=== PATIENT | female | born 1995 | race Caucasian/White ===

== ENCOUNTER 2020-08-19 18:22 | Emergency (ER) | payer OTHER, BC, SELFPAY ==
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
[2020-08-19 18:24] VITALS: BP 127/107; PULSE 73; RESP 18; TEMP 36.2; O2SAT 100
[2020-08-19 18:29] VITALS: BP 142/79; PULSE 98; RESP 18; O2SAT 100
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
[2020-08-19 19:52] VITALS: BP 117/72; PULSE 76; RESP 16; TEMP 36.6; O2SAT 100
== END 2020-08-19 19:54 | disposition home or self-care (01) ==
PROVIDERS: Emergency Provider Emergency Medicine; PCP Family Medicine
DX: R51.9 Headache, unspecified (principal); W54.1XXA Struck by dog, initial encounter
CPT/HCPCS: 70450; 99284

== ENCOUNTER 2020-12-20 20:21 | Emergency (ER) | payer BC, SELFPAY ==
--- NOTE | ~2020-12-20 | XR_ITS ---
EXAMINATION: XR foot RT 2V DATE: 12/20/2020 21:19 INDICATION: Right calcaneal and posterior ankle pain post fall TECHNIQUE: 1. Anteroposterior and lateral view of the right ankle were obtained. 2. Dorsoplantar and lateral views of the right foot were obtained. COMPARISON: None. FINDINGS: Alignment of the foot and ankle is normal. No fracture or osteochondral lesion. Joint spaces are well maintained. No ankle joint effusion. The soft tissues are unremarkable. IMPRESSION: 1. Negative right foot and ankle radiographs. Reviewed, dictated and finalized at location A.
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
--- NOTE | ~2020-12-20 | XR_ITS ---
EXAMINATION: XR knee RT 2V DATE: 12/20/2020 21:20 INDICATION: Right patellar pain post fall TECHNIQUE: AP, lateral and sunrise views of the right knee were obtained. COMPARISON: None. FINDINGS: Bone alignment is normal. No fracture. Joint spaces are normal. No right knee joint effusion. Soft ti ssues are unremarkable. IMPRESSION: 1. Negative right knee radiographs. Reviewed, dictated and finalized at location A.
--- NOTE | ~2020-12-20 | XR_ITS ---
EXAMINATION: XR hip RT 2V w AP pelvis DATE: 12/20/2020 21:18 INDICATION: Lateral right hip/pelvic pain post fall TECHNIQUE: Anteroposterior view of the pelvis and anteroposterior and frog-leg lateral views of the r ight hip were obtained. COMPARISON: None. FINDINGS: Alignment is normal. No fracture. Joint spaces are normal. Phlebolith in the right hemipelvis. Soft t issues are unremarkable. IMPRESSION: 1. No osseous abnormality. Reviewed, dictated and finalized at location A. IMPRESSION: 1. No osseous abnormality.
--- NOTE | ~2020-12-20 | XR_ITS ---
EXAMINATION: XR ankle RT 2V DATE: 12/20/2020 21:18 INDICATION: Right calcaneal and posterior ankle pain post fall TECHNIQUE: 1. Anteroposterior and lateral view of the right ankle were obtained. 2. Dorsoplantar and lateral views of the right foot were obtained. COMPARISON: None. FINDINGS: Alignment of the foot and ankle is normal. No fracture or osteochondral lesion. Joint spaces are well maintained. No ankle joint effusion. The soft tissues are unremarkable. IMPRESSION: 1. Negative right foot and ankle radiographs. Reviewed, dictated and finalized at location A.
[2020-12-20 20:28] VITALS: BP 124/74; PULSE 92; RESP 14; TEMP 37.2; O2SAT 100
[2020-12-20] MEDS: HYDROmorphone HCL INJ (*CRX) 1 MG/ML SYR IV PUSH (22:33)
[2020-12-20 22:34] VITALS: BP 132/88; PULSE 98; RESP 17; O2SAT 99
--- NOTE | 2020-12-20 23:10 | PC.NURSE ---
Report received and care of pt assumed at this time.
[2020-12-20 23:25] VITALS: BP 122/67; PULSE 94; RESP 16; O2SAT 97
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
--- NOTE | 2020-12-21 00:10 | PC.NURSE ---
called [facility] to request transport. ETA [id number]
[2020-12-21] MEDS: HYDROmorphone HCL INJ (*CRX) 1 MG/ML SYR IV PUSH (00:54)
--- NOTE | 2020-12-21 01:00 | PC.NURSE ---
called [facility] for ETA update. ETA 20 minutes
== END 2020-12-21 01:43 | disposition short-term general hospital (02) ==
PROVIDERS: Emergency Provider Emergency Medicine; PCP Family Medicine
DX: S77.11XA Crushing injury of right thigh, initial encounter (principal); S70.11XA Contusion of right thigh, initial encounter; V86.99XA Unspecified occupant of other special all-terrain or other off-road motor vehicle injured in nontraffic accident, initial encounter
CPT/HCPCS: 73502; 73560; 73562; 73600; 73620; 73700; 81025; 96374; 96376; 99285; J1170

== ENCOUNTER 2021-04-25 18:25 | Emergency (ER) | payer BC, SELFPAY ==
--- NOTE | ~2021-04-25 | XR_ITS ---
EXAMINATION: XR chest 2V DATE: 04/25/2021 18:52 INDICATION: Chest pain. TECHNIQUE: Frontal and lateral views of the chest were obtained. COMPARISON: None. FINDINGS: The chest demonstrates clear lungs without pneumonia, pleural effusion, or pneumothorax. Th e heart size is normal. Surgical clips in the right upper quadrant are likely from cholecystectomy. IMPRESSION: 1. No acute cardiopulmonary disease. Reviewed, dictated and finalized at location E. ETICS TEACHER
[2021-04-25 18:28] VITALS: BP 167/96; PULSE 98; RESP 19; TEMP 36.8; O2SAT 100
--- NOTE | 2021-04-25 18:37 | ECG_ITS ---
Measurements Intervals Vance Rate: 94 P: 54 ID: [id number] QRS: 28 QRSD: 83 T: 32 QT: 340 QTc: 425 Interpretive Statements SINUS RHYTHM NORMAL ECG Electronically Signed On 04-26-2021 7:27:20 GUITAR TEACHER by Lucas Collins D.O.
[2021-04-25 18:45] LABS: Basophils Absolute Auto 0.1 K/mm3 (0.0-0.1); Basophils Percent Auto 0.6 % (0.2-1.2); Eosinophils Absolute Auto 0.2 K/mm3 (0-0.3); Eosinophils Percent Auto 2.4 % (0-4.4); Hemoglobin 12.9 g/dL (12.0-15.0); Immature Granulocyte Absolute 0.02 K/mm3 (0.00-0.031); Immature Granulocyte Percent A 0.2 % (0-0.5); Lymphocytes Absolute Auto 3.43 K/mm3 (0.9-3.2); Lymphocytes Percent Auto 39.7 % (18.3-44.2); Mean Corpuscular HGB Conc 32.3 g/dl (32-36); Mean Corpuscular Hemoglobin 27.1 pg (26-34); Mean Platelet Volume 9.8 fl (7.4-10.4); Monocytes Absolute Auto 0.6 K/mm3 (0.1-0.6); Monocytes Percent Auto 6.8 % (2.6-8.5); Neutrophils Absolute Auto 4.4 K/mm3 (1.3-6.7); Neutrophils Percent Auto 50.3 % (45.5-73.1); Platelet Count Result 300 k/mm3 (150-375); Red Blood Count 4.76 M/mm3 (4.2-5.4); Red Cell Distribution Width 14.7 % (11.5-14.5); White Blood Count 8.7 K/mm3 (4.5-10.0)
--- NOTE | 2021-04-25 18:45 | ED.CHESTPAIN ---
HPI - Chest Pain General Chief Complaint: Chest Pain Stated Complaint: chest pain Time Seen by Provider: 04/25/21 18:39 Source: patient Mode of arrival: ambulatory Limitations: no limitations History of Present Illness HPI narrative: Patient is a 25-year-old female complaining of chest pain, left chest wall, sharp, radiating to left shoulder, 6 out of 10, started 5 days ago. Patient states that she saw her PCP Tuesday for the same complaint had lab work done and was told that the results were all normal. Patient denies any shortness of breath, abdominal pain, nausea, vomiting, diaphoresis, fever or chills. Related Data Home Medications Medication Instructions Recorded Confirmed No Home Medications 04/25/21 04/25/21 Allergies Allergy/AdvReac Type Severity Reaction Status Date / Time amoxicillin Allergy Rash Verified 04/25/21 18:36 ampicillin Allergy Rash Verified 04/25/21 18:36 Penicillins Allergy Rash Verified 04/25/21 18:36 Review of Systems Review of Systems: All systems reviewed & are unremarkable except as noted in HPI and below Constitutional: Constitutional: Denies body ache(s), Denies chills, Denies excessive sweating, Denies fatigue, Denies fever(s), Denies headache(s), Denies lethargy, Denies malaise, Denies weakness and Denies weight loss Eyes: Eyes: Denies blurry vision, Denies change in vision and Denies loss of vision ENT: Denies dizziness, Denies ear discharge, Denies headache(s), Denies lip swelling, Denies epistaxis, Denies nasal congestion, Denies neck pain, Denies throat swelling and Denies tongue swelling Cardiovascular: Cardiovascular: Denies diaphoresis, Denies rapid heart rate, Denies edema, Denies irregular heart rhythm, Denies lightheadedness, Denies palpitations, Denies dyspnea and Denies dyspnea on exertion Respiratory: Respiratory: Denies chest congestion, Denies cough, Denies hemoptysis, Denies dyspnea and Denies dyspnea on exertion Gastrointestinal: Gastrointestinal: Denies abdominal pain, Denies melena, Denies hematochezia, Denies diarrhea, Denies nausea, Denies vomiting and Denies hematemesis Musculoskeletal: Musculoskeletal: Denies abnormal gait, Denies deformity, Denies joint swelling, Denies limited range of motion, Denies neck pain and Denies numbness Neurologic: Denies Abnormal speech present, Denies abnormal gait, Denies confusion, Denies dizziness, Denies headache(s), Denies focal weakness, Denies loss of vision, Denies numbness, Denies Other visual disturbances, Denies Sensory deficit (Neuro) and Denies weakness Psychiatric: Psychiatric: Denies confusion, Denies depression, Denies auditory hallucinations, Denies homicidal ideation and Denies suicidal ideation Endocrine: Endocrine: Denies cold intolerance, Denies excessive sweating, Denies fatigue, Denies heat intolerance and Denies palpitations Hematologic/Lymphatic: Hematologic/Lymphatic: Denies easy bleeding and Denies easy bruising Allergic/Immunologic: Allergic/Immunologic: Denies lip swelling, Denies throat swelling and Denies tongue swelling PMFSH Past Medical History Medical History Depression Social History Social History Smoking status: Never smoker Comments Past medical history: None Family history: Negative for coronary disease or ND Social history: Non-smoker no EtOH or drug use Exam Const: General: cooperative, healthy appearing, comfortable, no acute distress, well developed, alert and awake; No confusion Orientation/consciousness: oriented to person, oriented to place, oriented to time, patient oriented x3 and No confusion Limitations: no limitations HENMT: Head: normal to inspection, normocephalic and atraumatic Ears: hearing grossly normal bilaterally, TM normal on the right and TM normal on the left General nose exam: Normal external nose present, Normal nares present and No nasal discha
--- NOTE | 2021-04-25 18:57 | PC.NURSE ---
Talked to Mario in lab to add on D Dimer at 18:57
[2021-04-25 18:58] LABS: Alanine Aminotransferase 36 U/L (4-35); Albumin Level 4.7 g/dL (3.5-5.1); Alkaline Phosphatase 73 U/L (38-126); Anion Gap 13 mmol/L (8-16); Aspartate Amino Transferase 36 U/L (14-36); Bilirubin,Total 0.4 mg/dL (0.2-1.3); Blood Urea Nitrogen 7 mg/dL (7-17); Calcium 9.5 mg/dL (8.4-10.2); Carbon Dioxide 27 mmol/L (22-30); Chloride 101 mmol/L (98-107); Estimated CRCL calculation 151 ml/min; Estimated Glomerular Filt Rate > 60; Glucose 96 mg/dL (65-110); Lipase 75 U/L (23-300); Potassium 3.9 mmol/L (3.4-5.0); Sodium 141 mmol/L (137-145)
[2021-04-25 19:00] VITALS: PULSE 97
[2021-04-25 19:00] LABS: INR 0.9; Prothrombin Time 12.2 Seconds (11.1-14.7)
[2021-04-25 19:01] LABS: Partial Thromboplastin Time 32.6 SECONDS (22.3-36.8)
[2021-04-25 19:07] LABS: Troponin I < 0.012 ng/mL (0.000-0.034)
[2021-04-25 19:11] LABS: D Dimer 0.27 ug/mL (<0.48)
[2021-04-25 20:01] VITALS: BP 127/78; PULSE 93; RESP 20; O2SAT 99
[2021-04-25] MEDS: ASPIRIN 81 MG CHEWABLE TABLET 324 MG PO (20:01)
[2021-04-25] MEDS: KETOROLAC 30 MG/ML VIAL (*BKC) IV PUSH (20:59)
[2021-04-25] MEDS: HYDROcodone/acetaminophen (*CRX) 5-325 MG TABLET 1 TAB PO (21:01)
[2021-04-25 21:03] VITALS: BP 129/75; PULSE 110; RESP 20; O2SAT 99
[2021-04-25 22:14] LABS: Troponin I < 0.012 ng/mL (0.000-0.034)
[2021-04-25 22:43] VITALS: BP 131/74; PULSE 103; RESP 18; O2SAT 98
== END 2021-04-25 22:48 | disposition home or self-care (01) ==
PROVIDERS: Emergency Medicine; Emergency Provider Emergency Medicine; PCP Family Medicine
DX: R07.89 Other chest pain (principal)
CPT/HCPCS: 36415; 71046; 80053; 81025; 83690; 84484; 85025; 85380; 85610; 85730; 93005; 96374; 99284; A9270; J1885

== ENCOUNTER 2021-06-12 13:06 | Outpatient (CLI) | payer OTHER, SELFPAY ==
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
== END 2021-06-12 13:07 | disposition home or self-care (01) ==
PROVIDERS: PCP Family Medicine; Visit Provider Family Medicine
DX: M79.661 Pain in right lower leg (principal)
CPT/HCPCS: 93971

== ENCOUNTER 2021-12-10 20:50 | Emergency (ER) | payer OTHER, SELFPAY ==
[2021-12-10 21:32] VITALS: BP 152/86; PULSE 102; RESP 18; TEMP 36.9; O2SAT 100
[2021-12-10 21:57] LABS: Appearance Urine Clear (Clear); Bilirubin Urine Negative (Negative); Blood Urine Negative (Negative); Color Urine Light Yellow (Yellow); Glucose Urine UA Negative (Negative); Ketones Urine Negative (Negative); Leukocyte Esterase Ur Negative LEU/UL (Negative); Nitrate Urine Negative (Negative); Protein Urine Negative (Negative); Urobilinogen Urine 0.2 mg/dL (<2.0)
[2021-12-10 21:58] LABS: Add Urine Microscopic? NO
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
[2021-12-11 00:20] VITALS: BP 133/76; PULSE 88; RESP 16; TEMP 36.8; O2SAT 100
== END 2021-12-11 00:31 | disposition home or self-care (01) ==
PROVIDERS: Emergency Provider Emergency Medicine
DX: O9A.212 Injury, poisoning and certain other consequences of external causes complicating pregnancy, second trimester (principal); S39.91XA Unspecified injury of abdomen, initial encounter; W54.1XXA Struck by dog, initial encounter; Z3A.16 16 weeks gestation of pregnancy
CPT/HCPCS: 81003; 99283

== ENCOUNTER → 2022-01-06 10:51 | Outpatient (CLI) | payer OTHER, SELFPAY ==
--- NOTE | ~2022-01-06 | US_ITS ---
US OB /maternal detail DATE: 01/06/2022 11:30 INDICATION: anatomy screen TECHNIQUE: Real-time and color flow imaging and Doppler analysis COMPARISON: None FINDINGS: Live montero intrauterine gestation, fetus in transverse lie, vertex presentation. heart rate of 153 bpm. Posterior placenta, lower margin 6 cm from the cervix. Cervix measures 4.2 cm vertical dimension. cerebral ventricles, cerebellum, cisterna magna and nuchal fold appear normal. Four-chamber fet al heart with normal right and left ventricular outflow tracts. The spine appears normal. The f etal diaphragm is intact. Fluid is demonstrated in the stomach and urinary bladder. No hy dronephrosis. Three-vessel umbilical cord with normal insertion at abdominal wall. Biparietal diameter 4.82 cm; 20 weeks 4 days Head circumference 17.58 cm; 20 weeks 1 day Abdominal circumference 15.56 cm; 20 weeks 5 days Femur length 3.32 cm; 20 weeks 3 days Composite age by Hadlock formula is 20 weeks 3 days +/- 1 week 3 days with RUBIN of 05/23/2022. Estimated weight is 359.7 g +/- 54 g. Estimated weight-GP: 92.2% Head circumference/abdominal circumference 1.13, within normal range of 1.07-1.25. Femur length/head circumference 18.89, within normal range of 16.41-20.01. IMPRESSION: Normal anatomy screen Estimated gestational age of 20 weeks 3 days +/- 1 week 3 days; RUBIN: 05/23/2022 Reviewed, dictated and finalized at Location A. Reviewed, dictated and finalized at location A.
== END ==
PROVIDERS: PCP Obstetrics & Gynecology Gynecologic Oncology; Visit Provider Obstetrics & Gynecology Gynecologic Oncology
DX: Z36.9 Encounter for antenatal screening, unspecified (principal); Z3A.00 Weeks of gestation of pregnancy not specified
CPT/HCPCS: 76805

== ENCOUNTER 2022-01-27 17:32 | Emergency (ER) | payer OTHER, SELFPAY ==
[2022-01-27 17:39] VITALS: BP 139/82; PULSE 90; RESP 18; TEMP 36.9; O2SAT 100
--- NOTE | 2022-01-27 18:10 | ED.EAR ---
HPI - Ear Problem General Chief complaint: Ear Stated complaint: Rt Ear Irritation Time Seen by Provider: 01/27/22 17:58 Source: patient Mode of arrival: ambulatory Limitations: no limitations History of Present Illness HPI Narrative: Patient presents today complaining of right ear pain x5 days. Prior to onset of symptoms, patient scratched the inside of her ear canal the paperclip Fabien itching. She then started experiencing pain in the canal that has progressively gotten worse. She currently rates her pain 9/10. Today she was seen by her primary care provider and prescribed ciprofloxacin ear drops which she has used once. She has also used [id number] lidocaine drops and wax softening drops as she was told she had some wax in her ear canal. She she has not gotten any relief from the antibiotic drops, which she has told she would buy now, and she came in for evaluation due to the ongoing pain. She is currently 23 weeks . Related Data Home Medications Medication Instructions Recorded Confirmed One Daily 1 tablet PO DAILY 01/27/22 01/27/22 aspirin 81 mg tablet,delayed 81 mg DAILY 01/27/22 01/27/22 release ciprofloxacin HCl 0.3 % eye drops 1 drp DIRECTED 01/27/22 01/27/22 labetalol 200 mg tablet 200 mg PO DAILY 01/27/22 01/27/22 Allergies Allergy/AdvReac Type Severity Reaction Status Date / Time amoxicillin Allergy Rash Verified 12/10/21 21:41 ampicillin Allergy Rash Verified 12/10/21 21:41 Penicillins Allergy Rash Verified 12/10/21 21:41 Sulfa (Sulfonamide Allergy Unknown Verified 01/27/22 17:47 Antibiotics) Review of Systems Review of Systems: CONSTITUTIONAL: Denies body aches, fever, chills, or sweats. EYES: Denies visual changes, redness, or discharge. ENT: Denies rhinorrhea, congestion, sore throat. + right ear pain CARDIOVASCULAR: Denies chest pain, palpitations, or edema. RESPIRATORY: Denies cough or dyspnea. GASTROINTESTINAL: Denies abdominal pain, nausea, vomiting, or diarrhea. GENITOURINARY: Denies dysuria or hematuria. SKIN: Denies rash, itching, or wounds. MUSCULOSKELETAL: Denies back pain, joint pain, or myalgia. NEUROLOGIC: Denies headache, numbness, tingling, or weakness. PSYCH: Denies depression or anxiety. PMFSH Past Medical History Medical History Depression Social History Social History Smoking status: Never smoker Comments At time of signature, I have reviewed and agree with nursing past medical, surgical, social and family history unless otherwise noted. Please see nursing chart for further information. There is no relevant family history pertinent to the presenting complaint Exam Narrative: GENERAL: Well-appearing, well-nourished, and in no acute distress. HEAD: Normocephalic, atraumatic. EYES: EOMI. No redness or drainage. Conjunctivae normal. ENT: Mucous membranes pink and moist. TMs normal bilaterally. Right ear canal is moderately edematous and erythematous. No active drainage. No wax noted. + movement and tragal tenderness. NECK: Normal AROM. CHEST: No respiratory distress. EXTREMITIES: Normal range of motion. No edema. SKIN: Warm, dry, no rash. Capillary refill normal. Normal skin turgor. NEURO: No focal deficits. Alert and oriented x3. Gait steady. PSYCH: Normal affect. No signs of depression or anxiety. Course Course Level of Care: Express Care Visit Vital Signs Vital signs: Vital Signs Temperature 98.5 F 01/27/22 17:39 Pulse Rate 90 01/27/22 17:39 Respiratory Rate 18 01/27/22 17:39 Blood Pressure 139/82 01/27/22 17:39 Pulse Oximetry 100 01/27/22 17:39 Oxygen Delivery Room Air 01/27/22 17:39 Temperature 98.5 F 01/27/22 17:39 Pulse Rate 90 01/27/22 17:39 Respiratory Rate 18 01/27/22 17:39 Blood Pressure 139/82 01/27/22 17:39 Pulse Oximetry 100 01/27/22 17:39 Ox
== END 2022-01-27 18:19 | disposition home or self-care (01) ==
PROVIDERS: Emergency Provider Nurse Practitioner
DX: H60.501 Unspecified acute noninfective otitis externa, right ear (principal); Z79.82 Long term (current) use of aspirin
CPT/HCPCS: 99213; G0463

== ENCOUNTER 2022-06-03 16:51 | Emergency (ER) | payer OTHER, SELFPAY ==
[2022-06-03 17:15] VITALS: BP 137/81; PULSE 82; RESP 16; TEMP 36.6; O2SAT 99
--- NOTE | 2022-06-03 17:37 | ED.SKABFB ---
HPI - Skin/Abscess/Foreign Bdy General Chief complaint: Skin/Abscess/Foreign Body Stated complaint: rt breast pain Time Seen by Provider: 06/03/22 17:20 Source: patient Mode of arrival: ambulatory Limitations: no limitations History of Present Illness HPI narrative: Damaris is a 27-year-old female patient presenting to the clinic today with complaints of right breast discomfort. She reports that she is 6 weeks and is having some redness and swelling and to the right breast. She thought initially she may have a clogged a mammary docked however she has been massaging the area and pumping without relief. She notices that the redness is getting worse. She denies any fever or chills. Does have tenderness over the right lateral breast tissue. Related Data Home Medications Medication Instructions Recorded Confirmed enalapril maleate 10 mg tablet 10 mg PO DAILY 06/03/22 06/03/22 Allergies Allergy/AdvReac Type Severity Reaction Status Date / Time amoxicillin Allergy Rash Verified 06/03/22 17:18 ampicillin Allergy Rash Verified 06/03/22 17:18 Penicillins Allergy Rash Verified 06/03/22 17:18 Sulfa (Sulfonamide Allergy Unknown Verified 06/03/22 17:18 Antibiotics) Review of Systems Review of Systems: Pertinent positives per HPI. Patient denies any fever, chills, rash, headache, visual changes, dizziness, cough, runny nose, sore throat, shortness of breath, chest pain, palpitations, nausea, vomiting, diarrhea, constipation, abdominal pain, or any urinary issues. PMFSH Past Medical History Medical History Depression Social History Social History Smoking status: Never smoker Comments At the time of my signature, I reviewed and agree with the nursing past medical, surgical, social, and family history. There is no relevant family history pertinent to the patient complaint. Exam Narrative: General: Well-developed, well nourished, in no apparent distress Head: Normocephalic, atraumatic. Cardio: Regular rate and rhythm, s1 and s2 normal, no murmur appreciated. Resp: Clear to auscultation bilaterally, no rhonchi, rales, wheezing or rubs. Right breast exam: Symmetric, engorged, fibrous breast tissue, no abnormal nipple discharge or peeling, tender to palpation over the right lateral breast with redness without erythema Course Course Emergency Course: Portions of this record may have been created with voice recognition software. Level of Care: Express Care Visit Vital Signs Vital signs: Vital Signs Temperature 36.6 C 06/03/22 17:15 Pulse Rate 82 06/03/22 17:15 Respiratory Rate 16 06/03/22 17:15 Blood Pressure 137/81 06/03/22 17:15 Pulse Oximetry 99 06/03/22 17:15 Oxygen Delivery Room Air 06/03/22 17:15 Temperature 36.6 C 06/03/22 17:15 Pulse Rate 82 06/03/22 17:15 Respiratory Rate 16 06/03/22 17:15 Blood Pressure 137/81 06/03/22 17:15 Pulse Oximetry 99 06/03/22 17:15 Oxygen Delivery Room Air 06/03/22 17:15 Vital signs reviewed MDM - Skin/Abscess/Foreign Bdy MDM Narrative Medical decision making narrative: At the time of visit patient is resting comfortably exam of the exam table. I suspect patient may have mastitis with clogged mammary duct. Supportive measures were discussed with the patient she voiced understanding discharge instructions and agrees to treatment plan. Patient has allergies to penicillin but has taken Keflex before without any issues. Differential Diagnosis Differential diagnosis: Likely abscess of skin or subcutaneous tissue and other (Mastitis, clogged mammary duct) Discharge Plan Discharge Clinical Impression: Breast pain, right, Mastitis Patient Disposition: Home, Self-Care Condition: Stable Instructions: Antibiotic Form, Mastitis (ED), and Plugged Ducts (ED) Additional Ins
== END 2022-06-03 17:53 | disposition home or self-care (01) ==
PROVIDERS: Emergency Provider Nurse Practitioner Family
DX: N61.0 Mastitis without abscess (principal); N64.4 Mastodynia
CPT/HCPCS: 99213; G0463

== ENCOUNTER → 2022-07-19 13:01 | Outpatient (CLI) | payer OTHER, SELFPAY ==
--- NOTE | ~2022-07-19 | US_ITS ---
EXAMINATION: US soft tissue head and neck DATE: 07/19/2022 13:15 INDICATION: Localized swelling, mass and lump TECHNIQUE: Multiple grayscale and Doppler ultrasound images of the region of concern at the left lina k were obtained. COMPARISON: None FINDINGS: 1.4 x 1.1 x 0.5 cm hypoechoic lymph node with subtle linear echogenic hilum extending centrally from one side of the nodule. IMPRESSION: 1. 1.4 x 1.1 x 0.5 cm nodule at the region of concern at the left cheek most likely representing a no rmal sized lymph node. Reviewed, dictated and finalized at location A. IMPRESSION: 1. 1.4 x 1.1 x 0.5 cm nodule at the region of concern at the left cheek most li jake representing a normal sized lymph node.
== END ==
DX: R22.9 Localized swelling, mass and lump, unspecified (principal)
CPT/HCPCS: 76536

== ENCOUNTER 2023-01-02 11:52 | Emergency (ER) | payer OTHER, SELFPAY ==
[2023-01-02 12:04] VITALS: BP 134/88; PULSE 88; RESP 18; TEMP 36.6; O2SAT 100
--- NOTE | 2023-01-02 12:07 | ECG_ITS ---
Measurements Intervals [place] Rate: 97 P: 46 NC: 163 QRS: 27 QRSD: 85 T: 29 QT: 329 QTc: 418 Interpretive Statements SINUS RHYTHM NORMAL ECG COMPARED TO ECG 01/02/2023 12:16:23 NO SIGNIFICANT CHANGES Electronically Signed On 01-03-2023 7:01:44 CDT by Junito Tuttle M.D.
--- NOTE | 2023-01-02 12:22 | ED.GENADULT ---
HPI - General Adult General Chief complaint: Chest Pain Stated complaint: Chest Pain,Elevated Blood Pressure Time Seen by Provider: 01/02/23 12:20 Source: patient Mode of arrival: ambulatory Limitations: no limitations History of Present Illness HPI narrative: 27-year-old female patient presents to the [facility] with complaints of chest pressure, shortness of breath with exertion and an episode of high blood pressure today. Patient states during this episode she also had some blurred vision and felt like she was seeing her pulses . Patient states that she had a baby about 8 months ago and did have -induced hypertension and preeclampsia was put on labetalol at that time. Patient states she has been since taken off all of medications once her blood pressures regulated. Patient states she has been trying to work out and lose weight. Patient states she is also currently breast feeding/ pumping only. Patient states she has been under some stress recently due to some recent tremors in her baby that she has been getting worked up at [facility]. Related Data Home Medications Medication Instructions Recorded Confirmed No Home Medications 01/02/23 01/02/23 Allergies Allergy/AdvReac Type Severity Reaction Status Date / Time amoxicillin AdvReac Mild Rash Verified 01/02/23 12:03 ampicillin AdvReac Mild Rash Verified 01/02/23 12:03 Penicillins AdvReac Mild Rash Verified 01/02/23 12:03 Sulfa (Sulfonamide AdvReac Mild Rash Verified 01/02/23 12:03 Antibiotics) Review of Systems Review of Systems: CONSTITUTIONAL: Denies fever, chills, or sweats. EYES: positive visual changes, denies redness, or discharge. ENT: Denies rhinorrhea, congestion, sore throat, or otalgia. CARDIOVASCULAR: Positive chest pressure, palpitations, denies edema. RESPIRATORY: Denies cough or dyspnea. GASTROINTESTINAL: Denies abdominal pain, nausea, vomiting, or diarrhea. GENITOURINARY: Denies dysuria or hematuria. SKIN: Denies rash or itching. MUSCULOSKELETAL: Denies back pain, joint pain, or myalgia. NEUROLOGIC: Denies headache, numbness, or weakness. positive dizziness PSYCHIATRIC: positive anxiety denies depression. [facility] Past Medical History Medical History Bulimia Depression Gestational hypertension Preeclampsia Surgical History Surgical History Hx of cholecystectomy Social History Social History Smoking status: Never smoker Comments at the time of my signature I agree with nursing past medical history, surgical, social, and family history. There is no relevant family history pertinent to the presenting complaint. Exam Narrative: GENERAL: Well-appearing, well-nourished, and in no acute distress. HEAD: Normocephalic, atraumatic. EYES: PERRLA and EOMI. ENT: Nares clear, no rhinorrhea or epistaxis. Mucous membranes moist. NECK: Supple. No lymphadenopathy CHEST: Clear to auscultation. No respiratory distress. HEART: Regular rate and rhythm. No murmur heard. Normal peripheral pulses. ABDOMEN: Soft, nontender, nondistended, normal active bowel sounds. EXTREMITIES: Normal range of motion. No edema. SKIN: Warm, dry, no rash. NEURO: No focal deficits. Alert and oriented x3. Course Course Level of Care: Express Care Visit Vital Signs Vital signs: Vital Signs Temperature 36.6 C 01/02/23 12:04 Pulse Rate 88 01/02/23 12:04 Respiratory Rate 18 01/02/23 12:04 Blood Pressure 134/88 01/02/23 12:04 Pulse Oximetry 100 01/02/23 12:04 Oxygen Delivery Room Air 01/02/23 12:04 Temperature 36.6 C 01/02/23 12:04 Pulse Rate 88 01/02/23 12:04 Respiratory Rate 18 01/02/23 12:04 Blood Pressure 134/88 01/02/23 12:04 Pulse Oximetry 100 01/02/23 12:04 Oxygen Delivery Room Air 01/02/23 12:04 vital si
== END 2023-01-02 12:26 | disposition short-term general hospital (02) ==
LOC: EXPTROY 11:57
PROVIDERS: Emergency Provider Nurse Practitioner Family
DX: R07.9 Chest pain, unspecified (principal); I10 Essential (primary) hypertension; R06.00 Dyspnea, unspecified
CPT/HCPCS: 93005; 99213; G0463

== ENCOUNTER 2023-01-02 12:45 | Emergency (ER) | payer OTHER, SELFPAY ==
--- NOTE | ~2023-01-02 | CT_ITS ---
EXAMINATION: CTA chest PE protocol DATE: 01/02/2023 14:43 INDICATION: dyspnea/elevated heart rate TECHNIQUE: Computed tomography angiography (CTA) of the chest was performed with 200 mL Omnipaque-350 intravenous contrast timed to evaluate the pulmonary arteries. Coronal maximum intensity projection 3D-reconstructions were created by the technologist. The dose-length product (DLP) was 1761.18 mGy-cm . Automated exposure control and iterative reconstruction technique were employed. COMPARISON: X-ray chest 04/25/2021. FINDINGS: Lung parenchyma and airways: Granulomatous calcification. Dependent atelectasis.. Pleura: Unremarkable. Thoracic inlet, axillae and chest wall: Unremarkable. Thoracic aorta: Normal. Mediastinum: Residual thymic tissue. Heart and pericardium: Normal. Coronary artery calcifications: Absent. Upper abdomen: Status post cholecystectomy. Bones: No acute osseous finding. Pulmonary arteries: Study quality: Cardiac motion, quantum mottle, beam hardening adjacent to the sup erior vena cava. Borderline contrast enhancement after repeat imaging attempts. Overall the study is diagnostic. No pulmonary emboli detected. IMPRESSION: No CT evidence of acute pulmonary embolus. No acute intrathoracic process detected. Reviewed, dictated and finalized at location K.
[2023-01-02 12:47] VITALS: BP 161/95; PULSE 87; RESP 14; TEMP 36.4; O2SAT 100
--- NOTE | 2023-01-02 12:49 | ECG_ITS ---
Measurements Intervals [place] Rate: 77 P: 20 RI: 190 QRS: 38 QRSD: 92 T: 29 QT: 354 QTc: 401 Interpretive Statements SINUS RHYTHM NORMAL ELECTROCARDIOGRAM COMPARED TO ECG 04/25/2021 18:33:42 NO SIGNIFICANT CHANGES Electronically Signed On 01-03-2023 7:00:45 CDT by Junito Tuttle M.D.
[2023-01-02 12:56] VITALS: BP 147/89; PULSE 93; RESP 21; TEMP 37.1; O2SAT 99
--- NOTE | 2023-01-02 13:23 | ED.GENADULT ---
HPI - General Adult General Chief complaint: Chest Pain Stated complaint: r/o PE Time Seen by Provider: 01/02/23 12:50 History of Present Illness HPI narrative: Damaris Aguilera is a 27 y/o female who presents with reports of feeling increased SOB with mild exertion over the past week, she reports today she started to feel chest tightness that was new. Her heart rate at home was 120. She went to an and her heart rate was in the 120's she denies feeling anxious. She doesn't feel SOB at rest but continues to have slight chest tightness. She reports that she is 8 months and she had preeclampsia and was taken off of her blood pressure medication about 5 months ago Denies noticing any lower extremity swelling/ no hx of DVT/ no recent travel. Denies cough / fever/ URI symptoms. Related Data Home Medications Medication Instructions Recorded Confirmed No Home Medications 01/02/23 01/02/23 Allergies Allergy/AdvReac Type Severity Reaction Status Date / Time amoxicillin AdvReac Mild Rash Verified 01/02/23 13:10 ampicillin AdvReac Mild Rash Verified 01/02/23 13:10 Penicillins AdvReac Mild Rash Verified 01/02/23 13:10 Sulfa (Sulfonamide AdvReac Mild Rash Verified 01/02/23 13:10 Antibiotics) Review of Systems Review of Systems: CONSTITUTIONAL: Denies fever, chills, or sweats. EYES: Denies visual changes, redness, or discharge. ENT: Denies rhinorrhea, congestion, sore throat, or otalgia. CARDIOVASCULAR: Denies chest pain, palpitations, or edema. RESPIRATORY: Reports increased SOB on exertion for a couple weeks / chest tightness started today / GASTROINTESTINAL: Denies abdominal pain, nausea, vomiting, or diarrhea. GENITOURINARY: Denies dysuria or hematuria. SKIN: Denies rash or itching. MUSCULOSKELETAL: Denies back pain, joint pain, or myalgia. NEUROLOGIC: Denies headache, numbness, dizziness, or weakness. PSYCHIATRIC: Denies anxiety or depression. [facility] Past Medical History Medical History Bulimia Depression Gestational hypertension Preeclampsia Surgical History Surgical History Hx of cholecystectomy Social History Social History Smoking status: Never smoker Exam Narrative: GENERAL: Well-appearing, well-nourished, and in no acute distress. HEAD: Normocephalic, atraumatic. EYES: PERRLA and EOMI. ENT: Nares clear, no rhinorrhea or epistaxis. Mucous membranes moist. Oropharynx without tonsillar hypertrophy exudate or other lesions. Bilateral TMs pearly quispe nonbulging NECK: Supple. No adenopathy or masses. No carotid bruits or JVD CHEST: Clear to auscultation. No respiratory distress. No wheezes rales or rhonchi HEART: Regular rate and rhythm. No murmur heard. Normal peripheral pulses. ABDOMEN: Soft, nontender, nondistended, normal active bowel sounds. EXTREMITIES: Normal range of motion. No edema. SKIN: Warm, dry, no rash. NEURO: No focal deficits. Alert and oriented x3. PSYCH: Normal mood and affect. Course Vital Signs Vital signs: Vital Signs Temperature 36.4 C 01/02/23 12:47 Pulse Rate 87 01/02/23 12:47 Respiratory Rate 14 01/02/23 12:47 Blood Pressure 161/95 H 01/02/23 12:47 Pulse Oximetry 100 01/02/23 12:47 Oxygen Delivery Room Air 01/02/23 12:47 Temperature 37.1 C 01/02/23 12:56 Pulse Rate 77 01/02/23 14:01 Respiratory Rate 27 H 01/02/23 14:01 Blood Pressure 138/81 01/02/23 14:01 Pulse Oximetry 99 01/02/23 12:56 Oxygen Delivery Room Air 01/02/23 12:56 Medical Decision Making MDM Narrative Medical decision making narrative: On exam pt is noted to be resting comfortably on stretcher no acute distress Heart rate here is going up to 110 while at rest she explains some increased SOB with exertion No fever/ cough She states that she has been off of her b/p medic
[2023-01-02 13:31] VITALS: BP 142/80; PULSE 89; RESP 20
[2023-01-02 13:36] LABS: Basophils Absolute Auto 0.1 K/mm3 (0.0-0.1); Basophils Percent Auto 0.8 % (0.2-1.2); Eosinophils Absolute Auto 0.2 K/mm3 (0-0.3); Eosinophils Percent Auto 2.2 % (0-4.4); Hematocrit 38.5 % (37.0-47.0); Immature Granulocyte Absolute 0.02 K/mm3 (0.00-0.031); Immature Granulocyte Percent A 0.2 % (0-0.5); Lymphocytes Absolute Auto 3.57 K/mm3 (0.9-3.2); Mean Corpuscular HGB Conc 31.2 g/dl (32-36); Mean Corpuscular Hemoglobin 25.1 pg (26-34); Mean Corpuscular Volume 80.5 fl (80-100); Mean Platelet Volume 10.6 fl (7.4-10.4); Monocytes Absolute Auto 0.5 K/mm3 (0.1-0.6); Monocytes Percent Auto 5.8 % (2.6-8.5); Neutrophils Absolute Auto 4.2 K/mm3 (1.3-6.7); Platelet Count Result 303 k/mm3 (150-375); Red Blood Count 4.78 M/mm3 (4.2-5.4); Red Cell Distribution Width 15.4 % (11.5-14.5); White Blood Count 8.5 K/mm3 (4.5-10.0)
[2023-01-02 13:46] VITALS: BP 147/91; PULSE 107; RESP 24
[2023-01-02 13:50] LABS: Alanine Aminotransferase 45 U/L (6-35); Albumin Level 4.5 g/dL (3.5-5.1); Alkaline Phosphatase 93 U/L (38-126); Anion Gap 6 mmol/L (8-16); Aspartate Amino Transferase 32 U/L (14-36); Bilirubin,Total 0.3 mg/dL (0.2-1.3); Blood Urea Nitrogen 8 mg/dL (7-17); Carbon Dioxide 30 mmol/L (22-30); Chloride 103 mmol/L (98-107); Estimated CRCL calculation 151 ml/min; Estimated Glomerular Filt Rate > 60; Glucose 84 mg/dL (65-110); Potassium 3.5 mmol/L (3.4-5.0); Sodium 139 mmol/L (137-145)
[2023-01-02 13:56] LABS: Appearance Urine Clear (Clear); Bilirubin Urine Negative (Negative); Blood Urine Negative (Negative); Color Urine Yellow (Yellow); Glucose Urine UA Negative (Negative); Ketones Urine Negative (Negative); Leukocyte Esterase Ur Negative LEU/UL (Negative); Nitrate Urine Negative (Negative); Protein Urine Negative (Negative); Urobilinogen Urine 0.2 mg/dL (<2.0)
[2023-01-02 13:57] LABS: Add Urine Microscopic? NO
[2023-01-02 14:00] LABS: Troponin I < 0.012 ng/mL (0.000-0.034)
[2023-01-02 14:01] VITALS: BP 138/81; PULSE 77; RESP 27
[2023-01-02 14:29] LABS: Influenza A QL RT-PCR Negative (Negative); Influenza B QL RT-PCR Negative (Negative); RSV RNA, RT-PCR Negative (Negative); SARS-CoV-2 RNA PCR Negative (Negative)
== END 2023-01-02 16:06 | disposition home or self-care (01) ==
PROVIDERS: Emergency Provider Nurse Practitioner Family
DX: R07.89 Other chest pain (principal); Z20.822 Contact with and (suspected) exposure to COVID-19; Z90.49 Acquired absence of other specified parts of digestive tract
CPT/HCPCS: 36415; 71275; 80053; 81001; 81003; 81025; 84484; 85025; 87637; 93005; 99284; Q9967

== ENCOUNTER 2023-01-26 20:47 | Emergency (ER) | payer OTHER, SELFPAY ==
--- NOTE | ~2023-01-26 | XR_ITS ---
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 RESULT: Lines, tubes, and devices: Cholecystectomy clips. Lungs and pleura: Clear. Cardiomediastinal silhouette: Stable. Other: No acute osseous or upper abdominal finding. IMPRESSION: No acute cardiopulmonary process. Reviewed, dictated and finalized at location K. 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
--- NOTE | 2023-01-26 20:49 | ECG_ITS ---
Measurements Intervals [place] Rate: 94 P: 43 MI: 169 QRS: 17 QRSD: 101 T: 23 QT: 333 QTc: 418 Interpretive Statements SINUS RHYTHM DELAYED PRECORDIAL R/S TRANSITION BASELINE ARTIFACT- AVR, AVF BORDERLINE ECG COMPARED TO ECG 01/02/2023 12:58:18 NO SIGNIFICANT CHANGES Electronically Signed On 01-27-2023 7:00:56 [employer]ODLE CAT[employer] by Lucas Collins D.O.
[2023-01-26 20:53] VITALS: BP 153/110; PULSE 110; RESP 20; TEMP 36.4; O2SAT 100
[2023-01-26 21:06] LABS: Basophils Absolute Auto 0.1 K/mm3 (0.0-0.1); Basophils Percent Auto 0.7 % (0.2-1.2); Eosinophils Absolute Auto 0.2 K/mm3 (0-0.3); Eosinophils Percent Auto 2.3 % (0-4.4); Hematocrit 38.9 % (37.0-47.0); Hemoglobin 12.1 g/dL (12.0-15.0); Immature Granulocyte Absolute 0.03 K/mm3 (0.00-0.031); Immature Granulocyte Percent A 0.4 % (0-0.5); Lymphocytes Absolute Auto 2.86 K/mm3 (0.9-3.2); Lymphocytes Percent Auto 39.2 % (18.3-44.2); Mean Corpuscular HGB Conc 31.1 g/dl (32-36); Mean Corpuscular Hemoglobin 25.1 pg (26-34); Mean Corpuscular Volume 80.7 fl (80-100); Mean Platelet Volume 10.6 fl (7.4-10.4); Monocytes Absolute Auto 0.6 K/mm3 (0.1-0.6); Monocytes Percent Auto 7.7 % (2.6-8.5); Neutrophils Absolute Auto 3.6 K/mm3 (1.3-6.7); Neutrophils Percent Auto 49.7 % (45.5-73.1); Platelet Count Result 279 k/mm3 (150-375); Red Blood Count 4.82 M/mm3 (4.2-5.4); Red Cell Distribution Width 15.4 % (11.5-14.5); White Blood Count 7.3 K/mm3 (4.5-10.0)
[2023-01-26 21:15] LABS: Alanine Aminotransferase 35 U/L (6-35); Albumin Level 4.5 g/dL (3.5-5.1); Alkaline Phosphatase 89 U/L (38-126); Anion Gap 12 mmol/L (8-16); Aspartate Amino Transferase 30 U/L (14-36); Bilirubin,Total 0.4 mg/dL (0.2-1.3); Blood Urea Nitrogen 11 mg/dL (7-17); Calcium 8.7 mg/dL (8.4-10.2); Carbon Dioxide 26 mmol/L (22-30); Chloride 103 mmol/L (98-107); Estimated CRCL calculation 152 ml/min; Estimated Glomerular Filt Rate > 60; Glucose 101 mg/dL (65-110); Lipase 69 U/L (23-300); Potassium 3.8 mmol/L (3.4-5.0); Sodium 141 mmol/L (137-145)
[2023-01-26 21:16] LABS: INR 0.9; Partial Thromboplastin Time 29.6 SECONDS (22.3-36.8); Prothrombin Time 12.8 Seconds (11.1-14.7)
[2023-01-26 21:27] LABS: NT Pro B Type Natriuretic Pept < 20 pg/mL (19.9-100); Troponin I < 0.012 ng/mL (0.000-0.034)
--- NOTE | 2023-01-26 23:58 | ED.GENADULT ---
HPI - General Adult General Chief complaint: Chest Pain Stated complaint: palpitations, chest pain Time Seen by Provider: 01/26/23 23:26 History of Present Illness HPI narrative: This is a 27-year-old female presenting ED with several months of not feeling well. Patient states that she has been having intermittent periods of shortness of breath and tachycardia. She has noted intermittent decreased exercise tolerance despite working out 3 times a week. She she has been , dieting and exercising 3 days a week and attempt to lose weight. She has seen her primary care physician for the symptoms and was referred to a [employer] which she has not had an appointment with yet. Patient came in today because she had while she was playing to [employer] she started to have tachycardia palpitations. She says she developed a pain in the center of her chest that radiate to the left side. It resolved on its own after 30 minutes. At this time she is asymptomatic. Patient is intermittently tearful throughout the interview. She is strenuously denies symptoms of depression or anxiety. Patient repeatedly states that she does not feel like herself. Denies SI/HI. Related Data Home Medications Medication Instructions Recorded Confirmed No Home Medications 01/02/23 01/02/23 Allergies Allergy/AdvReac Type Severity Reaction Status Date / Time amoxicillin AdvReac Mild Rash Verified 01/02/23 13:10 ampicillin AdvReac Mild Rash Verified 01/02/23 13:10 Penicillins AdvReac Mild Rash Verified 01/02/23 13:10 Sulfa (Sulfonamide AdvReac Mild Rash Verified 01/02/23 13:10 Antibiotics) PMFSH Past Medical History Medical History Bulimia Depression Gestational hypertension Preeclampsia Surgical History Surgical History Hx of cholecystectomy Social History Social History Smoking status: Never smoker Exam Narrative: APPEARANCE: No apparent distress. Intermittently tearful throughout interview Head: atraumatic. EYES: EOMI, NOSE: Atraumatic NECK: Trachea midline RESPIRATORY: No increased rate of breathing, clear to auscultation CARDIOVASCULAR: RRR, no peripheral edema ABDOMINAL: Non-distended MUSCULOSKELETAl: No obvious deformities NEURO: Alert. Moving 4/4 extremities SKIN:: Warm, dry. Normal color PSYCHIATRIC: Normal affect Course Vital Signs Vital signs: Vital Signs Temperature 97.6 F 01/26/23 20:53 Pulse Rate 110 H 01/26/23 20:53 Respiratory Rate 20 01/26/23 20:53 Blood Pressure 153/110 H 01/26/23 20:53 Pulse Oximetry 100 01/26/23 20:53 Oxygen Delivery Room Air 01/26/23 20:53 Temperature 97.6 F 01/26/23 20:53 Pulse Rate 110 H 01/26/23 20:53 Respiratory Rate 20 01/26/23 20:53 Blood Pressure 153/110 H 01/26/23 20:53 Pulse Oximetry 100 01/26/23 20:53 Oxygen Delivery Room Air 01/26/23 20:53 Medical Decision Making MDM Narrative Medical decision making narrative: -Course: 27-year-old female presenting with 2 months of vague symptoms including tachycardia palpitations and chest pain. Had an extensive workup including CTA performed here several weeks ago that was all negative. At this time her workup is negative and her vital signs are all stable except for intermittent tachycardia. The patient has a history of anxiety/ bulimia per the EMR and has made multiple comments about how much she is exercising/ dieting/ so this could just be a calorie deficit issue. Regardless is not an emergency at this time the patient be discharged with primary care follow-up. 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
[2023-01-27 01:00] LABS: Troponin I < 0.012 ng/mL (0.000-0.034)
[2023-01-27 02:02] VITALS: BP 141/72; PULSE 99; RESP 15; O2SAT 100
== END 2023-01-27 02:04 | disposition home or self-care (01) ==
LOC: ANHED 01-27 00:55
PROVIDERS: Emergency Provider Emergency Medicine
DX: R00.2 Palpitations (principal); R07.89 Other chest pain; F32.A Depression, unspecified
CPT/HCPCS: 36415; 71046; 80053; 83690; 83880; 84484; 85025; 85610; 85730; 93005; 99284

== ENCOUNTER 2023-12-12 17:45 | Emergency (ER) | payer OTHER, SELFPAY ==
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
[2023-12-12 18:07] VITALS: BP 139/91; PULSE 95; RESP 16; TEMP 36.8; O2SAT 99
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
== END 2023-12-12 18:46 | disposition home or self-care (01) ==
PROVIDERS: Emergency Provider Nurse Practitioner; PCP Family Medicine
DX: R07.89 Other chest pain (principal)
CPT/HCPCS: 71101; 99213; G0463

== ENCOUNTER 2024-02-21 13:05 | Emergency (ER) | payer OTHER, SELFPAY ==
[2024-02-21 13:29] VITALS: BP 137/82; PULSE 86; RESP 18; TEMP 36.9; O2SAT 100
--- NOTE | 2024-02-21 13:37 | ED_ITS ---
HPI - Skin/Abscess/Foreign Bdy General Chief complaint: Animal Bite Stated complaint: cat bite on LT thigh Time Seen by Provider: 02/21/24 13:56 Source: patient and RN notes reviewed Mode of arrival: ambulatory Limitations: no limitations History of Present Illness HPI narrative: 28-year-old female who is 3 months presents with concern for cap bite to the left anterior thigh. She reports she was at a [place] detention this afternoon when a cat bit her. Reports the cat is up-to-date on his vaccinations. Patient is up-to-date on her tetanus vaccination. She reports she was able to clean the wound with regular soap and water but not very thoroughly. MD complaint: other (cat bite) Related Data Allergies Allergy/AdvReac Type Severity Reaction Status Date / Time amoxicillin AdvReac Mild Rash Verified 02/21/24 13:43 ampicillin AdvReac Mild Rash Verified 02/21/24 13:43 Penicillins AdvReac Mild Rash Verified 02/21/24 13:43 Sulfa (Sulfonamide AdvReac Mild Rash Verified 02/21/24 13:43 Antibiotics) Review of Systems Review of Systems: CONSTITUTIONAL: Denies malaise, chills, sweats, or fever. SKIN: Reports cap bite to the left thigh MUSCULOSKELETAL: Denies joint pain All systems reviewed & are unremarkable except as noted in HPI and below PMFSH Past Medical History Medical History Bulimia Depression Gestational hypertension Preeclampsia Surgical History Surgical History Hx of cholecystectomy Social History Social History Smoking status: Never smoker Comments At time of signature, agree with nursing past medical, surgical, social and fa caio history. There is no relevant family history pertinent to the presenting complaint Exam Narrative: GENERAL: Well-appearing, well-nourished, and in no acute distress. HEAD: Normocephalic, atraumatic. EYES: PERRLA, conjunctivae clear, and EOMI. ENT: Mucous membranes moist. NECK: Supple. No lymphadenopathy CHEST: Clear to auscultation. No respiratory distress. HEART: Regular rate and rhythm. SKIN: Warm, dry. Three small superficial puncture wounds into abrasions noted to the left anterior thigh above the knee without surrounding erythema, edema, induration, no drainage noted NEURO: Alert and oriented x3. PSYCH: Normal mood and affect Course Course Emergency Course: Patient is aware of diagnosis, understands and agrees to treatment plan. Anticipatory guidance given. Patient agrees to follow-up as directed and is aware of reasons to seek care at the emergency department. Portions of this record may have been created with voice recognition software Level of Care: Express Care Visit Vital Signs Vital signs: Vital Signs Temperature 98.4 F 02/21/24 13:29 Pulse Rate 86 02/21/24 13:29 Respiratory Rate 18 02/21/24 13:29 Blood Pressure 137/82 02/21/24 13:29 Pulse Oximetry 100 02/21/24 13:29 Oxygen Delivery Room Air 02/21/24 13:29 Temperature 98.4 F 02/21/24 13:29 Pulse Rate 86 02/21/24 13:29 Respiratory Rate 18 02/21/24 13:29 Blood Pressure 137/82 02/21/24 13:29 Pulse Oximetry 100 02/21/24 13:29 Oxygen Delivery Room Air 02/21/24 13:29 Reviewed. MDM - Skin/Abscess/Foreign Bdy MDM Narrative Medical decision making narrative: I evaluated this patient in the express care. History is obtained from patient who is an independent historian and physical exam was performed.? Available medical records were reviewed. ? Exam findings show no acute concerns or changes; patient is non-toxic appearing and is in no distress. ? Differential diagnosis and treatment plan were discussed with the patient. Patient agrees with discussion and after shared medical decision making agrees with plan of care. All questions were answered to the patient's satisfaction. Patient is appropriate for outpatient treatment and follow-up. Critical Care Time Critical Care Time Critical Care Time: No Discharge Plan Discharge Clinical Impression: Cat bite Patient Disposition: Home, Self-Care Condition: Stable Instructions: Antibiotic Form, Animal Bite (ED) Additional Instructions: Please follow up with your Primary Care Doctor or obvious discharge within 48-72 hours - call for an appointment. Rest and elevate affected area; apply moist heat 3-4 times daily for 10-15 minutes. Take Tylenol as needed for pain. Please take Antibiotics as directed. If you experience any worsening redness, swelling, streaking (red lines), fever or chills please go to the ER Patient Language: Cambodian Prescriptions: New cefuroxime axetil 500 mg tablet 500 mg PO BID Qty: 14 0RF Follow-up/Referrals: PHYSICIAN,AREA OPERATIONS MANAGER [Primary Care Provider] - Time of Disposition: 14:06
== END 2024-02-21 14:08 | disposition home or self-care (01) ==
PROVIDERS: Emergency Provider Nurse Practitioner
DX: S71.152A Open bite, left thigh, initial encounter (principal); W55.01XA Bitten by cat, initial encounter
CPT/HCPCS: 99213; G0463

== ENCOUNTER 2024-10-20 15:56 | Emergency (ER) | payer BC, SELFPAY ==
--- OUTSIDE RECORDS SUMMARY | 2024-10-20 15:59 | XMS_ITS | Continuity of Care Document ---
Author Organization [facility] Address [address] [place] [address] Phone Care Team Providers Care Bulk Coolers Installer Name Role Phone Maged Lee MD Unavailable Unavailable Advance Directives Directive Yes / No Effective Date File Name No Information Encounters Encounter Description Practice Location Reason(s) For Visit Diagnoses Date Provider Providers Copied on Encounter [facility], [address], [place], [place], [id number], [place] tel:[phone] [facility] No Information Jesus Lynne. [address] [place] [address], [id number], [place]. tel:[phone] Family History Family Member Type Diagnosis Age At Onset No Information Payers Payer name Insurance type Covered democrat ID Authoriza tion(s) No Information Social History Type Description Quantity Date Captured Comments Sex Female Smoking Status No Information Chief Complaint And Reason For Visit No Information Reason For Referral Reason For Referral No Information History Of Present Illness Encounter Date Complaint History Of Prese nt Illness No Information Functional Status Date Functional Assessmen t No Information Instructions Date Instruction Additional Infor mation No Information Assessments Type Assessment Date No Information Patient Care Teams Name Effective Dates (start - stop) Status Members No Information
--- OUTSIDE RECORDS SUMMARY | 2024-10-20 15:59 | XMS_ITS | Encounter Summary ---
Author Organization [facility] Address [facility] [place] [address] Care Team Providers Care Substation Operator Automatic Name Role Phone Joo Edmonds MD Primary Care Provider [phone] Jesus Paulino MD Primary Care Provider [phone] Oswaldo Avina MD Primary Care Provider [phone] Ramila Pal MD Primary Care Provider [phone] Encounter Details Date Type Department Care Team (Late st Contact Info) Description 05/24/2022 Flicstart Message [facility] Patient Accounts [address] [place] [address] [facility] Provider ACTION REQUIRED Social History Tobacco Use Types Packs/Day Years Used Date Smoking Tobacco: Never Smokeless Tobacco: Never Alcohol Use Standard Drinks/Week Comments Yes 0 (1 standard drink = 0.6 oz pur e alcohol) SOCIAL Comments Yes Sex and Gender Information Value Date Recorded Sex Assigned at Not on file Legal Sex Female 7:36 PM CDT Gender Identity Not on file Sexual Orientation Not on file documented as of this encounter Functional Status * RETIRED Are you deaf or do you have serious difficulty hearing Answer Date of Assessment Author Status No 04/22/2022 9:51 AM PLATFORM MAN Activ e * RETIRED Are you blind or do you have serious difficulty seeing, even when wearing glasses? Answer Date of Assessment Author Status No 04/22/2022 9:51 AM PLATFORM MAN Activ e * Do you have serious difficulty walking or climbing stairs? Answer Date of Assessment Author Status No 04/22/2022 9:51 AM PLATFORM MAN Rachel Upton RN Active * Do you have difficulty dressing or bathing? Answer Date of Assessment Author Status No 04/22/2022 9:51 AM PLATFORM MAN Rachel Upton RN Active * Because of a physical, mental, or emotional condition, do you have difficulty doing errands alone such as visiting a doctor's office or shopping? Answer Date of Assessment Author Status No 04/22/2022 9:51 AM PLATFORM MAN Rachel Upton RN Active documented as of this encounter Mental Status * Because of a physical, mental, or emotional condition, do you have serious difficulty concentrating, remembering, or making decisions? Answer Entry Date Author Status No 04/22/2022 9:51 AM PLATFORM MAN Rachel Upton RN Active documented in this encounter Plan of Treatment Not on file documented as of this encounter Visit Diagnoses Not on filedocumented in this encounter Additional Health Concerns Infection Onset Date Last Indicated Resolved Time COVID-19 Rule Out 01/26/2024 01/26/2024 01/26/2024 3:44 AM PLATFORM MAN documented as of this encounter Care Teams Substation Operator Automatic Relationship Specialty Start Date End Date Joo Edmonds MD PCP - General FAMILY PRACTICE 11/10/20 01/23/23 Jesus Paulino MD [address] [place] [address] PCP - General FAMILY PRACTICE 01/24/23 06/26/23 Oswaldo Avina MD [address] [place] [address] PCP - General FAMILY PRACTICE 06/27/23 12/25/23 Ramila Pal MD [address] [place] [address] PCP - General FAMILY PRACTICE 12/26/23 documented as of this encounter
--- OUTSIDE RECORDS SUMMARY | 2024-10-20 15:59 | XMS_ITS | Encounter Summary ---
Author Organization [facility] Address [address] [place] [address] [place] [address] Care Team Providers Care Supply Chain Systems Manager Name Role Phone Ramila Pal MD Primary Care Provider [phone] Reason for Visit * Reason Onset Date Comments Confirmation Of 10/19/2024 Encounter Details Date Type Department Care Team (Late st Contact Info) Description 10/19/2024 Telephone [facility] - CLOTH MERCERIZER OPERATOR [address] [place] [address], [address] [place] [phone] Lucille Stevens MD [address] [place] [phone] Confirmation Of Social History Tobacco Use Types Packs/Day Years Used Date Smoking Tobacco: Never Alcohol Use Standard Drinks/Week Comments Not Currently 0 (1 standard drink = 0.6 oz pur e alcohol) Overall Financial Resource Strain (CARDIA) Answe r Date Recorded How hard is it for you to pa y for the very basics like food, housing, medical care, and heating? Not hard at all 08/18/2024 PHQ-2 Answer Date Recorded Patient Health Questionnaire-2 Score 0 08/15/2024 [facility] [place] [facility] Occup[facility] - Occupational Stress Questionnaire Answer Date Recorded Do you feel stress - tense, restless, nervous, or anxious, or unable to sleep at night because your mind is troubled all the time - these days? Not at all 08/18/2024 Hunger Vital Sign Answer Date Recorded Within the past 12 months, y ou worried that your food would run out before you got the money to buy more. Never true 08/19/19 25 Within the past 12 months, t he food you bought just didn't last and you didn't have money to get more. Never true 08/18/2024 PRAPARE - Transportation Answer Date Re corded In the past 12 months, has l ack of transportation kept you from medical appointments or from getting medications? No 09/2024 In the past 12 months, has l ack of transportation kept you from meetings, work, or from getting things needed for daily living? No 08/18/2024 [place] Depression Scale Answer Date Recorded [place] Depression Scale Total 0 08/20/2024 The thought of harming myself has occurred to me . Never 08/20/2024 Housing Stability Vital Sign Answer Osmel e Recorded In the last 12 months, was t here a time when you were not able to pay the mortgage or rent on time? No 08/18/2024 In the past 12 months, how m any times have you moved where you were living? 0 08/18/2024 At any time in the past 12 m onths, were you homeless or living in a fdc (including now)? No 08/18/2024 Comments No Sex and Gender Information Value Date Recorded Sex Assigned at Female 07/04/2024 4:08 PM CDT Legal Sex Female 5:42 AM INFORMATION TECHNOLOGY SECURITY ANALYST Gender Identity Female 09/20/2024 1:10 PM CDT Sexual Orientation Not on file documented as of this encounter Functional Status * Is person deaf or have serious hearing difficulty? Answer Date of Assessment Author No 08/18/2024 8:15 PM CDT Sena Painting RN * Is person blind or have serious difficulty seeing? Answer Date of Assessment Author No 08/18/2024 8:15 PM CDT Sena Painting RN * Does person have serious difficulty walking/climbing stairs? Answer Date of Assessment Author No 08/18/2024 8:15 PM CDT Sena Painting RN * Does person have difficulty dressing/bathing? Answer Date of Assessment Author No 08/18/2024 8:15 PM CDT Painting, Abegail T, RN * Does person have difficulty doing errands alone? Answer Date of Assessment Author No 08/18/2024 8:15 PM CDT Sena Painting RN documented as of this encounter Mental Status * Does person have difficulty concentrating/remembering/making decisions? Answer Entry Date Author No 08/18/2024 8:15 PM CDT Sena Painting RN documented in this encounter Miscellaneous Notes * Telephone Encounter - Eun Pisano RN - 10/19/2024 9:46 AM CDT Patient calls with complaint of positive test at about 8 weeks . Patient had vaginal delivery on 08/19. She states she was unable to make her appointment due to a in the family. She reports they waited until after 6 weeks to have intercourse and used a condom. Patient states she has noticed symptoms for about 2 weeks. Patient also states she is still pumping. Patient instructed to have labs drawn. Will follow up with results. documented in this encounter Plan of Treatment Not on file documented as of this encounter Procedures Procedure Name Priority Date/Time Associated Diagnosis Comments PROGESTERONE Routine 10/19/2024 1:15 PM CDT Positive urine test (HCC) HCG BETA BLOOD QUANTITATIVE Routine 10/19/2024 1:15 PM CDT Positive urine test (HCC) documented in this encounter Results * PROGESTERONE (10/19/2024 1:15 PM CDT) Progesterone 0.1 ng/mL [facility] ACCOUNT BILL Comment: Follicular phase 0.1 - 0.9 Luteal phase 1.8 - 23.9 Ovulation phase 0.1 - 12.0 First trimester 11.0 - 44.3 Second trimester 25.4 - 83.3 Third trimester 58.7 - 214.0 Postmenopausal 0.0 - 0.1 Blood BLOOD SPECIMEN / Unknown 10/19/2024 1:15 PM CDT 10/19/2024 Narrative [facility] ACCOUNT BILL - 10/20/2024 8:11 AM CDT Performed at: 01 - [facility] [address] [place] [id number] Straw Hat Brim Cutter Operator: Willy Gore PhD, Phone: [phone] Ajay Kwon PA-C LAB - CHEMISTRY ORDERABLES Fi nal Result Performing Organization Address [facility] Co de Phone Number [facility] ACCOUNT BILL [address] [place] [address] * HCG BETA BLOOD QUANTITATIVE (10/19/2024 1:15 PM CDT) [facility] Signature hCG Value <1 mIU/mL [facility] ACCOUNT BILL Comment: Female (Non-) 0 - 5 (Postmenopausal) 0 - 8 Female () Weeks of Gestation 3 6 - 71 4 10 - 750 5 234 - 3561 6 675 - 71176 7 [phone] 8 [phone] [phone] 9 [phone] 10 57353 [phone] 12 88142 -[phone] 14 89045 - 13719 15 14029 - 60716 16 9040 - 53582 17 7675 34283 18 [phone] - [phone] Judith ECLIA methodology Blood BLOOD SPECIMEN / Unknown 10/19/2024 1:15 PM CDT 10/19/2024 Narrative [facility] ACCOUNT BILL - 10/20/2024 8:11 AM CDT Performed at: - [facility] [address] [id number] Straw Hat Brim Cutter Operator: Willy Gore PhD, Phone: [phone] us Ajay Kwon PA-C LAB - CHEMISTRY ORDERABLES Fi nal Result Performing Organization Address City/[facility] Co de Phone Number [facility] ACCOUNT BILL [address] [place] [address] documented in this encounter Visit Diagnoses Diagnosis Positive urine test (HCC)- Primary documented in this encounter Care Teams Supply Chain Systems Manager Relationship Specialty Start Date End Date Ramila Pal MD [address] [address] PCP - General Family Medicine 07/04/24 documented as of this encounter
--- OUTSIDE RECORDS SUMMARY | 2024-10-20 15:59 | XMS_ITS | Encounter Summary ---
Author Organization [facility] Address [facility] [place] [address] Care Team Providers Care Salesforce Business Analyst Name Role Phone Oswaldo Avina MD Primary Care Provider [phone] Ramila Pal MD Primary Care Provider [phone] Encounter Details Date Type Department Care Team (Late st Contact Info) Description 12/12/2023 Easiest Credit Card To Get Approved For Message Enc [facility] [address] [address] [place], [facility] Provider XRAY Social History Tobacco Use Types Packs/Day Years Used Date Smoking Tobacco: Never Passive Smoke Exposure: Never Smokeless Tobacco: Never Alcohol Use Standard Drinks/Week Comments Not Currently 0 (1 standard drink = 0.6 oz pur e alcohol) PHQ-2 Answer Date Recorded Patient Health Questionnaire-2 Score 0 09/01/2023 Comments No Sex and Gender Information Value Date Recorded Sex Assigned at Not on file Legal Sex Female 7:36 PM CDT Gender Identity Not on file Sexual Orientation Not on file documented as of this encounter Functional Status * RETIRED Are you deaf or do you have serious difficulty hearing Answer Date of Assessment Author Status No 04/22/2022 9:51 AM POWER REACTOR OPERATOR Activ e * RETIRED Are you blind or do you have serious difficulty seeing, even when wearing glasses? Answer Date of Assessment Author Status No 04/22/2022 9:51 AM POWER REACTOR OPERATOR Activ e * Do you have serious difficulty walking or climbing stairs? Answer Date of Assessment Author Status No 04/22/2022 9:51 AM POWER REACTOR OPERATOR Rachel Upton RN Active * Do you have difficulty dressing or bathing? Answer Date of Assessment Author Status No 04/22/2022 9:51 AM Rachel Candelaria RN Active * Because of a physical, mental, or emotional condition, do you have difficulty doing errands alone such as visiting a doctor's office or shopping? Answer Date of Assessment Author Status No 04/22/2022 9:51 AM Rachel Candelaria RN Active documented as of this encounter Mental Status * Because of a physical, mental, or emotional condition, do you have serious difficulty concentrating, remembering, or making decisions? Answer Entry Date Author Status No 04/22/2022 9:51 AM Rachel Candelaria RN Active documented in this encounter Plan of Treatment Not on file documented as of this encounter Visit Diagnoses Not on filedocumented in this encounter Additional Health Concerns Infection Onset Date Last Indicated Resolved Time COVID-19 Rule Out 01/26/2024 01/26/2024 01/26/2024 3:44 AM POWER REACTOR OPERATOR documented as of this encounter Care Teams Salesforce Business Analyst Relationship Specialty Start Date End Date Oswaldo Avina MD PCP - General FAMILY PRACTICE 06/27/23 12/25/23 Ramila Pal MD [address] [place] [address] PCP - General FAMILY PRACTICE 12/26/23 documented as of this encounter
--- OUTSIDE RECORDS SUMMARY | 2024-10-20 15:59 | XMS_ITS | Clinical Summary ---
Author Organization [facility] at the Medical Office Building Address [address] [place] [address] Care Team Providers Care Earthmoving Plant Operator Name Role Phone Charbel Kassi June DO Primary Care Provider [phone] Junito Posada MD Unavailable Allergies Active Allergy Reactions Criticality Noted Date Comments Ampicillin Rash Medium 07/24/2017 Penicillins Rash Medium 07/24/2017 Sulfa (Sulfonamide Antibiotics) Rash,Headache Medium 0 07/24/2017 Medications OneTouch Delica Plus Lancet 33 gauge [facility] Active OneTouch Verio Reflect Meter [facility] Active acetaminophen 500 mg capsuleIndicati ons:Pain Take 2 capsules (1,000 mg total) by mouth every 6 (six) hours as needed for pain 90 tablet 3 Active docusate sodium (COLACE) 100 mg capsuleIndicati ons:constipatio n,Stool Softener Take 1 capsule (100 mg total) by mouth 2 (two) times a day as needed for constipation 60 capsule 3 Active ibuprofen (ADVIL,MOTRIN) 600 mg tabletIndicatio ns:Cramps Take 1 tablet (600 mg total) by mouth every 6 (six) hours as needed for pain 90 tablet 3 Active Additional Information Patient not taking.Reported on 06/24/2022 polyethylene glycol (MIRALAX) 17 gram/dose powder Take 17 g by mouth daily as needed (constipation) 238 g 3 Active Additional Information Patient not taking.Reported on 06/24/2022 sertraline (ZOLOFT) 50 mg tabletIndicatio ns:Anxiety with Depression Take 1 tablet (50 mg total) by mouth daily 30 tablet 1 3 Active Additional Information Patient not taking.Reported on 06/24/2022 enalapril (VASOTEC) 10 mg tablet Take 1 tablet (10 mg total) by mouth 2 (two) times a day 60 tablet 2 3 Active Additional Information Patient not taking.Reported on 06/24/2022 cephalexin (KEFLEX) 500 mg capsule TAKE 1 CAPSULE BY MOUTH EVERY 6 HOURS FOR 7 DAYS 3 Active metFORMIN (GLUCOPHAGE) 500 mg tablet Take 1 tablet (500 mg total) by mouth daily Active acetaminophen (TYLENOL) 500 mg tablet 3 Active Hospital, Clinic, or Other Facility Administered Medication Ordered Dose Route Frequency Start Date End Date Status levonorgestreL (MIRENA) 21 mcg/24 hours (8 yrs) 52 mg IUDIndications:Preg raúl Contraception intrauterine Continuous (implanted device) 06/24/2022 8 Active Active Problems Problem Noted Date Diagnosed Date History of gestational diabetes 06/24/2022 History of gestational hypertension 06/24/2022 Generalized anxiety disorder 02/21/2022 Overview (04/19/2022): -History taking fluoxetine about 5 yr ago after her mother , no meds since -Reports worsening sx in -Current regimen: no meds Previously counseled. Recommendations - Monitor mood symptoms Assessment & Plan (03/23/2022 3:12 PM CIGAR MAKER): -History taking fluoxetine about 5 yr ago after her mother , no meds since -Reports worsening sx in -Current regimen: no meds Previously counseled. Recommendations []? Monitor mood symptoms, consider EPDS at appointments []? Consider trial of medication if worsening sx []? Consider PNBHS referral in History of bulimia 02/16/2022 Overview (03/23/2022): Remote history; in remission, previously counseled. We discussed monitoring her symptoms and to notify her OB team if she is experiencing relapse. Assessment & Plan (03/23/2022 3:12 PM CIGAR MAKER): Remote history; in remission, previously counseled. We discussed monitoring her symptoms and to notify her OB team if she is experiencing relapse. Mastalgia in female 03/18/2017 Migraine headache 01/26/2017 Bulimia nervosa, moderate 09/07/2016 Depression 07/23/2016 Acne 07/23/2016 Resolved Problems Problem Noted Date Diagnosed Date Resolved Date care following vaginal delivery 04/23/2022 06/24/2022 Overview (2022): # ID: Afebrile. No signs/symptoms of infection. COVID-19 test not indicated. # Heme: EBL 250 mL. Hemodynamically stable. # CV/Pulm: Pre-eclampsia with severe features - 24 hours magnesium sulfate. Blood pressures poorly controlled on no meds. Will start enalapril 5 mg BID. CBC/CMP WNL, UPC 0.16. Small headache today, will reevaluate after morning medications. 04/25 increased Enalapril 10 mg BID, no reports of GOLDMAN today, Enrolled in Home BP monitoring. 04/26 Bps well controlled today, pt remains asymptomatic. # Generalized anxiety disorder: takes zoloft PRN, continued. Pt reports significant improvement since taking zoloft daily - desires to con't . Social work consult completed. # GDMA: fasting BG on PPD1 97. For 6 week 2 hour GTT # GI/: Tolerating PO. Voiding spontaneously. # Pain: Controlled with above regimen. # Post DVT prophylaxis: The patient has the following MAJOR risk factors BMI >/= 40 and the following MINOR risk factors preeclampsia. enoxaparin 40 mg BID ordered for VTE prophylaxis. # MOC: Declines until visit, considering POP's or IUD PP # MOF: Both formula and # Disposition: Desires discharge home today. Task sent for [facility] follow up. Gestational hypertension, third trimester 04/22/2022 06/24/2022 Encounter for induction of labor 04/22/2022 06/24/2022 Overview (04/22/2022): Damaris Chester is a 26 y.o. female at 34w4d who is dated by L=1 and is being admitted for an induction of labor secondary to PreEwSF. 1. Admit to L&D: Consents signed and placed in chart. Labs: CBC and T&S pending. Induction of labor with miso/FB. 2. FWB: Continuous monitoring. tracing category I 3. ID: 3rd trimester HIV (>28 wga) pending on 04/22/22. GBS unknown, will start ancef in setting of GA and PCN allergy. RPR on admission: pending. Membrane Status: intact. 4. Indications for UDS: none. Verbal consent obtained for UDS: Not indicated 5. MOF: Undecided on feeding method. Urine drug screen not indicated. Patient informed of results: N/A 6. MOC: Undecided on contraception. 7. Pain management: Desires epidural when asked.. 8. Post DVT prophylaxis: The patient has the following MAJOR risk factors BMI >/= 40 and the following MINOR risk factors preeclampsia. enoxaparin 40 mg BID will be ordered for VTE prophylaxis . 9. COVID Vaccine Status: Not assessed 10. COVID Test Status: Test not indicated 11. PreEwSF: no history of cHTN, presented to outside hospital and had GOLDMAN with SR BP transferred here, continued to require spotting so decision for IOL made 12. Generalized anxiety disorder: take zoloft PRN, continued 13. GDMA: was to start metformin and had not black pickler Rx yet, for OB insulin protocol Gestational diabetes mellitu s (GDM) in third trimester 04/19/2022 06/24/2022 Overview (04/19/2022): Diagnosed with primary OB. S/p diabetes education/nutrition counseling Current regimen: 04/19/2022 Metformin 500 mg at bedtime with a plan to increase to 1000 mg at bedtime on day 4--> discussed with Dr. Block's team and plan to start 04/19/2022 Plan: Encouraged weekly logs to primary OB for review, MFM happy to review logs as well Recommend 2x/weekly NSTs in the setting of gDMA2 Continue weekly appts with primary OB Serial growth US- 04/19/2022 AGA Delivery at 37 weeks for gHTN Assessment & Plan (04/19/2022 11:37 AM CIGAR MAKER): Counseled today for newly diagnosed gDM. Reviewed need for qid accu checks with a fasting and 1-hour post-prandial daily. The goals are fasting glucose of <95 and a 1-hour post-prandial glucose of <140 as these have been associated with decreased risk of adverse outcomes. Reviewed the importance of a good diabetic diet. She has had an appt with diabetes ed/nutrition counseling. We reviewed importance of tight glycemic control and possible need for medication. We discussed that insulin the the standard of care in but that metformin could also be an option. We will plan to review her BS logs weekly. Reviewed a risk of diabetes in is LGA fetus and risks associated with LGA include possible need for c/s, vacuum/forcep assisted vaginal delivery, shoulder dystocia and pp hemorrhage. Reviewed risk of hypoglycemia in the . Also discussed risk of developing T2DM within the next 5-10 years is 50% and reviewed importance of 2 hour gtt and a healthy lifestyle with good PCP f/u. We recommend serial growth US. If she required medication for glycemic control, we would recommend initiating antepartum surveillance at 32 weeks. Delivery is planned for 37 weeks in the setting of gHTN. Gestational hypertension, second trimester 02/16/2022 06/24/2022 Overview (04/19/2022): No prior history of diagnosed cHTN, on extensive chart review did have 1 mild range BP 143/78 on 12/21/2020 and 1 mild range BP 142/80 on 07/23/2017 outside of during an ED visits for traumas (Care Everywhere - duplicate chart: Damaris Dee (marked for merge). All other office visits BP very normotensive. -Presented 01/21/22 to outside ED @~21wks with GOLDMAN, N, and intermittent blurry vision, and had severe range BP range 130-170s/80-120s, normal labs, started on labetalol 200mg BID. Previously counseled that we are currently calling this gHTN and discontinued labetalol to monitor for severe pressures as this would change diagnosis and management. Patient taking blood pressures at home - normal to mild range. No pre-e signs or symptoms. Precautions extensively reviewed. Recommendations/Plan - Discontinue labetalol - monitor off meds - Continue home BP monitoring - Continue weekly visits with [facility] labs - Twice weekly testing with primary - Serial growth ultrasounds every 3-4 weeks- AGA 04/19/2022 - Delivery at 37w0d - Lipid panel and Hgb A1c screenings @12wks PP Assessment & Plan (03/23/2022 3:11 PM CIGAR MAKER): No prior history of diagnosed cHTN, on extensive chart review did have 1 mild range BP 143/78 on 12/21/2020 and 1 mild range BP 142/80 on 07/23/2017 outside of during an ED visits for traumas (Care Everywhere - duplicate chart: Damaris Dee (marked for merge). All other office visits BP very normotensive. -Presented 01/21/22 to outside ED @~21wks with GOLDMAN, N, and intermittent blurry vision, and had severe range BP range 130-170s/80-120s, normal labs, started on labetalol 200mg BID. Previously counseled that we are currently calling this gHTN and discontinued labetalol to monitor for severe pressures as this would change diagnosis and management. Patient taking blood pressures at home - normal to mild range. No pre-e signs or symptoms. Precautions extensively reviewed. Recommendations/Plan [] Discontinue labetalol - monitor off meds [] Home BP monitoring [] Weekly visits with [facility] labs [] Twice weekly testing with primary [] Serial growth ultrasounds every 3-4 weeks [] Delivery at 37w0d [] Lipid panel and Hgb A1c screenings @12wks PP COVID-19 affecting , antepartum 02/16/2022 06/24/2022 Overview (02/16/2022): Positive 10/2021 Obesity complicating pregnan cy in second trimester 02/16/2022 06/24/2022 Overview (04/19/2022): BMI: 38 Previously counseled Recommendations/Plan [x] Early GTT - normal [x] Specialized anatomy ultrasound - normal, incomplete 02/19 - Serial growth ultrasounds q4 weeks starting at 24 weeks - Anesthesia consult in third trimester - Weekly testing will be per TN problem Other specified diseases and conditions complicating 02/16/2022 06/24/2022 Supervision of high-risk pre gnancy, second trimester 02/16/2022 06/24/2022 Overview (04/19/2022): [x] Co-management [x] Blue Team Referring Provider: Lizy Block [phone] [] or Medicare Insurance [x] Dating Criteria: US 10/09/21 with RUBIN 05/30/22 [x] Labs: Rh [O+], Ab [negative], Rubella [immune], HIV [non-reactive], HepBSAg [non-reactive], RPR [non-reactive], Hep C [non-reactive], Varicella [not done], GC/CT [Neg/Neg] [] Genetic Screening: [x] CBC/Hgb 12.2/37.4/plt 270 [x] Early 1hr GTT 01/18/22: 116 [x] UCx: 11/11/21 negative [x] Pap: 07/06/21: NILM [x] LD ASA (if indicated) starting at 12 weeks: taking 02/19 [] EPDS [ ]; PNBHS referral (if indicated) 2nd Tri Labs: [x] Anatomy ultrasound: normal, but incomplete [x] CBC/1hr gtt at 24-28wks: will complete with Dr. Block [] Flu Shot (Nov-Feb): counseled and considering [x] Tdap (27-36wks): 04/19/2022 AH [] COVID Vaccine: counseled and declines 3rd Tri Labs and delivery with primary OB. Recommend IOL at 37 weeks. Encouraged weekly appts, 2x/weekly testing and weekly labs to monitor for preE. BP parameters and hospital precautions reviewed. Encouraged weekly blood sugar/blood pressure logs to either primary OB or MFM for review. Assessment & Plan (03/23/2022 3:14 PM CIGAR MAKER): We will continue co-management of care with you and see her back in 4 weeks with a growth ultrasound. Biliary calculus 06/26/2011 03/23/2022 Immunizations Immunization Administration Dates Next Due DTaP 06/25/2002 Influenza, Split 03/05/2003 MMR 04/25/2022(Deferred: No longer n eeded),06/25/2002 Tdap 04/19/2022,07/24/2017 Surgical History Surgery Date Site/Laterality Comments CHOLECYSTECTOMY Medical History Medical History Date Comments Urinary tract infection Gestational diabetes Family History Medical History Relation Name Comments Heart disease Father Hypertension Father Hypertension Maternal Grandmother Cancer Mother Diabetes Mother Relation Name Status Comments Father Alive Maternal Grandmother Mother Social History Tobacco Use Types Packs/Day Years Used Date Smoking Tobacco: Never Passive Smoke Exposure: Never Smokeless Tobacco: Never Social Connection and Isolat ion Panel [NHANES] Answer Date Recorded In a typical week, how many times do you talk on the phone with family, friends, or neighbors? More than three times a week 04/25/2022 How often do you get togethe r with friends or relatives? More than three times a week 04/25/2022 How often do you attend chur ch or muslim services? Never 04/25/2022 Do you belong to any clubs o r organizations such as bahai groups, unions, fraternal or athletic groups, or school groups? No 04/25/2022 How often do you attend meet ings of the clubs or organizations you belong to? Never 04/25/2022 Are you , , di vorced, , never , or living with a partner? 04/25/2022 AUDIT-C Answer Date Recorded Frequency of Alcohol Consumption Not on file 02/03/2022 Q2: How many drinks containi ng alcohol do you have on a typical day when you are drinking? Patient does not drink Frequency of Binge Drinking Not on file 01/13 Overall Financial Resource Strain (CARDIA) Answe r Date Recorded How hard is it for you to pa y for the very basics like food, housing, medical care, and heating? Not hard at all 04/25/2022 Hunger Vital Sign Answer Date Recorded Within the past 12 months, y ou worried that your food would run out before you got the money to buy more. Never true 04/25/19 23 Within the past 12 months, t he food you bought just didn't last and you didn't have money to get more. Never true 04/25/2022 PRAPARE - Transportation Answer Date Re corded In the past 12 months, has l ack of transportation kept you from medical appointments or from getting medications? No 04/14 In the past 12 months, has l ack of transportation kept you from meetings, work, or from getting things needed for daily living? No 04/25/2022 Housing Stability Vital Sign Answer Osmel e Recorded In the last 12 months, was t here a time when you were not able to pay the mortgage or rent on time? No 04/25/2022 In the last 12 months, how many places have you lived? 1 04/25/2022 In the last 12 months, was t here a time when you did not have a steady place to sleep or slept in a custodial (including now)? No 04/25/2022 [place] Depression Scale Answer Date Recorded [place] Depression Scale Total 4 06/24/2022 The thought of harming myself has occurred to me . Never 06/24/2022 Personal Safety Answer Date Recorded Getting School Help Needed Denies 03/20 Comments No Sex and Gender Information Value Date Recorded Sex Assigned at Not on file Legal Sex Female 12:35 AM CIGAR MAKER Gender Identity Not on file Sexual Orientation Not on file Obstetrics History Para Term AB IAB SAB Ectopic Multiple Livin g Live Births 2 1 0 1 1 0 1 0 0 1 1 Date Outcome GA Total Labor Labor/2nd/3rd Weight Sex Type Anes PTL Khushboo A1 A5 Name Clin SAB 2022 34w 5d 0h 03m 0h 03m 2.76 kg (6 lb 1.4 oz) M Vag-S pont Epidur al Y Livin g 7 8 CONSUELO MORENO,Suma Castaonn MD Complications:Pre eclampsia Delivery Location:[facility] Main C ampus ([facility] 58LD) Last Filed Vital Signs Vital Sign Reading Time Taken Comments Blood Pressure 125/80 06/24/2022 11:15 AM CDT Pulse 98 06/24/2022 11:15 AM CDT Temperature 36.6 C (97.9 F) 2022 7:50 AM CIGAR MAKER Respiratory Rate 18 2022 7:50 AM CIGAR MAKER Oxygen Saturation 97% 06/24/2022 11:15 AM CDT Inhaled Oxygen Concentration - - Weight 122 kg (269 lb) 06/24/2022 11:15 AM CDT Height 175.3 cm (5' 9) 06/24/2022 11:15 AM CDT Body Mass Index 39.72 06/24/2022 11:15 AM CDT Plan of Treatment Health Maintenance Due Date Last Done Comments Cervical Cancer Screening 1997 Varicella Vaccines (1 of 2 - 13+ 2-dose series) 2010 Hepatitis B Screening 2015 Regular Well Visit/Exam 18-64 2015 Depression Screening 06/25/2023 06/24/2022 HPV Vaccines (1 - 3-dose SCD M series) 2024 Influenza Vaccine (#1) 2024 03/05/2003 DTaP/Tdap/Td Vaccine (4 - Td or Tdap) 04/19/2032 04/19/2022, 07/24/2017, 06/25/2002 Hepatitis C Screening Completed 11/11/2021 , 11/11/2021 Pneumococcal vaccine <65 Aged Out No longer eligible based on patient's age to complete this topic Procedures Procedure Name Priority Date/Time Associated Diagnosis Comments HEPATITIS C ANTIBODY Routine 11/11/2021 from Last 3 Months or Most Recently Relevant to Health Maintenance Results * Hepatitis C antibody (11/11/2021) SCRIBED HCV ab negative Blood us Lizy Block MD LAB MICROBIOLOGY - GENERAL ORDERABLES Final Result from Last 3 Months or Most Recently Relevant to Health Maintenance Insurance [facility] AETNA SIGNATURE AETNA SIG [id number] Advance Directives For more information, please contact: [phone] * Full Code (Latest Code Status on File) Date Activated Date Inactivated Comments 04/23/2022 9:23 AM 2022 6:00 PM * Full Code Date Activated Date Inactivated Comments 04/22/2022 6:11 PM 04/23/2022 9:23 AM Care Teams Earthmoving Plant Operator Relationship Specialty Start Date End Date Kassi Barger DO [address] [facility] [address] [place], [place] [id number] PCP - General 02/03/22 Junito Posada MD [address] [place] [address] 02/03/22
--- OUTSIDE RECORDS SUMMARY | 2024-10-20 15:59 | XMS_ITS | Encounter Summary ---
Author Organization [facility] Address [facility] [facility] [place] [address] Care Team Providers Care Orthopedic Shoes Salesperson Name Role Phone Ramila Pal MD Primary Care Provider [phone] Encounter Details Date Type Department Care Team (Late st Contact Info) Description 10/20/2024 Results Follow-Up [facility] - [facility] [address] [place] [address], [address] [place] [phone] Lucille Stevens MD [address] [place] [phone] Social History Tobacco Use Types Packs/Day Years [...] Recorded Patient Health Questionnaire-2 Score 0 08/15/2024 [facility] [place] of Occupat ional Health - Occupational Stress [...] things needed for daily living? No 08/18/2024 [place] Depression Scale Answer Date Recorded [place] Depression Scale Total 0 08/20/2024 The thought [...] any time in the past 12 m ont, were you homeless or living in a snf (including now)? No 08/18/2024 Comments No Sex and Gender Information Value Date Recorded Sex Assigned at Female 07/04/2024 4:08 PM CDT Legal Sex Female 5:42 AM CLAIM PROCESSOR Gender Identity Female 09/20/2024 1:10 PM CDT [...] of Assessment Author No 08/18/2024 8:15 PM JONT Sena Painting RN * Does person have difficulty doing errands alone? Answer Date of Assessment Author No 08/18/2024 8:15 PM Sena Zelaya RN documented as of this encounter Mental Status * Does person have difficulty concentrating/remembering/making decisions? Answer Entry Date Author No 08/18/2024 8:15 PM Sena Zelaya RN documented in this encounter Plan of Treatment Not on file documented as of this encounter Visit Diagnoses Not on filedocumented in this encounter Care Teams Orthopedic Shoes Salesperson Relationship Specialty Start Date End Date Ramila Pal MD [address] [phone] PCP - General Family Medicine 07/04/24 documented as of this encounter
--- OUTSIDE RECORDS SUMMARY | 2024-10-20 15:59 | XMS_ITS | Clinical Summary ---
Author Organization [facility] [employer] Address [address] [place] [address] Care Team Providers [facility] Director Name Role Phone Ramila Pal MD Primary Care Provider [phone] Source Comments [facility] [employer],non-owned Affiliates and Associated Physician Practices is amultiple site organization consisting of ambulatory clinics and hospital sitesin [place], [place], [place] and [place]. This disclosure is being madepursuant to the Care Everywhere program and may not contain all information available regarding this patient. Last updated 17.[facility] [employer] Allergies Active Allergy Reactions Criticality Noted Date Comments Metformin Other Medium 06/27/2023 Penicillins Rash,Urticaria Medium 12/21/2020 Sulfa Antibiotics Headache,Rash Medium 07/24/2017 Tree Nuts Anaphylaxis High 09/01/2023 All nuts Medications * Be aware that medications may not be up to date on this document. Alwaysverify current medications with the patient. Vit-Fe Fumarate-FA ( vitamin) 28-0.8 MG tablet Take 1 (one) tablet by mouth once daily Active ondansetron, disintegrating, (Zofran ODT) [address] 1 tablet 4 times a day by translingual route as needed. 4 Active ONETOUCH DELICA PLUS 30G FINE LANCETSIndicati ons:, unspecified gestational age (HCC) Testing frequency 5X per day. Pleas supply lancets to match meter and best covered by insurance. 150 Each 4 5 Active Blood Glucose Monitoring Suppl (OneTouch Verio) w/Device KITIndications: , unspecified gestational age (HCC) Use 1 kit as directed Use 1 kit as directed. Please supply meter best covered by insurance. Onetouch verio flex preferred. May supply generic supplies. 1 kit 5 Active labetalol (Normodyne; Trandate) 200 MG tablet Take 1 (one) tablet by mouth every 12 hours 60 tablet 1 5 Active Insulin Pen Needle 32G X 4 MM MISCIndications :Insulin controlled gestational diabetes mellitus (GDM) in second trimester ([facility]) Use 1 Each 2 times daily 100 Each 4 5 Active Active Problems Problem Noted Date Diagnosed Date GBS (group B Streptococcus c arrier), +RV culture, currently 08/17/2024 Chronic hypertension affecting 025 Elevated blood pressure affe cting in third trimester, antepartum 07/02/2024 Iron deficiency anemia during 06/26/19 25 B12 deficiency 06/25/2024 GDM, class A2 05/27/2024 Supervision of high risk , antepartum 0 05/24/2024 Obesity affecting , antepartum 05/25/19 25 History of pre-eclampsia 04/23/2024 Overview (04/23/2024): pre-e wsevere features / PTL bASA daily 162mg Generalized anxiety disorder 02/21/2022 Overview (04/23/2024): -History taking fluoxetine about 5 yr ago after her mother , no meds since -Reports worsening sx in -Current regimen: no meds Previously counseled. Recommendations - Monitor mood symptoms Last Assessment & Plan: -History taking fluoxetine about 5 yr ago after her mother , no meds since -Reports worsening sx in -Current regimen: no meds Previously counseled. Recommendations []? Monitor mood symptoms, consider EPDS at appointments []? Consider trial of medication if worsening sx []? Consider [facility] referral in Depression 07/23/2016 Resolved Problems Problem Noted Date Diagnosed Date Resolved Date Uterine contractions 07/06/2024 025 Class 3 severe obesity in adult 06/21/2024 06/25/2024 Chronic hypertension 06/21/2024 025 Chronic hypertension 06/21/2024 025 Pain with urination 06/11/2024 06/22/19 25 Fall, initial encounter 05/07/202405/12 RUQ pain 04/30/2024 05/24/2024 History of gestational diabetes 06/24/2022 05/27/2024 Encounters Date Type Department Care Team Description 10/20/2024 Results Follow-Up [facility] - WOUND TREATMENT RN [address] [place] [address], [address] [place] [phone] Lucille Stevens MD 10/19/2024 Telephone [facility] - WOUND TREATMENT RN [address] [place] [address], [address] [place] [phone] Lucille Stevens MD Confirmation Of 08/19/2024 2:53 AM CDT Anesthesia Event [facility] [address] [place] [address] Dominic Larkin MD Naeger, Scott A, MANAGER INPATIENT-RELIGION PROFESSOR 08/18/2024 5:27 PM CDT - 08/21/2024 12:45 PM CDT Hospital Encounter [facility] 6W MOTHER/BABY [address] [place] [address] Lucille Stevens MD WOUND TREATMENT RN Discharge Disposition: Home or Self Care 08/18/2024 Travel 08/16/2024 2:30 PM CDT - 08/16/2024 11:59 PM CDT Hospital Encounter [facility] MATERNAL/ EVALUATION UNIT [address] [place] [address]. [address] [place] [address] Awa Wilkinson MD Discharge Disposition: Home or Self Care 08/16/2024 1:39 PM CDT - 08/16/2024 2:29 PM CDT Hospital Encounter [facility] MATERNAL/ EVALUATION UNIT [address] [place] [address]. [address] [place] [address] Awa Wilkinson MD Discharge Disposition: Home or Self Care 08/16/2024 Travel 08/16/2024 Telephone [facility] - WOUND TREATMENT RN [address] [place] [address], [address] [place] [address] Lucille Stevens MD PROBLEM 08/15/2024 11:15 AM CDT - 08/15/2024 11:59 PM CDT Hospital Encounter [facility] [address] [place] [address] [address] [place] [address] Lucille Stevens MD Discharge Disposition: Home or Self Care 08/15/2024 Travel 08/13/2024 2:30 PM CDT visit [facility] - WOUND TREATMENT RN [address] [place] [address], [address] [place] [phone] Lucille Stevens MD [place]: [id number] 08/13/2024 Travel 08/09/2024 2:17 PM CDT - 08/09/2024 11:59 PM CDT Hospital Encounter [address] [address] Lori White MD Discharge Disposition: Home or Self Care 08/09/2024 1:31 PM CDT - 08/09/2024 2:16 PM CDT Hospital Encounter [address] [address] Lori White MD 08/09/2024 1:30 PM CDT Hospital Encounter [address] [address] Lori White MD Discharge Disposition: Home or Self Care 08/09/2024 Telephone [facility] MAT[facility]/ EVALUATION UNIT [address] [place] [address] [address] [place] [address] Nellie Espinal Scheduling 08/09/[address] [address] Lindsay Vargas, RN Appointment 08/08/2024 11:15 AM CDT - 08/08/2024 11:59 PM CDT Hospital Encounter [facility] [place] [address] Lucille Stevens MD Discharge Disposition: Home or Self Care 08/08/2024 Travel 08/07/2024 9:00 AM CDT Procedure visit [facility] - WOUND TREATMENT RN [address] [place] [address], [address] [place] [phone] GDM, class A2 ([facility]) ; BMI 40.0-44.9, adult ([facility]); Chronic hypertension 08/07/2024 Travel 08/02/2024 1:46 PM CDT - 08/02/2024 11:59 PM CDT Hospital Encounter [facility] MATERNAL/ EVALUATION UNIT [address] [place], [place] [address]e. [address] [place] [address] Shalini Barrios MD Discharge Disposition: Home or Self Care 08/02/2024 1:44 PM CDT - 08/02/2024 1:45 PM CDT Hospital Encounter [facility] MATERNAL/ EVALUATION UNIT [address] [place] [address] Ave. [address] [place] [address] Shalini Barrios MD Discharge Disposition: Home or Self Care 08/02/2024 Travel 08/01/2024 10:31 AM CDT - 08/01/2024 11:59 PM CDT Hospital Encounter [facility] [address] [place] [address] [place] [address] Lucille Stevens MD Discharge Disposition: Home or Self Care 08/01/2024 Travel 07/30/2024 12:00 PM CDT visit [facility] - WOUND TREATMENT RN [address] [place] [address], [address] [place] [phone] Lucille Stevens MD [place]: [id number] 07/30/2024 Travel 07/26/2024 1:46 PM CDT - 07/26/2024 11:59 PM CDT Hospital Encounter [facility] MATERNAL/ EVALUATION UNIT [address] [place] [address] [address]. [address] [place] [address] Mona Sullivan MD Discharge Disposition: Home or Self Care 07/26/2024 1:45 PM CDT Hospital Encounter [facility] MATERNAL/ EVALUATION UNIT [address] [place] [address]. [address] [place] [address] Mona Sullivan MD Discharge Disposition: Home or Self Care 07/26/2024 Travel 07/24/2024 Orders Only [facility] - Maternal [address] [place] [address] Italia Umana RN 07/23/2024 10:00 AM CDT Procedure visit [facility] - WOUND TREATMENT RN [address] [place] [address], [address] [place] [address] Chronic hypertension ; GDM, class A2 (HCC); BMI 40.0-44.9, adult (HCC) 07/23/2024 Travel 07/23/2024 Telephone [facility] MATERNAL/ EVALUATION UNIT [address] [place] [address]. [address] [place] [address] Nellie Espinal Scheduling from Last 3 Months Immunizations Immunization Administration Dates Next Due DTaP VACCINE IM (6wk-6yrs) 06/25/2002 INFLUENZA VACCINE 03/05/2003 MMR 08/20/2024(Deferred: - pt rubell crystal imm),06/25/2002 TDAP (7yrs+) 08/20/2024(Deferred: Patient Ref used) TDAP, HISTORIC VACCINE 04/19/2022,07/24/2017 Social History Tobacco Use Types Packs/Day Years Used Date Smoking Tobacco: Never Tobacco Cessation:Counseling Given: Not Answered Alcohol Use Standard Drinks/Week Comments Not Currently 0 (1 standard drink = 0.6 oz pur e alcohol) Overall Financial Resource Strain (CARDIA) Answe r Date Recorded How hard is it for you to pa y for the very basics like food, housing, medical care, and heating? Not hard at all 08/18/2024 PHQ-2 Answer Date Recorded Patient Health Questionnaire-2 Score 0 08/15/2024 [place] [employer] [employer] - Occupational Stress [...] things needed for daily living? No 08/18/2024 [place] Depression Scale Answer Date Recorded [place] Depression Scale Total 0 08/20/2024 The thought [...] any time in the past 12 m [facility], were you homeless or living in a long-term (including now)? 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 Gender Identity Female 09/20/2024 1:10 PM CDT Sexual Orientation Not on file Last Filed Vital Signs Vital Sign Reading Time Taken Comments Blood Pressure 147/85 08/21/2024 8:30 AM CDT Pulse 95 08/21/2024 8:30 AM CDT Temperature 36.7 C (98 F) 08/21/2024 8:30 AM CDT Respiratory Rate 18 08/21/2024 8:30 AM CDT Oxygen Saturation 100% 08/21/2024 8:30 AM CDT Inhaled Oxygen Concentration - - Weight 134.3 kg (296 lb) 08/18/2024 5:29 PM CDT Height 177.8 cm (5' 10) 08/18/2024 5:29 PM CDT Body Mass Index 42.47 08/18/2024 5:29 PM CDT Plan of Treatment Health Maintenance Due Date Last Done Comments HEPATITIS B VACCINE (1 of 3 - 19+ 3-dose series) 2016 PAP SMEAR 2018 COVID-19 VACCINE (1 - 2023-2 5 season) 2023 HPV VACCINE (1 - 3-dose SCDM series) 2024 INFLUENZA VACCINE (#1) 2024 03/05/2003 DTAP/TDAP/TD VACCINES (4 - T d or Tdap) 04/19/2032 04/19/2022, 07/24/2017, 06/25/2002 ZOSTER VACCINE (1 of 2) 2047 HIV SCREENING Completed 02/13/2024 HEPATITIS C SCREENING Completed 05/02/2024 , 11/11/2021 DEPRESSION SCREENING Completed 08/20/2024, 08/01/2024 HIB VACCINE Aged Out No longer eligi ble based on patient's age to complete this topic MENINGOCOCCAL (Group B) VACCINE SHARED DECISION-MAKING Aged Out No longer eligible based on patient's age to complete this topic MENINGOCOCCAL GROUPS A/C/Y/W VACCINE Aged Out No longer eligible b ased on patient's age to complete this topic PNEUMOCOCCAL VACCINE Aged Out No long er eligible based on patient's age to complete this topic Procedures Procedure Name Priority Date/Time Associated Diagnosis Comments PROGESTERONE Routine 10/19/2024 1:15 PM CDT Positive urine test (HCC) HCG BETA BLOOD QUANTITATIVE Routine 10/19/2024 1:15 PM CDT Positive urine test (HCC) IMAGING/RADIOLOGY/XRA Y RESULTS ORDER 08/22/2024 11:15 PM CDT GLUCOSE - POINT OF CARE Routine 08/21/2024 5:01 AM CDT CBC W AUTO DIFFERENTIAL AM Draw 08/20/2024 4:25 AM CDT BLOOD GASES CORD VANNESA (ISTAT) Routine 08/19/2024 6:54 AM CDT BLOOD GASES CORD ART (ISTAT) Routine 08/19/2024 6:47 AM CDT GLUCOSE - POINT OF CARE Routine 08/19/2024 6:10 AM CDT GLUCOSE - POINT OF CARE Routine 08/19/2024 4:48 AM CDT GLUCOSE - POINT OF CARE Routine 08/19/2024 3:45 AM CDT NEURAXIAL BLOCK Routine 08/19/2024 3:26 AM CDT GLUCOSE - POINT OF CARE Routine 08/19/2024 2:39 AM CDT GLUCOSE - POINT OF CARE Routine 08/19/2024 1:40 AM CDT GLUCOSE - POINT OF CARE Routine 08/19/2024 12:39 AM CDT GLUCOSE - POINT OF CARE Routine 08/18/2024 11:37 PM CDT GLUCOSE - POINT OF CARE Routine 08/18/2024 10:30 PM CDT GLUCOSE - POINT OF CARE Routine 08/18/2024 9:33 PM CDT GLUCOSE - POINT OF CARE Routine 08/18/2024 8:30 PM CDT TYPE + SCREEN PANEL STAT 08/18/2024 7 :53 PM CDT SYPHILIS ANTIBODY CASCADING REFLEX STAT 08/18/2024 7:53 PM CDT Decreased movement during , antepartum, single or unspecified fetus (HCC) URINALYSIS REFLEX MICROSCOPIC REFLEX CULTURE STAT 08/18/2024 6:28 PM CDT Chronic hypertension affecting (HCC) PROTEIN CREATININE RATIO URINE RANDOM PNL STAT 08/18/2024 6:28 PM CDT Chronic hypertension affecting (HCC) COMPREHENSIVE METABOLIC PANEL STAT 08/18/2024 6:27 PM CDT Chronic hypertension affecting (HCC) CBC W AUTO DIFFERENTIAL STAT 08/18/2024 6:27 PM CDT Chronic hypertension affecting (HCC) GLUCOSE - POINT OF CARE Routine 08/18/2024 5:49 PM CDT BIOPHYSICAL PROFILE W NST Routine 08/16/2024 2:01 PM CDT Chronic hypertension 32 weeks gestation of (HCC) Supervision of high risk , antepartum (HCC) Obesity in (HCC) GDM, class A2 (HCC) H/O delivery, currently (HCC) H/O pre-eclampsia in prior , currently (HCC) PCOS (polycystic ovarian syndrome) STREP B ANU RFLX SUSC Routine 08/13/2024 2:38 PM CDT Supervision of high risk , antepartum (HCC) NONSTRESS TEST Routine 08/13/2024 2:25 PM CDT NON-STRESS TEST Routine 08/09/2024 3:13 PM CDT BIOPHYSICAL PROFILE W NST Routine 08/09/2024 2:55 PM CDT Chronic hypertension 32 weeks gestation of (HCC) Supervision of high risk , antepartum (HCC) Obesity in (HCC) GDM, class A2 (HCC) H/O delivery, currently (HCC) H/O pre-eclampsia in prior , currently (HCC) PCOS (polycystic ovarian syndrome) ECHO COMPLETE CG Routine 08/09/2024 2:25 PM CDT Supervision of high risk , antepartum (HCC) GDM, class A2 (HCC) Obesity affecting , antepartum, unspecified obesity type (HCC) Encounter for follow-up ultrasound of anatomy (HCC) NONSTRESS TEST Routine 08/07/2024 11:19 AM CDT NONSTRESS TEST Routine 08/07/2024 9:51 AM CDT BIOPHYSICAL PROFILE W NST Routine 08/02/2024 2:26 PM CDT Chronic hypertension 32 weeks gestation of (HCC) Supervision of high risk , antepartum (HCC) Obesity in (HCC) GDM, class A2 (HCC) H/O delivery, currently (HCC) H/O pre-eclampsia in prior , currently (HCC) PCOS (polycystic ovarian syndrome) NONSTRESS TEST Routine 07/30/2024 11:55 AM CDT BIOPHYSICAL PROFILE W NST Routine 07/26/2024 3:04 PM CDT Chronic hypertension 32 weeks gestation of (HCC) Supervision of high risk , antepartum (HCC) Obesity in (HCC) GDM, class A2 (HCC) H/O delivery, currently (HCC) H/O pre-eclampsia in prior , currently (HCC) PCOS (polycystic ovarian syndrome) NONSTRESS TEST Routine 07/23/2024 10:31 AM CDT HEPATITIS SCREEN ACUTE Routine 05/02/2024 6:41 PM 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 RUQ pain from Last 3 Months or Most Recently Relevant to Health Maintenance Results * PROGESTERONE (10/19/2024 1:15 PM CDT) [facility] Signature Progesterone 0.1 ng/mL [facility] ACCOUNT BILL Comment: Follicular phase 0.1 - 0.9 Luteal phase 1.8 - 23.9 Ovulation phase 0.1 - 12.0 First trimester 11.0 - 44.3 Second trimester 25.4 - 83.3 Third trimester 58.7 - 214.0 Postmenopausal 0.0 - 0.1 Blood BLOOD SPECIMEN / Unknown 10/19/2024 1:15 PM CDT 10/19/2024 Narrative [facility] ACCOUNT BILL - 10/20/2024 8:11 AM CDT Performed at: [address] [place] [id number] Carton Wrapper: Willy Gore PhD, Phone: [phone] us Ajay Kwon PA-C LAB - CHEMISTRY ORDERABLES Fi nal Result Performing Organization Address City/[facility] Co de Phone Number [facility] ACCOUNT BILL [address] [place] [address] * HCG BETA BLOOD QUANTITATIVE (10/19/2024 1:15 PM CDT) Pathologist [facility] [place] hCG Value <1 mIU/mL [facility] ACCOUNT BILL Comment: Female (Non-) 0 - 5 (Postmenopausal) 0 - 8 Female () Weeks of Gestation 3 6 - 71 4 10 - 750 5 142 - 6878 6 137 - 81301 7 [phone] 8 [phone] 9 [phone] 10 56117 -[phone] 12 [phone] [phone] 14 64866 - 58139 15 53409 - 76244 16 [phone] 17 6549 - 86983 18 [phone] Judith ECLIA methodology Blood BLOOD SPECIMEN / Unknown 10/19/2024 1:15 PM CDT 10/19/2024 Narrative [facility] ACCOUNT BILL - 10/20/2024 8:11 AM CDT Performed at: [address] [id number] Carton Wrapper: Willy Gore PhD, Phone: [phone] us Ajay Kwon PA-C LAB - CHEMISTRY ORDERABLES Fi nal Result Performing Organization Address City/[facility] Co de Phone Number [facility] ACCOUNT BILL [address] [place] [address] * IMAGING/RADIOLOGY/XRAY RESULTS ORDER (08/22/2024 11:15 PM CDT) Anatomical Region Laterality Modality Other Narrative 08/22/2024 11:15 PM CDT Ordered by an unspecified provider. us Scanned Document IMAGING Final Result * GLUCOSE - POINT OF CARE (08/21/2024 5:01 AM CDT) Only the most recent of12 resultswithin the time period is included. Pathologist [facility] [place] Glucose WB/POC 78 70 - 99 mg/dL 08/21/2024 5:08 AM CDT [facility] Specimen Type Arterial/C apillary 08/21/2024 5:08 AM CDT [facility] Blood BLOOD SPECIMEN / Unknown 08/21/2024 5:01 AM CDT 08/21/2024 5:08 AM CDT us Lucille Stevens MD LAB - POINT OF CARE ORDERABLES F inal Result [facility] [address] [place] [address] * (ABNORMAL) CBC W AUTO DIFFERENTIAL (08/20/2024 4:25 AM CDT) Only the most recent of2 resultswithin the time period is included. WBC 7.4 4.0 - 10.7 x10E9/L 08/20/2024 5:11 AM [facility] RBC Count 3.85(L) 3.90 - 5.20 x10E12/L 08/20/2024 5:11 AM [facility] Hemoglobin 10.6(L) 11.9 - 15.8 g/dL 08/20/2024 5:11 AM [facility] Hematocrit 33.4(L) 34.8 - 46.1 % 08/20/2024 5:11 AM [facility] MCV 86.8 80.0 - 98.0 fL 08/20/2024 5:11 AM CDT [facility] MCH 27.5 26.7 - 33.6 pg 08/20/2024 5:11 AM CDT [facility] MCHC 31.7 31.7 - 36.3 g/dL 08/20/2024 5:11 AM [facility] RDW-CV 19.4(H) 11.3 - 14.8 % 08/20/2024 5:11 AM [facility] Platelet Count 183 150 - 420 x10E9/L 08/20/2024 5:11 AM [facility] MPV 10.9 7.8 - 11.4 fL 08/20/2024 5:11 AM [facility] Neutrophil % 58.4 41.0 - 74.0 % 08/20/2024 5:11 AM CDT [facility] Lymphocyte % 32.3 17.0 - 47.0 % 08/20/2024 5:11 AM CDT [facility] Monocyte % 6.6 3.0 - 11.0 % 08/20/2024 5:11 AM CDT [facility] Eosinophil % 1.8 0.0 - 7.0 % 08/20/2024 5:11 AM CDT [facility] Basophil % 0.4 0.0 - 1.6 % 08/20/2024 5:11 AM CDT [facility] Immature Granulocytes % 0.5 0.0 - 1.0 % 08/20/2024 5:11 AM CDT [facility] Neutrophil Absolute 4.31 1.60 - 7.50 x10E9/L 08/20/2024 5:11 AM CDT [facility] Lymphocyte Absolute 2.39 1.00 - 4.40 x10E9/L 08/20/2024 5:11 AM CDT [facility] Monocyte Absolute 0.49 0.15 - 1.00 x10E9/L 08/20/2024 5:11 AM CDT [facility] Eosinophil Absolute 0.13 0.00 - 0.60 x10E9/L 08/20/2024 5:11 AM CDT [facility] Basophil Absolute 0.03 0.00 - 0.13 x10E9/L 08/20/2024 5:11 AM CDT [facility] Blood BLOOD SPECIMEN / Unknown Lab Venipuncture / Unknown 08/20/2024 4:25 AM CDT 08/20/2024 4:57 AM CDT us Lucille Stevens MD LAB - HEMATOLOGY ORDERABLES Shikha rosa Result [facility] [address] [place] [address] * (ABNORMAL) BLOOD GASES CORD VANNESA (ISTAT) (08/19/2024 6:54 AM CDT) pH Cord Venous POCT 7.28 7.28 - 7.40 pH 08/19/2024 7:01 AM CDT [facility] pCO2 Cord Venous POCT 56.5(H) 35 - 45 mm hg 08/19/2024 7:01 AM [facility] pO2 Cord Venous POCT <15(L) 22 - 33 mm hg 08/19/2024 7:01 AM [facility] HCO3 Cord Arterial POCT 26.4(H) 22 - 24 mmol/L 08/19/2024 7:01 AM [facility] BE Cord Venous POCT Calc -2 -6.4 - 1.6 mmol/L 08/19/2024 7:01 AM [facility] TCO2 Cord Venous POCT 28 22 - 30 mmol/L 08/19/2024 7:01 AM [facility] O2 Saturation % Cord Venous Calc POCT 10 % 08/19/2024 7:01 AM [facility] Site CORD VANNESA 08/19/2024 7:01 AM [facility] Sample iSTAT CORD VANNESA 08/19/2024 7:01 AM [facility] Blood CORD BLOOD SPECIMEN / Unknown 08/19/2024 6:54 AM CDT 08/19/2024 7:00 AM CDT Lucille Stevens MD LAB - POINT OF CARE ORDERABLES F inal Result [facility] [address] [place] [address] * (ABNORMAL) BLOOD GASES CORD ART (ISTAT) (08/19/2024 6:47 AM CDT) pH Cord Arterial POCT 7.18(L) 7.20 - 7.34 pH 08/19/2024 7:01 AM [facility] pCO2 Cord Arterial POCT 71.7(HH) 45 - 55 mm hg 08/19/2024 7:01 AM [facility] pO2 Cord Arterial POCT 17 12 - 25 mm hg 08/19/2024 7:01 AM [facility] HCO3 Cord Arterial POCT 27.0(H) 22 - 24 mmol/L 08/19/2024 7:01 AM [facility] BE Cord Arterial POCT -4(L) -2.9 - 8.3 mmol/L 08/19/2024 7:01 AM CDT [facility] TCO2 Cord Arterial POCT 29 mmol/L 08/19/2024 7:01 AM CDT [facility] O2 Saturation Cord Art % Calc POCT 15 % 08/19/2024 7:01 AM CDT [facility] Site CORD ART 08/19/2024 7:01 AM CDT [facility] Sample iSTAT CORD ART 08/19/2024 7:01 AM CDT [facility] Blood CORD BLOOD SPECIMEN / Unknown 08/19/2024 6:47 AM CDT 08/19/2024 7:00 AM CDT Lucille Stevens MD LAB - POINT OF CARE ORDERABLES F inal Result [facility] [address] [place] [address] * EPIDURAL BLOCK PERF (08/19/2024 3:26 AM CDT) Narrative Dominic Larkin MD - 08/19/2024 3:26 AM CDT Dominic Larkin MD 08/27/2024 7:04 AM Neuraxial Block Note Pre-Procedure: Procedure Name: Neuraxial Block Indications: at surgeon's request, at patient's request and labor analgesia Pre-Anesthetic Checklist: Patient identified, IV Checked, Risks and benefits discussed, Surgical consent verified, Monitors and equipment, Site examined, Pre-op evaluation done, Time-out performed, Informed consent obtained, Questions answered/anesthesia questions answered and Allergies reviewed Anticoagulation/ Anti-thrombosis status confirmed? Yes Monitors: BP, continuous pluse ox and EKG Patient Condition: awake Patient Sedated? No Procedure: Block Type: Epidural Prep: Betadine Sterile Field: mask, cap/hat, sterile established and sterile gloves Approach: midline Skin was localized? Nursing documentation on MAR Skin localized with: Lidocaine 1% and 3 mL Epidural Block: Is this procedure for postop pain? No Needle Type: Tuohy Needle gauge: 18 G Needle length: 90 mm Placement Site: L3-L4 Number of Attempts: 1 Loss of Resistance: 7.5 air Catheter threaded to (cm): 20 Catheter length at skin (cm): 13 CSF Aspirated from catheter: No Blood Aspirated: No Test Dose: lidocaine 1.5% with 1-200,000 epinephrine 3 mL at 08/19/2024 3:10 AM Test Dose Response: No Epidural Local Anesthetic Used? Nursing documentation on MAR Epidural Agents (Manual): Ropivacaine: 0.2% with Fentany 2mcg/ml 10 mL Epidural Infusion Medications: Ropivacaine: 0.2% with Fentanyl 2mcg/mL in NS , at 10 mL/hr Degree of difficulty: none Procedure Tolerance: tolerated well Sensory Level: T6 Motor Blockade: No Position post procedure: supine, left uterine displacement Vital Signs: Vital signs monitored and stable throughout. See anesthesia record for details., Vital signs moniitored and stable throughout. See nursing vitals flowsheet for details., heart tones monitored and stable throughout. Start Time: 08/19/2024 2:58 AM End Time: 08/19/2024 3:10 AM Total Time: 12 Staff: Anesthesia Provider: Dustin Salas APRN-RELIGION PROFESSOR - performed the procedure Dominic Larkin MD GENERAL ANESTHESIA ORDERABLES Fi nal Result * SYPHILIS ANTIBODY CASCADING REFLEX (08/18/2024 7:53 PM CDT) Treponema pallidum Antibody Non Reactive Non Reactive 08/18/2024 8:55 PM CDT [facility] Comment: No Laboratory evidence of syphilis infection. Note: Circulating antibodies may be low or undetectable in early infection. If recent exposure is suspected, re-draw sample in 2-4 weeks and repeat testing. Blood BLOOD SPECIMEN / Unknown Venipuncture / Unknown 08/18/2024 7:53 PM CDT 08/18/2024 8:11 PM CDT Lucille Stevens MD LAB - SEROLOGY ORDERABLES Final Result [facility] [address] [place] [address] * TYPE + SCREEN PANEL (ALL [facility] except [facility]) (08/18/2024 7:53 PM CDT) ABO Rh O POS 08/18/2024 10:37 PM CDT [facility] Comment:History checked. Antibody Screen NEG 10:37 PM CDT [facility] Blood Bank BLOOD SPECIMEN / Unknown Venipuncture / Unknown 08/18/2024 7:53 PM CDT 08/18/2024 8:11 PM CDT us Lucille Stevens MD LAB - BLOOD BANK ORDERABLES Shikha shelley Result [facility] [address] [phone] * (ABNORMAL) URINALYSIS REFLEX MICROSCOPIC REFLEX CULTURE (08/18/2024 6:28 PM CDT) Color UA Colorless(A) Yellow, Straw 08/18/2024 6:35 PM CDT [facility] Clarity UA Clear Clear 08/18/2024 6:35 PM CDT [facility] Glucose UA Normal Normal 08/18/2024 6:35 PM CDT [facility] Bilirubin UA Negative Negative 08/18/2024 6:35 PM CDT [facility] Ketone UA Negative Negative 08/18/2024 6:35 PM CDT [facility] Specific [place] UA 1.007 1.005 - 1.030 08/18/2024 6:35 PM CDT [facility] Blood UA Negative Negative 08/18/2024 6:35 PM CDT [facility] pH UA 6.5 5.0 - 8.0 08/18/2024 6:35 PM CDT [facility] Protein UA Negative Negative 08/18/2024 6:35 PM CDT [facility] Urobilinogen UA Normal Normal mg/dL 08/18/2024 6:35 PM CDT [facility] Nitrite UA Negative Negative 08/18/2024 6:35 PM CDT [facility] Leukocyte Esterase UA Negative Negative 08/18/2024 6:35 PM CDT [facility] Reflex Status Culture not indicated 08/18/2024 6:35 PM CDT [facility] Urine Microscopy Urine microscopy not indicated 08/18/2024 6:35 PM CDT [facility] Urine URINE SPECIMEN OBTAINED BY CLEAN CATCH PROCEDURE / Unknown Collection / Unknown 08/18/2024 6:28 PM CDT 08/18/2024 6:31 PM CDT Narrative [facility] - 08/18/2024 6:35 PM CDT Lucille Stevens MD LAB - URINALYSIS ORDERABLES Shikha l Result Performing Organization Address [facility] de Phone Number [facility] [address] [place] [phone] * PROTEIN CREATININE RATIO URINE RANDOM PNL (08/18/2024 6:28 PM CDT) Pathologist [facility] [place] Protein Urine <6.8 <11.9 mg/dL 08/18/2024 6:52 PM CDT [facility] Creatinine Urine 33.38 mg/dL 08/18/2024 6:52 PM CDT [facility] Protein/Creatin ine Ratio Urine 08/18/2024 6:52 PM CDT [facility] Comment:Unable to calculate due to limited levels of measurable protein. Urine URINE SPECIMEN OBTAINED BY CLEAN CATCH PROCEDURE / Unknown Collection / Unknown 08/18/2024 6:28 PM CDT 08/18/2024 6:31 PM CDT Lucille Stevens MD LAB - URINE CHEMISTRY ORDERABLES Final Result Performing Organization Address [facility] de Phone Number [facility] [address] [place] [phone] * (ABNORMAL) COMPREHENSIVE METABOLIC PANEL (08/18/2024 6:27 PM CDT) Pathologist [facility] [place] Glucose 87 70 - 99 mg/dL 08/18/2024 6:51 PM CDT [facility] Sodium 134(L) 136 - 145 mmol/L 08/18/2024 6:51 PM CDT [facility] Potassium 3.9 3.5 - 5.1 mmol/L 08/18/2024 6:51 PM CDT [facility] Chloride 105 98 - 107 mmol/L 08/18/2024 6:51 PM CDT [facility] CO2 19(L) 22 - 29 mmol/L 08/18/2024 6:51 PM CDT [facility] Calcium 9.4 8.4 - 10.4 mg/dL 08/18/2024 6:51 PM CDT [facility] Anion Gap 10 6 - 16 mmol/L 08/18/2024 6:51 PM CDT [facility] BUN 9 5.3 - 18.7 mg/dL 08/18/2024 6:51 PM CDT [facility] Creatinine 0.52(L) 0.57 - 1.11 mg/dL 08/18/2024 6:51 PM CDT [facility] Alkaline Phosphatase 108 40 - 150 U/L 08/18/2024 6:51 PM CDT [facility] ALT 14 6 - 57 U/L 08/18/2024 6:51 PM CDT [facility] AST 16 10 - 48 U/L 08/18/2024 6:51 PM CDT [facility] Protein Total 7.0 6.4 - 8.3 gm/dL 08/18/2024 6:51 PM CDT [facility] Albumin 3.3 3.1 - 4.5 gm/dL 08/18/2024 6:51 PM CDT [facility] Bilirubin Total 0.2 0.2 - 1.2 mg/dL 08/18/2024 6:51 PM CDT [facility] eGFR by CKD-EPI >90 >=90 mL/min/1.7 3 m2 08/18/2024 6:51 PM CDT [facility] Blood BLOOD SPECIMEN / Unknown Venipuncture / Unknown 08/18/2024 6:27 PM CDT 08/18/2024 6:31 PM CDT Lucille Stevens MD LAB - CHEMISTRY ORDERABLES Final Result [facility] [address] [place], [place] [id number] * BIOPHYSICAL PROFILE W NST (08/16/2024 2:01 PM CDT) Only the most recent of4 resultswithin the time period is included. Linked Results Indication ======== A2GDM CHTN Incomplete anatomy Class III Obesity PCOS Normal echo on 08/09/24 History ====== OB History 2. Para 1 P1 1. live 04/2022. Gest. age 34 w + 5 d. Weight 2,760 g. Sex of child: male. Details: Vaginal delivery, Preeclampsia, GDM Family History Father's mother: Spina bifida Father's father: Clubbed foot Lab Tests Test Date Result NIPT Low risk, Male Maternal Assessment Physical Exam Height 175 cm, 5 ft 9 in. Weight 136 kg, 300 lb. Initial weight 127 kg, 280 lb. BMI 44.30 kg/m . Initial BMI 41.35 kg/m . Weight gain 9 kg, 20 lb Method ====== Transabdominal ultrasound. View: Suboptimal view: limited by late gestational age. limited secondary to challenging acoustic properties ========= Leigh . Number of fetuses: 1 Dating ====== Date Details Gest. age RUBIN Stated RUBIN 36 w + 5 d 09/08/2024 U/S 08/16/2024 based upon AC, BPD, Femur, HC 37 w + 6 d 08/31/2024 Assigned dating based on stated RUBIN, selected on 08/02/2024 36 w + 5 d 09/08/2024 General Evaluation Cardiac activity present. FHR 129 bpm. Presentation: cephalic Placenta: Placental site: posterior Amniotic fluid: Amount of AF: normal. MVP 6.8 cm. SPARKLE 18.3 cm. Q1 2.3 cm, Q2 3.5 cm, Q3 5.8 cm, Q4 6.8 cm Biometry BPD 93.0 mm 37w 6d 88% Hadlock HC 335.6 mm 38w 3d 65% Hadlock AC 338.9 mm 37w 6d 87% Hadlock Femur 72.4 mm 37w 0d 57% Hadlock Humerus 60.9 mm 35w 2d 38% Angelique HC / AC 0.99 Weight Calculation: EFW 3,283 g 79% Hadlock EFW (lb,oz) 7 lb 4 oz EFW by Hadlock ([id number]) appropriate Growth Overview Exam date GA BPD (mm) HC (mm) AC (mm) FL (mm) HL (mm) EFW (g) 06/21/2024 28w 5d 74.5 75% 275.4 60% 252.5 66% 56.7 66% 51.4 79% 1429 71% 07/19/2024 32w 5d 84.7 82% 317.5 87% 289.2 57% 62.6 30% 55.3 43% 2132 54% 08/16/2024 36w 5d 93 88% 335.6 65% 338.9 87% 72.4 57% 60.9 38% 3283 79% Anatomy The following structures appear normal: Abdomen Stomach. Kidneys. Bladder. Extremities / Skeleton Right arm. The following structures could not be adequately visualized: Head / Neck Cavum septi pellucidi. Heart / Thorax LVOT view. 5-[id number]-okffbtx view. Situs. Aortic arch view. Bicaval view. Ductal arch view. Great vessels. Extremities / Skeleton Hands. Left arm. Feet. The following structures were documented previously: Head / Neck Cranium. Lateral ventricles. Choroid plexus. Midline falx. Cerebellum. Cisterna magna. Thalami. Nuchal fold. Face Lips. Profile. Nose. Nasal bone. Orbits. Heart / Thorax 4-chamber view. RVOT view. 3-vessel view. Right lung. Left lung. Diaphragm. Abdomen Cord insertion. Bowel. Genitals. Spine Cervical spine. Thoracic spine. Lumbar spine. Sacral spine. Extremities / Skeleton Legs. sex: male. Biophysical Profile 0: breathing movements 2: Gross body movements 2: tone 2: Amniotic fluid volume NST: reactive 8/10 Biophysical profile score Breathing did not last 30 seconds Non Stress Test NST interpretation: reactive. Baseline FHR 125 bpm Impression ========= Single live intrauterine at 36w 5d size appropriate for gestational age Normal amniotic fluid volume Reassuring biophysical profile score Incomplete anatomic survey Comment ======== Measurements today reflect appropriate interval growth. ultrasound alone cannot detect all structural, genetic, or functional , placental, or maternal abnormalities. Follow-up ======== Continue twice weekly testing Complete the anatomic survey as visualization allows Coding ====== Procedures 33971: [place] [address]: Biophysical Profile W NST [place] PACS Anatomical Region Laterality Modality Other 08/16/2024 2:01 PM CDT Lucille Stevens MD [facility] ORDERABLES Edited Result - Final * (ABNORMAL) STREP B ANU RFLX SUSC (08/13/2024 2:38 PM CDT) Strep B ANU Rflx Suseptibility Positive(A) Negative [facility] ACCOUNT BILL Comment: Centers for Disease Control and Prevention (CDC) and [place] [employer]nec[employer] (ACOG) guidelines for prevention of group B streptococcal (GBS) disease specify co-collection of a vaginal and rectal swab specimen to maximize sensitivity of GBS detection. Per the CDC and ACOG, swabbing both the lower vagina and rectum substantially increases the yield of detection compared with sampling the vagina alone. Penicillin G, ampicillin, or cefazolin are indicated for intrapartum prophylaxis of GBS colonization. Reflex susceptibility testing should be performed prior to use of clindamycin only on GBS isolates from penicillin-allergic women who are considered a high risk for anaphylaxis. Treatment with vancomycin without additional testing is warranted if resistance to clindamycin is noted. Performed at: [facility] [id number] Carton Wrapper: Willy Gore PhD, Phone: [phone] Organism ID Comment [facility] ACCOUNT BILL Comment:Beta hemolytic Strep tococcus, group B Clindamycin Susceptible [facility] ACCOUNT BILL Comment: Testing for inducible clindamycin resistance was performed using erythromycin and clindamycin in the D-zone test. Per the Centers for Disease Control and Prevention (CDC), erythromycin is no longer an acceptable alternative for intrapartum group B Streptococcus (GBS) prophylaxis for penicillin-allergic women at high risk for anaphylaxis. Microbiology MISCELLANEOUS SAMPLES / Unknown 08/13/2024 2:38 PM CDT 08/13/2024 Comment:Vaginal/Rectal Relea s Narrative [facility] ACCOUNT BILL - 08/17/2024 1:10 PM CDT Performed at: 01 - [facility] [address] [id number] Carton Wrapper: Willy Gore PhD, Phone: [phone] us Lucille Stevens MD LAB - MICROBIOLOGY ORDERABLES Fi nal Result [facility] ACCOUNT BILL [address] [place] [address] * Nonstress Test (08/13/2024 2:25 PM CDT) us Scanned Document OB GYNE ORDERABLES Final Result * NON-STRESS TEST (08/09/2024 3:13 PM CDT) Anatomical Region Laterality Modality Other Narrative 08/09/2024 3:13 PM CDT Dimas Bailey MD 08/09/2024 4:48 PM Name: Damaris Aguilera Date of : 1995 Today's Date: 08/09/2024 35w5d NST RESULTS (LEIGH) OBJECTIVE FINDINGS , Pulse: 92, , BP: 121/79 NST Indication(s): Gestational diabetes, Chronic hypertension Uterine Irritability: No Contractions: Not present OBJECTIVE FINDINGS Movement: Present Monitoring Mode: External Baseline: 140 BPM Variability: Moderate Decelerations: None Accelerations: No OTHER INFORMATION Ro Moreno RN us Dimas Bailey MD [facility] ORDERABLES Final Result * ECHO COMPLETE CG (08/09/2024 2:25 PM CDT) MV E pk kelsey 39.41 cm/s [facility] CV F UJI PACS MV A pk kelsey 61.49 cm/s [facility] CV F UJI PACS Anatomical Region Laterality Modality Ultrasound 08/09/2024 1:40 PM CDT Narrative 08/09/2024 2:55 PM CDT Name: Damaris Aguilera Patient Exam Info Gender: Female Patient Status: O/P : 1995 Admit Date: 08/09/2024 Exam Date/Time: 08/09/2024 1:40 PM Site: [facility] Current Location: CARE EStudy Quality: Diagnostic quality Staff Ordering Provider: Shalini Barrios Interpreting Physician: Lori White MD Marine Driller: Julianna Hicks [facility] Study Info Procedure: ECHO COMPLETE CG Indications: O09.90 - Supervision of high risk , antepartum ([facility]) Z36.2 - Encounter for follow-up ultrasound of anatomy ([facility]) O99.210 - Obesity affecting , antepartum, unspecified obesity type ([facility]) O24.419 - GDM, class A2 ([facility]) Maternal Gestational Status GA by EDC: 35 wks , 5 days EDC: 09/08/2024 Type: Leigh Age: 29 yrs Lie: Vertex Summary * Technically difficult/suboptimal echocardiogram due to body habitus. * The echocardiogram was within normal limits. * Small atrial and ventricular septal defects and persistent ductus arteriosus cannot be excluded as findings. Anatomic Relationships Left sided cardiac apex (levocardia). There is normal visceral-cardiac situs, and normal segmental cardiac anatomical relationship. Systemic Veins There is normal systemic venous return. Pulmonary Veins The visualized pulmonary veins drain normally to the left atrium. Right Atrium The right atrial size is normal. Left Atrium The left atrial size is normal. Atrial Septum Patent foramen ovale with open foramen flap. Color flow is right to left. Right Ventricle The right ventricular cavity size is normal. The right ventricular wall thickness is normal. The right ventricular systolic function is normal. RV Outflow Tract The right ventricular outflow tract is normal. Left Ventricle The left ventricular cavity size is normal. The left ventricular wall thickness is normal. The left ventricular systolic function is normal. Ventricular Septum There is no ventricular septal defect with no shunting. LV Outflow Tract The left ventricular outflow tract is normal. Tricuspid Valve The tricuspid valve is structurally normal. The tricuspid inflow pattern is normal. Tricuspid velocity is within the normal range. There is no tricuspid regurgitation. Mitral Valve The mitral valve is structurally normal. The mitral inflow pattern is normal. Mitral velocity is within the normal range. There is no mitral regurgitation. Aorta aortic arch visualized and is without obstruction by 2D, color flow and Doppler. Pulmonary Arteries The main pulmonary artery is normal, with confluent branch pulmonary arteries. Ductus Arteriosus The antegrade flow velocity and pattern in the ductal arch is normal. A normal ductus arteriosus is appreciated. Doppler Flow in the ductus venosus is normal. The umbilical vein flow pattern is normal. The umbilical artery flow pattern is normal. Hydrops Assessment No pericardial effusion. No ascites present. No pleural effusion(s). Rhythm The rhythm is normal. There is 1:1 AV conduction. Pulmonary Valve The pulmonic valve is normal-sized. The transpulmonic velocity is within normal range. There is no pulmonic regurgitation. Aortic Valve The aortic valve is normal-sized. The transaortic velocity is within normal range. There is no aortic regurgitation. Doppler Measurements (Fetus A) Atrioventricular Valves Name Value Normal Z-Score Percentile Atrioventricular Valves Doppler TV E Peak Velocity 0.5 m/s TV A Peak Velocity 0.6 m/s MV E Peak Velocity 0.4 m/s MV A Peak Velocity 0.6 m/s (Fetus A) Semilunar Valves Name Value Normal Z-Score Percentile Semilunar Valves Doppler PV Peak Velocity. 0.8 m/s AV Peak Velocity () 1.0 m/s (Fetus A) Heart Rate Name Value Normal Z-Score Percentile Heart Rate HR 162 bpm Report Signatures Finalized by Lori White MD on 08/09/2024 02:55 PM Procedure Note Lori White MD - 08/09/2024 Name: Damaris Aguilera Patient Exam Info Gender: Female Patient Status: O/P : 1995 Admit Date: 08/09/2024 Exam Date/Time: 08/09/2024 1:40 PM Site: [facility] Current Location: CARE EStudy Quality: Diagnostic quality Staff Ordering Provider: Shalini Barrios Interpreting Physician: Lori White MD Marine Driller: Julianna Hicks [facility] Study Info Procedure: ECHO COMPLETE CG Indications: O09.90 - Supervision of high risk , antepartum ([facility]) Z36.2 - Encounter for follow-up ultrasound of anatomy ([facility]) O99.210 - Obesity affecting , antepartum, unspecifiedobesity type ([facility]) O24.419 - GDM, class A2 ([facility]) Maternal Gestational Status GA by EDC: 35 wks , 5 days EDC: 09/08/2024 Type: Leigh Age: 29 yrs Lie: Vertex Summary * Technically difficult/suboptimal echocardiogram due to body habitus. * The echocardiogram was within normal limits. * Small atrial and ventricular septal defects and persistent ductus arteriosus cannot be excluded as findings. Anatomic Relationships Left sided cardiac apex (levocardia). There is normal visceral-cardiac situs, and normal segmental cardiac anatomical relationship. Systemic Veins There is normal systemic venous return. Pulmonary Veins The visualized pulmonary veins drain normally to the left atrium. Right Atrium The right atrial size is normal. Left Atrium The left atrial size is normal. Atrial Septum Patent foramen ovale with open foramen flap. Color flow is right toleft. Right Ventricle The right ventricular cavity size is normal. The right ventricularwall thickness is normal. The right ventricular systolic function is normal. RV Outflow Tract The right ventricular outflow tract is normal. Left Ventricle The left ventricular cavity size is normal. The left ventricular wall thickness is normal. The left ventricular systolic function is normal. Ventricular Septum There is no ventricular septal defect with no shunting. LV Outflow Tract The left ventricular outflow tract is normal. Tricuspid Valve The tricuspid valve is structurally normal. The tricuspid inflow patternis normal. Tricuspid velocity is within the normal range. There is notricuspid regurgitation. Mitral Valve The mitral valve is structurally normal. The mitral inflow pattern is normal. Mitral velocity is within the normal range. There is no mitral regurgitation. Aorta aortic arch visualized and is without obstruction by 2D, colorflow and Doppler. Pulmonary Arteries The main pulmonary artery is normal, with confluent branch pulmonary arteries. Ductus Arteriosus The antegrade flow velocity and pattern in the ductal arch is normal.A normal ductus arteriosus is appreciated. Doppler Flow in the ductus venosus is normal. The umbilical vein flow patternis normal. The umbilical artery flow pattern is normal. Hydrops Assessment No pericardial effusion. No ascites present. No pleural effusion(s). Rhythm The rhythm is normal. There is 1:1 AV conduction. Pulmonary Valve The pulmonic valve is normal-sized. The transpulmonic velocity iswithin normal range. There is no pulmonic regurgitation. Aortic Valve The aortic valve is normal-sized. The transaortic velocity is withinnormal range. There is no aortic regurgitation. Doppler Measurements (Fetus A) Atrioventricular Valves Name Value Normal Z-ScorePercentile Atrioventricular Valves Doppler TV E Peak Velocity 0.5 m/s TV A Peak Velocity 0.6 m/s MV E Peak Velocity 0.4 m/s MV A Peak Velocity 0.6 m/s (Fetus A) Semilunar Valves Name Value Normal Z-ScorePercentile Semilunar Valves Doppler PV Peak Velocity. 0.8 m/s AV Peak Velocity () 1.0 m/s (Fetus A) Heart Rate Name Value Normal Z-ScorePercentile Heart Rate HR 162 bpm Report Signatures Finalized by Lori White MD on 08/09/2024 02:55 PM us Shalini Barrios MD ECHO [facility] Final Result * Nonstress Test (08/07/2024 11:19 AM CDT) us Scanned Document OB GYNE ORDERABLES Final Result * Nonstress Test (08/07/2024 9:51 AM CDT) us Scanned Document OB GYNE ORDERABLES Final Result * Nonstress Test (07/30/2024 11:55 AM CDT) us Scanned Document OB GYNE ORDERABLES Final Result * Nonstress Test (07/23/2024 10:31 AM CDT) us Scanned Document OB GYNE ORDERABLES Final Result * HEPATITIS SCREEN ACUTE (05/02/2024 6:41 PM 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) HAV Antibody IgM Non Reactive Non Reactive 05/02/2024 7:52 PM 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 [facility] HBsAg Non Reactive Non Reactive 05/02/2024 7:52 PM 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 [facility] HBc Antibody IgM Non Reactive Non Reactive 05/02/2024 7:52 PM 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 [facility] HCV Antibody Screen Non Reactive Non Reactive 05/02/2024 7:52 PM 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 [facility] Blood BLOOD SPECIMEN / Unknown Lab Venipuncture / Unknown 05/02/2024 6:41 PM 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 05/02/2024 7:06 PM 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 Narrative [facility] - 05/02/2024 7:52 PM 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 Non Reactive - Antibodies to Hepatitis C virus (HCV) were not detected, result does not exclude early acute HCV infection. us Lucille Stevens MD LAB - CHEMISTRY ORDERABLES Final Result [facility] [address] [place] [address] from Last 3 Months or Most Recently Relevant to Health Maintenance Insurance [facility] Advance Directives * Full Code (Latest Code Status on File) Date Activated Date Inactivated Comments 08/18/2024 7:39 PM 08/21/2024 2:36 PM * Full Code Date Activated Date Inactivated Comments 05/02/2024 3:59 PM 05/03/2024 12:49 PM Care Teams [facility] Director Relationship Specialty Start Date End Date Ramila Pal MD [address] [phone] PCP - General Family Medicine 07/04/24
--- OUTSIDE RECORDS SUMMARY | 2024-10-20 15:59 | XMS_ITS | Clinical Summary ---
Author Organization [facility] Address [address] [place] [address] Care Team Providers Care Athletic Events Scorer Name Role Phone Ramila Pal MD Primary Care Provider [phone] Allergies Active Allergy Reactions Criticality Noted Date Comments Amoxicillin Rash Low 01/22/2022 Ampicillin Rash Low 07/24/2017 Metformin Chest pressure Medium 06/27/2023 Nuts Anaphylaxis High 09/01/2023 All nuts Penicillins Rash Low 07/24/2017 Sulfa Antibiotics Headache,Rash Medium 07/24/2017 Medications APPLE CIDER VINEGAR OR Active 28-0.8 MG tablet Take 1 tablet by mouth daily. Dose unknown Active azithromycin (ZITHROMAX) 500 mg tablet Take 1 tablet (500 mg total) by mouth daily. 5 tablet 01/26/2024 Active Active Problems Problem Noted Date Diagnosed Date History of gestational diabetes 06/24/2022 History of gestational hypertension 06/24/2022 Generalized anxiety disorder 02/21/2022 Overview (06/27/2023): -History taking fluoxetine about 5 yr ago [...] referral in History of bulimia 02/16/2022 Overview (06/27/2023): Remote history; in remission, previously counseled. We discussed monitoring her symptoms and to notify her OB team if she is experiencing relapse. Last Assessment & Plan: Remote history; in remission, previously counseled. We discussed monitoring her symptoms and to notify her OB team if she is experiencing relapse. Migraine headache 01/26/2017 Bulimia nervosa, moderate ([facility]) 08/13 Depression 07/23/2016 Resolved Problems Problem Noted Date Diagnosed Date Resolved Date ([facility]) 04/22/2022 06/27/19 24 Mastalgia in female 03/18/2017 06/27/19 24 Deliberate self-cutting 02/17/201706/12 Contraceptive management 11/11/2016 Risk for sexually transmitted disease 11/10/2016 06/27/2023 Acne 07/23/2016 06/27/2023 Encounter for preventive health examination 07/07/2016 11/23/2019 Immunizations Immunization Administration Dates Next Due Dtap (Acel-Immune) 06/25/2002 Influenza (Generic) 03/05/2003 MMR (MMRII) 06/25/2002 Tdap (Boostrix) 07/24/2017 Tdap (Generic) 04/19/2022 Family History Medical History Relation Comments Hypertension Father Colon Cancer Mother stage 4 Diabetes Mother Relation Status Comments Father Mother Social History Tobacco Use Types Packs/Day Years Used Date Smoking Tobacco: Never Passive Smoke Exposure: Never Smokeless Tobacco: Never Tobacco Cessation:Counseling Given: No Alcohol Use Standard Drinks/Week Comments Not Currently 0 (1 standard drink = 0.6 oz pur e alcohol) PHQ-2 Answer Date Recorded Patient Health Questionnaire-2 Score 0 09/01/2023 Comments No Sex and Gender Information Value Date Recorded Sex Assigned at Not on file Legal Sex Female 7:36 PM CDT Gender Identity Not on file Sexual Orientation Not on file Last Filed Vital Signs Vital Sign Reading Time Taken Comments Blood Pressure 136/83 01/26/2024 3:45 AM TESTING LEAD Pulse 89 01/26/2024 3:45 AM TESTING LEAD Temperature 37.1 C (98.8 F) 01/26/2024 3:45 AM TESTING LEAD Respiratory Rate 22 01/26/2024 1:50 AM TESTING LEAD Oxygen Saturation 97% 01/26/2024 3:45 AM TESTING LEAD Inhaled Oxygen Concentration - - Weight 127 kg (280 lb) 01/26/2024 1:35 AM TESTING LEAD Height 177.8 cm (5' 10) 01/26/2024 1:35 AM TESTING LEAD Body Mass Index 40.18 01/26/2024 1:35 AM TESTING LEAD Plan of Treatment Health Maintenance Due Date Last Done Comments Hepatitis B Vaccines (1 of 3 - 19+ 3-dose series) 2016 COVID-19 Vaccine (2023-2 5 season) 2023 PHQ-2 (Physician [place]) 03/14/2024 09/01/2023 HPV Vaccines (1 - 3-dose SCD M series) 2024 Annual Physical 06/26/2024 06/27/2023 Cervical Cancer Screening Pa p Smear (Age 21 to 29) Every 3 Years 01/18/2027 01/19/2024, 02/19/2022 Cervical Cancer Screening 01/18/2027 DTaP, Tdap and Td Vaccines ( 4 - Td or Tdap) 04/19/2032 04/19/2022, 07/24/2017, 06/25/2002 Hepatitis C Completed 11/11/2021 Meningococcal B Vaccine Aged Out No l onger eligible based on patient's age to complete this topic Meningococcal Vaccine Aged Out No guru jonine eligible based on patient's age to complete this topic Pneumococcal Vaccine: Pediatrics (0 to 5 Years) and At-Risk Patients (6 to 49 Years) Aged Out No longer eligible b ased on patient's age to complete this topic RSV Immunizations Under 20 Months Aged Out No longer eligible b ased on patient's age to complete this topic Procedures Procedure Name Priority Date/Time Associated Diagnosis Comments HEPATITIS C ANTIBODY Routine 11/11/2021 11:52 AM CDT Screening for -associate d plasma protein A (HHS/HCC) from Last 3 Months or Most Recently Relevant to Health Maintenance Results * HEPATITIS C ANTIBODY (11/11/2021 11:52 AM CDT) HEPATITIS C AB NON-REACTI VE NON-REACTI VE 11/11/2021 8:[address] [facility] 11/11/2021 11:5 2 AM CDT [facility] Final Result [facility] [address] [place] [address], from Last 3 Months or Most Recently Relevant to Health Maintenance Insurance [facility] Advance Directives * Full Code (Latest Code Status on File) Date Activated Date Inactivated Comments 04/22/2022 3:22 PM 04/22/2022 7:12 PM * Full Code Date Activated Date Inactivated Comments 04/22/2022 9:25 AM 04/22/2022 3:22 PM * Full Code Date Activated Date Inactivated Comments 04/21/2022 3:20 PM 04/21/2022 7:24 PM * Full Code Date Activated Date Inactivated Comments 04/14/2022 2:31 PM 04/14/2022 5:23 PM * Full Code Date Activated Date Inactivated Comments 04/06/2022 4:15 PM 04/06/2022 8:16 PM Care Teams Athletic Events Scorer Relationship Specialty Start Date End Date Ramila Pal MD [address] [place] [address] PCP - General FAMILY PRACTICE 12/26/23
--- OUTSIDE RECORDS SUMMARY | 2024-10-20 15:59 | XMS_ITS | Encounter Summary ---
Author Organization [facility] Address Formerly [facility] [place] [address] Care Team Providers Care Liquid Flavor Compounder Name Role Phone Oswaldo Avina MD Primary Care Provider [phone] Ramila Pal MD Primary Care Provider [phone] Encounter Details Date Type Department Care Team (Late st Contact Info) Description 12/12/2023 Webmedx Message Enc [facility] [address] [address] [facility] 12/13/23 Social History Tobacco Use Types Packs/Day Years [...] Assessment Author Status No 04/22/2022 9:51 AM SUPERVISOR HAND SILVERING Activ e * RETIRED Are you blind or do you have serious difficulty seeing, even when wearing glasses? Answer Date of Assessment Author Status No 04/22/2022 9:51 AM SUPERVISOR HAND SILVERING Activ e * Do you have serious difficulty walking or climbing stairs? Answer Date of Assessment Author Status No 04/22/2022 9:51 AM SUPERVISOR HAND SILVERING Rachel Upton RN Active * Do you [...] Candelaria RN Active documented in this encounter Progress Notes * Kristy Palacios MD - 12/12/2023 4:23 PM CDT Willing to do a VV with the pt after she has a rib xray and cxr done. Willing to see her at my [id number] on Tue12/14/23. Is pt willing to get imaging done? * Tita Diaz MA - 12/12/2023 3:[address] Avina is currently out of the office. All messages will be sent to his covering provider. Please give us 24-48 hours to respond to any messages sent. Pt called back and told Lesley that she started having pain about 4 days ago after her gave her a hug. She states that she felt a crack and it has been hurting since. She has been taking tylenol and it has helped, but the pain comes back when it wears off. She states it hurts to breathe.Pt was advised to go to ER for evaluation and she states she has a toddler and no one to watch the child. Pt informed it is highly recommended that she find a way there if possible. She does have appt scheduled on 12/29/23, but she was informed that if it does not get any better then she can call office and schedule an appt when Dr. Hunt is back in the office. documented in this encounter Plan of Treatment Not on file documented as of this encounter Visit Diagnoses Not on filedocumented in this encounter Additional Health Concerns Infection Onset Date Last Indicated Resolved Time COVID-19 Rule Out 01/26/2024 01/26/2024 01/26/2024 3:44 AM SUPERVISOR HAND SILVERING documented as of this encounter Care Teams Liquid Flavor Compounder Relationship Specialty Start Date End Date Oswaldo Avina MD PCP - General FAMILY PRACTICE 06/27/23 12/25/23 Ramila Pal MD [address] [place] [address] PCP - General FAMILY PRACTICE 12/26/23 documented as of this encounter
--- OUTSIDE RECORDS SUMMARY | 2024-10-20 16:03 | XMS_ITS | Continuity of Care Document ---
Author Organization [facility] Address [address] [place] [address] Phone Care Team Providers Care Industrial Organizational Psychologist Name Role Phone Maged Lee MD Unavailable Unavailable Advance Directives Directive Yes / No Effective Date File Name No Information Encounters Encounter Description Practice Location Reason(s) For Visit Diagnoses Date Provider Providers Copied on Encounter [facility], [address], [place], [place], [id number], [place] tel:[phone] [facility] No Information Jesus Lynne. [id number] [place] [address], [id number], [place]. tel:[phone] Family History Family Member Type Diagnosis Age At Onset No Information Payers Payer name Insurance type Covered green party ID Authoriza tion(s) No Information Social History [...]
[2024-10-20 16:07] VITALS: BP 114/78; PULSE 85; RESP 18; TEMP 36.5; O2SAT 99
--- NOTE | 2024-10-20 16:13 | ED.DENTAL ---
HPI - Dental/Oral General Chief complaint: Dental/Oral Stated complaint: Tooth pulled/fever/nausea Source: patient Mode of arrival: ambulatory History of Present Illness HPI Narrative: 29y/o female presented for c/o pain to the left lower gum following tooth extraction 4 days ago. States it was infected when she had it extracted. She continues to have pain radiating up the left side of the face, and endorses tasting pus. pt endorses nausea and temp today of 101. Doing salt water rinse and tylenol for symptoms. Pt is currently , 8 weeks post . States she talked to her Obgyn as she was also concerned for . MD Complaint: tooth pain Related Data Allergies Allergy/AdvReac Type Severity Reaction Status Date / Time amoxicillin AdvReac Mild Rash Verified 10/20/24 15:59 ampicillin AdvReac Mild Rash Verified 10/20/24 15:59 Penicillins AdvReac Mild Rash Verified 10/20/24 15:59 Sulfa (Sulfonamide AdvReac Mild Rash Verified 10/20/24 15:59 Antibiotics) Review of Systems Review of Systems: CONSTITUTIONAL: Denies body aches, fever, chills ENT: Denies rhinorrhea, congestion, sore throat, or otalgia. Reports dental pain CARDIOVASCULAR: Denies chest pain, palpitations RESPIRATORY: Denies cough or dyspnea. SKIN: Denies rash, itching, or wounds. MUSCULOSKELETAL: Denies myalgia. NEUROLOGIC: Denies headache, numbness, tingling, or weakness. PMFSH Past Medical History Medical History Bulimia Depression Gestational hypertension Preeclampsia Surgical History Surgical History Hx of cholecystectomy Social History Social History Smoking status: Never smoker Comments At time of signature, I have reviewed and agree with nursing past medical, surgical, social and family history unless otherwise noted. Please see nursing chart for further information. There is no relevant family history pertinent to the presenting complaint Exam Narrative: GENERAL: Appears in pain; no acute distress. HEAD: Normocephalic, atraumatic. EYES: EOMI. No redness or drainage. Conjunctivae normal. ENT: Dental pain location of #18, tooth extracted, site is open, no swelling or purulent drainage noted. Mucous membranes pink and moist. TMs normal bilaterally. Throat normal. no dysphagia, odynophagia, dysphonia, or dyspnea. No uvular deviation or soft palate edema. NECK: Normal AROM. No lymphadenopathy. no induration below mandible, no neck pain. CHEST: No respiratory distress. SKIN: Warm, dry, Normal skin turgor. NEURO: No focal deficits. Alert and oriented x3. Course Course Emergency Course: Patient is aware of diagnosis, understands and agrees to treatment plan. Anticipatory guidance given. Patient agrees to follow-up as directed and is aware of reasons to seek care at the emergency department. Portions of this record may have been created with voice recognition software Level of Care: Express Care Visit Vital Signs Vital signs: Vital Signs Temperature 97.7 F 10/20/24 16:07 Pulse Rate 85 10/20/24 16:07 Respiratory Rate 18 10/20/24 16:07 Blood Pressure 114/78 10/20/24 16:07 Pulse Oximetry 99 10/20/24 16:07 Oxygen Delivery Room Air 10/20/24 16:07 Temperature 97.7 F 10/20/24 16:07 Pulse Rate 85 10/20/24 16:07 Respiratory Rate 18 10/20/24 16:07 Blood Pressure 114/78 10/20/24 16:07 Pulse Oximetry 99 10/20/24 16:07 Oxygen Delivery Room Air 10/20/24 16:07 MDM - Dental/Oral MDM Narrative Medical decision making narrative: Pt is , afebrile in clinic and has Obgyn. Patients pain and complaint coupled with physical findings are consistent with dry socket. There are no focal signs of space occupying lesions that are compromising to the airway; Patient is non-toxic appearing. The floor of the mouth is soft with no signs of Jam's Angina; Patient is without trismus or drooling and able to swallow secretions. Patient is felt appropriate for discharge home with dental follow up. Rx viscous lidocaine and cefdinir. Pt will continue supportive measures. She is aware of risk of diarrhea and thrush to while breast feeding. Differential Diagnosis Differential diagnosis: Likely gingival abscess, dental caries, toothache, dental abscess, fracture of tooth, aphthous ulcer and other Discharge Plan Discharge Clinical Impression: Toothache Patient Disposition: Home Condition: Stable Instructions: Antibiotic Form, Dry Socket (ED) Additional Instructions: Take antibiotic as directed May apply heat or ice to the face Gentle brushing and flossing. Rinse mouth with warm salt water at least 2 times a day. Alternate Tylenol and ibuprofen as needed for pain Follow-up with the dentist Go to the ER for worsening symptoms or concerns Patient Language: Kosovan Prescriptions: New lidocaine HCl [Lidocaine Viscous] 2 % solution 1 applic mucous membrane TID PRN (Reason: pain) Qty: 100 0RF Rx Instructions: apply with cotton swab to site of pain cefdinir 300 mg capsule 300 mg PO Q12H Qty: 14 0RF No Action cefuroxime axetil 500 mg tablet 500 mg PO BID Qty: 14 0RF Follow-up/Referrals: UNKNOWN,DOCTOR [Primary Care Provider] - Time of Disposition: 16:26
== END 2024-10-20 16:30 | disposition home or self-care (01) ==
PROVIDERS: Emergency Provider Nurse Practitioner Family
DX: G89.18 Other acute postprocedural pain (principal); Z98.818 Other dental procedure status
CPT/HCPCS: 99213; G0463

== ENCOUNTER 2025-01-22 09:55 | Emergency (ER) | payer BC, SELFPAY ==
--- NOTE | 2025-01-22 09:56 | ED_ITS ---
HPI - Ear Problem General Chief complaint: Ear Stated complaint: R Ear Time Seen by Provider: 01/22/25 09:56 Source: patient Mode of arrival: ambulatory Limitations: no limitations History of Present Illness HPI Narrative: Patient is a 29-year-old female who presents with right ear pain that started when she woke up. Patient has history of ear infections. States she is unable to hear out of it. Denies any fever, chills, nausea, vomiting, diarrhea, congestion, sinus pressure, sore throat. Patient took Tylenol. Patient states she just found out she was , unsure how far along as she has not had a menstrual cycle since having her last baby who is now 5-month-old. Complaint: ear pain Related Data Allergies Allergy/AdvReac Type Severity Reaction Status Date / Time amoxicillin AdvReac Mild Rash Verified 01/22/25 10:14 ampicillin AdvReac Mild Rash Verified 01/22/25 10:14 Penicillins AdvReac Mild Rash Verified 01/22/25 10:14 Sulfa (Sulfonamide AdvReac Mild Rash Verified 01/22/25 10:14 Antibiotics) Review of Systems Review of Systems: All systems reviewed & are unremarkable except as noted in HPI and below Constitutional: Constitutional: Denies body ache(s), Denies chills, Denies fever(s), Denies headache(s) and Denies malaise Eyes: Eyes: Denies blurry vision, Denies eye discharge and Denies irritation ENT: Reports otalgia, Denies headache(s), Denies nasal congestion, Denies nasal discharge and Denies sore throat Cardiovascular: Cardiovascular: Denies chest pain, Denies edema, Denies palpitations and Denies dyspnea on exertion Respiratory: Respiratory: Denies cough and Denies dyspnea on exertion Gastrointestinal: Gastrointestinal: Denies abdominal pain, Denies diarrhea, Denies nausea and Denies vomiting Musculoskeletal: Musculoskeletal: Denies back pain, Denies arthralgias and Denies muscle weakness Integumentary/Breasts: Skin/Breast: Denies pruritus and Denies rash Neurologic: Denies headache(s) Psychiatric: Psychiatric: Reports no additional psychiatric complaints Endocrine: Endocrine: Denies palpitations PMFSH Past Medical History Medical History Bulimia Gestational hypertension Preeclampsia Depression Surgical History Surgical History Hx of cholecystectomy Comments At time of signature, agree with nursing past medical, surgical, social and family history. There is no relevant family history pertinent to the presenting complaint? Exam Const: General: cooperative, healthy appearing, no acute distress and well nourished Nutritional Appearance: well nourished Orientation/consciousness: patient oriented x3 Limitations: no limitations HENMT: Head: normal to inspection, normocephalic and atraumatic Ears: hearing grossly normal bilaterally, EAC's normal, no periauricular adenopathy and TM abnormal bulging on the right and erythematous on the right Face/Nose/Sinus: Normal external nose present, Normal nares present, Normal nasal mucous membranes and turbinates present, No nasal discharge present, normal facial exam and sinuses nontender Face and sinus: normal facial exam and sinuses nontender Mouth: Yes Normal oral and palatal mucosa present, Yes lip normal, Yes tongue normal and Yes moist mucous membranes Throat: posterior oropharynx normal, tonsils normal and uvula midline Eyes: General: appearance normal, both eyes and all related structures Alignment and Position: alignment normal and position normal Eyelids: eyelids normal Pupils: Equal, round and reactive pupils present EOM: EOMs intact bilaterally Neck: Neck: normal visual inspection, full ROM, no lymphadenopathy and supple Chest: Chest palpation & inspection: normal inspection of the chest Resp: Effort & Inspection: normal respiratory effort and able to speak in comp lete sentences Auscultation: clear to auscultation bilaterally, no crackles, no rales, no rhonchi and no wheezes Cardio: Rate: regular rate Rhythm: regular rhythm Heart sounds: S1 normal heart sound present and S2 normal heart sound present Skin: General skin exam: normal color and no rashes or lesions noted Neuro: General: patient oriented x3 and moves all extremities Cranial nerves: Yes Equal, round and reactive pupils present Cognition (Neuro): normal cognition Speech: normal speech Gait exam (Neuro): Normal gait present Extrem: General: normal to inspection and full ROM Psych: Appearance: grossly normal and well kempt Mental Status: mental status grossly normal Speech and movement: Normal speech and movement present Course Course Emergency Course: Patient is aware of diagnosis, understands and agrees to treatment plan.? Anticipatory guidance given.? Patient agrees to follow-up as directed and is aware of reasons to seek care at the emergency department.? Portions of this record may have been created with voice recognition software? Level of Care: Express Care Visit Vital Signs Vital signs: Reviewed Medical Decision Making MDM Narrative Medical decision making narrative: Will prescribe Keflex as she has tolerated in the past and is safe in . Pt well hydrated appearing, in no respiratory distress, hemodynamically stable. Recommend supportive care. The patient is stable at time of discharge the clinical impression was discussed and the patient was given the opportunity to ask questions, which were addressed as completely as possible given the information available at present. Anticipatory guidance and return to care precautions were discussed and the importance of primary care follow-up was stressed and encouraged. The patient voiced understanding of the plan, indications to return, and the need for follow-up. Exam findings show no acute concerns or changes Patient is appropriate for outpatient treatment and follow-up. Differential diagnosis considered: otitis media, otitis externa, otitis effusion, foreign body, cerumen impaction, viral syndrome Medical Records Medical records reviewed: Yes I reviewed the external patient's medical records. Discharge Plan Discharge Clinical Impression: Otitis media Qualifiers: Otitis media type: suppurative Chronicity: acute Laterality: right Recurrence: non-recurrent Spontaneous tympanic membrane rupture: without spontaneous rupture Qualified Code(s): H66.001 - Acute suppurative otitis media without spontaneous rupture of ear drum, right ear Patient Disposition: Home Condition: Stable Instructions: Ear Infection (GEN) Additional Instructions: Take antibiotics as directed. Recommend antihistamine such as Benadryl at night time and Zyrtec or Cara during the day until symptoms improve Flonase nasal spray, 1 spray in each nostril once daily until symptoms improve Also, recommend symptomatic treatment includes: rest, fluids, and increase humidity of the air at home. Recommend Acetaminophen as directed on the bottle to reduce fever, pain Please schedule a follow-up visit with your personal physician for further evaluation and treatment within 3-5days. If your symptoms persist, change or worsen significantly before you can contact your personal physician then please, without delay, go to the emergency department for further evaluation. Patient Language: [place] Prescriptions: New cefdinir 300 mg capsule 300 mg PO Q12H 7 Days Qty: 14 0RF fluticasone propionate [Flonase Allergy Relief] 50 mcg/actuation spray,suspension 1 spray intranasal DAILY Qty: 16 0RF Rx Instructions: administer into each nostril loratadine 10 mg tablet 10 mg PO DAILY Qty: 30 0RF Follow-up/Referrals: Jan,Tina Bills MD [Primary Care Provider, Unknown] - 3 Days Stand Alone Forms: Work/School Release IP Time of Disposition: 10:18
[2025-01-22 10:06] VITALS: BP 137/66; PULSE 85; RESP 18; TEMP 36.4; O2SAT 99
--- OUTSIDE RECORDS SUMMARY | 2025-01-22 10:25 | XMS_ITS | Clinical Summary ---
Author Organization [facility] [employer] Address [address] [place] [address] Care Team Providers Care Airport Operations Crew Member Name Role Phone Ramila Pal MD Primary Care Provider [phone] Source Comments [facility] [employer],non-owned Affiliates and Associated Physician Practices is amultiple site organization consisting of ambulatory clinics and hospital sitesin [place], [place], [place] and [place]. This disclosure is being madepursuant to the Care Everywhere program and may not contain all information available regarding this patient. Last updated 17.[facility] [employer] Allergies Active Allergy Reactions Criticality Noted Date [...] gestational diabetes mellitus (GDM) in second trimester ([facility]) Use 1 Each 2 times [...] 05/24/2024 History of gestational diabetes 06/24/2022 05/27/2024 Immunizations Immunization Administration Dates Next Due DTaP VACCINE IM (6wk-6yrs) 06/25/2002 INFLUENZA VACCINE 03/05/2003 MMR 08/20/2024(Deferred: - pt rubell a imm),06/25/2002 TDAP (7yrs+) 08/20/2024(Deferred: Patient Ref used) [...] 0 08/15/2024 [facility] - Occupational Stress [...] things needed for daily living? No 08/18/2024 [place] Depression Scale Answer Date Recorded [place] Depression Scale Total 0 08/20/2024 The thought [...] were you homeless or living in a retirement (including now)? No 08/18/2024 Comments No Sex and Gender Information Value Date Recorded Sex Assigned at Female 07/04/2024 4:08 PM CDT Legal Sex Female 5:42 AM CHARGE POSTER Gender Identity Female 09/20/2024 1:10 PM CDT [...] 19+ 3-dose series) 2016 PAP SMEAR 2018 HPV VACCINE (1 - 3-dose SCDM series) 2024 COVID-19 VACCINE ( - 2023-2 5 season) 2024 INFLUENZA VACCINE (#1) 2024 03/05/2003 DTAP/TDAP/TD VACCINES (4 - T d or Tdap) 04/19/2032 04/19/2022, 07/24/2017, 06/25/2002 ZOSTER VACCINE (1 of 2) 2047 HIV SCREENING Completed 02/13/2024 HEPATITIS C SCREENING Completed 05/02/2024 , 11/11/2021 DEPRESSION SCREENING Completed 08/01/2024 HIB VACCINE Aged Out No longer [...] Name Priority Date/Time Associated Diagnosis Comments HEPATITIS SCREEN ACUTE Routine 05/02/2024 6:41 PM CHARGE POSTER RUQ pain from Last 3 Months or Most Recently Relevant to Health Maintenance Results * HEPATITIS SCREEN ACUTE (05/02/2024 6:41 PM CHARGE POSTER) HAV Antibody IgM Non Reactive Non Reactive 05/02/2024 7:52 PM CHARGE POSTER [facility] HBsAg Non Reactive Non Reactive 05/02/2024 7:52 PM CHARGE POSTER [facility] HBc Antibody IgM Non Reactive Non Reactive 05/02/2024 7:52 PM CHARGE POSTER [facility] HCV Antibody Screen Non Reactive Non Reactive 05/02/2024 7:52 PM CHARGE POSTER [facility] Blood BLOOD SPECIMEN / Unknown Lab Venipuncture / Unknown 05/02/2024 6:41 PM CHARGE POSTER 05/02/2024 7:06 PM CHARGE POSTER Narrative [facility] - 05/02/2024 7:52 PM CHARGE POSTER Non Reactive - Antibodies to Hepatitis C virus (HCV) were not detected, result does not exclude early acute HCV infection. us Lucille Stevens MD LAB - CHEMISTRY ORDERABLES Final Result [facility] [address] [place] [address] from Last 3 Months or Most Recently Relevant to Health Maintenance Insurance [employer] Advance Directives * Full Code (Latest Code Status on File) Date Activated Date Inactivated Comments 08/18/2024 7:39 PM 08/21/2024 2:36 PM * Full Code Date Activated Date Inactivated Comments 05/02/2024 3:59 PM 05/03/2024 12:49 PM Care Teams Airport Operations Crew Member Relationship Specialty Start Date End Date Ramila Pal MD [address] [phone] PCP - General Family Medicine 07/04/24
--- OUTSIDE RECORDS SUMMARY | 2025-01-22 10:25 | XMS_ITS | Clinical Summary ---
Author Organization [facility] Address [address] [place] [address] Care Team Providers Care Master Ocean [employer] Name Role Phone Charbel Kassi June DO Primary Care Provider [phone] Junito Posada MD Unavailable Allergies Active Allergy Reactions Criticality Noted Date Comments Ampicillin Rash Medium 07/24/2017 Penicillins Rash Medium 07/24/2017 Sulfa (Sulfonamide Antibiotics) Rash,Headache Medium 0 07/24/2017 Medications OneTouch Delica Plus Lancet 33 gauge [facility] Active OneTouch Verio Reflect Meter [facility] Active acetaminophen 500 mg capsuleIndicati ons:Pain [...] symptoms Assessment & Plan (03/23/2022 3:12 PM HEARING THERAPY DIRECTOR): -History taking fluoxetine about 5 yr ago [...] relapse. Assessment & Plan (03/23/2022 3:12 PM HEARING THERAPY DIRECTOR): Remote history; in remission, previously counseled. We [...] Desires discharge home today. Task sent for [facility] follow up. Gestational hypertension, third trimester 04/22/2022 [...] was to start metformin and had not bean picker machine operator Rx yet, for OB insulin protocol Gestational [...] gHTN Assessment & Plan (04/19/2022 11:37 AM HEARING THERAPY DIRECTOR): Counseled today for newly diagnosed gDM. Reviewed [...] PP Assessment & Plan (03/23/2022 3:11 PM HEARING THERAPY DIRECTOR): No prior history of diagnosed cHTN, on [...] [x] Blue Team Referring Provider: Lizy Block [phone] [] or Medicare Insurance [x] Dating Criteria: [...] review. Assessment & Plan (03/23/2022 3:14 PM HEARING THERAPY DIRECTOR): We will continue co-management of care with [...] Never Smokeless Tobacco: Never Social Connection and Isolation Panel Answer Date Recorded In a typical week, how many times do you talk on the phone with family, friends, or neighbors? More than three times a week 04/25/2022 How often do you get togethe r with friends or relatives? More than three times a week 04/25/2022 How often do you attend chur ch or jainism services? Never 04/25/2022 Do you belong to any clubs o r organizations such as mandaeism groups, unions, fraternal or athletic groups, or [...] place to sleep or slept in a nursing home (including now)? No 04/25/2022 [place] Depression Scale Answer Date Recorded [place] Depression Scale Total 4 06/24/2022 The thought of harming myself has occurred to me . Never 06/24/2022 Personal Safety Answer Date Recorded Getting School Help Needed Denies 03/20 Comments No Sex and Gender Information Value Date Recorded Sex Assigned at Not on file Legal Sex Female 12:35 AM HEARING THERAPY DIRECTOR Gender Identity Not on file Sexual Orientation [...] al Y Livin g 7 8 CONSUELO MORENO,KELY Suma Aguiar MD Complications:Pre eclampsia Delivery Location:[facility] ([facility]LD) Last Filed Vital Signs Vital Sign Reading Time Taken Comments Blood Pressure 125/80 06/24/2022 11:15 AM CDT Pulse 98 06/24/2022 11:15 AM CDT Temperature 36.6 C (97.9 F) 2022 7:50 AM HEARING THERAPY DIRECTOR Respiratory Rate 18 2022 7:50 AM HEARING THERAPY DIRECTOR Oxygen Saturation 97% 06/24/2022 11:15 AM CDT [...] Most Recently Relevant to Health Maintenance Insurance [facility] [employer] S[employer]ATURE AETNA SIG [id number] Advance Directives For more information, please contact: [phone] * Full Code (Latest Code Status on File) Date Activated Date Inactivated Comments 04/23/2022 9:23 AM 2022 6:00 PM * Full Code Date Activated Date Inactivated Comments 04/22/2022 6:11 PM 04/23/2022 9:23 AM Care Teams Master Ocean Yacht Relationship Specialty Start Date End Date Kassi Barger DO [address] [place] [address] PCP - General 02/03/22 Junito Posada MD [address] [place] [address] 02/03/22
--- OUTSIDE RECORDS SUMMARY | 2025-01-22 10:26 | XMS_ITS | Data Portability ---
Author Organization [facility] [place] Address [address] [place] [place] [address] Assessment No assessment recorded. Plan of Treatment Reminders Order Date Submit Date Provider Last Modified By Organization Details Last Modified Time Details Appointments None recorded. Lab surgical pathology study 2024 025 [facility] (Lab), [address], [place], [address], 5 15:17:13 test, urine 2024 025 [email or web address], [address], [place], [address], 15:34:12 unlisted lab - [facility] swab, ANU 2024 025 [facility] (Lab), [address], [place], [address], 5 18:36:38 pap, IG + reflex HPV if ASC-U - if positive HPV run subtyping 16,18/45 2024 025 [facility] (Lab), [address], [place], [address], 5 18:36:38 urinalysis, dipstick 2024 025 [email or web address] [email or web address], [address], [place], [address], 15:39:14 culture, urine 2024 025 [facility] (Lab), [address] , [place], [address], 5 13:43:47 CBC w/ auto diff 2024 025 [facility] (Lab), [address] , [place], [address], 5 18:36:36 TSH, serum or plasma 2024 025 [facility] (Lab), [address], [place], [address], 5 18:36:36 iron + TIBC + ferritin, serum 2024 025 [facility] (Lab), [address], [place], [address], 5 18:36:37 25-hydroxyv itamin D2 + 25-hydroxyv itamin D3, QN, serum or plasma 2024 025 [facility] (Lab), [address], [place], [address], 5 18:36:37 CMP, serum or plasma 2024 025 [facility] (Lab), [address] , [place], [address], 5 18:36:37 HbA1c (hemoglobin A1c), blood 2024 025 [facility] (Lab), [address] , [place], [address], 5 18:36:38 vitamin B12 + folate, serum or blood 2024 025 [facility] (Lab), [address], [place], [address], 18:36:37 Referral pelvic floor therapy referral 2024 025 [email or web address] [facility], [address], [address], [place], [address], 18:36:57 Procedures None recorded. Surgeries None recorded. Imaging US, pelvis 2024 [address], [address], [place], [address], 17:55:58 US, transvagina l 2024 [address], [address], [place], [address], 17:55:58 US, obstetric, limited 2024 [address], [address], [place], [address], 21:50:37 Medication Orders estradiol 0.01% (0.1 mg/gram) vaginal cream 2024 025 [email or web address] 6 [facility] #[id number], [address] [facility], [place], [place], [id number], 15:27:25 cabergoline 0.5 mg tablet 2024 025 [facility] #[id number], [address] [facility], [place], [place], [id number], 15:27:25 Patient TargetsNo targets recorded. Patient InstructionsNo instructions recorded. Reason for Referral Pelvic Floor Therapy Referra l for Pain in female genitalia on intercourse Referring Physician: Nikhil Arroyo, PLANT [employer]UMENT ENGINEER, Encounter Date: 12/14/2024 Results Created Date Observation Date Name Description Value Unit Range Abnormal Flag Note LastModifiedBy Organization Detail LastModifiedTime 04/03/1904/03/2024 CMP/C BC/UR IC ACID WBC 8.4 10'3/ uL 3.5-10 .5 Not Available [facility] (Lab) [address], [place], [address], 04/04/2024 05:15:08 04/03/1904/03/2024 CMP/C BC/UR IC ACID RBC 4.40 10'6/ uL (based on docume nted legal sex) 3.80-5 .20 Not Available [facility] (Lab) [address] [place], [address], 04/04/2024 05:15:08 04/03/19 25 04/03/2024 CMP/C BC/UR IC ACID HGB 11.9 g/dL (based on docume nted legal sex) 11.6-1 5.4 Not Available [facility] (Lab) [address], [place], [address], 04/04/2024 05:15:08 04/03/19 25 04/03/2024 CMP/C BC/UR IC ACID HCT 37.3 % (based on docume nted legal sex) 34.0-4 5.0 Not Available [facility] (Lab) [address] [place], [address], 04/04/2024 05:15:08 04/03/19 25 04/03/2024 CMP/C BC/UR IC ACID MCV 84.8 fL 80.0-9 9.0 Not Available [facility] (Lab) [address] [place], [address], 04/04/2024 05:15:08 04/03/19 25 04/03/2024 CMP/C BC/UR IC ACID MCH 27.0 pg 27.0-3 4.0 Not Available [facility] (Lab) [address] [place], [address], 04/04/2024 05:15:08 04/03/19 25 04/03/2024 CMP/C BC/UR IC ACID MCHC 31.9 g/dL 32.0-3 5.5 low Not Available [facility] (Lab) [address] [facility], [place], [address], 04/04/2024 05:15:08 04/03/19 25 04/03/2024 CMP/C BC/UR IC ACID RDW 14.9 % 11.0-1 5.0 Not Available [facility] (Lab) [address] [facility], [place], [address], 04/04/2024 05:15:08 04/03/19 25 04/03/2024 CMP/C BC/UR IC ACID plt 239 10'3/ uL 150-40 0 Not Available [facility] (Lab) [address] [facility], [place], [address], 04/04/2024 05:15:08 04/03/19 25 04/03/2024 CMP/C BC/UR IC ACID MPV 12.5 fL 8.8-12 .1 high Not Available [facility] (Lab) [address] [facility], [place], [address], 04/04/2024 05:15:08 04/03/19 25 04/03/2024 CMP/C BC/UR IC ACID neutrophils 62.7 % 34.0-7 3.0 Not Available [facility] (Lab) [address] [facility], [place], [address], 04/04/2024 05:15:08 04/03/19 25 04/03/2024 CMP/C BC/UR IC ACID lymphocytes 27.2 % 15.0-5 0.0 Not Available [facility] (Lab) [address] [facility], [place], [address], 04/04/2024 05:15:08 04/03/19 25 04/03/2024 CMP/C BC/UR IC ACID monocytes 6.9 % 1.0-15 .0 Not Available [facility] (Lab) [address] [facility], [place], [address], 04/04/2024 05:15:08 04/03/19 25 04/03/2024 CMP/C BC/UR IC ACID eosinophils 2.4 % 0.0-8. 0 Not Available [facility] (Lab) [address] [facility], [place], [address], 04/04/2024 05:15:08 04/03/19 25 04/03/2024 CMP/C BC/UR IC ACID basophils 0.4 % 0.0-2. 0 Not Available [facility] (Lab) [address], [place], [address], 04/04/2024 05:15:08 04/03/19 25 04/03/2024 CMP/C BC/UR IC ACID immature granulocytes 0.4 % no define d refere nce range Immat ure Granu locyt es (IG) repre sents autom ated enume ratio n of Metam yeloc ytes, Myelo cytes and Promy elocy arielle when IG is < 5%. Blast s are not inclu ded in IG and repor katherine separ ately if prese nt. Not Available [facility] (Lab) [address], [place], [address], 04/04/2024 05:15:08 04/03/19 25 04/03/2024 CMP/C BC/UR IC ACID absolute neutrophils 5.3 10'3/ uL 1.5-8. 0 Not Available [facility] (Lab) [address] [facility], [place], [address], 04/04/2024 05:15:08 04/03/19 25 04/03/2024 CMP/C BC/UR IC ACID absolute lymphocytes 2.3 10'3/ uL 1.0-4. 0 Not Available [facility] (Lab) [address] [facility], [place], [address], 04/04/2024 05:15:08 04/03/19 25 04/03/2024 CMP/C BC/UR IC ACID absolute monocytes 0.6 10'3/ uL 0.2-1. 0 Not Available [facility] (Lab) [address], [place], [address], 04/04/2024 05:15:08 04/03/19 25 04/03/2024 CMP/C BC/UR IC ACID absolute eosinophils 0.2 10'3/ uL 0.0-0. 6 Not Available [facility] (Lab) [address], [place], [address], 04/04/2024 05:15:08 04/03/19 25 04/03/2024 CMP/C BC/UR IC ACID absolute basophils 0.0 10'3/ uL 0.0-0. 3 Not Available [facility] (Lab) [address], [place], [address], 04/04/2024 05:15:08 04/03/19 25 04/03/2024 CMP/C BC/UR IC ACID absolute immature granulocytes 0.0 10'3/ uL 0.00-0 .10 Refer ence range s for nonbi nary/ inter sex or unspe cifie d gende r patie nts have not been estab lishe d. Pleas e refer [facility] for range s estab lishe d for cisge nder patie nts and evalu ate in the clini mary ann isabel xt of the indiv idual patie nt: https ://[facility] book. nm.or g/Gen derX Not Available [facility] (Lab) [address], [place], [address], 04/04/2024 05:15:08 04/03/19 25 04/03/2024 CMP/C BC/UR IC ACID uric acid 3.5 mg/dL 2.3-6. 6 Not Available [facility] (Lab) [address], [place], [address], 04/04/2024 05:15:08 04/03/19 25 04/03/2024 CMP/C BC/UR IC ACID sodium 138 mmol/ L 133-14 6 Not Available [facility] (Lab) [address] [facility], [place], [address], 04/04/2024 05:15:08 04/03/19 25 04/03/2024 CMP/C BC/UR IC ACID potassium 4.1 mmol/ L 3.5-5. 1 Not Available [facility] (Lab) [address] [facility], [place], [address], 04/04/2024 05:15:08 04/03/19 25 04/03/2024 CMP/C BC/UR IC ACID chloride 102 mmol/ L 98-107 Not Available [facility] (Lab) [address] [facility], [place], [address], 04/04/2024 05:15:08 04/03/19 25 04/03/2024 CMP/C BC/UR IC ACID carbon dioxide 27 mmol/ L 21-31 Not Available [facility] (Lab) [address] [facility], [place], [address], 04/04/2024 05:15:08 04/03/19 25 04/03/2024 CMP/C BC/UR IC ACID anion gap 9 mmol/ L 4-13 Not Available [facility] (Lab) [address] [facility], [place], [address], 04/04/2024 05:15:08 04/03/19 25 04/03/2024 CMP/C BC/UR IC ACID blood urea nitrogen 5 mg/dL 7-25 low Not Available [facility] (Lab) [address] [place], [address], 04/04/2024 05:15:08 04/03/19 25 04/03/2024 CMP/C BC/UR IC ACID creatinine 0.54 mg/dL 0.60-1 .30 low Not Available [facility] (Lab) [address] [place], [address], 04/04/2024 05:15:08 04/03/19 25 04/03/2024 CMP/C BC/UR IC ACID egfrcr (CKD-epi 2020) >90 mL/mi n/1.7 3_m2 >=60 Not Available [facility] (Lab) [address], [place], [address], 04/04/2024 05:15:08 04/03/19 25 04/03/2024 CMP/C BC/UR IC ACID calcium 9.5 mg/dL 8.3-10 .5 Not Available [facility] (Lab) [address], [place], [address], 04/04/2024 05:15:08 04/03/19 25 04/03/2024 CMP/C BC/UR IC ACID glucose 85 mg/dL 70-100 Not Available [facility] (Lab) [address], [place], [address], 04/04/2024 05:15:08 04/03/19 25 04/03/2024 CMP/C BC/UR IC ACID protein, total 6.7 g/dL 6.4-8. 3 Not Available [facility] (Lab) [address], [place], [address], 04/04/2024 05:15:08 04/03/19 25 04/03/2024 CMP/C BC/UR IC ACID albumin 3.7 g/dL 3.5-5. 0 Not Available [facility] (Lab) [address], [place], [address], 04/04/2024 05:15:08 04/03/19 25 04/03/2024 CMP/C BC/UR IC ACID ALT 9 units /L 9-43 Not Available [facility] (Lab) [address] [place], [address], 04/04/2024 05:15:08 04/03/19 25 04/03/2024 CMP/C BC/UR IC ACID alkaline phosphatase 55 units /L 34-104 Not Available [facility] (Lab) [address] [facility], [place], [address], 04/04/2024 05:15:08 04/03/19 25 04/03/2024 CMP/C BC/UR IC ACID AST 11 units /L 13-39 low Not Available [facility] (Lab) [address] [facility], [place], [address], 04/04/2024 05:15:08 04/03/19 25 04/03/2024 CMP/C BC/UR IC ACID bilirubin, total 0.2 mg/dL 0.2-1. 2 Not Available [facility] (Lab) [address] [facility], [place], [address], 04/04/2024 05:15:08 04/03/19 25 04/03/2024 PROTE IN/CR EATIN INE RATIO , URINE creatinine, urine 61.2 mg/dL R-No refer ence range estab lishe d for this assay Not Available [facility] (Lab) [address] [facility], [place], [address], 04/04/2024 05:15:09 04/03/19 25 04/03/2024 PROTE IN/CR EATIN INE RATIO , URINE protein, urine 5 mg/dL R-No refer ence range estab lishe d for this assay Not Available [facility] (Lab) [address] [place], [address], 04/04/2024 05:15:09 04/03/19 25 04/03/2024 PROTE IN/CR EATIN INE RATIO , URINE protein/crea tinine ratio, urine 0.08 . No Refer ence Range avail able for Rando m Urine s. A prote in to creat inine ratio of >=0.1 9 is a good predi ctor of signi fican t prote inuri a. A level of <0.14 can rule out signi fican t prote inuri a. Not Available [facility] (Lab) [address] [facility], [place], [address], 04/04/2024 05:15:09 11/20/1911/19/2024 CULTU RE: URINE result report SEE RESULT S BELOW Test: Cultu re: Urine Speci men Sourc e: Urine - Clean Catch Speci men Type: Urine Speci men Date: 025 1512 Resul t Date: 2024 1240 Resul t Statu s: Final resul t Abnor mal: No Resul ting Lab: [facility] [address] [facility] [address] Tel: CULTU RE ----- ----- ----- --- Cultu re resul t (>=3 organ isms prese nt) indic ates possi ble conta minat ion. Repea t cultu re if sympt oms indic ate. Not Available [facility] (Lab) [address] [facility], [place], [address], 11/21/2024 13:43:47 11/20/1911/19/2024 CBC W/DIF F WBC 7.6 10'3/ uL 3.5-10 .5 Not Available [facility] (Lab) [address] [facility], [place], [address], 11/26/2024 18:36:36 11/20/1911/19/2024 CBC W/DIF F RBC 4.97 10'6/ uL (based on docume nted legal sex) 3.80-5 .20 Not Available [facility] (Lab) [address] [facility], [place], [address], 11/26/2024 18:36:36 11/20/1911/19/2024 CBC W/DIF F HGB 13.7 g/dL (based on docume nted legal sex) 11.6-1 5.4 Not Available [facility] (Lab) [address] [facility], [place], [address], 11/26/2024 18:36:36 11/20/1911/19/2024 CBC W/DIF F HCT 41.5 % (based on docume nted legal sex) 34.0-4 5.0 Not Available [facility] (Lab) [address], [place], [address], 11/26/2024 18:36:36 11/20/19 25 11/19/2024 CBC W/DIF F MCV 83.5 fL 80.0-9 9.0 Not Available [facility] (Lab) [address], [place], [address], 11/26/2024 18:36:36 11/20/1911/19/2024 CBC W/DIF F MCH 27.6 pg 27.0-3 4.0 Not Available [facility] (Lab) [address], [place], [address], 11/26/2024 18:36:36 11/20/19 25 11/19/2024 CBC W/DIF F MCHC 33.0 g/dL 32.0-3 5.5 Not Available [facility] (Lab) [address], [place], [address], 11/26/2024 18:36:36 11/20/19 25 11/19/2024 CBC W/DIF F RDW 14.1 % 11.0-1 5.0 Not Available [facility] (Lab) [address], [place], [address], 11/26/2024 18:36:36 11/20/19 25 11/19/2024 CBC W/DIF F plt 271 10'3/ uL 150-40 0 Not Available [facility] (Lab) [address], [place], [address], 11/26/2024 18:36:36 11/20/19 25 11/19/2024 CBC W/DIF F MPV 10.2 fL 8.8-12 .1 Not Available [facility] (Lab) [address], [place], [address], 11/26/2024 18:36:36 11/20/1911/19/2024 CBC W/DIF F NRBC's 0.0 % 0.0 Not Available [facility] (Lab) [address] [facility], [place], [address], 11/26/2024 18:36:36 11/20/1911/19/2024 CBC W/DIF F absolute NRBCs 0.0 10'3/ uL no refere nce range establ ished Not Available [facility] (Lab) [address] [facility], [place], [address], 11/26/2024 18:36:36 11/20/1911/19/2024 CBC W/DIF F neutrophils 60.1 % 34.0-7 3.0 Not Available [facility] (Lab) [address] [facility], [place], [address], 11/26/2024 18:36:36 11/20/19 25 11/19/2024 CBC W/DIF F lymphocytes 30.5 % 15.0-5 0.0 Not Available [facility] (Lab) [address] [facility], [place], [address], 11/26/2024 18:36:36 11/20/1911/19/2024 CBC W/DIF F monocytes 6.3 % 1.0-15 .0 Not Available [facility] (Lab) [address] [facility], [place], [address], 11/26/2024 18:36:36 11/20/1911/19/2024 CBC W/DIF F eosinophils 2.1 % 0.0-8. 0 Not Available [facility] (Lab) [address] [facility], [place], [address], 11/26/2024 18:36:36 11/20/1911/19/2024 CBC W/DIF F basophils 0.7 % 0.0-2. 0 Not Available [facility] (Lab) [address] [facility], [place], [address], 11/26/2024 18:36:36 11/20/1911/19/2024 CBC W/DIF F immature granulocytes 0.3 % no define d refere nce range Immat ure Granu locyt es (IG) repre sents autom ated enume ratio n of Metam yeloc ytes, Myelo cytes and Promy elocy arielle when IG is < 5%. Blast s are not inclu ded in IG and repor katherine separ ately if prese nt. Not Available [facility] (Lab) [address] [facility], [place], [address], 11/26/2024 18:36:36 11/20/1911/19/2024 CBC W/DIF F absolute neutrophils 4.6 10'3/ uL 1.5-8. 0 Not Available [facility] (Lab) [address] [facility], [place], [address], 11/26/2024 18:36:36 11/20/19 25 11/19/2024 CBC W/DIF F absolute lymphocytes 2.3 10'3/ uL 1.0-4. 0 Not Available [facility] (Lab) [address] [facility], [place], [address], 11/26/2024 18:36:36 11/20/19 25 11/19/2024 CBC W/DIF F absolute monocytes 0.5 10'3/ uL 0.2-1. 0 Not Available [facility] (Lab) [address] [facility], [place], [address], 11/26/2024 18:36:36 11/20/1911/19/2024 CBC W/DIF F absolute eosinophils 0.2 10'3/ uL 0.0-0. 6 Not Available [facility] (Lab) [address] [facility], [place], [address], 11/26/2024 18:36:36 11/20/19 25 11/19/2024 CBC W/DIF F absolute basophils 0.1 10'3/ uL 0.0-0. 3 Not Available [facility] (Lab) [address] [facility], [place], [address], 11/26/2024 18:36:36 11/20/1911/19/2024 CBC W/DIF F absolute immature granulocytes 0.0 10'3/ uL 0.00-0 .10 Refer ence range s for nonbi nary/ inter sex or unspe cifie d gende r patie nts have not been estab lishe d. Pleas e refer to the follo wing table for range s estab lishe d for cisge nder patie nts and evalu ate in the clini mary ann isabel xt of the indiv idual patie nt: https ://[facility] book. nm.or g/gen derx Not Available [facility] (Lab) [address] [facility], [place], [address], 11/26/2024 18:36:36 11/20/1911/19/2024 TSH, REFLE X FREE T4 TSH 0.76 uIU/m L 0.30-5 .33 Not Available [facility] (Lab) [address] [place], [address], 11/26/2024 18:36:36 11/20/1911/19/2024 CMP(C OMPRE HENSI VE METAB OLIC PANEL ) sodium 140 mmol/ L 133-14 6 Not Available [facility] (Lab) [address] [place], [address], 11/26/2024 18:36:36 11/20/1911/19/2024 CMP(C OMPRE HENSI VE METAB OLIC PANEL ) potassium 4.3 mmol/ L 3.5-5. 1 Not Available [facility] (Lab) [address] [place], [address], 11/26/2024 18:36:36 11/20/1911/19/2024 CMP(C OMPRE HENSI VE METAB OLIC PANEL ) chloride 100 mmol/ L 98-107 Not Available [facility] (Lab) [address] [facility], [place], [address], 11/26/2024 18:36:36 11/20/19 25 11/19/2024 CMP(C OMPRE HENSI VE METAB OLIC PANEL ) carbon dioxide 30 mmol/ L 21-31 Not Available [facility] (Lab) [address] [facility], [place], [address], 11/26/2024 18:36:36 11/20/19 25 11/19/2024 CMP(C OMPRE HENSI VE METAB OLIC PANEL ) anion gap 10 mmol/ L 4-13 Not Available [facility] (Lab) [address] [facility], [place], [address], 11/26/2024 18:36:36 11/20/19 25 11/19/2024 CMP(C OMPRE HENSI VE METAB OLIC PANEL ) blood urea nitrogen 8 mg/dL 7-25 Not Available [facility] (Lab) [address] [facility], [place], [address], 11/26/2024 18:36:36 11/20/19 25 11/19/2024 CMP(C OMPRE HENSI VE METAB OLIC PANEL ) creatinine 0.86 mg/dL 0.60-1 .30 Not Available [facility] (Lab) [address] [facility], [place], [address], 11/26/2024 18:36:36 11/20/1911/19/2024 CMP(C OMPRE HENSI VE METAB OLIC PANEL ) egfrcr (CKD-epi 2020) >90 mL/mi n/1.7 3_m2 >=60 Not Available [facility] (Lab) [address] [facility], [place], [address], 11/26/2024 18:36:36 11/20/19 25 11/19/2024 CMP(C OMPRE HENSI VE METAB OLIC PANEL ) calcium 9.7 mg/dL 8.3-10 .5 Not Available [facility] (Lab) [address] [facility], [place], [address], 11/26/2024 18:36:36 11/20/19 25 11/19/2024 CMP(C OMPRE HENSI VE METAB OLIC PANEL ) glucose 89 mg/dL 70-100 Not Available [facility] (Lab) [address] [facility], [place], [address], 11/26/2024 18:36:36 11/20/19 25 11/19/2024 CMP(C OMPRE HENSI VE METAB OLIC PANEL ) protein, total 7.6 g/dL 6.4-8. 3 Not Available [facility] (Lab) [address] [facility], [place], [address], 11/26/2024 18:36:36 11/20/19 25 11/19/2024 CMP(C OMPRE HENSI VE METAB OLIC PANEL ) albumin 4.5 g/dL 3.5-5. 0 Not Available [facility] (Lab) [address] [facility], [place], [address], 11/26/2024 18:36:36 11/20/1911/19/2024 CMP(C OMPRE HENSI VE METAB OLIC PANEL ) ALT 27 units /L 9-43 Not Available [facility] (Lab) [address] [facility], [place], [address], 11/26/2024 18:36:36 11/20/1911/19/2024 CMP(C OMPRE HENSI VE METAB OLIC PANEL ) alkaline phosphatase 81 units /L 34-104 Not Available [facility] (Lab) [address] [facility], [place], [address], 11/26/2024 18:36:36 11/20/1911/19/2024 CMP(C OMPRE HENSI VE METAB OLIC PANEL ) AST 19 units /L 13-39 Not Available [facility] (Lab) [address] [facility], [place], [address], 11/26/2024 18:36:36 11/20/19 25 11/19/2024 CMP(C OMPRE HENSI VE METAB OLIC PANEL ) bilirubin, total 0.5 mg/dL 0.2-1. 2 Not Available [facility] (Lab) [address] [facility], [place], [address], 11/26/2024 18:36:36 11/20/19 25 11/19/2024 CHECO TIN / IRON / TRANS CHECO N / TIBC iron 99 ug/dL 40-170 Not Available [facility] (Lab) [address] [facility], [place], [address], 11/26/2024 18:36:37 11/20/19 25 11/19/2024 CHECO TIN / IRON / TRANS CHECO N / TIBC transferrin 268 mg/dL 200-36 0 Not Available [facility] (Lab) [address] [facility], [place], [address], 11/26/2024 18:36:37 11/20/19 25 11/19/2024 CHECO TIN / IRON / TRANS CHECO N / TIBC ferritin 25.2 NG/mL 8.0-25 2.0 Not Available [facility] (Lab) [address] [facility], [place], [address], 11/26/2024 18:36:37 11/20/19 25 11/19/2024 CHECO TIN / IRON / TRANS CHECO N / TIBC TIBC 375 ug/dL 250-45 0 Not Available [facility] (Lab) [address] [facility], [place], [address], 11/26/2024 18:36:37 11/20/19 25 11/19/2024 CHECO TIN / IRON / TRANS CHECO N / TIBC iron saturation 26 % 20-55 Not Available [facility] (Lab) [address] [facility], [place], [address], 11/26/2024 18:36:37 11/20/19 11/19/2024 VITAM IN D, 25-OH (TOTA L D2/D3 ) vitamin D, 25-hydroxy, total 28.6 NG/mL 30.0-1 00.0 low Sugge stive of Defic iency : <20 ng/mL Sugge stive of Insuf ficie ncy: 20-29 ng/mL Sugge stive of Suffi cienc y: 30-10 0 ng/mL Sugge stive of Toxic ity: >150 ng/mL Not Available [facility] (Lab) [address] [facility], [place], [address], 11/26/2024 18:36:37 11/20/1911/19/2024 VITAM IN B12 / FOLAT E PANEL vitamin B12 455 pg/mL 180-91 4 Nanette l Range : 180-9 14 pg/mL . Indet ermin ate Range : 145-1 80 pg/mL . Defic ient Range : <=145 pg/mL . Not Available [facility] (Lab) [address] [facility], [place], [address], 11/26/2024 18:36:37 11/20/19 25 11/19/2024 VITAM IN B12 / FOLAT E PANEL folate, serum 15.5 NG/mL 6.0-20 .0 Not Available [facility] (Lab) [address] [place], [address], 11/26/2024 18:36:37 11/20/1911/19/2024 HEMOG LOBIN A1C hemoglobin A1C 5.1 % 4.0-5. 6 [facility] [facility] [employer] [facility] n recom mends that a prima ry goal of thera py katheryn dodge be a HBA1C of < 7% and that physi cians katheryn d reeva luate the treat ment regim en in patie nts with HBA1C value s consi stent ly > 8%. <5.7% Nanette l 5.7 - 6.4% Incre ased risk for diabe arielle >=6.5 % Diagn ostic of diabe arielle <7.0% Goal of thera py >8.0% Actio n sugge sted Not Available [facility] (Lab) [address] [place], [address], 11/26/2024 18:36:38 11/20/1911/19/2024 WOMEN 'S HEALT H SWAB, ANU bacterial vaginosis (bv), tma Negati ve negati ve This test detec ts ribos omal RNA from bacte mitra assoc iated with bacte rial vagin osis (BV), inclu ding Lacto bacil loan (L. gasse ri, L. crisp atus and L. jense evelin), Gardn erell a vagin leena, and Atopo bium vagin ae by Trans cript ion-M ediat ed Ampli ficat ion (TMA) . A singl e quali tativ e resul t is repor katherine based on instr ument softw are to deter mine BV posit zak or negat zak statu s. Not Available [facility] (Lab) [address] [place], [address], 11/26/2024 18:36:38 11/20/19 25 11/19/2024 WOMEN 'S HEALT H SWAB, ANU candie species, tma Negati ve negati ve Not Available [facility] (Lab) [address] [place], [address], 11/26/2024 18:36:38 11/20/19 25 11/19/2024 WOMEN 'S HEALT H SWAB, ANU candie glabrata, tma Negati ve negati ve Not Available [facility] (Lab) [address] [place], [address], 11/26/2024 18:36:38 11/20/19 25 11/19/2024 WOMEN 'S HEALT H SWAB, ANU trichomonas vaginalis, tma Negati ve negati ve This assay tests for and diffe renti ates betwe en Ariella da glabr jovan, the Ariella da speci es group (C. albic ans, C. tropi calis , C. parap alex is, C. dubli tejas is), and Trich omona s vagin leena by Trans cript ion-M ediat ed Ampli ficat ion (TMA) . Not Available [facility] (Lab) [address], [place], [address], 11/26/2024 18:36:38 11/20/19 25 11/19/2024 IMAGE GUIDE D PAP, REFLE X HPV IF ASCUS ONLY image guided Pap, reflex HPV ASCUS only SEE RESULT S BELOW abnormal CASE REPOR T: Cytol ogy Gynec ologi mary ann Repor t Case: [id number] Autho mich g Provi kendall: Dermo dy, Shawna , ANP, GRE[employer] HEAD Colle cted: 11/19 1146 Order ing Locat ion: [place] Patho logy Recei maxwell: 11/20 1154 First Scree n: Ant Conley, [place] Patho logis t: Asher Jason MD Speci men: Scree kira Pap - Image d, Cervi x STATE MENT OF ADEQU ACY: Satis facto ry for evalu ation Trans forma tion zone compo nent absen t ----- ----- ----- ----- ----- ----- ----- ----- ----- ----- ----- ----- ----- ----- ----- ----- ----- ---- FINAL DIAGN OSIS: Epith elial Cell Abnor malit y, Gland ular Cell: Atypi mary ann gland ular cells , not other baez speci fied (NOS) . Elect yovani dodge by Asher Jason MD on 2024 at 1428 CDT ----- ----- ----- ----- ----- ----- ----- ----- ----- ----- ----- ----- ----- ----- ----- ----- ----- ---- HPV RESUL TS: HPV mRNA E6/E7 : No HPV mRNA Detec katherine NOTE: This high risk HPV mRNA assay detec ts fourt een high- risk HPV types (16, 18, 31, 33, 35, 39, 45, 51, 52, 56, 58, 59, 66, 68) witho ut diffe renti ation . COMME NT: Slide scree rick manua lly due to rejec tion by the Thinp rep Imagi ng Syste m. CLINI MARY ANN INFOR MATIO N: Menst rual Statu s: LMP (if appli cable ): Clini mary ann Histo ry/Pr eviou s Pap: Type of Neopl david (if appli cable ): Signi fican t Clini mary ann Findi ngs: Other Histo ry: Hormo sveta (if appli cable ): HOMAR NELSON FOLLO W-UP: Follo w up as warra nted, based on curre nt guide lines and indiv idual patie nt consi derat ions. Not Available [facility] (Lab) [address] [facility], [place], [address], 11/26/2024 18:36:38 11/20/19 25 11/19/2024 urina lysis , dipst ick Leukocytes - Not Available [facility] [address], [place], [address], 11/19/2024 15:37:57 11/20/19 25 11/19/2024 urina lysis , dipst ick Nitrite - Not Available [place] [address], [place], [address], 11/19/2024 15:37:57 11/20/19 25 11/19/2024 urina lysis , dipst ick Urobilinogen - Not Available [facility] [address], [place], [address], 11/19/2024 15:37:57 11/20/19 25 11/19/2024 urina lysis , dipst ick Protein trace Not Available [place] [address], [place], [address], 11/19/2024 15:37:57 11/20/19 25 11/19/2024 urina lysis , dipst ick pH 6 Not Available [place] [address], [place], [address], 11/19/2024 15:37:57 11/20/19 25 11/19/2024 urina lysis , dipst ick Specific Effie 1.000 Not Available [facility] jeison [address], [place], [address], 11/19/2024 15:37:57 11/20/19 25 11/19/2024 urina lysis , dipst ick Ketone - Not Available [place] [address], [place], [address], 11/19/2024 15:37:57 11/20/19 25 11/19/2024 urina lysis , dipst ick Bilirubin - Not Available [facility] [address], [place], [address], 11/19/2024 15:37:57 11/20/1911/19/2024 urina lysis , dipst ick Glucose - Not Available [place] [address], [place], [address], 11/19/2024 15:37:57 11/20/19 25 11/19/2024 urina lysis , dipst ick Appearance clear Not Available [facility] [address], [place], [address], 11/19/2024 15:37:57 11/20/19 25 11/19/2024 urina lysis , dipst ick Color light yellow Not Available [place] [address], [place], [address], 11/19/2024 15:37:57 11/24/1911/23/2024 CULTU RE: URINE result report SEE RESULT S BELOW abnormal Test: Cultu re: Urine Speci men Sourc e: Urine - Clean Catch Speci men Type: Urine Speci men Date: 2024 1624 Resul t Date: 2024 0716 Resul t Statu s: Final resul t Abnor mal: Yes Resul ting Lab: [facility] [address] [facility] [address] Tel: CULTU RE ----- ----- ----- --- Cultu re resul t (>=3 organ isms prese nt) indic ates possi ble conta minat ion. Repea t cultu re if sympt oms indic ate. 75,00 0-100 ,000 CFU/m l Strep tococ cus agala ctiae (Grou p B) (Abno rmal) Strep tococ cus agala ctiae (Beta strep Group B Strep ) remai ns unive rsall y susce ptibl e to penic illin , cefaz giacomo and vanco mycin . If clind amyci n is being consi dered for intra partu m proph ylaxi s, pleas e conta ct the lab withi n 5 days. Not Available [facility] (Lab) [address] [facility], [place], [address], 11/25/2024 08:19:12 12/15/19 25 12/14/2024 SURGI MARY ANN PATHO LOGY surgical pathology SEE RESULT S BELOW CASE REPOR T: Surgi mary ann Patho logy Repor t Case: [id number] Autho mich g Provi kendall: Vanessa Meadows MD Colle cted: 12/14 1500 Order ing Locat ion: [place] Patho logy Recei maxwell: 12/15 0103 Patho logis t: Robin thompson , Lali Santana MD Speci mens: A) - Endom etriu m, EMB B) - Cervi x, CXBX C) - Endoc ervix , ECC ----- ----- ----- ----- ----- ----- ----- ----- ----- ----- ----- ----- ----- ----- ----- ----- ----- ---- FINAL DIAGN OSIS: A. Endom etriu m, biops y: - Fragm ents of proli ferat zak endom etriu m, negat zak for hyper plasi a and carci noma. B. Cervi x, biops y: - Fragm ents of endoc ervic al and squam ous epith elium , negat zak for dyspl david. C. Endoc ervix , curet tage: - Endoc ervix negat zak for dyspl david. Elect yovani dodge by Robin thompson , Lali Santana MD on 2024 at 1414 CDT ----- ----- ----- ----- ----- ----- ----- ----- ----- ----- ----- ----- ----- ----- ----- ----- ----- ---- CLINI MARY ANN INFOR MATIO N: Atypi mary ann Cervi mary ann Gland ular Cells MICRO SCOPI C DESCR IPTIO N: A micro scopi c exami natio n was perfo rmed. GROSS DESCR IPTIO N: A. Schuyler etriu m. The speci men is label ed with the patie nt's name, mason joyce and EMB. Recei maxwell in forma love is a 4.0 x 2.0 x 0.2 cm aggre gate of abebe-b rown tissu e mixed with mucoi d mater ial. The entir e speci men is submi tted in 2 casse ttes. Gross ed by Kathryn Guzman Cervi x. The speci men is label ed with the patie nt's name, mason garciai cs and Cx Bx. Recei maxwell in forma love is a 0.2 x 0.2 x 0.1 cm aggre gate of mucus and minut e white -abebe tissu e. The entir e speci men is submi tted in one casse tte. The speci men may not survi ve proce ssing . Gross ed by Kathryn Lucero C. Endoc ervix . The speci men is label ed with the patie nt's name, demog raphi cs and ECC . Recei maxwell in forma love is a 1.3 x 0.8 x 0.1 cm aggre gate of mucus and minut e white -abebe tissu e. The entir e speci men is submi tted in one casse tte. Gross ed by Kathryn Lucero Not Available [facility] (Lab) [address] [facility], [place], [address], 12/17/2024 15:17:13 12/15/19 25 12/14/2024 pregn jenny test, urine HCG negati ve Not Available [place] [address], [place], [address], 12/14/2024 15:27:14 04/04/19 25 04/04/2024 US, obste tric, limit ed No observ ation record ed. [email or web address] [place] [address], [place], [address], 04/04/2024 18:45:07 04/04/19 25 04/04/2024 US, obste tric, limit ed No observ ation record ed. [email or web address] Maryanne [address], [place], [address], 04/05/2024 00:07:33 11/24/19 25 11/23/2024 US, pelvi s No observ ation record ed. nora [place] [address], [place], [address], 11/23/2024 17:07:24 11/24/19 25 11/23/2024 US, trans vagin al No observ ation record ed. [email or web address] [place] [address], [place], [address], 11/23/2024 17:07:33 11/24/19 25 11/23/2024 US, pelvi s No observ ation record ed. [email or web address] Maryanne [address] [place] [address] [address], [place], [address], 11/29/2024 16:27:58 Result Notes None recorded. Problems Name Problem SNOMED Code Status Onset Date Resolution Date Notes Provider Name and Address Organization Details Recorded Time Past pregnanc y history of pre-ecla mpsia 31926009812 9100 Completed pre-e wsevere features / PTL bASA daily 162mg Jessica alves, [facility] 15:31:26 Past pregnanc y history of pre-ecla mpsia 29210449129 9100 Active pre-e wsevere features / PTL bASA daily 162mg Jessica alves, [facility] 15:31:26 Pregnanc y [id number] Completed 202311/19/2024 Libia Della alves, [facility] 11:45:43 Problem Notes None recorded. Procedures Surgical History Date Name Laterality Status Provider Name and Address Organization Details Recorded Time 025 Colposcopy completed NIKHIL ARROYO MD [address], [place], [address], [place] [facility] 12/14/2024 15:20:14 025 Endometrial Biopsy completed NIKHIL ARROYO MD [address], [place], [address], [facility] 12/14/2024 15:20:26 023 Date of Last Pap Smear completed Lita Carlos [facility] 01/19/2024 10:16:07 010 Cholecystectomy completed Lita Gonzalez [facility] 01/19/2024 10:17:18 Imaging Results None recorded. Procedure Notes None recorded. Medical Equipment None Reported. Allergies Allergen ID Allergen Name Allergen Category Reaction Reaction Severity Criticality Documentation Date Start Date Code Code System Note Provider Name and Address Organization Details Recorded Time Product containin g penicilli n (product) medicatio n Not available Not available Not available 09/16/2022 15112 8001 SNOMED Sara alves [facility] 14:39:53 Medications Name Sig Start Date Stop Date Status Note LastModified by Organization Details LastModified Time cyclobenzap rine 10 mg tablet TAKE 1 TABLET BY MOUTH THREE TIMES DAILY NEEDED FOR MUSCLE SPASMS 11/19 completed Not Available Not Available Not Available fluconazole 100 mg tablet 09/16 completed Not Available Not Available Not Available metformin 500 mg tablet 01/18 completed Not Available Not Available Not Available prednisone 10 mg tablet 01/18 completed Not Available Not Available Not Available doxycycline hyclate 100 mg capsule TAKE ONE CAPSULE BY MOUTH EVERY 12 HOURS UNTIL ALL TAKEN 01/18 completed Not Available Not Available Not Available labetalol 200 mg tablet TAKE 1 TABLET BY MOUTH EVERY 12 HOURS 11/19 completed Not Available Not Available Not Available enalapril maleate 10 mg tablet TAKE 1 TABLET BY MOUTH TWICE DAILY 09/16 completed Not Available Not Available Not Available azithromyci n 250 mg tablet 01/18 completed Not Available Not Available Not Available fluconazole 150 mg tablet TAKE 1 TABLET BY MOUTH EVERY DAY 03/27 completed Not Available Not Available Not Available aspirin 81 mg tablet,edith yed release TAKE 2 TABLETS BY MOUTH EVERY DAY FOR 90 DAYS 09/16 completed Not Available Not Available Not Available acetaminoph en 500 mg tablet 09/16 completed Not Available Not Available Not Available ondansetron 8 mg disintegrat ing tablet Place 1 tablet 4 times a day by transling ual route as needed. 11/19 completed Not Available Not Available Not Available ciprofloxac in 0.3 % eye drops INSTILL 2 DROPS TO AFFECTED EAR TWICE DAILY FOR 7 DAYS 09/16 completed Not Available Not Available Not Available cephalexin 500 mg capsule Take 1 capsule every 12 hours by oral route for 7 days. 12/12 completed Not Available Not Available Not Available pantoprazol e 40 mg tablet,edith yed release TAKE 1 TABLET BY MOUTH DAILY 11/19 completed Not Available Not Available Not Available cabergoline 0.5 mg tablet Take 1 tablet once. If milk supply has not decreased in 5 days, take another tablet. If not decreased 5 days after second tablet, call Dr. Arroyo's office. active Not Available Not Available No t Available docusate sodium 100 mg capsule 09/16 completed Not Available Not Available Not Available lidocaine HCl 2 % mucosal solution APPLY TO AFFECTED MUCOSAL SITE OF PAIN USING A COTTON SWAB THREE TIMES DAILY NEEDED FOR PAIN 11/19 completed Not Available Not Available Not Available loteprednol etabonate 0.5 % eye drops,suspe nsion 01/18 completed Not Available Not Available Not Available ibuprofen 600 mg tablet 09/16 completed Not Available Not Available Not Available cefuroxime axetil 500 mg tablet 03/27 completed Not Available Not Available Not Available polyethylen e glycol 3350 17 gram/dose oral powder 09/16 completed Not Available Not Available Not Available estradiol 0.01% (0.1 mg/gram) vaginal cream INSERT 1 GRAM VAGINALLY EVERY DAY FOR 30 DAYS active Not Available Not Available No t Available labetalol 100 mg tablet TAKE 1/2 TABLET BY MOUTH EVERY DAY 01/18 completed Not Available Not Available Not Available PreviDent 5000 Plus 1.1 % cream APPLY A SMALL SMEAR OF TOOTHPAST E TO TOOTHBRUS H. BRUSH THOROUGHL Y DAILY FOR 2 MINUTES 01/18 completed Not Available Not Available Not Available cefdinir 300 mg capsule TAKE 1 CAPSULE BY MOUTH EVERY 12 HOURS 11/19 completed Not Available Not Available Not Available metformin ER 500 mg tablet,exte nded release 24 hr 09/16 completed Not Available Not Available Not Available sertraline 50 mg tablet 09/16 completed Not Available Not Available Not Available doxycycline hyclate 100 mg tablet TAKE 1 TABLET BY MOUTH TWICE DAILY 09/16 completed Not Available Not Available Not Available metoclopram cale 10 mg tablet Take 1 tablet every 6 hours by oral route as needed, for nausea and vomiting. 03/27 completed Not Available Not Available Not Available amoxicillin 500 mg-potassrojeliou m clavulanate 125 mg tablet TAKE 1 TABLET BY MOUTH EVERY 8 HOURS 01/18 completed Not Available Not Available Not Available azithromyci n 500 mg tablet 03/27 completed Not Available Not Available Not Available ciprofloxac in 0.3 %-dexametha sone 0.1 % ear drops,suspe nsion SHAKE LIQUID AND INSTILL 4 DROPS IN BOTH EARS TWICE DAILY FOR 10 DAYS 01/18 completed Not Available Not Available Not Available nitrofurant oin monohydrate /macrocryst als 100 mg capsule 01/18 completed Not Available Not Available Not Available Vitamins 11/19 completed Not Available Not Available Not Available Asprin Ec Low Dose 11/19 completed Not Available Not Available Not Available cholecalcif jes (vitamin D3) 1,250 mcg (50,000 unit) capsule TAKE 1 CAPSULE BY MOUTH 1 TIME WEEKLY FOR 8 WEEKS active Not Available Not Available No t Available FeroSul 325 mg (65 mg iron) tablet TAKE 1 TABLET BY MOUTH ONCE DAILY 11/19 completed Not Available Not Available Not Available OneTouch Verio test strips USE TO TEST FIVE TIMES DAILY active Not Available Not Available No t Available OneTouch Verio Flex Meter USE DIRECTED active Not Available Not Available No t Available TRUEplus Pen Needle 32 gauge x 5/32 USE TWICE DAILY active Not Available Not Available No t Available OneTouch Delica Plus Lancet 33 gauge USE TO CHECK BLOOD SUGAR FOUR TIMES DAILY 09/16 completed Not Available Not Available Not Available OneTouch Delica Plus Lancet 30 gauge TESTING FREQUENCY 5 TIMES PER DAY active Not Available Not Available No t Available Slynd 4 mg (28) tablet TAKE 1 TABLET BY MOUTH EVERY DAY 01/18 completed Not Available Not Available Not Available Baqsimi 3 mg/actuatio n nasal spray USE 1 SPRAY NASALLY NEEDED 11/19 completed Not Available Not Available Not Available insulin glargine-yf gn (U-100) 100 unit/mL (3 mL) subcutaneou s pen INJECT 26 UNITS UNDER THE SKIN TWICE DAILY 12 HOURS APART. INCREASED DIRECTED DURING . MAX DAILY DOSE 100 UNITS active Not Available Not Available No t Available Vitals Date Recorded Body height Body mass index (BMI) Body weight Systolic And Diastolic Provider Name and Address Organization Details Last Updated DateTime 11/19/2024 177.8 cm 40.7 kg/m2 972512.23 g 142/81 mm[Hg] Libia Hull [facility] 11/19/2024 11:42:06 Date Recorded Body height Body mass index (BMI) Body weight Systolic And Diastolic Provider Name and Address Organization Details Last Updated DateTime 12/14/2024 177.8 cm 41 kg/m2 463426.42 g 142/81 mm[Hg] Monique Camposdoc [facility] 12/14/2024 14:47:22 Social History Question Answer Notes LastModified by Organizat ion Details LastModified Time Tobacco Smoking Status Never Smoker Sara alves, [facility] 09/16/2022 14:43:23 Are You Blind Or Do You Have Difficulty Seeing? No Information n ot available 09/16/2022 In The 14 Days Before Symptom Onset, Have You Had Close Contact With A Laboratory-confirm ed COVID-19 While That Case Was Ill? No Information n ot available 01/19/2024 In The 14 Days Before Symptom Onset, Have You Had Close Contact With A Person Who Is Under Investigation For COVID-19 While That Person Was Ill? No Information not available 01/19/2024 Have You Been To An Area Known To Be High Risk For COVID-19? No Information not available 01/19/2024 Are You Deaf Or Do You Have Serious Difficulty Hearing? No Information not available 09/16/2022 Are There Any Guns Present In Your Home? No [email or web address] Information not available 03/27/2024 Are You Sexually Active? Yes Information not available 03/27/2024 Do You Have Smoke And Carbon Monoxide Detectors In Your Home? Yes [email or web address] Information not available 03/27/2024 Do You Use Sunscreen Routinely? No [email or web address] Information not available 03/27/2024 Do You Have Difficulty Walking Or Climbing Stairs? No Information not available 09/16/2022 Sex: Unknown Functional Status Question Answer Note LastModified by Organizat ion Details LastModified Time Do you use any illicit or recreational drugs? No [email or web address] Information not available 03/27/2024 Do you or have you ever used any other forms of tobacco or nicotine? No Information not available 03/27/2024 What is your level of alcohol consumption? None Information not available 09/16/2022 Are you currently employed? Yes [email or web address] Information not available 03/27/2024 Are you able to walk independently without assistance or assistive devices? [email or web address] Information not available 09/16/2022 Are you able to care for yourself independently? Yes Information not available 09/16/2022 Do you have difficulty dressing, bathing, grooming, or toileting? No Information not available 09/16/2022 Mental Status None recorded. Family History Relationship Description Onset Age of this Age Resolved Age Notes LastModified by Organization Details LastModified Time Mother Malignant neoplasm of colon [email or web address] Not available 05/2024 14:32:01 Mother Diabetes mellitus [email or web address] Not available 08/2022 14:42:42 Father Essential hypertension [email or web address] Not available 1 14:32:01 Father Hyperlipidem ia [email or web address] Not available 05/2024 14:32:01 Medical History Condition Response Allergies (Food, seasonal, environmental ) N Other N Breast Cancer N Drug/Latex Allergies/Reactions N Blood Transfusion N Dermatologic Disorders N Lung Disease N Defects or Inherited Disease N Breast Problem N Gestational Diabetes Y Hematologic disorders N Anesthesia Complications N History of STI N Deep Vein Thrombosis N Polycystic ovary syndrome Y Anxiety Disorder N Autoimmune disease N Arthritis N Infertility N Polyps N Acid Reflux (GERD) N History of abnormal pap N Cancer N Stroke N Varicosities N Neurologic/Epilepsy N Endometriosis N High Cholesterol N Headaches N Fibromyalgia N Kidney Disease N Heart Problems N Kidney or Bladder Problems N Thyroid Problems N GI Problems N Eating Disorder N Anemia Y Art (IVF or FET) N Psychiatric Illness N Ovarian Cancer N Diabetes N Pulmonary (TB, Asthma) N Hepatitis/Liver Disease N No Past Medical History N Eczema N Urinary Tract Infection N Abuse/Domestic Violence N Asthma N Trauma/Violence N Depression/ depression N Heart Disease N Pre-Eclampsia Y Hypertension N Osteoporosis N Thrombophilias N Gynecological History Statement/Question Response Flow Heavy Date of LMP Was last menstrual period normal N STIs/STDs N HPV Vaccine N Duration of Flow (days) 4 Current Control Method None Are cycles usually normal N Date of Last Colonoscopy Sexually Active? Y Menses Monthly N Date of DEXA bone scan Age of first menstrual cycle 13 Date of Last Pap Smear 09/16/2022 Sexual Problems? Y Desired Control Method None LMP Unknown Obstetrics History GPAL:G 2 P 0 1 0 1 Type Value Premature 1 Living 1 Total 2 Past Encounters Encounter ID Performer Location Encounter Start Date Encounter Closed Date Diagnosis/Indication Diagnosis SNOMED-CT Code Diagnosis ICD10 Code Diagnosis IMO Codes Diagnosis Note [id number] KISHA Mathur [place] [address] [address] 09/16/2022 14:15:48 09/16/2022 16:35:58 Amenorrhea 64954357 N91.2 Discussed normal to have amenorrhea while lactating. UPT (-). She would like a bhcg, ordered.di scussed recent episode of pelvic pain, pelvic u/s ordered for further evaluation Discussed all control options in great detail. Pt would like to start POP. She is aware of the risks and benefits. She has contraindi cations to use of OCP or other estrogen containing hormonal therapy. If bhcg negative, she can start the pills tomorrow. She is aware it is not effective for control the first month. She is also aware of the importance of taking at the same time every day. Encouraged use of condoms as the pill does not protect against STD's. Will return in 3 months for med check. Consent was read and signed. Pt verbalized understand ing.slynd samples given - [id number], 4rx sentsti testing declinedpa p updatedrev iewed options for anxiety. discussed medication options. She would like to pursue counseling , list of counselors given. Offered psychiatri st referral for medication management given her hx, declined at this time. Precaution s discussed (suicidal thoughts or thoughts of harming others - call 911/seek help immediatel y). EPDS : 5RTC for pelvic u/s - will update patient with results when available Time spent in visit is a total of 45 mins with at least 50% of visit consisting of counseling and review of plan of care. Pain in pelvis 74335772 R10.2 Contracept ion care management 053968159 Z30.9 Anxiety 31962039 F41.9 Screening for malignant neoplasm of cervix 818467705 Z12.4 [id number] Gui Wilkerson MD [place] [address],[place] [address] 09/17/2022 15:56:06 09/17/2022 16:43:03 Pain in pelvis 24570744 R10.2 [id number] KISHA Mathur [place] [address],[place] [address] 09/21/2022 13:51:17 09/21/2022 14:53:29 Pain in pelvis 51420172 R10.2 reviewed updated TVUS - wnlno gyne source of pain identified recommende d pelvic floor physical therapyrec ommended PCP f/u as ojhn will let us know if she would like to pursue PFPTprecau tions discussed Contracept ion care management 999538328 Z30.9 has not started slyndshe is considerin g Mirena IUD. R/B/A discussed. If desired, abstain x 2 weeks then bhcg day prior to insertion. She will let us know what she decides Fatigue 86448261 R53.83 labs ordered Time spent in visit is a total of 20 mins with at least 50% of visit consisting of counseling and review of plan of care. [id number] NIKHIL ARROYO MD [place] [address],[place] [address] 11/25/2022 14:41:17 11/25/2022 17:15:02 Tenderness of breast 23360878 N64.4 - x1 day, no new trauma however areola began draining this morning- Krishnamurthy 's gland appears inflamed on R breast- recommend ice packs and ibuprofen around the clock x24-48 hours- if not improving, patient to call/send portal message for abx- low suspicion for mastitis given no systemic symptoms or breast erythema support 40 [id number] Z39.1 - discussed oversupply may be causing issues with clogged ducts- nipple trauma may be 2/2 poorly sized flanges, recommend remeasurin g nipples and buying inserts if current flanges are wrong size- encouraged nipple butter use to help with healing [id number] Gui Wilkerson MD [place] [address] [address] 03/24/2023 09:50:29 03/24/2023 10:50:43 Pain in pelvis 70990533 R10.2 [id number] Gui Wilkerson MD [place] [address],[facility] [place] [address] 01/19/2024 09:26:53 01/19/2024 10:01:43 screening [id number] Z36.87 Z3A.01 [id number] Gui Wilkerson MD [place] [address],[place] [address] 01/19/2024 09:27:06 01/19/2024 11:01:09 Amenorrhea 27752753 N91.2 this patient is a 28-year-ol d female who presents for amenorrhea . She is a positive test. Ultrasound revealed a 1st trimester gestation. Patient has no complaints . We talked about early care. Talked about genetic screening. We talked about her ultrasound results. We talked about the 12 week ultrasound that has genetic screening components . She was given recommenda tions on exercise, diet, over-the-c ounter medication s. We reviewed her obstetric history. We reviewed her medical history. We reviewed her social history. She will begin routine care at her next visit. severe preeclamps ia leading to delivery at 34 weeks [id number] NIKHIL ARROYO MD [place] [address] [address] 02/08/2024 10:53:32 02/08/2024 11:34:27 [id number] Gui Wilkerson MD [place] [address],[place] [address] 02/13/2024 12:55:30 02/13/2024 13:32:54 Threatened miscarriage [id number] O20.0 Z3A.10 [id number] Gui Wilkerson MD [place] [address],[place] [address] 03/02/2024 11:35:34 03/02/2024 12:53:55 screening [id number] Z36.82 Z3A.12 [id number] NIKHIL ARROYO MD [place] [address],[place] [address] 03/02/2024 11:35:52 03/05/2024 12:09:27 Past history of pre-eclampsia [id number] 07654 Z87.59 - delivered at 34 weeks in prior for preeclamps ia with severe features- was on BP meds for a few months following delivery however now normalized - discussed recurrence risk of preeclamps ia- discussed recommenda tion for ASA ppx Nausea and vomiting 1693 2000 R11.2 - not improved with reglan- will trial zofran Gestation period, 12 weeks [id number] Z3A.12 - NT/NB wnl- continue PNV [id number] NIKHIL ARROYO MD [place] [address],[place] [address] 03/27/2024 12:34:49 03/28/2024 10:44:00 Past history of pre-eclampsia [id number] 68513 Z87.59 - delivered at 34 weeks in prior for preeclamps ia with severe features- was on BP meds for a few months following delivery however now normalized - discussed recurrence risk of preeclamps ia- discussed recommenda tion for ASA ppx Gestation period, 16 weeks 81103269 Z3A.16 [id number] NIKHIL ARROYO MD [place] [address],[place] [address] 04/03/2024 10:45:27 04/03/2024 11:30:55 Chronic hypertension complicating AND/OR reason for care during 96358070 O16.9 - meets criteria for cHTN given multiple elevated BP prior to 20 weeks- will order labs and PC ratio- start labetalol 200mg BID, closely monitor BP Palpitations 12278439 R0 0.2 - hx of palpitatio ns in PP period after last - mostly at night, however feeling winded while caring for toddler- holter monitor ordered Gestation period, 17 weeks [id number] Z3A.17 [id number] Gui Wilkerson MD [place] [address],[place] [address] 04/04/2024 14:20:00 04/04/2024 14:53:14 Abdominal pain in 490643933 O99.891 Z3A.17 [id number] SHAWNA ALMEIDA NP [place] [address],[place] [address] 11/19/2024 11:28:22 11/19/2024 14:08:31 Dizziness 658036088 R42 59549 Labs ordered to r/o causes of intermitte nt dizziness and headaches. Hx gHTN; Patient states that home BP readings have been consistent ly normal (<120/80). Recommende d eating small meals, multiple times per day and drinking >64 ounces of water daily.Will f/u with lab results and next steps in plan of care.ER precaution s given. Vaginal discharge 841947 006 N89.8 80390 Reviewed the various causes of vaginal discharge and vaginitis symptoms, including both infectious (STD's, BV, yeast, others) and non-infect ious (physiolog ic d/c, irritants/ allergens, DIV, others) causes.Dis cussed vulvar care guidelines in addition to laundry/sk in irritants to avoid.Disc ussed suspected BV based on reported symptoms and physical exam findings.P atient declined empiric treatment and prefers to wait for results.Va ginitis panel sent to r/o yeast/BV/t rich. Abnormal u terine bleeding [id number] 9100 N93.9 546502 Recommende d pelvic ultrasound to r/o uterine or ovarian abnormalit ies contributi ng to post-coita l bleeding.W ill f/u with results and to discuss any adjustment s in plan of care. Pain in fe male genitalia on intercourse 37285789 N94.10 [id number] Discussed common possible causes of dyspareuni a, such as infection, vaginal dryness, and positionin g during intercours e.Recommen ded comfortabl e positions during intercours e and using lubricatio n as needed.David l r/o vaginal infection with pap and vaginitis testing. Patient declined STI testing. [id number] Gui Wilkerson MD [place] [address],[facility] [place] [address] 11/23/2024 09:23:10 11/23/2024 10:04:45 Pain in pelvis 58780588 R10.2 N93.0 327180 [id number] Gui Wilkerson MD [place] [address],[place] [address] 11/30/2024 09:53:11 12/01/2024 22:42:12 [id number] NIKHIL ARROYO MD [place] [address],[place] [address] 12/14/2024 14:30:52 12/14/2024 16:15:15 Pain in female genitalia on intercourse 92682056 N94.10 [id number] - patient reports superficia l and deep dyspareuni a since delivery- likely due to both genitourin kevin syndome of and pelvic floor dysfunctio n- estradiol cream and pelvic floor PT referral sent Increased 3711 0009 N64.3 028985 - patient has severe hyperlacta tion, producing 24-28 oz per pump, only pumping once per day- desires cessation as baby has been diagnosed with CMPI and cannot take her breastmill k- r/b of cabergolin e discussed, rx sent; take 1 tab and repeat if milk supply not decreased in 5 days- recommend emptying only to comfort not to empty Atypical g landular cells on cervical Papanicolaou smear [id number] R87.619 801739 - atypical glandular cells NOS on pap smear- colposcopy with ECC and EMB performed today- will follow up on results as available Health Concerns Section Related Observation LastModified by Organization Detai ls LastModified Time None Recorded Concern Status LastModified by Organization Details LastModified Time None Recorded Advance Directives Directive None Recorded Payers Insurance Date Sequence Insurance Name Policy Number Policy Vera Covered Member ID Vera Member ID Guarantor Name 11/15/2024 1 *SELF PAY* Vi ctnia Aguilera 12/12/2024 1 [facility] ([facility] [id number] Rosas Aguilera Jr [id number] Damaris Aguilera 03/26/2024 1 [facility] [id number] Rosas Aguilera [id number] Damaris Aguilera Notes Date Note Type Note Provider Name and Address Organization Details Recorded Time 11/19/2024 text/html 29 y/o female presents with c/o green/yellow vaginal discharge, pain with intercourse, spotting after intercourse for the past 6 weeks.Patient states that she is 12 weeks (insurance changed and did not deliver at [facility]). Hx gestational hypertension, anemia (had iron infusion in hospital after delivery), and diabetes during .Patient denies new sexual partners. Denies vaginal odor or itching. Patient states that she feels severe cramping and pressure during intercourse.Patient reports that she had one full period (3-4 days of bleeding) 3-4 weeks ago. Patient reports exclusively at this time.Patient reports intermittent headaches and episodes of dizziness that will last more than one hour at times. Denies chest, visual changes, SOB. Denies known triggers to symptoms. Patient states that she has not been taking her iron supplement. Denies current symptoms. Libia alves, [facility] 11/19/2024 15:41:35 12/14/2024 text/html ROS as noted in the HPI Patient presents for colposcopy and EMB indicated for atypical glandular cells on pap smear. 4 months PP. No recent hx of abnormal paps, has not restarted menses since delivery. She also reports hyperlactation, pumping 1x per day and still producing 24-28 oz. Her baby has been diagnosed with milk protein allergy and cannot take her breastmilk, so she would like cessation. She reports dypareunia since delivery, both superficial and deep. She has pain at her cervix and pelvic cramping that spreads to her back. She has a small amount of brown discharge following intercourse as well. NIKHIL ARROYO MD [address], [place], [address], [facility] 12/14/2024 16:05:38 OBGyn Episode Ob Episode Information Episode Created Date Number of Fetuses Patient Bloodtype Patient rh Status Prepregnancy Weight lbs Domestic Partner Domestic Partner Phone Father Name Punchboard Inserter Status 09/17/19 23 1 CLOSED Fetus Data First Name Last Name Admitted to NICU Weight (g) Sex Living Outcome Pediatric Complications Fetus ID Race Codes Race Delivery Type 2749.67 4704 M Prematur e 10607 Vaginal Delivery Oskar Calculation Initial Oskar Date Initial Exam Date Initial Exam Provider Initial Ultrasound Date Last Menstrual Period Date Ultra Sound Weeks Gestation 0 Eighteen To Twenty Week Oskar Update Ultra Sound Date Fundal Height At Umbil Quickening Date Ultra Sound Latest Weeks Gestation Final Oskar Confirmed By Final Oskar Confirmed Date Final Oskar Date Ultra Sound Latest Days Gestation 0 0 Menstrual History Last Menstrual Date Menses Monthly On Bcp Conception Prior Menses Frequency Hcg Plus Date Menarche Onset Age Delivery Information Delivery Date Delivery Type Labor Anesthesia Weeks Gestation Incision Type Labor Labor Length Hrs Delivered By Post Complications Tubal Sterilization Discharge Date Comments 3 34 Discharge Information Feeding Method Contraceptive Method Maternal HG B and HCT Levels Ob Episode Information Episode Created Date Number of Fetuses Patient Bloodtype Patient rh Status Prepregnancy Weight lbs Domestic Partner Domestic Partner Phone Father Name Punchboard Inserter Status 11/20/19 25 1 CLOSED Fetus Data First Name Last Name Admitted to NICU Weight (g) Sex Living Outcome Pediatric Complications Fetus ID Race Codes Race Delivery Type 3061.74 6 M Full Term [id number] Vaginal Delivery Oskar Calculation Initial Oskar Date Initial Exam Date Initial Exam Provider Initial Ultrasound Date Last Menstrual Period Date Ultra Sound Weeks Gestation 0 Eighteen To Twenty Week Oskar Update Ultra Sound Date Fundal Height At Umbil Quickening Date Ultra Sound Latest Weeks Gestation Final Oskar Confirmed By Final Oskar Confirmed Date Final Oskar Date Ultra Sound Latest Days Gestation 0 0 Menstrual History Last Menstrual Date Menses Monthly On Bcp Conception Prior Menses Frequency Hcg Plus Date Menarche Onset Age Delivery Information Delivery Date Delivery Type Labor Anesthesia Weeks Gestation Incision Type Labor Labor Length Hrs Delivered By Post Complications Tubal Sterilization Discharge Date Comments 5 37 Discharge Information Feeding Method Contraceptive Method Maternal HG B and HCT Levels Ob Episode Information Episode Created Date Number of Fetuses Patient Bloodtype Patient rh Status Prepregnancy Weight lbs Domestic Partner Domestic Partner Phone Father Name Punchboard Inserter Status 03/02/20 24 1 O Positive Rosas Aceves CLOSED Fetus Data First Name Last Name Admitted to NICU Weight (g) Sex Living Outcome Pediatric Complications Fetus ID Race Codes Race Delivery Type Ermias Marti nt 3061.74 6 M [id number] Problems Problem Notes Palpitations - 72hr Holter m onitor order faxed 04/03 [facility] outpatient cardiology Problem Name Start Date End Date Resolution Snomed Code Not e Past history of pre-eclampsia [id number] pre-e wseve re features / PTL bASA daily 162mg Oskar Calculation Initial Oskar Date Initial Exam Date Initial Exam Provider Initial Ultrasound Date Last Menstrual Period Date Ultra Sound Weeks Gestation 09/10/2024 03/02/2024 01/19/2024 6 Eighteen To Twenty Week Oskar Update Ultra Sound Date Fundal Height At Umbil Quickening Date Ultra Sound Latest Weeks Gestation Final Oskar Confirmed By Final Oskar Confirmed Date Final Oskar Date Ultra Sound Latest Days Gestation 0 [email or web address] 03/05/2024 09/11/19 25 0 Pre-anne Flowsheet Flowsheet Date 03/02/2024 Cho Score Blood Edema Fundus Height Fundus Units Glucose Ketones Leukocytes Nitrite Labor Signs Protein Cervic Dilation Cervic Effacement Cervic Station Type Weight in lbs Pre/Post Dialysis Refused BP Diastolic BP Location Tested BP Systolic BP Type Fetus Heart Rate Present Fetus Movement Comments Flowsheet Date 03/02/2024 Cho Score Blood Edema Fundus Height Fundus Units Glucose Ketones Leukocytes Nitrite Labor Signs Protein Cervic Dilation Cervic Effacement Cervic Station Type Weight in lbs Pre/Post Dialysis Refused Weight 284.940497756754 BP Diastolic BP Location Tested BP Systolic BP Type 84 L arm 135 sitting Fetus Heart Rate Present A 162 Fetus Movement Comments Patient presents to [facility] care. Nausea worsening, has tried Reglan without relief. Will trial zofran. otherwise complicated by hx of preeclampsia with severe features in her last . Discussed risk of recurrence in this . Discussed 162mg ASA for preeclampsia PPx. No cramping. NT/NB wnl today, LR male NIPT. New OB labs wnl. RTC 4 weeks for routine care. Flowsheet Date 03/27/2024 Cho Score Blood Edema Fundus Height Fundus Units Glucose Ketones Leukocytes Nitrite Labor Signs Protein Cervic Dilation Cervic Effacement Cervic Station neg none Type Weight in lbs Pre/Post Dialysis Refused Weight 283.780897799814 BP Diastolic BP Location Tested BP Systolic BP Type 81 L arm 140 sitting Fetus Heart Rate Present A 145 Fetus Movement A Yes Comments Doing well, feeling mo vement. Having some cramping, mostly when her bladder is full. She also is concerned she may have passed a tapeworm. Discussed urgent care if it recurs. BP normal at home. Discussed symptomatic treatment for sciatica pain, right sided. Discussed anatomy US for next visit. RTC 4 weeks. Flowsheet Date 04/03/2024 Cho Score Blood Edema Fundus Height Fundus Units Glucose Ketones Leukocytes Nitrite Labor Signs Protein Cervic Dilation Cervic Effacement Cervic Station neg none Type Weight in lbs Pre/Post Dialysis Refused 283.148429763891 BP Diastolic BP Location Tested BP Systolic BP Type 85 L arm 139 sitting Fetus Heart Rate Present A 150 Fetus Movement A Yes Comments OB problem visit, see note. Flowsheet Date 04/04/2024 Cho Score Blood Edema Fundus Height Fundus Units Glucose Ketones Leukocytes Nitrite Labor Signs Protein Cervic Dilation Cervic Effacement Cervic Station Type Weight in lbs Pre/Post Dialysis Refused BP Diastolic BP Location Tested BP Systolic BP Type Fetus Heart Rate Present Fetus Movement Comments Flowsheet Date 11/19/2024 Cho Score Blood Edema Fundus Height Fundus Units Glucose Ketones Leukocytes Nitrite Labor Signs Protein Cervic Dilation Cervic Effacement Cervic Station Type Weight in lbs Pre/Post Dialysis Refused Weight 284.097312260334 BP Diastolic BP Location Tested BP Systolic BP Type 81 L arm 142 sitting Fetus Heart Rate Present Fetus Movement Comments Menstrual History Last Menstrual Date Menses Monthly On Bcp Conception Prior Menses Frequency Hcg Plus Date Menarche Onset Age Delivery Information Delivery Date Delivery Type Labor Anesthesia Weeks Gestation Incision Type Labor Labor Length Hrs Delivered By Post Complications Tubal Sterilization Discharge Date Comments 5 Sponta neous 36.6 false Discharge Information Feeding Method Contraceptive Method Maternal HG B and HCT Levels
--- OUTSIDE RECORDS SUMMARY | 2025-01-22 10:31 | XMS_ITS | Clinical Summary ---
Author Organization [facility] Address [address] [place] [address] Care Team Providers Care Precipitator Supervisor Name Role Phone Ramila Pal MD Primary Care Provider [phone] Allergies Active Allergy Reactions Criticality Noted Date [...] relapse. Migraine headache 01/26/2017 Bulimia nervosa, moderate 09/07/2016 Depression 07/23/2016 Resolved Problems Problem Noted Date Diagnosed Date Resolved Date 04/22/2022 06/27/2023 Mastalgia in female 03/18/2017 06/27/19 24 Deliberate self-cutting 02/17/201706/12 Contraceptive management 11/11/2016 Risk for sexually transmitted disease 11/10/2016 06/27/2023 Acne 07/23/2016 06/27/2023 Encounter for preventive health examination 07/07/2016 11/23/2019 Encounters Date Type Department Care Team Description 11/18/2024 12:21 AM CDT - 11/18/2024 2:08 AM CDT Emergency [facility] [place] [address] Sebastien Holcomb NP Medical Screening Discharge Disposition: Home or Self Care (Routine Discharge) 11/18/2024 Travel from Last 3 Months Immunizations Immunization Administration Dates Next Due Dtap [...] Sign Reading Time Taken Comments Blood Pressure 176/91 11/18/2024 12:19 AM CDT Pulse 76 11/18/2024 12:19 AM CDT Temperature 36.7 C (98.1 F) 11/18/2024 12:19 AM CDT Respiratory Rate 18 11/18/2024 12:19 AM CDT Oxygen Saturation 100% 11/18/2024 12:19 AM CDT Inhaled Oxygen Concentration - - Weight 130 kg (286 lb 9.6 oz) 11/18/2024 12:19 A M CDT Height 177.8 cm (5' 10) 11/18/2024 12:19 AM CDT Body Mass Index 41.12 11/18/2024 12:19 AM CDT Plan of Treatment Upcoming Encounters Date Type Department Care Team (Late st Contact Info) Description 04/09/2025 10:30 AM SENIOR CONTROLS ENGINEER Office Visit [facility] Family Medicine - [place] [address] [facility] [address] [place] [address] [id number] Tina Montoya MD [address] [place] [address] [id number] Health Maintenance Due Date Last Done Comments Hepatitis B Vaccines (1 of 3 - 19+ 3-dose series) 2016 PHQ-2 (Physician [place]) 03/14/2024 09/01/2023 HPV Vaccines (1 - 3-dose SCD M series) 2024 Annual Physical 06/26/2024 06/27/2023 COVID-19 Vaccine (1 - 2024-2 6 season) 2024 Influenza Adult (#1) 2024 03/05/2003 Cervical Cancer Screening Pa p Smear (Age 21 to 29) Every 3 Years 01/18/2027 01/19/2024, 02/19/2022 Cervical Cancer Screening 01/18/2027 DTaP, Tdap and Td Vaccines ( 4 - Td or Tdap) 04/19/2032 04/19/2022, 07/24/2017, 06/25/2002 Hepatitis C Completed 05/02/2024, 11/11/2021 Hepatitis A Vaccines Aged Out No long er eligible based on patient's age to complete this topic Meningococcal B Vaccine Aged Out No l onger eligible based on patient's age to complete this topic Meningococcal Vaccine Aged Out No guru jonnie eligible based on patient's age to complete [...] Procedure Name Priority Date/Time Associated Diagnosis Comments XR CHEST PORTABLE STAT 11/18/2024 1:1 3 AM CDT ECG 12-LEAD Routine 11/18/2024 12:39 AM CDT CORONAVIRUS (COVID 19) STAT 12:35 AM CDT TSH W/REFLEX STAT 11/18/2024 12:35 AM CDT HC MAGNESIUM STAT 11/18/2024 12:35 AM CDT HC URINALYSIS AUTO W/O MICRO STAT 11/18/2024 12:35 AM CDT HC TROPONIN QN STAT 11/18/2024 12:35 AM CDT HC COMPREHENSIVE METABOLIC PANEL STAT 11/18/2024 12:35 AM CDT HC CBC AUTO W/AUTO DIFF STAT 11/18/2024 12:35 AM CDT POCT URINE (BACK OFFICE) STAT 11/18/2024 12:29 AM CDT HEPATITIS C ANTIBODY Routine 11/11/2021 11:52 AM CDT Screening for -associat ed plasma protein A (HHS/HCC) from Last 3 Months or Most Recently Relevant to Health Maintenance Results * XR CHEST PORTABLE (11/18/2024 1:13 AM CDT) Anatomical Region Laterality Modality Chest Radiographic Beth ging 11/18/2024 1:21 AM CDT Impressions 11/18/2024 1:22 AM CDT IMPRESSION: 1. No acute cardiopulmonary process. Referred By: Interpreted By: Braxton Gallardo MD, 11/18/2024 1:21 AM Narrative 11/18/2024 1:22 AM CDT [place] [address] INDICATION: chest pressure COMPARISON: X-ray chest 04/29/2019 TECHNIQUE: Single AP image of the chest FINDINGS: No focal airspace consolidation. No pleural effusion or pneumothorax. Cardiomediastinal silhouette and pulmonary vasculature are within normal limits. No acute osseous abnormality. Procedure Note Braxton Gallardo DO - 11/18/2024 [place] [address] INDICATION: chest pressure COMPARISON: X-ray chest 04/29/2019 TECHNIQUE: Single AP image of the chest FINDINGS: No focal airspace consolidation. No pleural effusion or pneumothorax.Cardiomediastinal silhouette and pulmonary vasculature are within normallimits. No acute osseous abnormality. IMPRESSION: 1. No acute cardiopulmonary process. Referred By: Interpreted By: Braxton Gallardo MD, 11/18/2024 1:21 AM us Sebastien Holcomb TOOL DRESSER GENERAL IMAGING Final Result * ECG 12 lead (11/18/2024 12:39 AM CDT) 11/18/2024 12:3 9 AM CDT Narrative [facility] ([facility]) RAD - 11/18/2024 3:[address] 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 [address] Test Date: 2024-11-18 Pat Name: DAMARIS AGUILERA Department: 41 Room: EXAM21 Gender: Female Hot Dog Vender: [id number] : 1995 Requested By: SEBASTIEN HOLCOMB Order Number: [id number] Reading KAVON Verdugo Measurements Intervals [place] Rate: 72 P: 30 OR: 193 QRS: 30 QRSD: 88 T: 28 QT: 377 QTc: 414 Interpretive Statements SINUS RHYTHM Compared to ECG 01/31/2022 18:23:04 No significant changes us Sebastien Holcomb TOOL DRESSER ECG ORDERABLES Final Result [facility] * CORONAVIRUS (COVID 19) (11/18/2024 12:35 AM CDT) CORONAVIRUS SARS COV 2 RNA NEGATIVE NEGATIVE 11/18/2024 12:59 AM CDT [facility] Comment: NEGATIVE RESULTS DO NOT RULE OUT COVID 19 AND SHOULD NOT BE USED THE SOLE BASIS FOR TREATMENT OR PATIENT MANAGEMENT DECISIONS, INCLUDING INFECTION CONTROL DECISIONS. NEGATIVE RESULTS SHOULD BE CONSIDERED IN THE CONTEXT OF A PATIENT'S RECENT EXPOSURES, HISTORY AND THE PRESENCE OF CLINICAL SIGNS AND SYMPTOMS CONSISTENT WITH COVID 19. THE ID NOW COVID-19 2.0 TEST HAS BEEN AUTHORIZED BY THE FDA UNDER EAU FOR USE BY AUTHORIZED LABORATORIES. PERFORMED BY NUCLEIC ACID AMPLIFICATION FOR MOLECULAR QUALITATIVE DETECTION OF SARS-COV-2. SPECIMEN TYPE NASAL 11/18/2024 12:29 AM CDT [facility] NASAL STRUCTURE / Unknown 11/18/2024 12:35 AM CDT us Sebastien Holcomb NP MICROBIOLOGY - GENERAL ORDERAB LES Final Result [facility] [address] [place] [address], [place] [phone] * TSH W/REFLEX (11/18/2024 12:35 AM CDT) [facility] [address] [facility] TSH 1.470 0.358 - 3.74 uIU/ML 11/18/2024 1:15 AM CDT [facility] Comment: HIGH DOSES OF BIOTIN MAY INTERFERE WITH THIS TEST RESULT. CORRELATION TO CLINICAL HISTORY AND PRESENTATION RECOMMENDED. FREE T4 NOT INDICATED 11/18/2024 12:3 5 AM CDT us Sebastien Holcomb NP LABORATORY Final Result [facility] [address] [place] [address], [place] [phone] * URINALYSIS (11/18/2024 12:35 AM CDT) SPECIMEN TYPE URINE CLEAN CATCH 11/18/2024 12:23 AM CDT [facility] COLOR (U) LIGHT YELLOW 11/18/2024 12:46 AM CDT [facility] TRANSPARENCY CLEAR 11/18/2024 12:46 AM CDT [facility] SPECIFIC GRAVITY (U) 1.012 1.001 - 1.030 11/18/2024 12:46 AM CDT [facility] U PH 6.0 5.0 - 9.0 11/18/2024 12:46 AM CDT [facility] LEUKOCYTES (U) NEGATIVE NEGATIVE 11/18/2024 12:46 AM CDT [facility] NITRITES NEGATIVE NEGATIVE 11/18/2024 12:46 AM T [facility] PROTEIN RANDOM (U) NEGATIVE <30 MG/DL 11/18/2024 12:46 AM CDT [facility] GLUCOSE (U) NORMAL NORMAL MG/DL 11/18/2024 12:46 AM CDT [facility] KETONES MG/DL (U) NEGATIVE NEGATIVE MG/DL 11/18/2024 12:46 AM T [facility] UROBILINOGEN NORMAL NORMAL MG/DL 11/18/2024 12:46 AM T [facility] BILIRUBIN (U) NEGATIVE NEGATIVE MG/DL 11/18/2024 12:46 AM CDT [facility] BLOOD (U) NEGATIVE NEGATIVE 11/18/2024 12:46 AM T [facility] URINE SPECIMEN OBTAINED BY CLEAN CATCH PROCEDURE / Unknown 11/18/2024 12:35 AM CDT us Sebastien Holcomb TOOL DRESSER URINE ORDERABLES Final Result [facility] [address] [place] [address], [place] [phone] * (ABNORMAL) COMPREHENSIVE METABOLIC PANEL (11/18/2024 12:35 AM CDT) [facility] [address] GLUCOSE 111(H) 70 - 99 MG/DL 11/18/2024 1:15 AM CDT [facility] BUN 7 7 - 18 MG/DL 11/18/2024 1:15 AM CDT [facility] CREATININE S/P/B 0.80 0.55 - 1.02 MG/DL 11/18/2024 1:15 AM CDT [facility] SODIUM S/P/B 139 136 - 145 MMOL/L 11/18/2024 1:15 AM CDT [facility] POTASSIUM S/P/B 3.3(L) 3.5 - 5.1 MMOL/L 11/18/2024 1:15 AM CDT [facility] CHLORIDE S/P/B 108 97 - 115 MMOL/L 11/18/2024 1:15 AM CDT [facility] CO2 28.0 21 - 32 MMOL/L 11/18/2024 1:15 AM CDT [facility] CALCIUM S/P/B 8.8 8.5 - 10.1 MG/DL 11/18/2024 1:15 AM CDT [facility] BILIRUBIN TOTAL S/P/B 0.2 0.2 - 1.2 MG/DL 11/18/2024 1:15 AM CDT [facility] Comment: THIS ASSAY IS NOT RECOMMENDED FOR PATIENTS UNDERGOING TREATMENT WITH ELTROMBOPAG DUE TO THE POTENTIAL FOR FALSELY ELEVATED RESULTS. TOTAL PROTEIN S/P/B 7.6 6.4 - 8.2 G/DL 11/18/2024 1:15 AM CDT [facility] ALBUMIN S/P/B 3.6 3.4 - 5.0 G/DL 11/18/2024 1:15 AM CDT [facility] AST 19 15 - 37 U/L 11/18/2024 1:15 AM CDT [facility] ALT 39 14 - 55 U/L 11/18/2024 1:15 AM CDT [facility] ALKALINE PHOSPHATASE S/P/B 77 50 - 136 U/L 11/18/2024 1:15 AM CDT [facility] ANION GAP 3.0 2 - 10 MMOL/L 11/18/2024 1:15 AM CDT [facility] BUN CREATININE RATIO 8.7 6 - 26 11/18/2024 1:15 AM CDT [facility] A/G RATIO 0.9(L) 1.0 - 2.0 RATIO 11/18/2024 1:15 AM T [facility] GFR ESTIMATE >90 >90 ML/MIN/1.7 3 M2 11/18/2024 1:15 AM T [facility] Comment: NOTE: eGFR is not calculated for patients <18 years of age or gender unknown. This is an estimated GFR calculation using the new CKD EPI creatinine equation without race and so does not require a correction factor for race. This estimated GFR should not be used for calculating drug doses. 11/18/2024 12:3 5 AM CDT Sebastien Holcomb NP LABORATORY Final Result [facility] [address] [place] [address], [place] [phone] * CBC W/DIFF AUTOMATED (11/18/2024 12:35 AM CDT) WBC 6.30 4.5 - 11.0 x10'3/uL 11/18/2024 12:57 AM CDT [facility] RBC 4.70 4.20 - 5.40 x10'6/uL 11/18/2024 12:57 AM CDT [facility] HGB 13.0 12.0 - 16.0 G/DL 11/18/2024 12:57 AM CDT [facility] HCT 39.1 38.0 - 48.0 % 11/18/2024 12:57 AM CDT [facility] MCV 83.2 81.0 - 99.0 FL 11/18/2024 12:57 AM CDT [facility] MCH 27.7 27.0 - 31.0 PG 11/18/2024 12:57 AM CDT [facility] MCHC 33.2 32.0 - 36.0 G/DL 11/18/2024 12:57 AM CDT [facility] RDW 14.2 11.5 - 14.5 % 11/18/2024 12:57 AM CDT [facility] PLT 236 130 - 400 x10'3/uL 11/18/2024 12:57 AM CDT [facility] MPV 10.1 9.3 - 12.2 FL 11/18/2024 12:57 AM CDT [facility] DIFFERENTIAL TYPE AUTOMATED DIFFERENTIAL 11/18/2024 12:57 AM CDT [facility] NEUTROPHILS % 43.6 % 11/18/2024 12:57 AM CDT [facility] LYMPHOCYTES % 47.1 % 11/18/2024 12:57 AM CDT [facility] MONOCYTES % 6.0 % 11/18/2024 12:57 AM CDT [facility] EOSINOPHILS 2.5 % 11/18/2024 12:57 AM CDT [facility] BASOPHILS 0.6 % 11/18/2024 12:57 AM CDT [facility] IMMATURE GRANS % 0.2 % 11/19/19 12:57 AM CDT [facility] ABS. NEUTROPHILS 2.74 1.80 - 7.70 x10'3/uL 11/18/2024 12:57 AM CDT [facility] ABS. LYMPHOCYTES 2.97 1.00 - 4.80 x10'3/uL 11/18/2024 12:57 AM CDT [facility] ABS. MONOCYTES 0.38 0.24 - 0.86 x10'3/uL 11/18/2024 12:57 AM CDT [facility] ABS. EOSINOPHILS 0.16 0.04 - 0.36 x10'3/uL 11/18/2024 12:57 AM CDT [facility] ABS. BASOPHILS 0.04 0.01 - 0.08 x10'3/uL 11/18/2024 12:57 AM CDT [facility] ABS. IMMATURE GRANULOCYTES 0.01 0.00 - 0.49 x10'3/uL 11/18/2024 12:57 AM CDT [facility] 11/18/2024 12:3 5 AM CDT Sebastien Holcomb NP LABORATORY Final Result [facility] [address] [place] [address], * TROPONIN, QUANT (11/18/2024 12:35 AM CDT) TROPONIN I HIGH SENSITIVITY 3 <54 ng/L 11/18/2024 1:15 AM CDT [facility] Comment: HIGH DOSES OF BIOTIN, TROPONIN-SPECIFIC AUTOANTIBODIES, AND ANTIBODY THERAPY CONTAINING HAMA MAY INTERFERE WITH THIS TEST RESULT. CORRELATION TO CLINICAL HISTORY AND PRESENTATION RECOMMENDED. 11/18/2024 12:3 5 AM CDT Sebastien Holcomb NP LABORATORY Final Result Performing Organization Address City/[facility]/ZIP Co de Phone Number [facility] [address] [place] [address], * MAGNESIUM (11/18/2024 12:35 AM CDT) MAGNESIUM 1.8 1.8 - 2.4 MG/DL 11/18/2024 1:15 AM CDT [facility] 11/18/2024 12:3 5 AM CDT Sebastien Holcomb NP LABORATORY Final Result Performing Organization Address [facility] de Phone Number [facility] [address] [place] [address], [place] [phone] * POCT urine (11/18/2024 12:29 AM CDT) Pathologist [facility] URINE HCG TEST NEGATIVE Internal Control: VALID 11/18/2024 12:2 9 AM CDT Sebastien Holcomb NP POINT OF CARE TEST ORDERABLES Final Result * HEPATITIS C ANTIBODY (11/11/2021 11:52 AM CDT) Pathologist [facility] HEPATITIS C AB NON-REACTI VE NON-REACTI VE 11/11/2021 8:19 PM CDT [facility] 11/11/2021 11:5 2 AM CDT Lindsay Perez CNM LABORATORY Final Result Performing Organization Address City/[facility] Co de Phone Number [facility] [address] [place] [address], [place] [phone] from Last 3 Months or Most Recently Relevant to Health Maintenance Insurance [facility] [employer] [facility] Advance Directives * Full [...] 4:15 PM 04/06/2022 8:16 PM Care Teams Precipitator Supervisor Relationship Specialty Start Date End Date Ramila Pal MD [address] [place] [address] PCP - General FAMILY PRACTICE 12/26/23
--- OUTSIDE RECORDS SUMMARY | 2025-01-22 10:31 | XMS_ITS | Encounter Summary ---
Author Organization [facility] Address [facility] [place] [address] Care Team Providers Care Site Engineer Name Role Phone Oswaldo Avina MD Primary Care Provider [phone] Ramila Pal MD Primary Care Provider [phone] Encounter Details Date Type Department Care Team (Late st Contact Info) Description 12/12/2023 Kumo Message Enc [facility] [address] [address] [employer], [facility] Provider Appointment 12/13/23 Social History Tobacco [...] Assessment Author Status No 04/22/2022 9:51 AM PILL MAKER Activ e * RETIRED Are you blind or do you have serious difficulty seeing, even when wearing glasses? Answer Date of Assessment Author Status No 04/22/2022 9:51 AM PILL MAKER Activ e * Do you have serious difficulty walking or climbing stairs? Answer Date of Assessment Author Status No 04/22/2022 9:51 AM PILL MAKER Rachel Upton RN Active * Do you [...] documented in this encounter Plan of Treatment Upcoming Encounters Date Type Department Care Team (Late st Contact Info) Description 04/09/2025 10:30 AM PILL MAKER Office Visit [facility] Family Medicine - [place] [address] [place] [address] Tina Montoya MD [address] [place], [place] [id number] documented as of this encounter Visit Diagnoses Not on filedocumented in this encounter Additional Health Concerns Infection Onset Date Last Indicated Resolved Time COVID-19 Rule Out 01/26/2024 01/26/2024 01/26/2024 3:44 AM PILL MAKER COVID-19 Rule Out 11/18/2024 11/18/2024 11/18/2024 1:00 AM CDT documented as of this encounter Care Teams Site Engineer Relationship Specialty Start Date End Date Oswaldo Avina MD PCP - General FAMILY PRACTICE 06/27/23 12/25/23 Ramila Pal MD [address] [place] [address] PCP - General FAMILY PRACTICE 12/26/23 documented as of this encounter
--- OUTSIDE RECORDS SUMMARY | 2025-01-22 10:31 | XMS_ITS | Encounter Summary ---
Author Organization [facility] Address [facility] [place] [address] Care Team Providers Care Horse Wrangler Name Role Phone Oswaldo Avina MD Primary Care Provider [phone] Ramila Pal MD Primary Care Provider [phone] Encounter Details Date Type Department Care Team (Late st Contact Info) Description 12/12/2023 ScoreGrid Message Enc [facility] Medical [facility] [address] [address] [employer], [facility] Provider XRAY Social History Tobacco [...] Assessment Author Status No 04/22/2022 9:51 AM SOLAR INSTALLATION SUPERVISOR Activ e * RETIRED Are you blind or do you have serious difficulty seeing, even when wearing glasses? Answer Date of Assessment Author Status No 04/22/2022 9:51 AM SOLAR INSTALLATION SUPERVISOR Activ e * Do you have serious difficulty walking or climbing stairs? Answer Date of Assessment Author Status No 04/22/2022 9:51 AM SOLAR INSTALLATION SUPERVISOR Rachel Upton RN Active * Do you have difficulty dressing or bathing? Answer Date of Assessment Author Status No 04/22/2022 9:51 AM SOLAR INSTALLATION SUPERVISOR Rachel Upton RN Active * Because of [...] st Contact Info) Description 04/09/2025 10:30 AM SOLAR INSTALLATION SUPERVISOR Office Visit [facility] Family Medicine - [place] [address] [place] [address] Tina Montoya MD [address] [place] [address] documented as of this encounter Visit Diagnoses Not on filedocumented in this encounter Additional Health Concerns Infection Onset Date Last Indicated Resolved Time COVID-19 Rule Out 01/26/2024 01/26/2024 01/26/2024 3:44 AM SOLAR INSTALLATION SUPERVISOR COVID-19 Rule Out 11/18/2024 11/18/2024 11/18/2024 1:00 AM CDT documented as of this encounter Care Teams Horse Wrangler Relationship Specialty Start Date End Date Oswaldo Avina MD PCP - General FAMILY PRACTICE 06/27/23 12/25/23 Ramila Pal MD [address] [place] [address] PCP - General FAMILY PRACTICE 12/26/23 documented as of this encounter
--- OUTSIDE RECORDS SUMMARY | 2025-01-22 10:31 | XMS_ITS | Encounter Summary ---
Author Organization [facility] - [facility] Address [facility] [place] [address] Care Team Providers Care Agricultural Education Instructor Name Role Phone Joo Edmonds MD Primary Care Provider [phone] Jesus Paulino MD Primary Care Provider [phone] Oswaldo Avina MD Primary Care Provider [phone] Ramila Pal MD Primary Care Provider [phone] Encounter Details Date Type Department Care Team (Late st Contact Info) Description 05/24/2022 [employer] Message [facility] Patient Accounts [address] [place] [address] [facility] Provider ACTION REQUIRED Social History Tobacco [...] Assessment Author Status No 04/22/2022 9:51 AM PROJECT GEOLOGIST Activ e * RETIRED Are you blind or do you have serious difficulty seeing, even when wearing glasses? Answer Date of Assessment Author Status No 04/22/2022 9:51 AM PROJECT GEOLOGIST Activ e * Do you have serious difficulty walking or climbing stairs? Answer Date of Assessment Author Status No 04/22/2022 9:51 AM PROJECT GEOLOGIST Rachel Upton RN Active * Do you have difficulty dressing or bathing? Answer Date of Assessment Author Status No 04/22/2022 9:51 AM PROJECT GEOLOGIST Rachel Upton RN Active * Because of [...] Date Author Status No 04/22/2022 9:51 AM PROJECT GEOLOGIST Rachel Upton RN Active documented in this encounter Plan of Treatment Upcoming Encounters Date Type Department Care Team (Late st Contact Info) Description 04/09/2025 10:30 AM PROJECT GEOLOGIST Office Visit [facility] Medical Group Family Medicine - [place] [address] [facility] [address] [place] [address] Tina Montoya MD [address] [place] [address] documented as of this encounter Visit Diagnoses Not on filedocumented in this encounter Additional Health Concerns Infection Onset Date Last Indicated Resolved Time COVID-19 Rule Out 01/26/2024 01/26/2024 01/26/2024 3:44 AM PROJECT GEOLOGIST COVID-19 Rule Out 11/18/2024 11/18/2024 11/18/2024 1:00 AM CDT documented as of this encounter Care Teams Agricultural Education Instructor Relationship Specialty Start Date End Date Joo Edmonds MD PCP - General FAMILY PRACTICE 11/10/20 01/23/23 Jesus Paulino MD [address] [place] [address] PCP - General FAMILY PRACTICE 01/24/23 06/26/23 Oswaldo Avina MD [address] [place] [address] PCP - General FAMILY PRACTICE 06/27/23 12/25/23 Ramila Pal MD [address] [place] [address] PCP - General FAMILY PRACTICE 12/26/23 documented as of this encounter
== END 2025-01-22 10:23 | disposition home or self-care (01) ==
PROVIDERS: Emergency Provider Nurse Practitioner Family; PCP Student in an Organized Health Care Education/Training Program
DX: H66.001 Acute suppurative otitis media without spontaneous rupture of ear drum, right ear (principal)
CPT/HCPCS: 99213; G0463

== ENCOUNTER 2025-02-16 19:10 | Emergency (ER) | payer BC, SELFPAY ==
--- NOTE | ~2025-02-16 | XR_ITS ---
Examination: XR chest 2V Clinical History: CHEST PAIN Comparison: 01/26/2023 Technique: PA and Lateral Findings: Cardiomediastinal silhouette normal size and configuration. Lungs clear. No acute bony abnormality. IMPRESSION: 1. No acute cardiopulmonary findings. Reviewed, dictated and finalized at location R. NESS CONTINUITY COORDINATOR
[2025-02-16 19:11] VITALS: BP 178/92; PULSE 107; RESP 18; TEMP 36.3; O2SAT 100
--- NOTE | 2025-02-16 19:16 | ECG_ITS ---
Test Date: 2025-02-16 19:45:20 Measurements Intervals [place] Rate: 106 P: 28 MT: 178 QRS: 23 QRSD: 86 T: 15 QT: 323 QTc: 429 Interpretive Statements SINUS TACHYCARDIA DELAYED PRECORDIAL R/S TRANSITION BORDERLINE ECG No previous ECG available for comparison Electronically Signed On 02-17-2025 09:17:54 [facility] by Lucas Collins D.O.
[2025-02-16 19:17] VITALS: BP 168/86; PULSE 109; RESP 22; O2SAT 100
[2025-02-16] MEDS: ASPIRIN 81 MG CHEWABLE TABLET 324 MG PO (19:39)
[2025-02-16 19:57] LABS: Hematocrit 37.7 % (37.0-47.0); Hemoglobin 12.7 g/dL (12.0-15.0); Immature Granulocyte Percent A 0.5 % (0-0.5); Lymphocytes Absolute Auto 3.11 K/mm3 (0.9-3.2); Mean Corpuscular HGB Conc 33.7 g/dl (32-36); Mean Corpuscular Hemoglobin 27.7 pg (26-34); Mean Corpuscular Volume 82.1 fl (80-100); Nucleated Red Blood Cells Absolute Auto 0.000 K/mm3 (0.0-0.012); Nucleated Red Blood Cells Perc 0.0 % (0.0-0.2); Platelet Count Result 276 k/mm3 (150-375); Red Blood Count 4.59 M/mm3 (4.2-5.4); White Blood Count 9.8 K/mm3 (4.5-10.0)
[2025-02-16 20:11] LABS: Alanine Aminotransferase 23 U/L (6-35); Albumin Level 4.1 g/dL (3.5-5.1); Alkaline Phosphatase 63 U/L (38-126); Anion Gap 6 mmol/L (4-12); Aspartate Amino Transferase 22 U/L (14-36); Bilirubin,Total 0.4 mg/dL (0.2-1.3); Blood Urea Nitrogen 7 mg/dL (7-17); Calcium 8.8 mg/dL (8.4-10.2); Carbon Dioxide 23 mmol/L (22-30); Chloride 105 mmol/L (98-107); Estimated CRCL calculation 172 ml/min; Estimated Glomerular Filt Rate > 60; Glucose 89 mg/dL (65-110); Lipase 53 U/L (23-300); Potassium 3.7 mmol/L (3.4-5.0); Sodium 134 mmol/L (137-145); Total Protein 7.6 g/dL (6.3-8.2)
--- NOTE | 2025-02-16 20:12 | ED_ITS ---
HPI - Chest Pain General Chief Complaint: Chest Pain Stated Complaint: chest pain Time Seen by Provider: 02/16/25 20:01 Source: patient Mode of arrival: ambulatory Limitations: no limitations History of Present Illness HPI narrative: Patient is a 29-year-old female presents to the emergency department complaining of chest pain, palpitations, shortness of breath. Patient notes that she was recently and had a delivery about 5 months ago, did have preeclampsia with a prior , and despondent that she is again at about 7 weeks, sees [facility] in [place], had an ultrasound just done this past week that showed a live intrauterine . Patient denies any vaginal bleeding or loss of fluid from the vagina. Patient denies any history of blood clots. Patient notes that she started to have intermittent chest pain with palpitations and shortness of breath has been coming and going for the past 3 days, seems to having more so at night, describes the chest discomfort is burning and in the center of her chest. Denies cough, fever, nasal congestion, sore throat, numbness, focal weakness, melena, hematochezia, diarrhea, nausea, vomiting. Related Data Allergies Allergy/AdvReac Type Severity Reaction Status Date / Time amoxicillin AdvReac Mild Rash Verified 02/16/25 20:19 ampicillin AdvReac Mild Rash Verified 02/16/25 20:19 Penicillins AdvReac Mild Rash Verified 02/16/25 20:19 Sulfa (Sulfonamide AdvReac Mild Rash Verified 02/16/25 20:19 Antibiotics) Review of Systems 2 Review of Systems: A 10 system review of systems was completed on the patient and is negative except for what is stated in the HPI. Nursing and ancillary documentation was reviewed. FOR[facility]LY [facility] Past Medical History Medical History Bulimia Gestational hypertension Preeclampsia Depression Surgical History Surgical History Hx of cholecystectomy Social History Social History Smoking status: Never smoker Exam 2 Narrative: CONST: No acute distress. obese. anxious appearing. HENMT: Head is normocephalic and atraumatic. Moist mucous membranes. No posterior oropharynx erythema. EYES: No scleral icterus. No conjunctival injection or pallor. PERRL. NECK: No meningeal signs. RESP: Able to speak in full sentences. Normal respiratory effort. CTAB. CARDIO: Tachycardic rate. Regular rhythm. 2+ DP and radial pulses bilaterally. GI: Nondistended. No tenderness to palpation. Soft. : No CVA tenderness to palpation. SKIN: No rashes or lesions noted on exposed skin. NEURO: Oriented x3. Moves all extremities. EXTREM/MSK/BACK: No pedal edema. PSYCH: Normal affect. Course Vital Signs Vital signs: Vital Signs Temperature 97.4 F L 02/16/25 19:11 Pulse Rate 107 H 02/16/25 19:11 Respiratory Rate 18 02/16/25 19:11 Blood Pressure 178/92 H 02/16/25 19:11 Pulse Oximetry 100 02/16/25 19:11 Oxygen Delivery Room Air 02/16/25 19:11 Temperature 99.3 F 02/16/25 21:57 Pulse Rate 97 02/16/25 23:38 Respiratory Rate 25 H 02/16/25 23:38 Blood Pressure 133/80 02/16/25 23:38 Pulse Oximetry 98 02/16/25 23:38 Oxygen Delivery Room Air 02/16/25 19:17 MDM MDM Narrative Medical decision making narrative: Patient presents with the above complaint. Initial vitals are remarkable for tachycardia, tachypnea, blood pressure elevated.. Physical examination as noted above. Plan discussed: Laboratory analysis, EKG, chest x-ray, aspirin, IV fluids, continuous cardiac monitoring, continuous pulse oximetry. Patient was reassessed at the bedside. Patient is in no acute distress. Patient does state she feels well at this time. Patient counseled on blood pressure management, they point to keeping a log, 3 gait according to the PERT pressure guidelines for checking her blood pressure. The patient has remained stable throughout the entire ED visit. Counseled patient regarding diagnostic results and potential diagnosis. Anticipatory guidance provided. Patient instructed to follow up with her OB in the next 1-2 weeks. Patient counseled on: false reassurance from an emergency department evaluation; no current evidence of a medical emergency; return immediately for any new, recurrent, worsening, concerning, or refractory symptoms. Additional verbal and printed discharge instructions were given and discussed with the patient. Patient verbally acknowledges understanding of condition and discharge instructions. All questions were answered to the patient's satisfaction. Patient is in agreement with the plan of care. The patient is stable for discharge and was discharged without incident. Differential Diagnosis Differential Diagnosis: ACS, pneumonia, dysrhythmia, pulmonary embolism, metabolic derangement, electrolyte derangement, dehydration, GERD, costochondritis, pericarditis, myocarditis. Lab Data MDM Lab Attestation statement: I personally reviewed the patient's lab results. Lab results narrative: CBC shows an immature granulocyte count of 0.05. Comprehensive metabolic panel reveals a sodium 134. Lipase is 53. Troponin is less than 0.012. Repeat troponin is less than 0.012. Beta hCG quantitative is 57,009. COVID and influenza and RSV testing are negative. Magnesium is 1.9. D-dimer is less than 0.27. Coags are within normal limits. 02/16/25 19:45 02/16/25 19:45 Labs: Lab Results 02/16/25 02/16/25 02/16/25 Range/Units 19:45 20:42 23:09 WBC 9.8 (4.5-10.0) K/mm3 RBC 4.59 (4.2-5.4) M/mm3 Hgb 12.7 (12.0-15.0) g/dL Hct 37.7 (37.0-47.0) % MCV 82.1 (80-100) fl MCH 27.7 (26-34) pg MCHC 33.7 (32-36) g/dl RDW 14.6 H (11.5-14.5) % Plt Count 276 (150-375) k/mm3 MPV 10.1 (7.4-10.4) fl Immature Gran % (Auto) 0.5 (0-0.5) % Neut % (Auto) 60.3 (45.5-73.1) % Lymph % (Auto) 31.9 (18.3-44.2) % Hendricks % (Auto) 5.2 (2.6-8.5) % Eos % (Auto) 1.5 (0-4.4) % Baso % (Auto) 0.6 (0.2-1.2) % Lymph # (Auto) 3.11 (0.9-3.2) K/mm3 Hendricks # (Auto) 0.5 (0.1-0.6) K/mm3 Eos # (Auto) 0.2 (0-0.3) K/mm3 Baso # (Auto) 0.1 (0.0-0.1) K/mm3 Abs Immat Gran (auto) 0.05 H (0.00-0.031) K/mm3 Absolute Neuts (auto) 5.9 (1.3-6.7) K/mm3 Absolute Nucleated RBC 0.000 (0.0-0.012) K/mm3 Nucleated RBC % 0.0 (0.0-0.2) % PT 12.3 (11.1-14.7) Seconds INR 0.9 APTT 26.1 (22.3-36.8) Seconds D-Dimer < 0.27 (<0.48) ug/mL Sodium 134 L (137-145) mmol/L Potassium 3.7 (3.4-5.0) mmol/L Chloride 105 (98-107) mmol/L Carbon Dioxide 23 (22-30) mmol/L Anion Gap 6 (4-12) mmol/L BUN 7 (7-17) mg/dL Creatinine 0.62 L (0.7-1.0) mg/dL Estim Creat Clear Calc 172 ml/min Estimated GFR > 60 (59 - ) Glucose 89 (65-110) mg/dL Calcium 8.8 (8.4-10.2) mg/dL Magnesium 1.9 (1.6-2.3) mg/dL Total Bilirubin 0.4 (0.2-1.3) mg/dL AST 22 (14-36) U/L ALT 23 (6-35) U/L Alkaline Phosphatase 63 (38-126) U/L Troponin I < 0.012 < 0.012 (0.000-0.034) ng/mL Total Protein 7.6 (6.3-8.2) g/dL Albumin 4.1 (3.5-5.1) g/dL Lipase 53 (23-300) U/L Beta HCG, Quant 74373.00 mIU/ML Influenza A (RT-PCR) Negative (Negative) Influenza B (RT-PCR) Negative (Negative) RSV (RT-PCR) Negative (Negative) SARS-CoV-2 RNA (RT-PCR) Negative (Negative) ECG Data EKG #1: Attestation: I personally reviewed and interpreted this ECG as follows: ECG completion date: 02/16/25 ECG completion time: 19:45 Interpretation: rate of 106, rhythm is sinus tachycardia, axis is normal, no ST elevations or depressions, T-wave inversion present in leads 3 and V3, no old EKG on file for comparison. Discharge Plan Discharge Clinical Impression: Chest pain Qualifiers: Chest pain type: unspecified Qualified Code(s): R07.9 - Chest pain, unspecified Patient Disposition: Home Condition: Stable Instructions: Antibiotic Form, Chest Pain (ED), How to Take a Blood Pressure Reading (ED) Additional Instructions: Follow-up with your OB in the next 1-2 weeks, rest and stay well hydrated, check your blood pressure as we discussed keeping a log 3 times a day and using the guidelines provided to you. Return immediately to the emergency department for any new or concerning symptoms especially any emergent concerns for life, limb, eyesight. I have also ordered you Pepcid which you can take once a day. Patient Language: Setswana Prescriptions: New famotidine [Pepcid AC] 20 mg tablet 20 mg PO DAILY Qty: 14 0RF No Action cefdinir 300 mg capsule 300 mg PO Q12H 7 Days Qty: 14 0RF fluticasone propionate [Flonase Allergy Relief] 50 mcg/actuation spray,suspension 1 spray intranasal DAILY Qty: 16 0RF Rx Instructions: administer into each nostril loratadine 10 mg tablet 10 mg PO DAILY Qty: 30 0RF Follow-up/Referrals: Lon Harris MD [Physician, [facility]] - 1 Week Time of Disposition: 23:59 Quality HEART score for chest pain patients History: slightly suspicious ECG: normal Age: < or = to 45 years Risk factors: 1 or 2 risk factors Troponin: < or = to 1x normal limit Heart score: 1
[2025-02-16 20:22] LABS: Troponin I < 0.012 ng/mL (0.000-0.034)
[2025-02-16 20:25] LABS: INR 0.9; Prothrombin Time 12.3 Seconds (11.1-14.7)
[2025-02-16 20:26] LABS: Magnesium 1.9 mg/dL (1.6-2.3); Partial Thromboplastin Time 26.1 Seconds (22.3-36.8)
--- OUTSIDE RECORDS SUMMARY | 2025-02-16 21:13 | XMS_ITS | Continuity of Care Document ---
Author Organization [facility] Address [address] [place] [address] [place] [address] Assessment No assessment recorded. Plan of Treatment Reminders Order Date Submit Date Provider Last Modified By Organization Details Last Modified Time Details Appointments U/S OB SNEAK PEAK 2024 01:00P M ULTRASOUND Not available Not available Not available OB SCREEN 2024 01:30P M KEELY NOLASCO MD Not available Not available Not available Lab unliste d lab - women's health swab, ANU [address] [facility] (Lab), [address], [place], [address], 11/26/2024 18:36:38 pap, IG + reflex HPV if ASC-U - if positiv e HPV run subtypi ng 16,18/[address] [facility] (Lab), [address], [place], [address], 11/26/2024 18:36:38 urinaly sis, dipstic k 2024 025 [facility], [address], [address], [place], [address], 11/19/2024 15:39:14 culture , urine [address] [facility] (Lab), [address], [place], [address], 11/21/2024 13:43:47 CBC w/ auto diff [address] [facility] (Lab), [address] [facility] [address], [place], [address], 11/26/2024 18:36:36 TSH, serum or plasma [address] [facility] (Lab), [address] [place], [address], 11/26/2024 18:36:36 iron + TIBC + ferriti n, serum [address] [facility] (Lab), [address] [facility], [place], [address], 11/26/2024 18:36:37 25-hydr oxyvita min D2 + 25-hydr oxyvita min D3, QN, serum or plasma [address] [facility] (Lab), [address] [facility] [address], [place], [address], 11/26/2024 18:36:37 CMP, serum or plasma [address] [facility] (Lab), [address], [place], [address], 11/26/2024 18:36:37 HbA1c (hemogl obin A1c), blood [address] [facility] (Lab), [address], [place], [address], 11/26/2024 18:36:38 vitamin B12 + folate, serum or blood [address] [facility] (Lab), [address] [place], [address], 11/26/2024 18:36:37 Referral None recorde d. Procedures None recorde d. Surgeries None recorde d. Imaging None recorde d. Medication Orders None recorde d. Patient TargetsNo targets recorded. Patient InstructionsNo instructions recorded. Reason for Referral None Reported. Results Created Date Observation Date Name Description Value Unit Range Abnormal Flag Note LastModifiedBy Organization Detail LastModifiedTime 04/03/1904/03/2024 CMP/C BC/UR IC ACID WBC 8.4 10'3/ uL 3.5-10 .5 Not Available [facility] (Lab) [address], [place], [address], 04/04/2024 05:15:08 04/03/19 25 04/03/2024 CMP/C BC/UR IC ACID RBC 4.40 10'6/ uL (based on docume nted legal sex) 3.80-5 .20 Not Available [facility] (Lab) [address], [place], [address], 04/04/2024 05:15:08 04/03/19 25 04/03/2024 CMP/C BC/UR IC ACID HGB 11.9 g/dL (based on docume nted legal sex) 11.6-1 5.4 Not Available [facility] (Lab) [address] [place], [address], 04/04/2024 05:15:08 04/03/19 25 04/03/2024 CMP/C BC/UR IC ACID HCT 37.3 % (based on docume nted legal sex) 34.0-4 5.0 Not Available [facility] (Lab) [address] [place], [address], 04/04/2024 05:15:08 04/03/19 25 04/03/2024 CMP/C BC/UR IC ACID MCV 84.8 fL 80.0-9 9.0 Not Available [facility] (Lab) [address] [place], [address], 04/04/2024 05:15:08 04/03/19 25 04/03/2024 CMP/C BC/UR IC ACID MCH 27.0 pg 27.0-3 4.0 Not Available [facility] (Lab) [address] [facility] [address] [address], [place], [address], 04/04/2024 05:15:08 04/03/19 25 04/03/2024 CMP/C BC/UR IC ACID MCHC 31.9 g/dL 32.0-3 5.5 low Not Available [facility] (Lab) [address] [place], [address], 04/04/2024 05:15:08 04/03/19 25 04/03/2024 CMP/C BC/UR IC ACID RDW 14.9 % 11.0-1 5.0 Not Available [facility] (Lab) [address] [facility] [address], [place], [address], 04/04/2024 05:15:08 04/03/19 25 04/03/2024 CMP/C BC/UR IC ACID plt 239 10'3/ uL 150-40 0 Not Available [facility] (Lab) [address] [facility] [address], [place], [address], 04/04/2024 05:15:08 04/03/19 25 04/03/2024 CMP/C BC/UR IC ACID MPV 12.5 fL 8.8-12 .1 high Not Available [facility] (Lab) [address] [place], [address], 04/04/2024 05:15:08 04/03/19 25 04/03/2024 CMP/C BC/UR IC ACID neutrophils 62.7 % 34.0-7 3.0 Not Available [facility] (Lab) [address] [place], [address], 04/04/2024 05:15:08 04/03/19 25 04/03/2024 CMP/C BC/UR IC ACID lymphocytes 27.2 % 15.0-5 0.0 Not Available [facility] (Lab) [address] [place], [address], 04/04/2024 05:15:08 04/03/19 25 04/03/2024 CMP/C BC/UR IC ACID monocytes 6.9 % 1.0-15 .0 Not Available [facility] (Lab) [address] [place], [address], 04/04/2024 05:15:08 04/03/19 25 04/03/2024 CMP/C BC/UR IC ACID eosinophils 2.4 % 0.0-8. 0 Not Available [facility] (Lab) [address] [facility] [address] [address], [place], [address], 04/04/2024 05:15:08 04/03/19 25 04/03/2024 CMP/C BC/UR IC ACID basophils 0.4 % 0.0-2. 0 Not Available [facility] (Lab) [address] [facility] [address], [place], [address], 04/04/2024 05:15:08 04/03/19 25 04/03/2024 CMP/C BC/UR [...] separ ately if prese nt. Not Available [facility] (Lab) [address] [facility] [address], [place], [address], 04/04/2024 05:15:08 04/03/19 25 04/03/2024 CMP/C BC/UR IC ACID absolute neutrophils 5.3 10'3/ uL 1.5-8. 0 Not Available [facility] (Lab) [address] [place], [address], 04/04/2024 05:15:08 04/03/19 25 04/03/2024 CMP/C BC/UR IC ACID absolute lymphocytes 2.3 10'3/ uL 1.0-4. 0 Not Available [facility] (Lab) [address] [facility], [place], [address], 04/04/2024 05:15:08 04/03/19 25 04/03/2024 CMP/C BC/UR IC ACID absolute monocytes 0.6 10'3/ uL 0.2-1. 0 Not Available [facility] (Lab) [address], [place], [address], 04/04/2024 05:15:08 04/03/19 25 04/03/2024 CMP/C BC/UR IC ACID absolute eosinophils 0.2 10'3/ uL 0.0-0. 6 Not Available [facility] (Lab) [address], [place], [address], 04/04/2024 05:15:08 04/03/19 25 04/03/2024 CMP/C BC/UR IC ACID absolute basophils 0.0 10'3/ uL 0.0-0. 3 Not Available [facility] (Lab) [address], [place], [address], 04/04/2024 05:15:08 04/03/19 25 04/03/2024 CMP/C BC/UR IC ACID absolute immature granulocytes 0.0 10'3/ uL 0.00-0 .10 Refer ence range s for nonbi nary/ inter sex or unspe cifie d gende r patie nts have not been estab lishe d. Plenoman e refer to the timothyo wing table for range s estab lishe d for cisge nder patie nts and evalu ate in the clini yesica isabel xt of the indiv idual patie nt: https ://[facility] book. nm.or g/Gen derX Not Available [facility] (Lab) [address], [place], [address], 04/04/2024 05:15:08 04/03/19 25 04/03/2024 CMP/C BC/UR IC ACID uric acid 3.5 mg/dL 2.3-6. 6 Not Available [facility] (Lab) [address] [place], [address], 04/04/2024 05:15:08 04/03/19 25 04/03/2024 CMP/C BC/UR IC ACID sodium 138 mmol/ L 133-14 6 Not Available [facility] (Lab) [address] [facility] [address] [address], [place], [address], 04/04/2024 05:15:08 04/03/19 25 04/03/2024 CMP/C BC/UR IC ACID potassium 4.1 mmol/ L 3.5-5. 1 Not Available [facility] (Lab) [address] [facility] [address], [place], [address], 04/04/2024 05:15:08 04/03/19 25 04/03/2024 CMP/C BC/UR IC ACID chloride 102 mmol/ L 98-107 Not Available [facility] (Lab) [address] [facility] [address], [place], [address], 04/04/2024 05:15:08 04/03/19 25 04/03/2024 CMP/C BC/UR IC ACID carbon dioxide 27 mmol/ L 21-31 Not Available [facility] (Lab) [address] [facility] [address], [place], [address], 04/04/2024 05:15:08 04/03/19 25 04/03/2024 CMP/C BC/UR IC ACID anion gap 9 mmol/ L 4-13 Not Available [facility] (Lab) [address] [place], [address], 04/04/2024 05:15:08 04/03/19 25 04/03/2024 CMP/C BC/UR IC ACID blood urea nitrogen 5 mg/dL 7-25 low Not Available [facility] (Lab) [address] [place], [address], 04/04/2024 05:15:08 04/03/19 25 04/03/2024 CMP/C BC/UR IC ACID creatinine 0.54 mg/dL 0.60-1 .30 low Not Available [facility] (Lab) [address], [place], [address], 04/04/2024 05:15:08 04/03/19 25 04/03/2024 CMP/C BC/UR IC ACID egfrcr (CKD-epi 2020) >90 mL/mi n/1.7 3_m2 >=60 Not Available [facility] (Lab) [address], [place], [address], 04/04/2024 05:15:08 04/03/19 25 04/03/2024 CMP/C BC/UR IC ACID calcium 9.5 mg/dL 8.3-10 .5 Not Available [facility] (Lab) [address], [place], [address], 04/04/2024 05:15:08 04/03/19 25 04/03/2024 CMP/C BC/UR IC ACID glucose 85 mg/dL 70-100 Not Available [facility] (Lab) [address] [place], [address], 04/04/2024 05:15:08 04/03/19 25 04/03/2024 CMP/C BC/UR IC ACID protein, total 6.7 g/dL 6.4-8. 3 Not Available [facility] (Lab) [address], [place], [address], 04/04/2024 05:15:08 04/03/19 25 04/03/2024 CMP/C BC/UR IC ACID albumin 3.7 g/dL 3.5-5. 0 Not Available [facility] (Lab) [address] [place], [address], 04/04/2024 05:15:08 04/03/19 25 04/03/2024 CMP/C BC/UR IC ACID ALT 9 units /L 9-43 Not Available [facility] (Lab) [address] [place], [address], 04/04/2024 05:15:08 04/03/19 25 04/03/2024 CMP/C BC/UR IC ACID alkaline phosphatase 55 units /L 34-104 Not Available [facility] (Lab) [address] [facility] [address], [place], [address], 04/04/2024 05:15:08 04/03/19 25 04/03/2024 CMP/C BC/UR IC ACID AST 11 units /L 13-39 low Not Available [facility] (Lab) [address] [facility] [address], [place], [address], 04/04/2024 05:15:08 04/03/19 25 04/03/2024 CMP/C BC/UR IC ACID bilirubin, total 0.2 mg/dL 0.2-1. 2 Not Available [facility] (Lab) [address] [facility] [address], [place], [address], 04/04/2024 05:15:08 04/03/19 25 04/03/2024 PROTE IN/CR EATIN INE RATIO , URINE creatinine, urine 61.2 mg/dL R-No refer ence range estab lishe d for this assay Not Available [facility] (Lab) [address], [place], [address], 04/04/2024 05:15:09 04/03/19 25 04/03/2024 PROTE IN/CR EATIN INE RATIO , URINE protein, urine 5 mg/dL R-No refer ence range estab lishe d for this assay Not Available [facility] (Lab) [address] [place], [address], 04/04/2024 05:15:09 04/03/19 25 04/03/2024 PROTE IN/CR [...] fican t prote inuri a. Not Available [facility] (Lab) [address], [place], [address], 04/04/2024 05:15:09 11/20/1911/19/2024 CULTU RE: URINE result report SEE RESULT S BELOW Test: Cultu re: Urine Speci men Sourc e: Urine - Clean Catch Speci men Type: Urine Speci men Date: 025 1512 Resul t Date: 2024 1240 Resul t Statu s: Final resul t Abnor mal: No Resul ting Lab: [facility] [address] [facility] [address] Tel: CULTU RE ----- ----- ----- --- Cultu re resul t (>=3 organ isms prese nt) indic ates possi ble conta minat ion. Repea t cultu re if sympt oms indic ate. Not Available [facility] (Lab) [address], [place], [address], 11/21/2024 13:43:47 11/20/1911/19/2024 CBC W/DIF F WBC 7.6 10'3/ uL 3.5-10 .5 Not Available [facility] (Lab) [address] [facility] [address], [place], [address], 11/26/2024 18:36:36 11/20/1911/19/2024 CBC W/DIF F RBC 4.97 10'6/ uL (based on docume nted legal sex) 3.80-5 .20 Not Available [facility] (Lab) [address] [facility] [address], [place], [address], 11/26/2024 18:36:36 11/20/1911/19/2024 CBC W/DIF F HGB 13.7 g/dL (based on docume nted legal sex) 11.6-1 5.4 Not Available [facility] (Lab) [address] [facility] [address] [address], [place], [address], 11/26/2024 18:36:36 11/20/1911/19/2024 CBC W/DIF F HCT 41.5 % (based on docume nted legal sex) 34.0-4 5.0 Not Available [facility] (Lab) [address], [place], [address], 11/26/2024 18:36:36 11/20/1911/19/2024 CBC W/DIF F MCV 83.5 fL 80.0-9 9.0 Not Available [facility] (Lab) [address] [facility] [address], [place], [address], 11/26/2024 18:36:36 11/20/1911/19/2024 CBC W/DIF F MCH 27.6 pg 27.0-3 4.0 Not Available [facility] (Lab) [address] [facility] [address], [place], [address], 11/26/2024 18:36:36 11/20/19 25 11/19/2024 CBC W/DIF F MCHC 33.0 g/dL 32.0-3 5.5 Not Available [facility] (Lab) [address] [facility] [address], [place], [address], 11/26/2024 18:36:36 11/20/1911/19/2024 CBC W/DIF F RDW 14.1 % 11.0-1 5.0 Not Available [facility] (Lab) [address] [facility] [address], [place], [address], 11/26/2024 18:36:36 11/20/1911/19/2024 CBC W/DIF F plt 271 10'3/ uL 150-40 0 Not Available [facility] (Lab) [address] [facility] [address], [place], [address], 11/26/2024 18:36:36 11/20/19 25 11/19/2024 CBC W/DIF F MPV 10.2 fL 8.8-12 .1 Not Available [facility] (Lab) [address] [facility] [address], [place], [address], 11/26/2024 18:36:36 11/20/1911/19/2024 CBC W/DIF F NRBC's 0.0 % 0.0 Not Available [facility] (Lab) [address] [facility] [address], [place], [address], 11/26/2024 18:36:36 11/20/1911/19/2024 CBC W/DIF F absolute NRBCs 0.0 10'3/ uL no refere nce range establ ished Not Available [facility] (Lab) [address] [facility] [address], [place], [address], 11/26/2024 18:36:36 11/20/1911/19/2024 CBC W/DIF F neutrophils 60.1 % 34.0-7 3.0 Not Available [facility] (Lab) [address] [facility] [address], [place], [address], 11/26/2024 18:36:36 11/20/1911/19/2024 CBC W/DIF F lymphocytes 30.5 % 15.0-5 0.0 Not Available [facility] (Lab) [address] [facility] [address], [place], [address], 11/26/2024 18:36:36 11/20/1911/19/2024 CBC W/DIF F monocytes 6.3 % 1.0-15 .0 Not Available [facility] (Lab) [address] [facility] [address], [place], [address], 11/26/2024 18:36:36 11/20/1911/19/2024 CBC W/DIF F eosinophils 2.1 % 0.0-8. 0 Not Available [facility] (Lab) [address] [facility] [address], [place], [address], 11/26/2024 18:36:36 09/08/20 25 11/19/2024 CBC W/DIF F basophils 0.7 % 0.0-2. 0 Not Available [facility] (Lab) [address] [facility] [address], [place], [address], 11/26/2024 18:36:36 11/20/1911/19/2024 CBC W/DIF F immature granulocytes 0.3 % no define d refere nce range Immat ure Granu locyt es (IG) repre sents autom ated enume ratio n of Metam yeloc ytes, Myelo cytes and Promy elocy arielle when IG is < 5%. Blast s are not inclu ded in IG and repor katherine separ ately if prese nt. Not Available [facility] (Lab) [address] [facility] [address], [place], [address], 11/26/2024 18:36:36 11/20/1911/19/2024 CBC W/DIF F absolute neutrophils 4.6 10'3/ uL 1.5-8. 0 Not Available [facility] (Lab) [address] [facility] [address], [place], [address], 11/26/2024 18:36:36 11/20/1911/19/2024 CBC W/DIF F absolute lymphocytes 2.3 10'3/ uL 1.0-4. 0 Not Available [facility] (Lab) [address] [facility] [address], [place], [address], 11/26/2024 18:36:36 11/20/1911/19/2024 CBC W/DIF F absolute monocytes 0.5 10'3/ uL 0.2-1. 0 Not Available [facility] (Lab) [address] [facility] [address], [place], [address], 11/26/2024 18:36:36 11/20/1911/19/2024 CBC W/DIF F absolute eosinophils 0.2 10'3/ uL 0.0-0. 6 Not Available [facility] (Lab) [address] [facility] [address], [place], [address], 11/26/2024 18:36:36 11/20/1911/19/2024 CBC W/DIF F absolute basophils 0.1 10'3/ uL 0.0-0. 3 Not Available [facility] (Lab) [address] [facility] [address], [place], [address], 11/26/2024 18:36:36 11/20/1911/19/2024 CBC W/DIF F absolute immature granulocytes 0.0 10'3/ uL 0.00-0 .10 Refer ence range s for nonbi nary/ inter sex or unspe cifie d gende r patie nts have not been estab lishe d. Pleas e refer to the timothyo wing table for range s estab lishe d for cisge nder patie nts and evalu ate in the clini yesica isabel xt of the indiv idual patie nt: https :[email or web address] book. nm.or g/gen derx Not Available [facility] (Lab) [address], [place], [address], 11/26/2024 18:36:36 11/20/1911/19/2024 TSH, REFLE X FREE T4 TSH 0.76 uIU/m L 0.30-5 .33 Not Available [facility] (Lab) [address] [facility] [address], [place], [address], 11/26/2024 18:36:36 11/20/1911/19/2024 CMP(C OMPRE HENSI VE METAB OLIC PANEL ) sodium 140 mmol/ L 133-14 6 Not Available [facility] (Lab) [address] [facility], [place], [address], 11/26/2024 18:36:36 11/20/1911/19/2024 CMP(C OMPRE HENSI VE METAB OLIC PANEL ) potassium 4.3 mmol/ L 3.5-5. 1 Not Available [facility] (Lab) [address] [facility] [address], [place], [address], 11/26/2024 18:36:36 11/20/19 25 11/19/2024 CMP(C OMPRE HENSI VE METAB OLIC PANEL ) chloride 100 mmol/ L 98-107 Not Available [facility] (Lab) [address] [facility] [address], [place], [address], 11/26/2024 18:36:36 11/20/19 25 11/19/2024 CMP(C OMPRE HENSI VE METAB OLIC PANEL ) carbon dioxide 30 mmol/ L 21-31 Not Available [facility] (Lab) [address] [facility] [address] [facility], [place], [address], 11/26/2024 18:36:36 11/20/19 25 11/19/2024 CMP(C OMPRE HENSI VE METAB OLIC PANEL ) anion gap 10 mmol/ L 4-13 Not Available [facility] (Lab) [address] [facility] [address], [place], [address], 11/26/2024 18:36:36 11/20/19 25 11/19/2024 CMP(C OMPRE HENSI VE METAB OLIC PANEL ) blood urea nitrogen 8 mg/dL 7-25 Not Available [facility] (Lab) [address], [place], [address], 11/26/2024 18:36:36 11/20/19 25 11/19/2024 CMP(C OMPRE HENSI VE METAB OLIC PANEL ) creatinine 0.86 mg/dL 0.60-1 .30 Not Available [facility] (Lab) [address] [facility] [address], [place], [address], 11/26/2024 18:36:36 11/20/19 25 11/19/2024 CMP(C OMPRE HENSI VE METAB OLIC PANEL ) egfrcr (CKD-epi 2020) >90 mL/mi n/1.7 3_m2 >=60 Not Available [facility] (Lab) [address] [facility] [address], [place], [address], 11/26/2024 18:36:36 11/20/19 25 11/19/2024 CMP(C OMPRE HENSI VE METAB OLIC PANEL ) calcium 9.7 mg/dL 8.3-10 .5 Not Available [facility] (Lab) [address] [facility], [place], [address], 11/26/2024 18:36:36 11/20/19 25 11/19/2024 CMP(C OMPRE HENSI VE METAB OLIC PANEL ) glucose 89 mg/dL 70-100 Not Available [facility] (Lab) [address] [facility], [place], [address], 11/26/2024 18:36:36 11/20/19 25 11/19/2024 CMP(C OMPRE HENSI VE METAB OLIC PANEL ) protein, total 7.6 g/dL 6.4-8. 3 Not Available [facility] (Lab) [address] [facility], [place], [address], 11/26/2024 18:36:36 11/20/19 25 11/19/2024 CMP(C OMPRE HENSI VE METAB OLIC PANEL ) albumin 4.5 g/dL 3.5-5. 0 Not Available [facility] (Lab) [address] [place], [address], 11/26/2024 18:36:36 11/20/19 25 11/19/2024 CMP(C OMPRE HENSI VE METAB OLIC PANEL ) ALT 27 units /L 9-43 Not Available [facility] (Lab) [address] [place], [address], 11/26/2024 18:36:36 11/20/19 25 11/19/2024 CMP(C OMPRE HENSI VE METAB OLIC PANEL ) alkaline phosphatase 81 units /L 34-104 Not Available [facility] (Lab) [address] [place], [address], 11/26/2024 18:36:36 11/20/19 25 11/19/2024 CMP(C OMPRE HENSI VE METAB OLIC PANEL ) AST 19 units /L 13-39 Not Available [facility] (Lab) [address] [place], [address], 11/26/2024 18:36:36 11/20/19 25 11/19/2024 CMP(C OMPRE HENSI VE METAB OLIC PANEL ) bilirubin, total 0.5 mg/dL 0.2-1. 2 Not Available [facility] (Lab) [address] [facility], [place], [address], 11/26/2024 18:36:36 11/20/19 25 11/19/2024 CHECO TIN / IRON / TRANS CHECO N / TIBC iron 99 ug/dL 40-170 Not Available [facility] (Lab) [address] [facility], [place], [address], 11/26/2024 18:36:37 11/20/19 25 11/19/2024 CHECO TIN / IRON / TRANS CHECO N / TIBC transferrin 268 mg/dL 200-36 0 Not Available [facility] (Lab) [address] [facility], [place], [address], 11/26/2024 18:36:37 11/20/19 25 11/19/2024 CHECO TIN / IRON / TRANS CHECO N / TIBC ferritin 25.2 NG/mL 8.0-25 2.0 Not Available [facility] (Lab) [address] [facility], [place], [address], 11/26/2024 18:36:37 11/20/19 25 11/19/2024 CHECO TIN / IRON / TRANS CHECO N / TIBC TIBC 375 ug/dL 250-45 0 Not Available [facility] (Lab) [address] [facility], [place], [address], 11/26/2024 18:36:37 11/20/19 25 11/19/2024 CHECO TIN / IRON / TRANS CHECO N / TIBC iron saturation 26 % 20-55 Not Available [facility] (Lab) [address] [facility], [place], [address], 11/26/2024 18:36:37 11/20/1911/19/2024 VITAM IN D, 25-OH (TOTA L D2/D3 ) vitamin D, 25-hydroxy, total 28.6 NG/mL 30.0-1 00.0 low Sugge stive of Defic iency : <20 ng/mL Sugge stive of Insuf ficie ncy: 20-29 ng/mL Sugge stive of Suffi cienc y: 30-10 0 ng/mL Sugge stive of Toxic ity: >150 ng/mL Not Available [facility] (Lab) [address] [facility], [place], [address], 11/26/2024 18:36:37 11/20/1911/19/2024 VITAM IN B12 / FOLAT E PANEL vitamin B12 455 pg/mL 180-91 4 Nanette l Range : 180-9 14 pg/mL . Indet ermin ate Range : 145-1 80 pg/mL . Defic ient Range : <=145 pg/mL . Not Available [facility] (Lab) [address] [facility], [place], [address], 11/26/2024 18:36:37 11/20/1911/19/2024 VITAM IN B12 / FOLAT E PANEL folate, serum 15.5 NG/mL 6.0-20 .0 Not Available [facility] (Lab) [address] [place], [address], 11/26/2024 18:36:37 11/20/1911/19/2024 HEMOG LOBIN A1C hemoglobin A1C 5.1 % 4.0-5. 6 The Ameri can [employer] i[employer] n recom mends that a prima ry goal of thera py katheryn d be a HBA1C of < 7% and that physi cians lacieul d reeva luate the treat ment regim en in patie nts with HBA1C value s consi stent ly > 8%. <5.7% Nanette l 5.7 - 6.4% Incre ased risk for diabe arielle >=6.5 % Diagn ostic of diabe arielle <7.0% Goal of thera py >8.0% Actio herberth nelson Not Available [facility] (Lab) [address] [place], [address], 11/26/2024 18:36:38 11/20/19 25 11/19/2024 WOMEN 'S HEALT H SWAB, ANU bacterial [...] or negat zak statu s. Not Available [facility] (Lab) [address] [facility], [place], [address], 11/26/2024 18:36:38 11/20/19 25 11/19/2024 WOMEN 'S HEALT H SWAB, ANU candie species, tma Negati ve negati ve Not Available [facility] (Lab) [address] [place], [address], 11/26/2024 18:36:38 11/20/19 25 11/19/2024 WOMEN 'S HEALT H SWAB, AUN candie glabrata, tma Negati ve negati ve Not Available [facility] (Lab) [address] [place], [address], 11/26/2024 18:36:38 11/20/1911/19/2024 WOMEN 'S HEALT H SWAB, ANU trichomonas vaginalis, tma Negati ve negati ve This assay tests for and diffe renti ates betwe en Ariella da glabr jovan, the Ariella da speci es group (C. albic ans, C. tropi calis , C. parap alex is, C. dubli niens is), and Trich omona s vagin leena by Trans cript ion-M ediat ed Ampli ficat ion (TMA) . Not Available [facility] (Lab) [address] [facility], [place], [address], 11/26/2024 18:36:38 11/20/19 25 11/19/2024 IMAGE GUIDE D PAP, REFLE X HPV IF ASCUS ONLY image guided Pap, reflex HPV ASCUS only SEE RESULT S BELOW abnormal CASE REPOR T: Cytol ogy Gynec ologi yesica Repor t Case: [id number] Autho mich g Provi kendall: Mikel pierce, Ramila , ANP, [employer] DES[employer] Colle cted: 11/19 1146 Order ing Locat ion: [place] [facility] Recei maxwell: 11/20 1154 First Scree n: [place], [place] Patho logis t: Asher Jason MD Speci men: Adryan malone Pap - Image d, Cervi x STATE MENT OF ADEQU ACY: Satis facto ry for evalu ation Trans forma tion zone compo nent absen t ----- ----- ----- ----- ----- ----- ----- ----- ----- ----- ----- ----- ----- ----- ----- ----- ----- ---- FINAL DIAGN OSIS: Epith elial Cell Abnor malit y, Gland ular Cell: Atypi yesica gland ular cells , not other baez [...] Thinp rep Imagi ng Syste m. CLINI YES[facility] INFOR MATIO N: Menst rual Statu s: LMP (if appli cable ): Clini yes[facility] Histo ry/Pr eviou s Pap: Type of Neopl david (if appli cable ): Signi fican t Clini [facility] Findi ngs: Other Histo ry: Hormo sveta (if appli cable ): HOMAR NELSON FOLLO W-UP: Follo w up as warra nted, based on curre nt guide lines and indiv idual patie nt consi derat ions. Not Available [facility] (Lab) [address], [place], [address], 11/26/2024 18:36:38 11/20/1911/19/2024 urina lysis , dipst ick Leukocytes - Not Available [facility] [address], [place], [address], 11/19/2024 15:37:57 11/20/1911/19/2024 urina lysis , dipst ick Nitrite - Not Available [facility] [address], [place], [address], 11/19/2024 15:37:57 11/20/1911/19/2024 urina lysis , dipst ick Urobilinogen - Not Available [facility] earnestine [address], [place], [address], 11/19/2024 15:37:57 11/20/1911/19/2024 urina lysis , dipst ick Protein trace Not Available [facility] [address], [place], [address], 11/19/2024 15:37:57 11/20/19 25 11/19/2024 urina lysis , dipst ick pH 6 Not Available [facility] [address], [place], [address], 11/19/2024 15:37:57 11/20/19 25 11/19/2024 urina lysis , dipst ick Specific [place] 1.000 Not Available [facility] [address], [place], [address], 11/19/2024 15:37:57 11/20/19 25 11/19/2024 urina lysis , dipst ick Ketone - Not Available [facility] [address], [place], [address], 11/19/2024 15:37:57 11/20/19 25 11/19/2024 urina lysis , dipst ick Bilirubin - Not Available [facility] [address], [place], [address], 11/19/2024 15:37:57 11/20/19 25 11/19/2024 urina lysis , dipst ick Glucose - Not Available [facility] [address], [place], [address], 11/19/2024 15:37:57 11/20/19 25 11/19/2024 urina lysis , dipst ick Appearance clear Not Available Omari stein [address], [place], [address], 11/19/2024 15:37:57 11/20/19 25 11/19/2024 urina lysis , dipst ick Color light yellow Not Available [facility] [address], [place], [address], 11/19/2024 15:37:57 03/02/20 24 03/02/2024 US, obste tric, nucha l trans lucen cy No observ ation record ed. [email or web address] Maryanne [address], [place], [address], 03/05/2024 00:53:37 03/02/20 24 03/02/2024 US, obste tric, nucha l trans lucen cy No observ ation record ed. [facility] [address], [place], [address], 03/02/2024 15:28:10 04/04/19 25 04/04/2024 US, obste tric, limit ed No observ ation record ed. [address], [place], [address], 04/04/2024 18:45:07 04/04/19 25 04/04/2024 US, obste tric, limit ed No observ ation record ed. [email or web address] Maryanne [address], [place], [address], 04/05/2024 00:07:33 11/24/19 25 11/23/2024 US, pelvi s No observ ation record ed. [facility] [address], [place], [address], 11/23/2024 17:07:24 11/24/19 25 11/23/2024 US, trans vagin al No observ ation record ed. [facility] [address], [place], [address], 11/23/2024 17:07:33 11/24/19 25 11/23/2024 US, pelvi s No observ ation record ed. [email or web address] Maryanne [address], [place], [address], 11/29/2024 16:27:58 02/13/20 25 02/12/2025 US, obste tric, trans vagin al No observ ation record ed. [facility] [address], [place], [address], 02/12/2025 14:19:58 02/13/20 25 02/12/2025 US, obste tric, trans vagin al No observ ation record ed. RACHAEL Maryanne [address], [place], [address], 02/12/2025 11:58:48 Result Notes None recorded. Problems Name Problem SNOMED Code Status Onset Date Resolution Date Notes Provider Name and Address Organization Details Recorded Time Past pregnanc y history of pre-ecla mpsia 27622814481 9100 Completed pre-e wsevere features / PTL bASA daily 162mg Jessica alves, [facility] 15:31:26 Past pregnanc y history of pre-ecla mpsia 37545426576 9100 Active pre-e wsevere features / PTL bASA daily 162mg Jessica alves, [facility] 15:31:26 Pregnanc y 10404281 Completed 202311/19/2024 Libia alves, [facility] 11:45:43 Problem Notes None recorded. Procedures Surgical History Date Name Laterality Status Provider Name and Address Organization Details Recorded Time 025 Colposcopy completed KEELY NOLASCO MD [address], [place], [address], [facility] 12/14/2024 15:20:14 025 Endometrial Biopsy completed KEELY NOLASCO MD [address], [place], [address], [facility] 12/14/2024 15:20:26 023 Date of Last Pap Smear completed Lita Gonzalez [facility] 01/19/2024 10:16:07 010 Cholecystectomy completed Lita Gonzalez [facility] 01/19/2024 10:17:18 Imaging Results None recorded. Procedure Notes None recorded. Medical Equipment None Reported. Allergies Allergen ID Allergen Name Allergen Category Reaction Reaction Severity Criticality Documentation Date Start Date Code Code System Note Provider Name and Address Organization Details Recorded Time Product containin g penicilli n (product) medicatio n Not available Not available Not available 09/16/2022 10517 8001 SNOMED Sara alves [facility] 3 14:39:53 57576 metformin medicatio n Not available Not available high 02/12/20252023 6809 RxNorm unrec ogniz ed react ion (text : Other , code: 65544 07) (from exter nal sourc e) Not Available rachael - External Data Service - prod 5 03:14:03 81676 amoxicill in medicatio n rash Not available low 02/12/20252021 723 RxNorm Not Available rachael - External Data Service - prod 5 09:13:02 71909 ampicilli n medicatio n rash Not available low 02/12/20252017 733 RxNorm Not Available rachael - External Data Service - prod 5 09:13:02 09782 Substance with sulfonami de structure and antibacte rial mechanism of action (substanc e) medicatio n headache rash Not available Not available high 02/12/20252017 53315 8003 SNOMED Not Available rachael - External Data Service - prod 5 09:13:02 Medications Name Sig Start Date Stop Date [...] 5 days after second tablet, call Dr. Nolasco's office. active Not Available Not Available No [...] Available Not Available Not Available amoxicillin 500 mg-potassiu m clavulanate 125 mg tablet TAKE 1 [...] Available TRUEplus Pen Needle 32 gauge x USE TWICE DAILY active Not Available Not [...] Updated DateTime 11/19/2024 177.8 cm 40.7 kg/m2 729232.23 g 142/81 mm[Hg] Libia Della [facility] 11/19/2024 11:42:06 Social History Question Answer Notes LastModified by Organizat ion Details LastModified Time Tobacco Smoking Status Never Smoker Sara alves, [facility] 09/16/2022 14:43:23 Are You Blind Or [...] Any Guns Present In Your Home? No [email or web address] Information not available 03/27/2024 Are You Sexually Active? Yes [email or web address] Information not available 03/27/2024 Do You Have Smoke And Carbon Monoxide Detectors In Your Home? Yes [email or web address] Information not available 03/27/2024 Do You Use Sunscreen Routinely? No [email or web address] Information not available 03/27/2024 Do You Have Difficulty Walking Or Climbing Stairs? No Information not available 09/16/2022 Sex: Unknown Functional Status Question Answer Note LastModified by Organizat ion Details LastModified Time Do you use any illicit or recreational drugs? No [email or web address] Information not available 03/27/2024 Do you or have you ever used any other forms of tobacco or nicotine? No [email or web address] Information not available 03/27/2024 What is your level of alcohol consumption? None Information not available 09/16/2022 Are you currently employed? Yes Information not available 03/27/2024 Are you able [...] available 05/2024 14:32:01 Medical History Condition Response Other N Blood Transfusion N Dermatologic Disorders N Gestational Diabetes Y Anxiety Disorder N Autoimmune disease N Arthritis N Polyps N Infertility N Acid Reflux (GERD) N Cancer N Varicosities N Stroke N Neurologic/Epilepsy N Fibromyalgia N Headaches N Kidney Disease N Heart Problems N Kidney or Bladder Problems N Eating Disorder N Art (IVF or FET) N Hepatitis/Liver Disease N No Past Medical History N Urinary Tract Infection N Asthma N Trauma/Violence N Thrombophilias N Allergies (Food, seasonal, environmental ) N Breast Cancer N Drug/Latex Allergies/Reactions N Lung Disease N Defects or Inherited Disease N Breast Problem N Hematologic disorders N Anesthesia Complications N History of STI N Deep Vein Thrombosis N Polycystic ovary syndrome Y History of abnormal pap N Endometriosis N High Cholesterol N Thyroid Problems N GI Problems N Anemia Y Psychiatric Illness N Ovarian Cancer N Diabetes N Pulmonary (TB, Asthma) N Eczema N Abuse/Domestic Violence N Depression/ depression N Heart Disease N Pre-Eclampsia Y Hypertension N Osteoporosis N Gynecological History Statement/Question Response Flow Heavy [...] ICD10 Code Diagnosis IMO Codes Diagnosis Note [id number] RAMILA ALMEIDA NP [facility] [address] [address] 11/19/2024 11:28:22 11/19/2024 14:08:31 Dizziness [id number] R42 47979 Labs ordered to r/o causes of intermitte nt dizziness and headaches. Hx gHTN; Patient states that home BP readings have been consistent ly normal (<120/80). Recommende d eating small meals, multiple times per day and drinking >64 ounces of water daily.Will f/u with lab results and next steps in plan of care.ER precaution s given. Vaginal discharge 231851 006 N89.8 60492 Reviewed the various causes of vaginal discharge and vaginitis symptoms, including both infectious (STD's, BV, yeast, others) and non-infect ious (physiolog ic d/c, irritants/ allergens, DIV, others) causes.Dis cussed vulvar care guidelines in addition to laundry/sk in irritants to avoid.Disc ussed suspected BV based on reported symptoms and physical exam findings.P atient declined empiric treatment and prefers to wait for results.Wa ginitis panel sent to r/o yeast/BV/t rich. Abnormal u terine bleeding 3920422069 9100 N93.9 [id number] Recommende d pelvic ultrasound to r/o uterine or ovarian abnormalit ies contributi ng to post-coita l bleeding.W ill f/u with results and to discuss any adjustment s in plan of care. Pain in fe male genitalia on intercourse 33360913 N94.10 [id number] Discussed common possible causes of dyspareuni a, such as infection, vaginal dryness, and positionin g during intercours e.Recommen ded comfortabl e positions during intercours e and using lubricatio n as needed.David l r/o vaginal infection with pap and vaginitis testing. Patient declined STI testing. Health Concerns Section Related Observation LastModified by Organization Detai ls LastModified Time None Recorded Concern Status LastModified by Organization Details LastModified Time None Recorded Payers Encounter Date Sequence Insurance Name Policy Number Policy Vera Covered Member ID Vera Member ID Guarantor Name 11/19/2024 1 [employer] [id number] Rosas Aguilera Jr [id number] Damaris Aguilera Notes Date Note Type Note Provider Name and Address Organization Details Recorded Time 11/19/2024 text/html 29 y/o female presents with c/o green/yellow vaginal discharge, pain with intercourse, spotting after intercourse for the past 6 weeks.Patient states that she is 12 weeks (insurance changed and did not deliver at [facility]). Hx gestational hypertension, anemia (had [...] her iron supplement. Denies current symptoms. Libia Hull [facility], [facility] 11/19/2024 15:41:35 OBGyn Episode Ob Episode Information Episode Created Date Number of Fetuses Patient Bloodtype Patient rh Status Prepregnancy Weight lbs Domestic Partner Domestic Partner Phone Father Name Housekeeper Child Care Status 03/02/20 24 1 O Positive Rosas Aceves CLOSED Fetus Data First Name Last Name Admitted to NICU Weight (g) Sex Living Outcome Pediatric Complications Fetus ID Race Codes Race Delivery Type Ermias Marti nt [phone] M [id number] Problems Problem Notes Palpitations - 72hr Holter m onitor order faxed 04/03 [place] [facility] Problem Name Start Date End Date Resolution Snomed Code Not e Past history of pre-eclampsia [id number] pre-e wseve re features / PTL bASA [...] Date Ultra Sound Latest Days Gestation 0 [email or web address] 03/05/2024 09/11/19 25 0 Pre-anne Flowsheet Flowsheet [...] Weight in lbs Pre/Post Dialysis Refused Weight 284.160024770964 BP Diastolic BP Location Tested BP Systolic BP Type 84 L arm 135 sitting Fetus Heart Rate Present A 162 Fetus Movement Comments Patient presents to [facility] care. Nausea worsening, has tried Reglan [...] Weight in lbs Pre/Post Dialysis Refused Weight 283.649231539185 BP Diastolic BP Location Tested BP Systolic [...] Type Weight in lbs Pre/Post Dialysis Refused 283.820513822706 BP Diastolic BP Location Tested BP Systolic [...] Weight in lbs Pre/Post Dialysis Refused Weight 284.707933875615 BP Diastolic BP Location Tested BP Systolic [...]
--- OUTSIDE RECORDS SUMMARY | 2025-02-16 21:13 | XMS_ITS | Clinical Summary ---
Author Organization [facility] Address [address] [place] [address] Care Team Providers Care Program Engagement Director Name Role Phone Charbel Kassi June DO Primary Care Provider [phone] Junito Posada MD Unavailable Allergies Active Allergy Reactions Criticality Noted Date Comments Ampicillin Rash Medium 07/24/2017 Penicillins Rash Medium 07/24/2017 Sulfa (Sulfonamide Antibiotics) Rash,Headache Medium 0 07/24/2017 Medications OneTouch Delica Plus Lancet 33 gauge [facility] [place] 3 Active OneTouch Verio Reflect Meter [facility] [place] [place] 3 Active acetaminophen 500 mg capsuleIndicati ons:Pain [...] symptoms Assessment & Plan (03/23/2022 3:12 PM STORE PROMOTER): -History taking fluoxetine about 5 yr ago [...] relapse. Assessment & Plan (03/23/2022 3:12 PM STORE PROMOTER): Remote history; in remission, previously counseled. We [...] Desires discharge home today. Task sent for [facility] follow up. Gestational hypertension, third trimester [...] was to start metformin and had not clam picker Rx yet, for OB insulin protocol Gestational [...] gHTN Assessment & Plan (04/19/2022 11:37 AM STORE PROMOTER): Counseled today for newly diagnosed gDM. Reviewed [...] PP Assessment & Plan (03/23/2022 3:11 PM STORE PROMOTER): No prior history of diagnosed cHTN, on [...] [x] Blue Team Referring Provider: Lizy Block [phone] [] or Medicare Insurance [x] Dating Criteria: [...] review. Assessment & Plan (03/23/2022 3:14 PM STORE PROMOTER): We will continue co-management of care with [...] often do you attend chur ch or anabaptism services? Never 04/25/2022 Do you belong to any clubs o r organizations such as sabianist groups, unions, fraternal or athletic groups, or [...] place to sleep or slept in a mcc (including now)? No 04/25/2022 [place] Depression Scale Answer Date Recorded [place] Depression Scale Total 4 06/24/2022 The thought of harming myself has occurred to me . Never 06/24/2022 Personal Safety Answer Date Recorded Getting School Help Needed Denies 03/20 Comments No Sex and Gender Information Value Date Recorded Sex Assigned at Not on file Legal Sex Female 12:35 AM STORE PROMOTER Gender Identity Not on file Sexual Orientation [...] MORENO,KELY Suma Aguiar MD Complications:Pre eclampsia Delivery Location:[facility] Main [facility] ([facility]LD) Last Filed Vital Signs Vital Sign Reading Time Taken Comments Blood Pressure 125/80 06/24/2022 11:15 AM CDT Pulse 98 06/24/2022 11:15 AM CDT Temperature 36.6 C (97.9 F) 2022 7:50 AM STORE PROMOTER Respiratory Rate 18 2022 7:50 AM STORE PROMOTER Oxygen Saturation 97% 06/24/2022 11:15 AM CDT [...] Most Recently Relevant to Health Maintenance Insurance [facility] AETNA SIGNATURE AETNA SIG [id number] Advance Directives For more information, please contact: [phone] * Full Code (Latest Code Status on File) Date Activated Date Inactivated Comments 04/23/2022 9:23 AM 2022 6:00 PM * Full Code Date Activated Date Inactivated Comments 04/22/2022 6:11 PM 04/23/2022 9:23 AM Care Teams Program Engagement Director Relationship Specialty Start Date End Date Kassi Barger DO [address] [place] [address] PCP - General 02/03/22 Junito Posada MD [address] [place] [address] 02/03/22
--- OUTSIDE RECORDS SUMMARY | 2025-02-16 21:13 | XMS_ITS | Data Portability ---
Author Organization [facility] Address [address] [place] [address] [address] Assessment No assessment recorded. Plan of Treatment Reminders Order Date Submit Date Provider Last Modified By Organization Details Last Modified Time Details Appointments U/S OB SNEAK PEAK 2024 01:00P M ULTRASOUND Not available Not available Not available OB SCREEN 2024 01:30P M NIKHIL NOLASCO MD Not available Not available Not available Lab surgica l patholo gy study 2024 025 [facility] (Lab), [address], [place], [address], 12/17/2024 15:17:13 pregnan cy test, urine 2024 025 [email or web address] [facility], [address], [address], [place], [address], 12/14/2024 15:34:12 unliste d lab - women's health swab, ANU 2024 025 [facility] (Lab), [address], [place], [address], 11/26/2024 18:36:38 pap, IG + reflex HPV if ASC-U - if positiv e HPV run subtypi ng 16,18/4 5 2024 025 [facility] (Lab), [address], [place], [address], 11/26/2024 18:36:38 urinaly sis, dipstic k 2024 025 [email or web address] [facility], [address], [address], [place], [address], 11/19/2024 15:39:14 culture , urine 2024 025 [facility] (Lab), [address], [place], [address], 11/21/2024 13:43:47 CBC w/ auto diff 2024 025 [facility] (Lab), [address] , [place], [address], 11/26/2024 18:36:36 TSH, serum or plasma 2024 025 [facility] (Lab), [address] , [place], [address], 11/26/2024 18:36:36 iron + TIBC + ferriti n, serum 2024 025 [facility] (Lab), [address] , [place], [address], 11/26/2024 18:36:37 25-hydr oxyvita min D2 + 25-hydr oxyvita min D3, QN, serum or plasma 2024 025 [facility] (Lab), [address], [place], [address], 11/26/2024 18:36:37 CMP, serum or plasma 2024 025 [facility] (Lab), [address], [place], [address], 11/26/2024 18:36:37 HbA1c (hemogl obin A1c), blood 2024 025 [facility] (Lab), [address], [place], [address], 11/26/2024 18:36:38 vitamin B12 + folate, serum or blood 2024 025 [facility]AC[facility] (Lab), [address], [place], [address], 11/26/2024 18:36:37 Referral pelvic floor therapy referra l 2024 025 [id number] [facility], [address], [address], [place], [address], 12/25/2024 18:36:57 Procedures None recorde d. Surgeries None recorde d. Imaging US, obstetr ic, transva ginal 2024 025 [email or web address] [facility], [place], [address], 02/12/2025 11:52:04 US, pelvis 2024 025 [email or web address] [facility], [place], [address], 11/23/2024 17:55:58 US, transva ginal 2024 025 [email or web address] [facility], [place], [address], 11/23/2024 17:55:58 Medication Orders estradi ol 0.01% (0.1 mg/gram ) vaginal cream 2024 025 [id number] [id number], [address] [facility], [place], [place], [id number], 12/14/2024 15:27:25 cabergo line 0.5 mg tablet 2024 025 [facility] #[id number], [address], [place], [place], [id number], 12/14/2024 15:27:25 Patient TargetsNo targets recorded. Patient InstructionsNo instructions recorded. Reason for Referral Pelvic Floor Therapy Referra l for Pain in female genitalia on intercourse Referring Physician: Nikhil Nolasco SENIOR TECHNICAL WRITER, Encounter Date: 12/14/2024 Results Created Date Observation Date Name Description Value Unit Range Abnormal Flag Note LastModifiedBy Organization Detail LastModifiedTime 11/20/1911/19/2024 CULTU RE: URINE result report SEE RESULT S BELOW Test: Cultu re: Urine Speci men Sourc e: Urine - Clean Catch Speci men Type: Urine Speci men Date: 025 1512 Resul t Date: 2024 1240 Resul t Statu s: Final resul t Abnor mal: No Resul ting Lab: [facility] [address] [facility] [address] Tel: CULTU RE ----- ----- ----- --- Cultu re resul t (>=3 organ isms prese nt) indic ates possi ble conta minat ion. Repea t cultu re if sympt oms indic ate. Not Available [facility] (Lab) [address], [place], [address], 11/21/2024 13:43:47 11/20/1911/19/2024 CBC W/DIF F WBC 7.6 10'3/ uL 3.5-10 .5 Not Available [facility] (Lab) [address] [place], [address], 11/26/2024 18:36:36 11/20/1911/19/2024 CBC W/DIF F RBC 4.97 10'6/ uL (based on docume nted legal sex) 3.80-5 .20 Not Available [facility] (Lab) [address] [place], [address], 11/26/2024 18:36:36 11/20/192025 CBC W/DIF F HGB 13.7 g/dL (based on docume nted legal sex) 11.6-1 5.4 Not Available [facility] (Lab) [address], [place], [address], 11/26/2024 18:36:36 11/20/19 25 11/19/2024 CBC W/DIF F HCT 41.5 % (based on docume nted legal sex) 34.0-4 5.0 Not Available [facility] (Lab) [address], [place], [address], 11/26/2024 18:36:36 11/20/19 25 11/19/2024 CBC W/DIF F MCV 83.5 fL 80.0-9 9.0 Not Available [facility] (Lab) [address], [place], [address], 11/26/2024 18:36:36 11/20/19 25 11/19/2024 CBC W/DIF F MCH 27.6 pg 27.0-3 4.0 Not Available [facility] (Lab) [address], [place], [address], 11/26/2024 18:36:36 11/20/19 25 11/19/2024 CBC W/DIF F MCHC 33.0 g/dL 32.0-3 5.5 Not Available [facility] (Lab) [address], [place], [address], 11/26/2024 18:36:36 11/20/19 25 11/19/2024 CBC W/DIF F RDW 14.1 % 11.0-1 5.0 Not Available [facility] (Lab) [address], [place], [address], 11/26/2024 18:36:36 11/20/19 25 11/19/2024 CBC W/DIF F plt 271 10'3/ uL 150-40 0 Not Available [facility] (Lab) [address], [place], [address], 11/26/2024 18:36:36 11/20/1911/19/2024 CBC W/DIF F MPV 10.2 fL 8.8-12 .1 Not Available [facility] (Lab) [address], [place], [address], 11/26/2024 18:36:36 11/20/1911/19/2024 CBC W/DIF F NRBC's 0.0 % 0.0 Not Available [facility] (Lab) [address], [place], [address], 11/26/2024 18:36:36 11/20/1911/19/2024 CBC W/DIF F absolute NRBCs 0.0 10'3/ uL no refere nce range establ ished Not Available [facility] (Lab) [address], [place], [address], 11/26/2024 18:36:36 11/20/1911/19/2024 CBC W/DIF F neutrophils 60.1 % 34.0-7 3.0 Not Available [facility] (Lab) [address], [place], [address], 11/26/2024 18:36:36 11/20/1911/19/2024 CBC W/DIF F lymphocytes 30.5 % 15.0-5 0.0 Not Available [facility] (Lab) [address], [place], [address], 11/26/2024 18:36:36 11/20/1911/19/2024 CBC W/DIF F monocytes 6.3 % 1.0-15 .0 Not Available [facility] (Lab) [address], [place], [address], 11/26/2024 18:36:36 11/20/1911/19/2024 CBC W/DIF F eosinophils 2.1 % 0.0-8. 0 Not Available [facility] (Lab) [address], [place], [address], 11/26/2024 18:36:36 11/20/1911/19/2024 CBC W/DIF F basophils 0.7 % 0.0-2. 0 Not Available [facility] (Lab) [address], [place], [address], 11/26/2024 18:36:36 11/20/1911/19/2024 CBC W/DIF F immature granulocytes 0.3 % no define d refere nce range Immat ure Granu locyt es (IG) repre sents autom ated enume ratio n of Metam yeloc ytes, Myelo cytes and Promy elocy arielle when IG is < 5%. Blast s are not inclu ded in IG and repor katherine separ ately if prese nt. Not Available [facility] (Lab) [address], [place], [address], 11/26/2024 18:36:36 11/20/19 25 11/19/2024 CBC W/DIF F absolute neutrophils 4.6 10'3/ uL 1.5-8. 0 Not Available [facility] (Lab) [address], [place], [address], 11/26/2024 18:36:36 11/20/19 25 11/19/2024 CBC W/DIF F absolute lymphocytes 2.3 10'3/ uL 1.0-4. 0 Not Available [facility] (Lab) [address], [place], [address], 11/26/2024 18:36:36 11/20/19 25 11/19/2024 CBC W/DIF F absolute monocytes 0.5 10'3/ uL 0.2-1. 0 Not Available [facility] (Lab) [address], [place], [address], 11/26/2024 18:36:36 11/20/19 11/19/2024 CBC W/DIF F absolute eosinophils 0.2 10'3/ uL 0.0-0. 6 Not Available [facility] (Lab) [address], [place], [address], 11/26/2024 18:36:36 11/20/1911/19/2024 CBC W/DIF F absolute basophils 0.1 10'3/ uL 0.0-0. 3 Not Available [facility] (Lab) [address], [place], [address], 11/26/2024 18:36:36 11/20/1911/19/2024 CBC W/DIF F absolute [...] temple book. nm.or g/gen derx Not Available [facility] (Lab) [address], [place], [address], 11/26/2024 18:36:36 11/20/1911/19/2024 TSH, REFLE X FREE T4 TSH 0.76 uIU/m L 0.30-5 .33 Not Available [facility] (Lab) [address], [place], [address], 11/26/2024 18:36:36 11/20/1911/19/2024 CMP(C OMPRE HENSI VE METAB OLIC PANEL ) sodium 140 mmol/ L 133-14 6 Not Available [facility] (Lab) [address], [place], [address], 11/26/2024 18:36:36 11/20/1911/19/2024 CMP(C OMPRE HENSI VE METAB OLIC PANEL ) potassium 4.3 mmol/ L 3.5-5. 1 Not Available [facility] (Lab) [address], [place], [address], 11/26/2024 18:36:36 11/20/19 25 11/19/2024 CMP(C OMPRE HENSI VE METAB OLIC PANEL ) chloride 100 mmol/ L 98-107 Not Available [facility] (Lab) [address], [place], [address], 11/26/2024 18:36:36 11/20/19 25 11/19/2024 CMP(C OMPRE HENSI VE METAB OLIC PANEL ) carbon dioxide 30 mmol/ L 21-31 Not Available [facility] (Lab) [address], [place], [address], 11/26/2024 18:36:36 11/20/19 25 11/19/2024 CMP(C OMPRE HENSI VE METAB OLIC PANEL ) anion gap 10 mmol/ L 4-13 Not Available [facility] (Lab) [address], [place], [address], 11/26/2024 18:36:36 11/20/19 25 11/19/2024 CMP(C OMPRE HENSI VE METAB OLIC PANEL ) blood urea nitrogen 8 mg/dL 7-25 Not Available [facility] (Lab) [address] [place], [address], 11/26/2024 18:36:36 11/20/19 25 11/19/2024 CMP(C OMPRE HENSI VE METAB OLIC PANEL ) creatinine 0.86 mg/dL 0.60-1 .30 Not Available [facility] (Lab) [address], [place], [address], 11/26/2024 18:36:36 11/20/19 25 11/19/2024 CMP(C OMPRE HENSI VE METAB OLIC PANEL ) egfrcr (CKD-epi 2020) >90 mL/mi n/1.7 3_m2 >=60 Not Available [facility] (Lab) [address], [place], [address], 11/26/2024 18:36:36 11/20/1911/19/2024 CMP(C OMPRE HENSI VE METAB OLIC PANEL ) calcium 9.7 mg/dL 8.3-10 .5 Not Available [facility] (Lab) [address], [place], [address], 11/26/2024 18:36:36 11/20/19 25 11/19/2024 CMP(C OMPRE HENSI VE METAB OLIC PANEL ) glucose 89 mg/dL 70-100 Not Available [facility] (Lab) [address], [place], [address], 11/26/2024 18:36:36 11/20/19 25 11/19/2024 CMP(C OMPRE HENSI VE METAB OLIC PANEL ) protein, total 7.6 g/dL 6.4-8. 3 Not Available [facility] (Lab) [address], [place], [address], 11/26/2024 18:36:36 11/20/19 25 11/19/2024 CMP(C OMPRE HENSI VE METAB OLIC PANEL ) albumin 4.5 g/dL 3.5-5. 0 Not Available [facility] (Lab) [address], [place], [address], 11/26/2024 18:36:36 11/20/1911/19/2024 CMP(C OMPRE HENSI VE METAB OLIC PANEL ) ALT 27 units /L 9-43 Not Available [facility] (Lab) [address], [place], [address], 11/26/2024 18:36:36 11/20/1911/19/2024 CMP(C OMPRE HENSI VE METAB OLIC PANEL ) alkaline phosphatase 81 units /L 34-104 Not Available [facility] (Lab) [address], [place], [address], 11/26/2024 18:36:36 11/20/19 25 11/19/2024 CMP(C OMPRE HENSI VE METAB OLIC PANEL ) AST 19 units /L 13-39 Not Available [facility] (Lab) [address], [place], [address], 11/26/2024 18:36:36 11/20/19 25 11/19/2024 CMP(C OMPRE HENSI VE METAB OLIC PANEL ) bilirubin, total 0.5 mg/dL 0.2-1. 2 Not Available [facility] (Lab) [address], [place], [address], 11/26/2024 18:36:36 11/20/19 25 11/19/2024 CHECO TIN / IRON / TRANS CHECO N / TIBC iron 99 ug/dL 40-170 Not Available [facility] (Lab) [address], [place], [address], 11/26/2024 18:36:37 11/20/19 25 11/19/2024 CHECO TIN / IRON / TRANS CHECO N / TIBC transferrin 268 mg/dL 200-36 0 Not Available [facility] (Lab) [address], [place], [address], 11/26/2024 18:36:37 11/20/19 25 11/19/2024 CHECO TIN / IRON / TRANS CHECO N / TIBC ferritin 25.2 NG/mL 8.0-25 2.0 Not Available [facility] (Lab) [address], [place], [address], 11/26/2024 18:36:37 11/20/19 25 11/19/2024 CHECO TIN / IRON / TRANS CHECO N / TIBC TIBC 375 ug/dL 250-45 0 Not Available [facility] (Lab) [address], [place], [address], 11/26/2024 18:36:37 09/0811/19/2024 CHECO TIN / IRON / TRANS CHECO N / TIBC iron saturation 26 % 20-55 Not Available [facility] (Lab) [address], [place], [address], 11/26/2024 18:36:37 11/20/1911/19/2024 VITAM IN D, 25-OH (TOTA L D2/D3 ) vitamin D, 25-hydroxy, total 28.6 NG/mL 30.0-1 00.0 low Sugge stive of Defic iency : <20 ng/mL Sugge stive of Insuf ficie ncy: 20-29 ng/mL Sugge stive of Suffi cienc y: 30-10 0 ng/mL Sugge stive of Toxic ity: >150 ng/mL Not Available [facility] (Lab) [address], [place], [address], 11/26/2024 18:36:37 11/20/1911/19/2024 VITAM IN B12 / FOLAT E PANEL vitamin B12 455 pg/mL 180-91 4 Nanette l Range : 180-9 14 pg/mL . Indet ermin ate Range : 145-1 80 pg/mL . Defic ient Range : <=145 pg/mL . Not Available [facility] (Lab) [address], [place], [address], 11/26/2024 18:36:37 11/20/1911/19/2024 VITAM IN B12 / FOLAT E PANEL folate, serum 15.5 NG/mL 6.0-20 .0 Not Available [facility] (Lab) [address] [place], [address], 11/26/2024 18:36:37 11/20/1911/19/2024 HEMOG LOBIN A1C hemoglobin A1C 5.1 % 4.0-5. 6 The Ameri can Diabe arielle [employer] iatio n recom mends that a prima ry goal of thercrystal dodge be a HBA1C of < 7% and that physi ciaemilio dodge reeva luate the treat ment regim en in patie nts with HBA1C value s consi stent ly > 8%. <5.7% Nanette l 5.7 - 6.4% Incre ased risk for diabe arielle >=6.5 % Diagn ostic of diabe arielle <7.0% Goal of thera py >8.0% Actio n sugge sted Not Available [facility] (Lab) [address], [place], [address], 11/26/2024 18:36:38 11/20/1911/19/2024 WOMEN 'S HEALT H [...] or negat zak statu s. Not Available [facility] (Lab) [address], [place], [address], 11/26/2024 18:36:38 11/20/1911/19/2024 WOMEN 'S HEALT H SWAB, ANU candie species, tma Negati ve negati ve Not Available [facility] (Lab) [address] [place], [address], 11/26/2024 18:36:38 11/20/19 25 11/19/2024 WOMEN 'S HEALT H SWAB, ANU candie glabrata, tma Negati ve negati ve Not Available [facility] (Lab) [address] [place], [address], 11/26/2024 18:36:38 09/08/20 25 11/19/2024 WOMEN 'S HEALT H SWAB, ANU trichomonas vaginalis, tma Negati ve negati ve This assay tests for and diffe renti ates betwe en Ariella da glabr jovan, the Ariella da speci es group (C. tania ans, CSushant brown calis , CSushant johnson is, CSushant lazaro is), and Trich omona s vagin leena by Trans cript ion-M ediat ed Ampli ficat ion (TMA) . Not Available [facility] (Lab) [address], [place], [address], 11/26/2024 18:36:38 11/20/19 25 11/19/2024 IMAGE GUIDE D PAP, REFLE X HPV IF ASCUS ONLY image guided Pap, reflex HPV ASCUS only SEE RESULT S BELOW abnormal CASE REPOR T: Cytol ogy Gynec ologi mary ann Repor t Case: [id number] Autho mich g Provi kendall: Mikel pierce, Shawna , ANP, WOOD FINISHER APPRENTICE Colle cted: 11/19 1146 Order ing Locat ion: [place] Patho logy Recei maxwell: 11/20 1154 First Scree n: Ant [place], [place] Patho logis t: Asher Jason MD Speci men: Nereidaleyla malone Pap - Image d, Cervi x [...] not other baez speci fied (NOS) . Chiqui dodge by Asher Jason MD on 2024 [...] diffe renti ation . COMME NT: Slide heidy black due to rejec tion by the Thinp [...] patie nt consi derat ions. Not Available [facility] (Lab) [address], [place], [address], 11/26/2024 18:36:38 11/20/1911/19/2024 urina lysis , dipst ick Leukocytes - Not Available [facility] [address], [place], [address], 11/19/2024 15:37:57 11/20/1911/19/2024 urina lysis , dipst ick Nitrite - Not Available [place] [facility] [address], [place], [address], 11/19/2024 15:37:57 11/20/1911/19/2024 urina lysis , dipst ick Urobilinogen - Not Available [facility] [address], [place], [address], 11/19/2024 15:37:57 11/20/19 25 11/19/2024 urina lysis , dipst ick Protein trace Not Available [facility] [address], [place], [address], 11/19/2024 15:37:57 11/20/19 25 11/19/2024 urina lysis , dipst ick pH 6 Not Available [facility] [address], [place], [address], 11/19/2024 15:37:57 11/20/19 25 11/19/2024 urina lysis , dipst ick Specific [place] 1.000 Not Available [facility] [address], [place], [address], 11/19/2024 15:37:57 11/20/19 25 11/19/2024 urina lysis , dipst ick Ketone - Not Available [facility] [address], [place], [address], 11/19/2024 15:37:57 11/20/19 25 11/19/2024 urina lysis , dipst ick Bilirubin - Not Available [facility]er [address], [place], [address], 11/19/2024 15:37:57 11/20/19 25 11/19/2024 urina lysis , dipst ick Glucose - Not Available [facility] [address], [place], [address], 11/19/2024 15:37:57 11/20/19 25 11/19/2024 urina lysis , dipst ick Appearance clear Not Available [facility] [address], [place], [address], 11/19/2024 15:37:57 11/20/19 25 11/19/2024 urina lysis , dipst ick Color light yellow Not Available [facility] [address], [place], [address], 11/19/2024 15:37:57 11/24/19 25 11/23/2024 CULTU RE: URINE result report SEE RESULT S BELOW abnormal Test: Cultu re: Urine Speci men Sourc e: Urine - Clean Catch Speci men Type: Urine Speci men Date: 2024 1624 Resul t Date: 2024 0716 Resul t Statu s: Final resul t Abnor mal: Yes Resul chanel Lab: [facility] [address] [facility] [address] Tel: CULTU RE ----- ----- ----- --- [...] lab withi n 5 days. Not Available [facility] (Lab) [address], [place], [address], 11/25/2024 08:19:12 12/15/1912/14/2024 SURGI MARY ANN PATHO LOGY surgical pathology SEE RESULT S BELOW CASE REPOR T: Surgi mary ann Patho logy Repor t Case: [id number] Autho mich harris Provi kendall: Vanessa Meadows MD Colle cted: 12/14 1500 Order ing Locat ion: [place] Patho logy Recei maxwell: 12/15 0103 Patho logis t: Lali Vaughan MD Speci mens: A) - Endom etriu [...] for dyspl david. Elect yovani dodge by Lali Vaughan MD on 2024 at 1414 CDT ----- ----- ----- ----- ----- ----- ----- ----- ----- ----- ----- ----- ----- ----- ----- ----- ----- ---- CLINI MARY ANN INFOR MATIO N: Atypi mary ann Cervi mary ann Gland ular Cells MICRO SCOPI C DESCR IPTIO N: A micro scopi c exami natio n was perfo rmed. GROSS DESCR IPTIO N: A. Schuyler etcarlitosu m. The speci men is label ed with the patie nt's name, alexisog jose cs and EMB. Recei maxwell in forma love is a 4.0 x 2.0 x 0.2 cm aggre gate of abebe-b rown tissu e mixed with mucoi d mater ial. The entir e speci men is submi tted in 2 casse ttes. Gross ed by Kathryn Guzman Cervi x. The speci men is label ed with the patie nt's name, alexisog raphi cs and Cx Bx. Recei maxwell in forma love is a 0.2 x 0.2 x 0.1 cm aggre gate of mucus and minut e white -abebe tissu e. The entir e speci men is submi tted in one casse tte. The speci men may not survi ve proce ssing . Gross ed by Kathryn Bazzi Endoc ervix . The speci men is label ed with the patie nt's name, alexisog raphi cs and ECC . Recei maxwell in forma love is a 1.3 x 0.8 x 0.1 cm aggre gate of mucus and minut e white -abebe tissu e. The entir e speci men is submi tted in one casse tte. Gross ed by Kathryn Lucero Not Available [facility] (Lab) [address], [place], [address], 12/17/2024 15:17:13 12/15/19 25 12/14/2024 pregn jenny test, urine HCG negati ve Not Available [facility] [address], [place], [address], 12/14/2024 15:27:14 01/22/20 25 01/21/2025 BHCG, QUANT ITATI VE B-HCG 17.0 mIU/m L 0.0-4. 9 high The test metho d is elect michel milum inesc ence immun oassa y perfo rmed on the Michel Gomez e801. Value s obtai rick with diffe rent assay metho ds by other labor atori es canno t be used inter [place] eably . Refer ence Range s: Non-p regna nt, preme nopau braxton women : 0.0-4 .9 mIU/m L Postm enopa usal women : 0.0-7 .0 mIU/m L Nanette l Pregn jenny: Gesta naomi l Age bHCG Conc. - mIU/m L 3 Weeks 5.8 - 71.7 4 Weeks 9.5 - 750 5 Weeks 217-7 138 6 Weeks 158 - 31,79 5 7 Weeks 3,697 - 162,5 63 8 Weeks 32,06 5 - 149,5 71 9 Weeks 63,80 3 - 151,4 10 10 Weeks 46,50 9 - 186,9 77 12 Weeks 27,83 2 - 210,6 12 14 Weeks 13,95 0 - 62,53 0 15 Weeks 12,03 9 - 70,97 1 16 Weeks 9,040 - 56,45 1 17 Weeks 8,175 - 55,86 8 18 Weeks 8,099 - 58,17 6 Not Available [facility] (Lab) [address], [place], [address], 01/22/2025 07:03:05 01/24/20 25 01/23/2025 BHCG, QUANT ITATI VE B-HCG 36.6 mIU/m L 0.0-4. 9 high The test metho d is elect michel mil inesc ence immun oassa y perfo rmed on the Michel Gomez e801. Value s obtai rick with diffe rent assay metho ds by other labor atori es canno t be used inter [place] eably . Refer ence Range s: Non-p regna nt, preme nopau braxton women : 0.0-4 .9 mIU/m L Postm enopa usal women : 0.0-7 .0 mIU/m L Nanette l Pregn jenny: Gesta naomi l Age bHCG Conc. - mIU/m L 3 Weeks 5.8 - 71.7 4 Weeks 9.5 - 750 5 Weeks 217-7 138 6 Weeks 158 - 31,79 5 7 Weeks 3,697 - 162,5 63 8 Weeks 32,06 5 - 149,5 71 9 Weeks 63,80 3 - 151,4 10 10 Weeks 46,50 9 - 186,9 77 12 Weeks 27,83 2 - 210,6 12 14 Weeks 13,95 0 - 62,53 0 15 Weeks 12,03 9 - 70,97 1 16 Weeks 9,040 - 56,45 1 17 Weeks 8,175 - 55,86 8 18 Weeks 8,099 - 58,17 6 Not Available [facility] (Lab) [address], [place], [address], 01/24/2025 07:22:49 11/24/19 25 11/23/2024 US, pelvi s No observ ation record ed. [facility] [place] [address], [place], [address], 11/23/2024 17:07:24 11/24/19 25 11/23/2024 US, trans vagin al No observ ation record ed. [facility] [place] [address], [place], [address], 11/23/2024 17:07:33 11/24/19 25 11/23/2024 US, pelvi s No observ ation record ed. [email or web address] Maryanne [address], [place], [address], 11/29/2024 16:27:58 02/13/20 25 02/12/2025 US, obste tric, trans vagin al No observ ation record ed. [facility] [place] [address], [place], [address], 02/12/2025 14:19:58 02/13/20 25 02/12/2025 US, obste tric, trans vagin al No observ ation record ed. RACHAEL Maryanne [address], [place], [address], 02/12/2025 11:58:48 Result Notes None recorded. Problems Name Problem SNOMED Code Status Onset Date Resolution Date Notes Provider Name and Address Organization Details Recorded Time Past pregnanc y history of pre-ecla mpsia 43335128005 9100 Completed pre-e wsevere features / PTL bASA daily 162mg Jessica Rodney [facility], [facility] 5 15:31:26 Past pregnanc y history of pre-ecla mpsia 51118628375 9100 Active pre-e wsevere features / PTL bASA daily 162mg Jessica Rodney [facility], [facility] 5 15:31:26 Pregnanc y [id number] Completed 202311/19/2024 Libia Hull null, [facility] 5 11:45:43 Problem Notes None recorded. Procedures Surgical History Date Name Laterality Status Provider Name and Address Organization Details Recorded Time 025 Colposcopy completed NIKHIL NOLASCO MD [address], [place], [address], [facility] 12/14/2024 15:20:14 025 Endometrial Biopsy completed NIKHIL NOLASCO MD [address], [place], [address], [facility] 12/14/2024 15:20:26 023 Date of Last Pap Smear completed Lita Gonzalez [facility] 01/19/2024 10:16:07 010 Cholecystectomy completed Lita Gonzalez [facility] 01/19/2024 10:17:18 Imaging Results None recorded. Procedure Notes None recorded. Medical Equipment None Reported. Allergies Allergen ID Allergen Name Allergen Category Reaction Reaction Severity Criticality Documentation Date Start Date Code Code System Note Provider Name and Address Organization Details Recorded Time 63769 Product containin g penicilli n (product) medicatio n Not available Not available Not available 09/16/2022 23638 8001 SNOMED Sara Jamari dobbs [facility] 14:39:53 33258 metformin medicatio n Not available Not available [facility] 02/12/20252023 6809 RxNorm unrec ogniz ed react ion (text : Other , code: 42712 07) (from exter nal sourc e) Not Available rachael - External Data Service - prod 5 03:14:03 31212 amoxicill in medicatio n rash Not available low 02/12/20252021 723 RxNorm Not Available rachael - External Data Service - prod 5 09:13:02 24866 ampicilli n medicatio n rash Not available low 02/12/20252017 733 RxNorm Not Available rachael - External Data Service - prod 5 09:13:02 19814 Substance with sulfonami de structure and antibacte rial mechanism of action (substanc e) medicatio n headache rash Not available Not available high 02/12/20252017 43451 8003 SNOMED Not Available rachael - External [...] Available TRUEplus Pen Needle 32 gauge x /32 USE TWICE DAILY active Not Available Not [...] Updated DateTime 11/19/2024 177.8 cm 40.7 kg/m2 325764.23 g 142/81 mm[Hg] Libia Della [facility] 11/19/2024 11:42:06 Date Recorded Body height Body mass index (BMI) Body weight Systolic And Diastolic Provider Name and Address Organization Details Last Updated DateTime 12/14/2024 177.8 cm 41 kg/m2 021446.42 g 142/81 mm[Hg] Monique Hobbs [facility] 12/14/2024 14:47:22 Social History Question Answer Notes LastModified by Organizat ion Details LastModified Time Tobacco Smoking Status Never Smoker Sara alves, [facility] 09/16/2022 14:43:23 Are You Blind Or [...] Any Guns Present In Your Home? No [email or web address] Information not available 03/27/2024 Are You Sexually Active? Yes [email or web address] Information not available 03/27/2024 Do You Have Smoke And Carbon Monoxide Detectors In Your Home? Yes [email or web address] Information not available 03/27/2024 Do You Use Sunscreen Routinely? No [email or web address] Information not available 03/27/2024 Do You Have Difficulty Walking Or Climbing Stairs? No Information not available 09/16/2022 Sex: Unknown Functional Status Question Answer Note LastModified by Organizat ion Details LastModified Time Do you use any illicit or recreational drugs? No [email or web address] Information not available 03/27/2024 Do you or have you ever used any other forms of tobacco or nicotine? No [email or web address] Information not available 03/27/2024 What is your level of alcohol consumption? None Information not available 09/16/2022 Are you currently employed? Yes [email or web address] Information not available 03/27/2024 Are you able [...] ICD10 Code Diagnosis IMO Codes Diagnosis Note [id number] KISHA Mathur [facility] [address] [address] 09/16/2022 14:15:48 09/16/2022 16:35:58 Amenorrhea 34446861 N91.2 Discussed normal to have amenorrhea while [...] Pt verbalized understand ing.slynd samples given - [id number], 4rx sentsti testing declinedpa p updatedrev iewed [...] of plan of care. Pain in pelvis 21441328 R10.2 Contracept ion care management 529540988 Z30.9 Anxiety 01295917 F41.9 Screening for malignant neoplasm of cervix 163780674 Z12.4 [id number] Gui Wilkerson MD [facility] [address] [address] 09/17/2022 15:56:06 09/17/2022 16:43:03 Pain in pelvis 23673050 R10.2 [id number] KISHA Mathur [place] [address] [address] 09/21/2022 13:51:17 09/21/2022 14:53:29 Pain in pelvis 76401615 R10.2 reviewed updated TVUS - wnlno gyne source of pain identified recommende d pelvic floor physical therapyrec ommended PCP f/u as john will let us know if she would like to pursue PFPTprecau tions discussed Contracept ion care management 476635103 Z30.9 has not started slyndshe is considerin g Mirena IUD. R/B/A discussed. If desired, abstain x 2 weeks then bhcg day prior to insertion. She will let us know what she decides Fatigue 63461093 R53.83 labs ordered Time spent in visit is a total of 20 mins with at least 50% of visit consisting of counseling and review of plan of care. [id number] NIKHIL NOLASCO MD [place] [address] [address] 11/25/2022 14:41:17 11/25/2022 17:15:02 Tenderness of breast 69689802 N64.4 - x1 day, no new trauma however areola began draining this morning- Krishnamurthy 's gland appears inflamed on R breast- recommend ice packs and ibuprofen around the clock x24-48 hours- if not improving, patient to call/send portal message for abx- low suspicion for mastitis given no systemic symptoms or breast erythema support 40 1104987 Z39.1 - discussed oversupply may be causing issues with clogged ducts- nipple trauma may be 2/2 poorly sized flanges, recommend remeasurin g nipples and buying inserts if current flanges are wrong size- encouraged nipple butter use to help with healing [id number] Gui Wilkerson MD [place] [address],[place] [address] 03/24/2023 09:50:29 03/24/2023 10:50:43 Pain in pelvis 54861607 R10.2 [id number] Gui Wilkerson MD [place] [address],[place] [address] 01/19/2024 09:26:53 01/19/2024 10:01:43 screening 346097138 Z36.87 Z3A.01 [id number] Gui Wilkerson MD [place] [address],[place] [address] 01/19/2024 09:27:06 01/19/2024 11:01:09 Amenorrhea 57941193 N91.2 this patient is a 28-year-ol d [...] ia leading to delivery at 34 weeks [id number] NIKHIL NOLASCO MD [place] [address],[place] [address] 02/08/2024 10:53:32 02/08/2024 11:34:27 [id number] Gui Wilkerson MD [place] [address],[place] [address] 02/13/2024 12:55:30 02/13/2024 13:32:54 Threatened miscarriage 96399934 O20.0 Z3A.10 [id number] Gui Wilkerson MD [place] [address],[place] [address] 03/02/2024 11:35:34 03/02/2024 12:53:55 screening 012377526 Z36.82 Z3A.12 [id number] NIKHIL NOLASCO MD [place] [address],[place] [address] 03/02/2024 11:35:52 03/05/2024 12:09:27 Past history of pre-eclampsia 3175037164 19882 Z87.59 - delivered at 34 weeks in prior for preeclamps ia with severe features- was on BP meds for a few months following delivery however now normalized - discussed recurrence risk of preeclamps ia- discussed recommenda tion for ASA ppx Nausea and vomiting 1693 2000 R11.2 - not improved with reglan- will trial zofran Gestation period, 12 weeks 91481707 Z3A.12 - NT/NB wnl- continue PNV [id number] NIKHIL NOLASCO MD [place] [address],[place] [address] 03/27/2024 12:34:49 03/28/2024 10:44:00 Past history of pre-eclampsia 9675687923 22761 Z87.59 - delivered at 34 weeks in prior for preeclamps ia with severe features- was on BP meds for a few months following delivery however now normalized - discussed recurrence risk of preeclamps ia- discussed recommenda tion for ASA ppx Gestation period, 16 weeks 25036501 Z3A.16 [id number] NIKHIL NOLASCO MD [place] [address],[place] [address] 04/03/2024 10:45:27 04/03/2024 11:30:55 Chronic hypertension complicating AND/OR reason for care during 72702655 O16.9 - meets criteria for cHTN given multiple elevated BP prior to 20 weeks- will order labs and PC ratio- start labetalol 200mg BID, closely monitor BP Palpitations 58023979 R0 0.2 - hx of palpitatio ns in PP period after last - mostly at night, however feeling winded while caring for toddler- holter monitor ordered Gestation period, 17 weeks 37272127 Z3A.17 [id number] Gui Wilkerson MD [place] [address] [address] 04/04/2024 14:20:00 04/04/2024 14:53:14 Abdominal pain in 286637106 O99.891 Z3A.17 [id number] SHAWNA ALMEIDA NP [place] [address] [address] 11/19/2024 11:28:22 11/19/2024 14:08:31 Dizziness 828744702 R42 39455 Labs ordered to r/o causes of intermitte nt dizziness and headaches. Hx gHTN; Patient states that home BP readings have been consistent ly normal (<120/80). Recommende d eating small meals, multiple times per day and drinking >64 ounces of water daily.Will f/u with lab results and next steps in plan of care.ER precaution s given. Vaginal discharge 962613 006 N89.8 67534 Reviewed the various causes of vaginal discharge [...] r/o yeast/BV/t rich. Abnormal u terine bleeding 8028125434 9100 N93.9 729403 Recommende d pelvic ultrasound to r/o uterine or ovarian abnormalit ies contributi ng to post-coita l bleeding.W ill f/u with results and to discuss any adjustment s in plan of care. Pain in fe male genitalia on intercourse 61163527 N94.10 [id number] Discussed common possible causes of dyspareuni a, such as infection, vaginal dryness, and positionin g during intercours e.Recommen ded comfortabl e positions during intercours e and using lubricatio n as needed.David l r/o vaginal infection with pap and vaginitis testing. Patient declined STI testing. [id number] Gui Wilkerson MD [place] [address],[place] [address] 11/23/2024 09:23:10 11/23/2024 10:04:45 Pain in pelvis 03127361 R10.2 N93.0 921655 [id number] Gui Wilkerson MD [place] [address],[place] [address] 11/30/2024 09:53:11 12/01/2024 22:42:12 [id number] NIKHIL NOLASCO MD [place] [address],[place] [address] 12/14/2024 14:30:52 12/14/2024 16:15:15 Pain in female genitalia on intercourse 28528087 N94.10 [id number] - patient reports superficia l and deep dyspareuni a since delivery- likely due to both genitourin kevin syndome of and pelvic floor dysfunctio n- estradiol cream and pelvic floor PT referral sent Increased 3711 0009 N64.3 106219 - patient has severe hyperlacta tion, producing [...] g landular cells on cervical Papanicolaou smear 798030365 R87.619 754382 - atypical glandular cells NOS on pap smear- colposcopy with ECC and EMB performed today- will follow up on results as available [id number] NIKHIL NOLASCO MD [place] [address] [address] 02/12/2025 09:11:56 02/12/2025 10:19:40 screening 106680483 Z36.87 Z3A.01 5162706204 Health Concerns Section Related Observation LastModified by Organization Detai ls LastModified Time None Recorded Concern Status LastModified by Organization Details LastModified Time None Recorded Advance Directives Directive None Recorded Payers Insurance Date Sequence Insurance Name Policy Number Policy Vera Covered Member ID Vera Member ID Guarantor Name 11/15/2024 1 *SELF PAY* Vi ctnia Aguilera 02/11/2025 1 [facility] ([facility] [id number] Rosas Aguilera Jr [id number] Damaris Willy 03/26/2024 1 [facility] [id number] Rosas Willy [id number] Damaris Aguilera Notes Date Note Type Note Provider Name and Address Organization Details Recorded Time 11/19/2024 text/html 29 y/o female presents with c/o green/yellow vaginal discharge, pain with intercourse, spotting after intercourse for the past 6 weeks.Patient states that she is 12 weeks (insurance changed and did not deliver at [facility]). Hx gestational hypertension, anemia (had iron infusion [...] her iron supplement. Denies current symptoms. Libia alves [place] - [facility] 11/19/2024 15:41:35 12/14/2024 text/html ROS as [...] brown discharge following intercourse as well. NIKHIL NOLASCO MD [address], [place], [address], [facility] 12/14/2024 16:05:38 OBGyn Episode Ob Episode Information Episode Created Date Number of Fetuses Patient Bloodtype Patient rh Status Prepregnancy Weight lbs Domestic Partner Domestic Partner Phone Father Name Outreach Rep Status 09/17/19 23 1 CLOSED Fetus Data First Name Last Name Admitted to NICU Weight (g) Sex Living Outcome Pediatric Complications Fetus ID Race Codes Race Delivery Type 2749.67 4704 M Prematur e 74442 Vaginal Delivery Oskar Calculation Initial Oskar Date [...] Domestic Partner Domestic Partner Phone Father Name Outreach Rep Status 11/20/19 25 1 CLOSED Fetus Data First Name Last Name Admitted to NICU Weight (g) Sex Living Outcome Pediatric Complications Fetus ID Race Codes Race Delivery Type 3061.74 6 M Full Term [id number] Vaginal Delivery Oskar Calculation Initial Oskar Date [...] Domestic Partner Domestic Partner Phone Father Name Outreach Rep Status 03/02/20 24 1 O Positive Rosas Aceves CLOSED Fetus Data First Name Last Name Admitted to NICU Weight (g) Sex Living Outcome Pediatric Complications Fetus ID Race Codes Race Delivery Type Ermias Marti nt 3061.74 6 M [id number] Problems Problem Notes Palpitations - 72hr Holter m onitor order faxed 04/03 [facility] Problem Name Start Date End Date Resolution Snomed Code Not e Past history of pre-eclampsia [id number] pre-e wseve re features / PTL bASA [...] Date Ultra Sound Latest Days Gestation 0 [email or web address] 03/05/2024 09/11/19 25 0 Pre- Flowsheet Flowsheet Date 03/02/2024 Cho Score Blood [...] Weight in lbs Pre/Post Dialysis Refused Weight 284.551110526916 BP Diastolic BP Location Tested BP Systolic BP Type 84 L arm 135 sitting Fetus Heart Rate Present A 162 Fetus Movement Comments Patient presents to [facility]. Nausea worsening, has tried Reglan without [...] Weight in lbs Pre/Post Dialysis Refused Weight 283.322097501675 BP Diastolic BP Location Tested BP Systolic [...] Type Weight in lbs Pre/Post Dialysis Refused 283.757747495259 BP Diastolic BP Location Tested BP Systolic [...] Weight in lbs Pre/Post Dialysis Refused Weight 284.042754867215 BP Diastolic BP Location Tested BP Systolic [...]
--- OUTSIDE RECORDS SUMMARY | 2025-02-16 21:13 | XMS_ITS | Continuity of Care Document ---
Author Organization [facility] [place] Address [address] [place] [address] [place] [address] Assessment No assessment recorded. Plan of Treatment Reminders Order Date Submit Date Provider Last Modified By Organization Details Last Modified Time Details Appointments U/S OB SNEAK PEAK 2024 01:00P M ULTRASOUND Not available Not available Not available OB SCREEN 2024 01:30P M KEELY ARROYO MD Not available Not available Not available Lab None recorde d. Referral None recorde d. Procedures None recorde d. Surgeries None recorde d. Imaging US, obstetr ic, transva ginal 2024 025 [email or web address] [place], [facility] [address], [address], [place], [address], 02/12/2025 11:52:04 Medication Orders None recorde d. Patient TargetsNo targets recorded. Patient InstructionsNo instructions recorded. Reason for Referral None Reported. Results Created Date Observation Date Name Description Value Unit Range Abnormal Flag Note LastModifiedBy Organization Detail LastModifiedTime 04/03/1904/03/2024 CMP/C BC/UR IC ACID WBC 8.4 10'3/ uL 3.5-10 .5 Not Available [facility] (Lab) [address], [place], [address], 04/04/2024 05:15:08 04/03/19 25 04/03/2024 CMP/C BC/UR IC ACID RBC 4.40 10'6/ uL (based on docume nted legal sex) 3.80-5 .20 Not Available [facility] (Lab) [address] [facility], [place], [address], 04/04/2024 05:15:08 04/03/19 25 04/03/2024 CMP/C BC/UR IC ACID HGB 11.9 g/dL (based on docume nted legal sex) 11.6-1 5.4 Not Available [facility] (Lab) [address] [facility], [place], [address], 04/04/2024 05:15:08 04/03/19 25 04/03/2024 CMP/C BC/UR IC ACID HCT 37.3 % (based on docume nted legal sex) 34.0-4 5.0 Not Available [facility] (Lab) [address] [facility], [place], [address], 04/04/2024 05:15:08 04/03/19 25 04/03/2024 CMP/C BC/UR IC ACID MCV 84.8 fL 80.0-9 9.0 Not Available [facility] (Lab) [address] [place], [address], 04/04/2024 05:15:08 04/03/19 25 04/03/2024 CMP/C BC/UR IC ACID MCH 27.0 pg 27.0-3 4.0 Not Available [facility] (Lab) [address] [place], [address], 04/04/2024 05:15:08 04/03/19 25 04/03/2024 CMP/C BC/UR IC ACID MCHC 31.9 g/dL 32.0-3 5.5 low Not Available [facility] (Lab) [address] [place], [address], 04/04/2024 05:15:08 04/03/19 25 04/03/2024 CMP/C BC/UR IC ACID RDW 14.9 % 11.0-1 5.0 Not Available [facility] (Lab) [address] [place], [address], 04/04/2024 05:15:08 04/03/19 25 04/03/2024 CMP/C BC/UR IC ACID plt 239 10'3/ uL 150-40 0 Not Available [facility] (Lab) [address] [place], [address], 04/04/2024 05:15:08 04/03/19 25 04/03/2024 CMP/C BC/UR IC ACID MPV 12.5 fL 8.8-12 .1 high Not Available [facility] (Lab) [address] [facility], [place], [address], 04/04/2024 05:15:08 04/03/19 25 04/03/2024 CMP/C BC/UR IC ACID neutrophils 62.7 % 34.0-7 3.0 Not Available [facility] (Lab) [address] [facility], [place], [address], 04/04/2024 05:15:08 04/03/19 25 04/03/2024 CMP/C BC/UR IC ACID lymphocytes 27.2 % 15.0-5 0.0 Not Available [facility] (Lab) [address] [place], [address], 04/04/2024 05:15:08 04/03/19 25 04/03/2024 CMP/C BC/UR IC ACID monocytes 6.9 % 1.0-15 .0 Not Available [facility] (Lab) [address] [place], [address], 04/04/2024 05:15:08 04/03/19 25 04/03/2024 CMP/C BC/UR IC ACID eosinophils 2.4 % 0.0-8. 0 Not Available [facility] (Lab) [address] [place], [address], 04/04/2024 05:15:08 04/03/19 25 04/03/2024 CMP/C BC/UR IC ACID basophils 0.4 % 0.0-2. 0 Not Available [facility] (Lab) [address], [place], [address], 04/04/2024 05:15:08 04/03/19 25 04/03/2024 CMP/C BC/UR [...] separ ately if prese nt. Not Available [facility] (Lab) [address], [place], [address], 04/04/2024 05:15:08 04/03/19 25 04/03/2024 CMP/C BC/UR IC ACID absolute neutrophils 5.3 10'3/ uL 1.5-8. 0 Not Available [facility] (Lab) [address] [facility], [place], [address], 04/04/2024 05:15:08 04/03/19 25 04/03/2024 CMP/C BC/UR IC ACID absolute lymphocytes 2.3 10'3/ uL 1.0-4. 0 Not Available [facility] (Lab) [address] [facility], [place], [address], 04/04/2024 05:15:08 04/03/19 25 04/03/2024 CMP/C BC/UR IC ACID absolute monocytes 0.6 10'3/ uL 0.2-1. 0 Not Available [facility] (Lab) [address] [place], [address], 04/04/2024 05:15:08 04/03/19 25 04/03/2024 CMP/C BC/UR IC ACID absolute eosinophils 0.2 10'3/ uL 0.0-0. 6 Not Available [facility] (Lab) [address] [place], [address], 04/04/2024 05:15:08 04/03/19 25 04/03/2024 CMP/C BC/UR IC ACID absolute basophils 0.0 10'3/ uL 0.0-0. 3 Not Available [facility] (Lab) [address], [place], [address], 04/04/2024 05:15:08 04/03/19 25 04/03/2024 CMP/C BC/UR [...] temple book. nm.or g/Gen derX Not Available [facility] (Lab) [address] [place], [address], 04/04/2024 05:15:08 04/03/19 25 04/03/2024 CMP/C BC/UR IC ACID uric acid 3.5 mg/dL 2.3-6. 6 Not Available [facility] (Lab) [address] [place], [address], 04/04/2024 05:15:08 04/03/19 25 04/03/2024 CMP/C BC/UR IC ACID sodium 138 mmol/ L 133-14 6 Not Available [facility] (Lab) [address] [place], [address], 04/04/2024 05:15:08 04/03/19 25 04/03/2024 CMP/C BC/UR IC ACID potassium 4.1 mmol/ L 3.5-5. 1 Not Available [facility] (Lab) [address] [place], [address], 04/04/2024 05:15:08 04/03/19 25 04/03/2024 CMP/C BC/UR IC ACID chloride 102 mmol/ L 98-107 Not Available [facility] (Lab) [address] [facility], [place], [address], 04/04/2024 05:15:08 04/03/19 25 04/03/2024 CMP/C BC/UR IC ACID carbon dioxide 27 mmol/ L 21-31 Not Available [facility] (Lab) [address] [facility], [place], [address], 04/04/2024 05:15:08 04/03/19 25 04/03/2024 CMP/C BC/UR IC ACID anion gap 9 mmol/ L 4-13 Not Available [facility] (Lab) [address] [facility], [place], [address], 04/04/2024 05:15:08 04/03/19 25 04/03/2024 CMP/C BC/UR IC ACID blood urea nitrogen 5 mg/dL 7-25 low Not Available [facility] (Lab) [address] [facility], [place], [address], 04/04/2024 05:15:08 04/03/19 25 04/03/2024 CMP/C BC/UR IC ACID creatinine 0.54 mg/dL 0.60-1 .30 low Not Available [facility] (Lab) [address] [facility], [place], [address], 04/04/2024 05:15:08 04/03/19 25 04/03/2024 CMP/C BC/UR IC ACID egfrcr (CKD-epi 2020) >90 mL/mi n/1.7 3_m2 >=60 Not Available [facility] (Lab) [address] [facility], [place], [address], 04/04/2024 05:15:08 04/03/19 25 04/03/2024 CMP/C BC/UR IC ACID calcium 9.5 mg/dL 8.3-10 .5 Not Available [facility] (Lab) [address] [facility], [place], [address], 04/04/2024 05:15:08 04/03/19 25 04/03/2024 CMP/C BC/UR IC ACID glucose 85 mg/dL 70-100 Not Available [facility] (Lab) [address] [facility], [place], [address], 04/04/2024 05:15:08 04/03/19 25 04/03/2024 CMP/C BC/UR IC ACID protein, total 6.7 g/dL 6.4-8. 3 Not Available [facility] (Lab) [address] [facility], [place], [address], 04/04/2024 05:15:08 04/03/19 25 04/03/2024 CMP/C BC/UR IC ACID albumin 3.7 g/dL 3.5-5. 0 Not Available [facility] (Lab) [address] [place], [address], 04/04/2024 05:15:08 04/03/19 25 04/03/2024 CMP/C BC/UR IC ACID ALT 9 units /L 9-43 Not Available [facility] (Lab) [address] [place], [address], 04/04/2024 05:15:08 04/03/19 25 04/03/2024 CMP/C BC/UR IC ACID alkaline phosphatase 55 units /L 34-104 Not Available [facility] (Lab) [address] [place], [address], 04/04/2024 05:15:08 04/03/19 25 04/03/2024 CMP/C BC/UR IC ACID AST 11 units /L 13-39 low Not Available [facility] (Lab) [address] [place], [address], 04/04/2024 05:15:08 04/03/19 25 04/03/2024 CMP/C BC/UR IC ACID bilirubin, total 0.2 mg/dL 0.2-1. 2 Not Available [facility] (Lab) [address] [place], [address], 04/04/2024 05:15:08 04/03/19 25 04/03/2024 PROTE IN/CR EATIN INE RATIO , URINE creatinine, urine 61.2 mg/dL R-No refer ence range estab lishe d for this assay Not Available [facility] (Lab) [address] [place], [address], 04/04/2024 05:15:09 04/03/19 25 04/03/2024 PROTE IN/CR EATIN INE RATIO , URINE protein, urine 5 mg/dL R-No refer ence range estab lishe d for this assay Not Available [facility] (Lab) [address] [place], [address], 04/04/2024 05:15:09 04/03/19 25 04/03/2024 PROTE IN/CR [...] fican t prote inuri a. Not Available [facility] (Lab) [address] [place], [address], 04/04/2024 05:15:09 11/20/19 25 11/19/2024 CULTU RE: URINE result report SEE RESULT S BELOW Test: Cultu re: Urine Speci men Sourc e: Urine - Clean Catch Speci men Type: Urine Speci men Date: 025 1512 Resul t Date: 2024 1240 Resul t Statu s: Final resul t Abnor mal: No Resul ting Lab: [facility] [address] [facility] [address] Tel: CULTU RE ----- ----- ----- --- Cultu re resul t (>=3 organ isms prese nt) indic ates possi ble conta minat ion. Repea t cultu re if sympt oms indic ate. Not Available [facility] (Lab) [address], [place], [address], 11/21/2024 13:43:47 11/20/1911/19/2024 CBC W/DIF F WBC 7.6 10'3/ uL 3.5-10 .5 Not Available [facility] (Lab) [address], [place], [address], 11/26/2024 18:36:36 11/20/1911/19/2024 CBC W/DIF F RBC 4.97 10'6/ uL (based on docume nted legal sex) 3.80-5 .20 Not Available [facility] (Lab) [address], [place], [address], 11/26/2024 18:36:36 11/20/1911/19/2024 CBC W/DIF F HGB 13.7 g/dL (based on docume nted legal sex) 11.6-1 5.4 Not Available [facility] (Lab) [address], [place], [address], 11/26/2024 18:36:36 11/20/1911/19/2024 CBC W/DIF F HCT 41.5 % (based on docume nted legal sex) 34.0-4 5.0 Not Available [facility] (Lab) [address], [place], [address], 11/26/2024 18:36:36 11/20/1911/19/2024 CBC W/DIF F MCV 83.5 fL 80.0-9 9.0 Not Available [facility] (Lab) [address], [place], [address], 11/26/2024 18:36:36 11/20/19 25 11/19/2024 CBC W/DIF F MCH 27.6 pg 27.0-3 4.0 Not Available [facility] (Lab) [address], [place], [address], 11/26/2024 18:36:36 11/20/19 25 11/19/2024 CBC W/DIF F MCHC 33.0 g/dL 32.0-3 5.5 Not Available [facility] (Lab) [address], [place], [address], 11/26/2024 18:36:36 11/20/1911/19/2024 CBC W/DIF F RDW 14.1 % 11.0-1 5.0 Not Available [facility] (Lab) [address], [place], [address], 11/26/2024 18:36:36 11/20/1911/19/2024 CBC W/DIF F plt 271 10'3/ uL 150-40 0 Not Available [facility] (Lab) [address], [place], [address], 11/26/2024 18:36:36 11/20/1911/19/2024 CBC W/DIF F MPV 10.2 fL 8.8-12 .1 Not Available [facility] (Lab) [address], [place], [address], 11/26/2024 18:36:36 11/20/1911/19/2024 CBC W/DIF F NRBC's 0.0 % 0.0 Not Available [facility] (Lab) [address], [place], [address], 11/26/2024 18:36:36 11/20/1911/19/2024 CBC W/DIF F absolute NRBCs 0.0 10'3/ uL no refere nce range establ ished Not Available [facility] (Lab) [address], [place], [address], 11/26/2024 18:36:36 11/20/19 25 11/19/2024 CBC W/DIF F neutrophils 60.1 % 34.0-7 3.0 Not Available [facility] (Lab) [address] [facility], [place], [address], 11/26/2024 18:36:36 11/20/19 25 11/19/2024 CBC W/DIF F lymphocytes 30.5 % 15.0-5 0.0 Not Available [facility] (Lab) [address] [facility], [place], [address], 11/26/2024 18:36:36 11/20/19 25 11/19/2024 CBC W/DIF F monocytes 6.3 % 1.0-15 .0 Not Available [facility] (Lab) [address] [facility], [place], [address], 11/26/2024 18:36:36 11/20/19 25 11/19/2024 CBC W/DIF F eosinophils 2.1 % 0.0-8. 0 Not Available [facility] (Lab) [address] [facility], [place], [address], 11/26/2024 18:36:36 11/20/19 25 11/19/2024 CBC W/DIF F basophils 0.7 % 0.0-2. 0 Not Available [facility] (Lab) [address] [facility], [place], [address], 11/26/2024 18:36:36 11/20/19 25 11/19/2024 CBC W/DIF F immature granulocytes 0.3 % no define d refere nce range Immat ure Granu locyt es (IG) repre sents autom ated enume ratio n of Metam yeloc ytes, Myelo cytes and Promy elocy arielle when IG is < 5%. Blast s are not inclu ded in IG and repor katherine separ ately if prese nt. Not Available [facility] (Lab) [address] [facility], [place], [address], 11/26/2024 18:36:36 11/20/1911/19/2024 CBC W/DIF F absolute neutrophils 4.6 10'3/ uL 1.5-8. 0 Not Available [facility] (Lab) [address] [facility], [place], [address], 11/26/2024 18:36:36 11/20/1911/19/2024 CBC W/DIF F absolute lymphocytes 2.3 10'3/ uL 1.0-4. 0 Not Available [facility] (Lab) [address] [facility], [place], [address], 11/26/2024 18:36:36 11/20/19 25 11/19/2024 CBC W/DIF F absolute monocytes 0.5 10'3/ uL 0.2-1. 0 Not Available [facility] (Lab) [address] [facility], [place], [address], 11/26/2024 18:36:36 11/20/19 25 11/19/2024 CBC W/DIF F absolute eosinophils 0.2 10'3/ uL 0.0-0. 6 Not Available [facility] (Lab) [address] [facility], [place], [address], 11/26/2024 18:36:36 11/20/19 25 11/19/2024 CBC W/DIF F absolute basophils 0.1 10'3/ uL 0.0-0. 3 Not Available [facility] (Lab) [address] [facility], [place], [address], 11/26/2024 18:36:36 11/20/1911/19/2024 CBC W/DIF F absolute [...] temple book. nm.or g/gen derx Not Available [facility] (Lab) [address] [facility], [place], [address], 11/26/2024 18:36:36 11/20/19 25 11/19/2024 TSH, REFLE X FREE T4 TSH 0.76 uIU/m L 0.30-5 .33 Not Available [facility] (Lab) [address] [facility], [place], [address], 11/26/2024 18:36:36 11/20/19 25 11/19/2024 CMP(C OMPRE HENSI VE METAB OLIC PANEL ) sodium 140 mmol/ L 133-14 6 Not Available [facility] (Lab) [address] [facility], [place], [address], 11/26/2024 18:36:36 11/20/19 25 11/19/2024 CMP(C OMPRE HENSI VE METAB OLIC PANEL ) potassium 4.3 mmol/ L 3.5-5. 1 Not Available [facility] (Lab) [address] [facility], [place], [address], 11/26/2024 18:36:36 11/20/19 25 11/19/2024 CMP(C OMPRE HENSI VE METAB OLIC PANEL ) chloride 100 mmol/ L 98-107 Not Available [facility] (Lab) [address] [facility], [place], [address], 11/26/2024 18:36:36 11/20/19 25 11/19/2024 CMP(C OMPRE HENSI VE METAB OLIC PANEL ) carbon dioxide 30 mmol/ L 21-31 Not Available [facility] (Lab) [address] [facility], [place], [address], 11/26/2024 18:36:36 11/20/19 25 11/19/2024 CMP(C OMPRE HENSI VE METAB OLIC PANEL ) anion gap 10 mmol/ L 4-13 Not Available [facility] (Lab) [address] [facility], [place], [address], 11/26/2024 18:36:36 11/20/19 25 11/19/2024 CMP(C OMPRE HENSI VE METAB OLIC PANEL ) blood urea nitrogen 8 mg/dL 7-25 Not Available [facility] (Lab) [address] [facility], [place], [address], 11/26/2024 18:36:36 11/20/19 25 11/19/2024 CMP(C OMPRE HENSI VE METAB OLIC PANEL ) creatinine 0.86 mg/dL 0.60-1 .30 Not Available [facility] (Lab) [address] [facility], [place], [address], 11/26/2024 18:36:36 11/20/19 25 11/19/2024 CMP(C OMPRE HENSI VE METAB OLIC PANEL ) egfrcr (CKD-epi 2020) >90 mL/mi n/1.7 3_m2 >=60 Not Available [facility] (Lab) [address] [facility], [place], [address], 11/26/2024 18:36:36 11/20/19 25 11/19/2024 CMP(C OMPRE HENSI VE METAB OLIC PANEL ) calcium 9.7 mg/dL 8.3-10 .5 Not Available [facility] (Lab) [address] [facility], [place], [address], 11/26/2024 18:36:36 11/20/19 25 11/19/2024 CMP(C OMPRE HENSI VE METAB OLIC PANEL ) glucose 89 mg/dL 70-100 Not Available [facility] (Lab) [address] [facility], [place], [address], 11/26/2024 18:36:36 11/20/19 25 11/19/2024 CMP(C OMPRE HENSI VE METAB OLIC PANEL ) protein, total 7.6 g/dL 6.4-8. 3 Not Available [facility] (Lab) [address] [facility], [place], [address], 11/26/2024 18:36:36 11/20/1911/19/2024 CMP(C OMPRE HENSI VE METAB OLIC PANEL ) albumin 4.5 g/dL 3.5-5. 0 Not Available [facility] (Lab) [address] [facility], [place], [address], 11/26/2024 18:36:36 11/20/19 25 11/19/2024 CMP(C OMPRE HENSI VE METAB OLIC PANEL ) ALT 27 units /L 9-43 Not Available [facility] (Lab) [address] [facility], [place], [address], 11/26/2024 18:36:36 11/20/19 25 11/19/2024 CMP(C OMPRE HENSI VE METAB OLIC PANEL ) alkaline phosphatase 81 units /L 34-104 Not Available [facility] (Lab) [address] [facility], [place], [address], 11/26/2024 18:36:36 11/20/19 25 11/19/2024 CMP(C OMPRE HENSI VE METAB OLIC PANEL ) AST 19 units /L 13-39 Not Available [facility] (Lab) [address] [place], [address], 11/26/2024 18:36:36 11/20/19 25 11/19/2024 CMP(C OMPRE HENSI VE METAB OLIC PANEL ) bilirubin, total 0.5 mg/dL 0.2-1. 2 Not Available [facility] (Lab) [address] [place], [address], 11/26/2024 18:36:36 11/20/1911/19/2024 CHECO TIN / IRON / TRANS CHCEO N / TIBC iron 99 ug/dL 40-170 Not Available [facility] (Lab) [address] [place], [address], 11/26/2024 18:36:37 11/20/19 25 11/19/2024 CHECO TIN / IRON / TRANS CHECO N / TIBC transferrin 268 mg/dL 200-36 0 Not Available [facility] (Lab) [address] [facility], [place], [address], 11/26/2024 18:36:37 11/20/19 25 11/19/2024 CHECO TIN / IRON / TRANS CHECO N / TIBC ferritin 25.2 NG/mL 8.0-25 2.0 Not Available [facility] (Lab) [address] [facility], [place], [address], 11/26/2024 18:36:37 11/20/19 25 11/19/2024 CHECO TIN / IRON / TRANS CHECO N / TIBC TIBC 375 ug/dL 250-45 0 Not Available [facility] (Lab) [address] [facility], [place], [address], 11/26/2024 18:36:37 11/20/19 25 11/19/2024 CHECO TIN / IRON / TRANS CHECO N / TIBC iron saturation 26 % 20-55 Not Available [facility] (Lab) [address] [facility], [place], [address], 11/26/2024 18:36:37 11/20/19 25 11/19/2024 VITAM IN D, 25-OH (TOTA L D2/D3 ) vitamin D, 25-hydroxy, total 28.6 NG/mL 30.0-1 00.0 low [place] stive of Defic iency : <20 ng/mL [place] stive of Insuf ficie ncy: 20-29 ng/mL [place] stive of Suffi cienc y: 30-10 0 ng/mL [place] stive of Toxic ity: >150 ng/mL Not Available [facility] (Lab) [address] [facility], [place], [address], 11/26/2024 18:36:37 11/20/19 25 11/19/2024 VITAM IN B12 / FOLAT E PANEL vitamin B12 455 pg/mL 180-91 4 Nanette l Range : 180-9 14 pg/mL . Indet ermin ate Range : 145-1 80 pg/mL . Defic ient Range : <=145 pg/mL . Not Available [facility] (Lab) [address] [facility], [place], [address], 11/26/2024 18:36:37 11/20/19 25 11/19/2024 VITAM IN B12 / FOLAT E PANEL folate, serum 15.5 NG/mL 6.0-20 .0 Not Available [facility] (Lab) [address] [facility], [place], [address], 11/26/2024 18:36:37 11/20/19 25 11/19/2024 HEMOG LOBIN A1C hemoglobin A1C 5.1 % 4.0-5. 6 The Ameri can Diabe arielle [employer] iatio n recom mends that a prima ry goal of thera py shoul d be a HBA1C of < 7% and that physi cians shoul d reeva luate the treat ment regim en in patie nts with HBA1C value s consi stent ly > 8%. <5.7% Nanette l 5.7 - 6.4% Incre ased risk for diabe arielle >=6.5 % Diagn ostic of diabe arielle <7.0% Goal of thera py >8.0% Actio n sugge sted Not Available [facility] (Lab) [address] [facility], [place], [address], 11/26/2024 18:36:38 11/20/19 25 11/19/2024 WOMEN 'S [...] softw are to deter mine BV posit azk or negat zak statu s. Not Available [facility] (Lab) [address] [facility], [place], [address], 11/26/2024 18:36:38 11/20/19 25 11/19/2024 WOMEN 'S HEALT H SWAB, ANU candie species, tma Negati ve negati ve Not Available [facility] (Lab) [address] [facility], [place], [address], 11/26/2024 18:36:38 11/20/19 25 11/19/2024 WOMEN 'S HEALT H SWAB, ANU candie glabrata, tma Negati ve negati ve Not Available [facility] (Lab) [address] [place], [address], 11/26/2024 18:36:38 11/20/19 25 11/19/2024 WOMEN 'S HEALT H SWAB, ANU trichomonas vaginalis, tma Negati ve negati ve This assay tests for and diffe renti ates marsha en Ariella da glabr jovan, the Ariella da speci es group (C. albic ans, C. tropi calis , C. parap alex is, C. dubli niens is), and Trich omona s vagin leena by Trans cript ion-M ediat ed Ampli ficat ion (TMA) . Not Available [facility] (Lab) [address] [facility], [place], [address], 11/26/2024 18:36:38 11/20/1911/19/2024 IMAGE GUIDE D PAP, REFLE X HPV IF ASCUS ONLY image guided Pap, reflex HPV ASCUS only SEE RESULT S BELOW abnormal CASE REPOR T: Cytol ogy Gynec ologi yesica Repor t Case: [id number] 03 Autho mich g Provi kendall: Dermo dy, Ramila , ANP, CABLE RIGGER Colle cted: 11/19 1146 Order ing Locat ion: [place] Patho logy Recei maxwell: 11/20 1154 First Scree n: [place], [place] Patho logis t: Asher Jason MD Speci men: Heidy malone Pap - Image d, Cervi x [...] patie nt consi derat ions. Not Available [facility] (Lab) [address], [place], [address], 11/26/2024 18:36:38 11/20/19 25 11/19/2024 urina lysis , dipst ick Leukocytes - Not Available [facility] [address], [place], [address], 11/19/2024 15:37:57 11/20/19 25 11/19/2024 urina lysis , dipst ick Nitrite - Not Available [facility] [address], [place], [address], 11/19/2024 15:37:57 11/20/19 25 11/19/2024 urina lysis , dipst ick Urobilinogen - Not Available [facility] earnestine [address], [place], [address], 11/19/2024 15:37:57 11/20/19 25 11/19/2024 urina lysis , dipst ick Protein trace Not Available [place] [address], [place], [address], 11/19/2024 15:37:57 11/20/19 25 11/19/2024 urina lysis , dipst ick pH 6 Not Available [place] [address], [place], [address], 11/19/2024 15:37:57 11/20/19 25 11/19/2024 urina lysis , dipst ick Specific [place] 1.000 Not Available [facility] jeison [address], [place], [address], 11/19/2024 15:37:57 11/20/19 25 11/19/2024 urina lysis , dipst ick Ketone - Not Available [place] [address], [place], [address], 11/19/2024 15:37:57 11/20/19 25 11/19/2024 urina lysis , dipst ick Bilirubin - Not Available [facility] [address], [place], [address], 11/19/2024 15:37:57 11/20/19 25 11/19/2024 urina lysis , dipst ick Glucose - Not Available [place] [address], [place], [address], 11/19/2024 15:37:57 11/20/19 25 11/19/2024 urina lysis , dipst ick Appearance clear Not Available [facility] emil [address], [place], [address], 11/19/2024 15:37:57 11/20/1911/19/2024 urina lysis , dipst ick Color light yellow Not Available [place] [address], [place], [address], 11/19/2024 15:37:57 11/24/1911/23/2024 CULTU RE: URINE result report SEE RESULT S BELOW abnormal Test: Cultu re: Urine Speci men Sourc e: Urine - Clean Catch Speci men Type: Urine Speci men Date: 2024 1624 Resul t Date: 2024 0716 Resul t Statu s: Final resul t Abnor mal: Yes Fanta buchanan Lab: [facility] [address] [facility] [address] Tel: CULTU RE ----- ----- ----- --- [...] lab withi n 5 days. Not Available [facility] (Lab) [address] [facility] [address] [facility], [place], [address], 11/25/2024 08:19:12 12/15/19 25 12/14/2024 SURGI YESICA PATHO LOGY surgical pathology SEE RESULT S BELOW CASE REPOR T: Surgi yesica Patho logy Repor t Case: [id number] Autho mich harris Provi kendall: Vanessa [...] ----- ----- ----- ----- ----- ---- CLINI EYSICA INFOR MATIO N: Atypi yesica Cervi yesica Gland ular Cells MICRO SCOPI C DESCR IPTIO N: A micro scopi c exami natio n was perfo rmed. GROSS DESCR IPTIO N: A. Endom etriu m. The speci men is label ed [facility], mason raphi cs and EMB. Recei maxwell in forma love is a 4.0 x 2.0 x 0.2 cm aggre gate of abebe-b rown tissu e mixed with mucoi d mater ial. The entir e speci men is submi tted in 2 casse ttes. Gross ed by Kathryn Dowell. Cervi x. The speci men is label ed with [facility], mason garciai cs and Cx Bx. Recei maxwell in forma love is a 0.2 x 0.2 x 0.1 cm aggre gate of mucus and minut e white -abebe tissu e. The entir e speci men is submi tted in one casse tte. The speci men may not survi ve proce ssing . Gross ed by Kathryn Arreaga. Endoc ervix . The speci men is label ed with [facility] name, alexisog raphi cs and ECC . Recei maxwell in forma love is a 1.3 x 0.8 x 0.1 cm aggre gate of mucus and minut e white -abebe tissu e. The entir e speci men is submi tted in one casse tte. Gross ed by Kathryn Lucero Not Available [facility] (Lab) [address], [place], [address], 12/17/2024 15:17:13 12/15/19 25 12/14/2024 pregn jenny test, urine HCG negati ve Not Available [facility] [address], [place], [address], 12/14/2024 15:27:14 01/22/20 25 01/21/2025 BHCG, QUANT [...] Weeks 8,099 - 58,17 6 Not Available [facility] (Lab) [address], [place], [address], 01/22/2025 07:03:05 01/24/20 25 01/23/2025 BHCG, QUANT [...] Weeks 8,099 - 58,17 6 Not Available [facility] (Lab) [address] [facility], [place], [address], 01/24/2025 07:22:49 03/02/20 24 03/02/2024 US, obste tric, nucha l trans lucen cy No observ ation record ed. Maryanne [address], [place], [address], 03/05/2024 00:53:37 03/02/20 24 03/02/2024 US, obste tric, nucha l trans lucen cy No observ ation record ed. nora [place] [address], [place], [address], 03/02/2024 15:28:10 04/04/19 25 04/04/2024 US, obste tric, limit ed No observ ation record ed. [email or web address] [place] [address], [place], [address], 04/04/2024 18:45:07 04/04/19 25 04/04/2024 US, obste tric, limit ed No observ ation record ed. [email or web address] [address], [place], [address], 04/05/2024 00:07:33 11/24/19 25 11/23/2024 US, pelvi s No observ ation record ed. [facility] [address], [place], [address], 11/23/2024 17:07:24 11/24/19 25 11/23/2024 US, trans vagin al No observ ation record ed. [facility] [address], [place], [address], 11/23/2024 17:07:33 11/24/19 25 11/23/2024 US, pelvi s No observ ation record ed. [email or web address] Maryanne [address], [place], [address], 11/29/2024 16:27:58 02/13/20 25 02/12/2025 US, obste tric, trans vagin al No observ ation record ed. [facility] [address], [place], [address], 02/12/2025 14:19:58 02/13/20 25 02/12/2025 US, obste tric, trans vagin al No observ ation record ed. RACHAEL Maryanne [address], [place], [address], 02/12/2025 11:58:48 Result Notes None recorded. Problems Name Problem SNOMED Code Status Onset Date Resolution Date Notes Provider Name and Address Organization Details Recorded Time Past pregnanc y history of pre-ecla mpsia 52615767748 9100 Completed pre-e wsevere features / PTL bASA daily 162mg Jessica alves, [facility] 15:31:26 Past pregnanc y history of pre-ecla mpsia 19842709562 9100 Active pre-e wsevere features / PTL bASA daily 162mg Jessica Green joselyn, [facility] 15:31:26 Pregnanc y [id number] Completed 202311/19/2024 Libia Hull joselyn, [facility] 11:45:43 Problem Notes None recorded. Procedures Surgical History Date Name Laterality Status Provider Name and Address Organization Details Recorded Time 025 Colposcopy completed KEELY ARROYO MD [address], [place], [address], [facility] 12/14/2024 15:20:14 025 Endometrial Biopsy completed KEELY ARROYO MD [address], [place], [address], [facility] 12/14/2024 15:20:26 023 Date of Last Pap Smear completed Lita Gonzalez [facility] 01/19/2024 10:16:07 010 Cholecystectomy completed Lita Gonzalez [facility] 01/19/2024 10:17:18 Imaging Results None recorded. Procedure Notes None recorded. Medical Equipment None Reported. Allergies Allergen ID Allergen Name Allergen Category Reaction Reaction Severity Criticality Documentation Date Start Date Code Code System Note Provider Name and Address Organization Details Recorded Time 29214 Product containin g penicilli n (product) medicatio n Not available Not available Not available 09/16/2022 76043 8001 SNOMED Sara alves [facility] 3 14:39:53 52295 metformin medicatio n Not available Not available high 02/12/20252023 6809 RxNorm unrec ogniz ed react ion (text : Other , code: 75850 07) (from exter nal sourc e) Not Available rachael - External Data Service - prod 5 03:14:03 66269 amoxicill in medicatio n rash Not available low 02/12/20252021 723 RxNorm Not Available rachael - External Data Service - prod 5 09:13:02 26419 ampicilli n medicatio n rash Not available low 02/12/20252017 733 RxNorm Not Available rachael - External Data Service - prod 5 09:13:02 22086 Substance with sulfonami de structure and antibacte rial mechanism of action (substanc e) medicatio n headache rash Not available Not available high 02/12/20252017 42544 8003 SNOMED Not Available rachael - External [...] Available TRUEplus Pen Needle 32 gauge x 32 USE TWICE DAILY active Not Available Not [...] Available Not Available No t Available Vitals None Recorded Social History Question Answer Notes LastModified by Organizat ion Details LastModified Time Tobacco Smoking Status Never Smoker Sara Miguel [facility] 09/16/2022 14:43:23 Are You Blind Or [...] Any Guns Present In Your Home? No [email or web address] Information not available 03/27/2024 Are You Sexually Active? Yes [email or web address] Information not available 03/27/2024 Do You Have Smoke And Carbon Monoxide Detectors In Your Home? Yes [email or web address] Information not available 03/27/2024 Do You Use Sunscreen Routinely? No [email or web address] Information not available 03/27/2024 Do You Have Difficulty Walking Or Climbing Stairs? No Information not available 09/16/2022 Sex: Unknown Functional Status Question Answer Note LastModified by Organizat ion Details LastModified Time Do you use any illicit or recreational drugs? No [email or web address] Information not available 03/27/2024 Do you or have you ever used any other forms of tobacco or nicotine? No [email or web address] Information not available 03/27/2024 What is your level of alcohol consumption? None Information not available 09/16/2022 Are you currently employed? Yes [email or web address] Information not available 03/27/2024 Are you able [...] ICD10 Code Diagnosis IMO Codes Diagnosis Note [id number] KEELY ARROYO MD [place] [address] [address] 02/12/2025 09:11:56 02/12/2025 10:19:40 screening [id number] Z36.87 Z3A.01 [id number] Health Concerns Section Related Observation LastModified by Organization Detai ls LastModified Time None Recorded Concern Status LastModified by Organization Details LastModified Time None Recorded Payers Encounter Date Sequence Insurance Name Policy Number Policy Vera Covered Member ID Vera Member ID Guarantor Name 02/12/2025 1 [employer] [id number] Rosas Aguilera Jr [id number] Damaris Aguilera OBGyn Episode Ob Episode Information Episode Created Date Number of Fetuses Patient Bloodtype Patient rh Status Prepregnancy Weight lbs Domestic Partner Domestic Partner Phone Father Name [employer] Professor Status 03/02/20 24 1 O Positive Rosas Aceves CLOSED Fetus Data First Name Last Name Admitted to NICU Weight (g) Sex Living Outcome Pediatric Complications Fetus ID Race Codes Race Delivery Type Ermias Marti nt [phone] M [id number] Problems Problem Notes Palpitations - 72hr Holter m onitor order faxed 04/03 [place] [facility] Problem Name Start Date End Date Resolution Snomed Code Not e Past history of pre-eclampsia [id number] pre-e wseve re features / PTL bASA [...] Date Ultra Sound Latest Days Gestation 0 [email or web address] 03/05/2024 09/11/19 25 0 Pre- Flowsheet Flowsheet [...] Weight in lbs Pre/Post Dialysis Refused Weight 284.452332785551 BP Diastolic BP Location Tested BP Systolic BP Type 84 L arm 135 sitting Fetus Heart Rate Present A 162 Fetus Movement Comments [facility]. Nausea worsening, has tried Reglan [...] Weight in lbs Pre/Post Dialysis Refused Weight 283.449400677724 BP Diastolic BP Location Tested BP Systolic [...] Type Weight in lbs Pre/Post Dialysis Refused 283.975025316427 BP Diastolic BP Location Tested BP Systolic [...] Weight in lbs Pre/Post Dialysis Refused Weight 284.444576889927 BP Diastolic BP Location Tested BP Systolic [...]
--- OUTSIDE RECORDS SUMMARY | 2025-02-16 21:13 | XMS_ITS | Encounter Summary ---
Author Organization [facility] Address [facility] [place] [address] Care Team Providers Care Geomatics Professor Name Role Phone Joo Edmonds MD Primary Care Provider [phone] Jesus Paulino MD Primary Care Provider [phone] Oswaldo Avina MD Primary Care Provider [phone] Ramila Pal MD Primary Care Provider [phone] Encounter Details Date Type Department Care Team (Late st Contact Info) Description 05/24/2022 [email or web address] Message [facility] Patient Accounts [address] [place] [address] [facility] Provider ACTION REQUIRED Social History Tobacco [...] Assessment Author Status No 04/22/2022 9:51 AM GEOLOGICAL SCIENCE TEACHER Activ e * RETIRED Are you blind or do you have serious difficulty seeing, even when wearing glasses? Answer Date of Assessment Author Status No 04/22/2022 9:51 AM GEOLOGICAL SCIENCE TEACHER Activ e * Do you have serious difficulty walking or climbing stairs? Answer Date of Assessment Author Status No 04/22/2022 9:51 AM GEOLOGICAL SCIENCE TEACHER Rachel Upton RN Active * Do you [...] Care Team (Late st Contact Info) Description 02/28/2025 9:40 AM GEOLOGICAL SCIENCE TEACHER Office Visit [facility] Family & Internal Medicine [address] [address] Shasha Victor, DO [address] [address] 04/09/2025 10:30 AM GEOLOGICAL SCIENCE TEACHER Office Visit [facility] Family [facility] [address] [facility] [address] [place] [id number] Tina Montoya MD [address] [facility] [address] [place] [id number] documented as of this encounter Visit Diagnoses Not on filedocumented in this encounter Additional Health Concerns Infection Onset Date Last Indicated Resolved Time COVID-19 Rule Out 01/26/2024 01/26/2024 01/26/2024 3:44 AM GEOLOGICAL SCIENCE TEACHER COVID-19 Rule Out 11/18/2024 11/18/2024 11/18/2024 1:00 AM CDT documented as of this encounter Care Teams Geomatics Professor Relationship Specialty Start Date End Date Joo Edmonds MD PCP - General FAMILY PRACTICE 11/10/20 01/23/23 Jesus Paulino MD [address] [place] [address] PCP - General FAMILY PRACTICE 01/24/23 06/26/23 Oswaldo Avina MD [address] [place] [address] PCP - General FAMILY PRACTICE 06/27/23 12/25/23 Ramila Pal MD [address] [place] [address] PCP - General FAMILY PRACTICE 12/26/23 documented as of this encounter
--- OUTSIDE RECORDS SUMMARY | 2025-02-16 21:13 | XMS_ITS | Continuity of Care Document ---
Author Organization [facility] [place] Address [address] [place] [address] [place] [address] Assessment No assessment recorded. Plan of Treatment [...] d. Surgeries None recorde d. Imaging US, pelvis [id number], [address], [address], [place], [address], 11/23/2024 17:55:58 US, transva ginal 2024 [email or web address], [address], [place], [address], 11/23/2024 17:55:58 Medication Orders None recorde d. Patient TargetsNo targets recorded. Patient InstructionsNo instructions recorded. Reason for Referral None Reported. Results Created Date Observation Date Name Description Value Unit Range Abnormal Flag Note LastModifiedBy Organization Detail LastModifiedTime 04/03/1904/03/2024 CMP/C BC/UR IC ACID WBC 8.4 10'3/ uL 3.5-10 .5 Not Available [facility] (Lab) [address], [place], [address], 04/04/2024 05:15:08 04/03/19 25 04/03/2024 CMP/C BC/UR IC ACID RBC 4.40 10'6/ uL (based on docume nted legal sex) 3.80-5 .20 Not Available [facility] (Lab) [address], [place], [address], 04/04/2024 05:15:08 04/03/19 25 04/03/2024 CMP/C BC/UR IC ACID HGB 11.9 g/dL (based on docume nted legal sex) 11.6-1 5.4 Not Available [facility] (Lab) [address], [place], [address], 04/04/2024 05:15:08 04/03/19 25 04/03/2024 CMP/C BC/UR IC ACID HCT 37.3 % (based on docume nted legal sex) 34.0-4 5.0 Not Available [facility] (Lab) [address], [place], [address], 04/04/2024 05:15:08 04/03/19 25 04/03/2024 CMP/C BC/UR IC ACID MCV 84.8 fL 80.0-9 9.0 Not Available [facility] (Lab) [address] [place], [address], 04/04/2024 05:15:08 04/03/19 25 04/03/2024 CMP/C BC/UR IC ACID MCH 27.0 pg 27.0-3 4.0 Not Available [facility] (Lab) [address] [place], [address], 04/04/2024 05:15:08 04/03/19 25 04/03/2024 CMP/C BC/UR IC ACID MCHC 31.9 g/dL 32.0-3 5.5 low Not Available [facility] (Lab) [address] [place], [address], 04/04/2024 05:15:08 04/03/19 25 04/03/2024 CMP/C BC/UR IC ACID RDW 14.9 % 11.0-1 5.0 Not Available [facility] (Lab) [address] [facility], [place], [address], 04/04/2024 05:15:08 04/03/19 25 04/03/2024 CMP/C BC/UR IC ACID plt 239 10'3/ uL 150-40 0 Not Available [facility] (Lab) [address] [facility], [place], [address], 04/04/2024 05:15:08 04/03/19 25 04/03/2024 CMP/C BC/UR IC ACID MPV 12.5 fL 8.8-12 .1 high Not Available [facility] (Lab) [address] [facility], [place], [address], 04/04/2024 05:15:08 04/03/19 25 04/03/2024 CMP/C BC/UR IC ACID neutrophils 62.7 % 34.0-7 3.0 Not Available [facility] (Lab) [address] [facility], [place], [address], 04/04/2024 05:15:08 04/03/19 25 04/03/2024 CMP/C BC/UR IC ACID lymphocytes 27.2 % 15.0-5 0.0 Not Available [facility] (Lab) [address] [facility], [place], [address], 04/04/2024 05:15:08 04/03/19 25 04/03/2024 CMP/C BC/UR IC ACID monocytes 6.9 % 1.0-15 .0 Not Available [facility] (Lab) [address] [place], [address], 04/04/2024 05:15:08 04/03/19 25 04/03/2024 CMP/C BC/UR IC ACID eosinophils 2.4 % 0.0-8. 0 Not Available [facility] (Lab) [address] [facility], [place], [address], 04/04/2024 05:15:08 04/03/1904/03/2024 CMP/C BC/UR IC ACID basophils 0.4 % 0.0-2. 0 Not Available [facility] (Lab) [address] [facility], [place], [address], 04/04/2024 05:15:08 04/03/19 25 04/03/2024 CMP/C BC/UR [...] [address] [facility], [place], [address], 04/04/2024 05:15:08 04/03/19 25 04/03/2024 CMP/C BC/UR IC ACID absolute neutrophils 5.3 10'3/ uL 1.5-8. 0 Not Available [facility] (Lab) [address] [facility], [place], [address], 04/04/2024 05:15:08 04/03/19 25 04/03/2024 CMP/C BC/UR IC ACID absolute lymphocytes 2.3 10'3/ uL 1.0-4. 0 Not Available [facility] (Lab) [address] [facility], [place], [address], 04/04/2024 05:15:08 04/03/19 25 04/03/2024 CMP/C BC/UR IC ACID absolute monocytes 0.6 10'3/ uL 0.2-1. 0 Not Available [facility] (Lab) [address] [place], [address], 04/04/2024 05:15:08 04/03/19 25 04/03/2024 CMP/C BC/UR IC ACID absolute eosinophils 0.2 10'3/ uL 0.0-0. 6 Not Available [facility] (Lab) [address], [place], [address], 04/04/2024 05:15:08 04/03/19 25 04/03/2024 CMP/C BC/UR IC ACID absolute basophils 0.0 10'3/ uL 0.0-0. 3 Not Available [facility] (Lab) [address] [facility], [place], [address], 04/04/2024 05:15:08 04/03/19 25 04/03/2024 CMP/C BC/UR [...] Available [facility] (Lab) [address], [place], [address], 04/04/2024 05:15:08 04/03/19 25 04/03/2024 CMP/C BC/UR IC ACID uric acid 3.5 mg/dL 2.3-6. 6 Not Available [facility] (Lab) [address], [place], [address], 04/04/2024 05:15:08 04/03/19 25 04/03/2024 CMP/C BC/UR IC ACID sodium 138 mmol/ L 133-14 6 Not Available [facility] (Lab) [address] [place], [address], 04/04/2024 05:15:08 04/03/19 25 04/03/2024 CMP/C BC/UR IC ACID potassium 4.1 mmol/ L 3.5-5. 1 Not Available [facility] (Lab) [address] [facility], [place], [address], 04/04/2024 05:15:08 04/03/19 25 04/03/2024 CMP/C BC/UR IC ACID chloride 102 mmol/ L 98-107 Not Available [facility] (Lab) [address], [place], [address], 04/04/2024 05:15:08 04/03/19 25 04/03/2024 CMP/C BC/UR IC ACID carbon dioxide 27 mmol/ L 21-31 Not Available [facility] (Lab) [address], [place], [address], 04/04/2024 05:15:08 04/03/19 25 04/03/2024 CMP/C BC/UR IC ACID anion gap 9 mmol/ L 4-13 Not Available [facility] (Lab) [address] [place], [address], 04/04/2024 05:15:08 04/03/19 25 04/03/2024 CMP/C BC/UR IC ACID blood urea nitrogen 5 mg/dL 7-25 low Not Available [facility] (Lab) [address] [place], [address], 04/04/2024 05:15:08 04/03/19 25 04/03/2024 CMP/C BC/UR IC ACID creatinine 0.54 mg/dL 0.60-1 .30 low Not Available [facility] (Lab) [address] [place], [address], 04/04/2024 05:15:08 04/03/19 25 04/03/2024 CMP/C BC/UR IC ACID egfrcr (CKD-epi 2020) >90 mL/mi n/1.7 3_m2 >=60 Not Available [facility] (Lab) [address] [place], [address], 04/04/2024 05:15:08 04/03/19 25 04/03/2024 CMP/C BC/UR IC ACID calcium 9.5 mg/dL 8.3-10 .5 Not Available [facility] (Lab) [address] [facility], [place], [address], 04/04/2024 05:15:08 04/03/19 25 04/03/2024 CMP/C BC/UR IC ACID glucose 85 mg/dL 70-100 Not Available [facility] (Lab) [address] [facility], [place], [address], 04/04/2024 05:15:08 04/03/19 25 04/03/2024 CMP/C BC/UR IC ACID protein, total 6.7 g/dL 6.4-8. 3 Not Available [facility] (Lab) [address] [place], [address], 04/04/2024 05:15:08 04/03/19 25 04/03/2024 CMP/C BC/UR IC ACID albumin 3.7 g/dL 3.5-5. 0 Not Available [facility] (Lab) [address] [facility], [place], [address], 04/04/2024 05:15:08 04/03/19 25 04/03/2024 CMP/C BC/UR IC ACID ALT 9 units /L 9-43 Not Available [facility] (Lab) [address] [place], [address], 04/04/2024 05:15:08 04/03/19 25 04/03/2024 CMP/C BC/UR IC ACID alkaline phosphatase 55 units /L 34-104 Not Available [facility] (Lab) [address] [place], [address], 04/04/2024 05:15:08 04/03/19 25 04/03/2024 CMP/C BC/UR IC ACID AST 11 units /L 13-39 low Not Available [facility] (Lab) [address] [facility], [place], [address], 04/04/2024 05:15:08 04/03/19 25 04/03/2024 CMP/C BC/UR IC ACID bilirubin, total 0.2 mg/dL 0.2-1. 2 Not Available [facility] (Lab) [address] [facility], [place], [address], 04/04/2024 05:15:08 04/03/19 25 04/03/2024 PROTE IN/CR EATIN INE RATIO , URINE creatinine, urine 61.2 mg/dL R-No refer ence range estab lishe d for this assay Not Available [facility] (Lab) [address] [facility], [place], [address], 04/04/2024 05:15:09 04/03/19 25 04/03/2024 PROTE IN/CR EATIN INE RATIO , URINE protein, urine 5 mg/dL R-No refer ence range estab lishe d for this assay Not Available [facility] (Lab) [address] [facility], [place], [address], 04/04/2024 05:15:09 04/03/19 25 04/03/2024 PROTE IN/CR [...] [address] [facility], [place], [address], 04/04/2024 05:15:09 11/20/19 25 11/19/2024 CULTU RE: URINE result report SEE RESULT S BELOW Test: Cultu re: Urine Speci men Sourc e: Urine - Clean Catch Speci men Type: Urine Speci men Date: 025 1512 Resul t Date: 2024 1240 Resul t Statu s: Final resul t Abnor mal: No Resul ting Lab: [facility] [address] [facility] [facility] [address] Tel: CULTU RE ----- ----- ----- --- Cultu re resul t (>=3 organ isms prese nt) indic ates possi ble conta minat ion. Repea t cultu re if sympt oms indic ate. Not Available [facility] (Lab) [address] [facility], [place], [address], 11/21/2024 13:43:47 11/20/1911/19/2024 CBC W/DIF F WBC 7.6 10'3/ uL 3.5-10 .5 Not Available [facility] (Lab) [address] [facility], [place], [address], 11/26/2024 18:36:36 11/20/1911/19/2024 CBC W/DIF F RBC 4.97 10'6/ uL (based on docume nted legal sex) 3.80-5 .20 Not Available [facility] (Lab) [address] [facility], [place], [address], 11/26/2024 18:36:36 11/20/1911/19/2024 CBC W/DIF F HGB 13.7 g/dL (based on docume nted legal sex) 11.6-1 5.4 Not Available [facility] (Lab) [address] [facility], [place], [address], 11/26/2024 18:36:36 11/20/1911/19/2024 CBC W/DIF F HCT 41.5 % (based on docume nted legal sex) 34.0-4 5.0 Not Available [facility] (Lab) [address] [place], [address], 11/26/2024 18:36:36 11/20/1911/19/2024 CBC W/DIF F MCV 83.5 fL 80.0-9 9.0 Not Available [facility] (Lab) [address], [place], [address], 11/26/2024 18:36:36 11/20/1911/19/2024 CBC W/DIF F MCH 27.6 pg 27.0-3 4.0 Not Available [facility] (Lab) [address] [facility], [place], [address], 11/26/2024 18:36:36 11/20/1911/19/2024 CBC W/DIF F MCHC 33.0 g/dL 32.0-3 5.5 Not Available [facility] (Lab) [address], [place], [address], 11/26/2024 18:36:36 11/20/1911/19/2024 CBC W/DIF F RDW 14.1 % 11.0-1 5.0 Not Available [facility] (Lab) [address], [place], [address], 11/26/2024 18:36:36 11/20/1911/19/2024 CBC W/DIF F plt 271 10'3/ uL 150-40 0 Not Available [facility] (Lab) [address], [place], [address], 11/26/2024 18:36:36 11/20/1911/19/2024 CBC W/DIF F MPV 10.2 fL 8.8-12 .1 Not Available [facility] (Lab) [address] [facility], [place], [address], 11/26/2024 18:36:36 11/20/19 25 11/19/2024 CBC W/DIF F NRBC's 0.0 % 0.0 Not Available [facility] (Lab) [address], [place], [address], 11/26/2024 18:36:36 11/20/19 25 11/19/2024 CBC W/DIF F absolute NRBCs 0.0 10'3/ uL no refere nce range establ ished Not Available [facility] (Lab) [address] [facility], [place], [address], 11/26/2024 18:36:36 11/20/19 25 11/19/2024 CBC W/DIF F neutrophils 60.1 % 34.0-7 3.0 Not Available [facility] (Lab) [address] [facility], [place], [address], 11/26/2024 18:36:36 11/20/1911/19/2024 CBC W/DIF F lymphocytes 30.5 % 15.0-5 0.0 Not Available [facility] (Lab) [address] [facility], [place], [address], 11/26/2024 18:36:36 11/20/19 25 11/19/2024 CBC W/DIF F monocytes 6.3 % 1.0-15 .0 Not Available [facility] (Lab) [address] [facility], [place], [address], 11/26/2024 18:36:36 11/20/19 25 11/19/2024 CBC W/DIF F eosinophils 2.1 % 0.0-8. 0 Not Available [facility] (Lab) [address] [facility], [place], [address], 11/26/2024 18:36:36 11/20/1911/19/2024 CBC W/DIF F basophils 0.7 % 0.0-2. 0 Not Available [facility] (Lab) [address] [facility], [place], [address], 11/26/2024 18:36:36 11/20/1911/19/2024 CBC W/DIF F immature [...] [address] [facility], [place], [address], 11/26/2024 18:36:36 11/20/1911/19/2024 CBC W/DIF F absolute neutrophils 4.6 10'3/ uL 1.5-8. 0 Not Available [facility] (Lab) [address] [facility], [place], [address], 11/26/2024 18:36:36 11/20/1911/19/2024 CBC W/DIF F absolute lymphocytes 2.3 10'3/ uL 1.0-4. 0 Not Available [facility] (Lab) [address] [facility], [place], [address], 11/26/2024 18:36:36 11/20/19 25 11/19/2024 CBC W/DIF F absolute monocytes 0.5 10'3/ uL 0.2-1. 0 Not Available [facility] (Lab) [address] [facility], [place], [address], 11/26/2024 18:36:36 11/20/19 25 11/19/2024 CBC W/DIF F absolute eosinophils 0.2 10'3/ uL 0.0-0. 6 Not Available [facility] (Lab) [address] [facility], [place], [address], 11/26/2024 18:36:36 11/20/1911/19/2024 CBC W/DIF F absolute basophils 0.1 10'3/ uL 0.0-0. 3 Not Available [facility] (Lab) [address] [facility], [place], [address], 11/26/2024 18:36:36 11/20/19 25 11/19/2024 CBC W/DIF F absolute immature granulocytes 0.0 10'3/ uL 0.00-0 .10 Refer ence range s for nonbi nary/ inter sex or unspe cifie d gende r patie nts have not been estab lishe d. Rukhsana mayer refer to the timothyo wing table for range s estab lishe d for cisge nder patie nts and evalu ate in the clini yesica isabel xt of the indiv idual patie nt: https ://[facility] book. nm.or g/gen derx Not Available [facility] (Lab) [address] [facility], [place], [address], 11/26/2024 18:36:36 11/20/1911/19/2024 TSH, REFLE X FREE T4 TSH 0.76 uIU/m L 0.30-5 .33 Not Available [facility] (Lab) [address] [facility], [place], [address], 11/26/2024 18:36:36 11/20/19 25 11/19/2024 CMP(C OMPRE HENSI VE METAB OLIC PANEL ) sodium 140 mmol/ L 133-14 6 Not Available [facility] (Lab) [address] [facility], [place], [address], 11/26/2024 18:36:36 11/20/19 25 11/19/2024 CMP(C OMPRE HENSI VE METAB OLIC PANEL ) potassium 4.3 mmol/ L 3.5-5. 1 Not Available [facility] (Lab) [address] [facility], [place], [address], 11/26/2024 18:36:36 11/20/19 25 11/19/2024 CMP(C OMPRE HENSI VE METAB OLIC PANEL ) chloride 100 mmol/ L 98-107 Not Available [facility] (Lab) [address] [place], [address], 11/26/2024 18:36:36 11/20/19 25 11/19/2024 CMP(C OMPRE HENSI VE METAB OLIC PANEL ) carbon dioxide 30 mmol/ L 21-31 Not Available [facility] (Lab) [address] [facility], [place], [address], 11/26/2024 18:36:36 11/20/19 25 11/19/2024 CMP(C OMPRE HENSI VE METAB OLIC PANEL ) anion gap 10 mmol/ L 4-13 Not Available [facility] (Lab) [address] [facility], [place], [address], 11/26/2024 18:36:36 11/20/19 25 11/19/2024 CMP(C OMPRE HENSI VE METAB OLIC PANEL ) blood urea nitrogen 8 mg/dL 7-25 Not Available [facility] (Lab) [address] [facility], [place], [address], 11/26/2024 18:36:36 11/20/19 25 11/19/2024 CMP(C OMPRE HENSI VE METAB OLIC PANEL ) creatinine 0.86 mg/dL 0.60-1 .30 Not Available [facility] (Lab) [address] [facility], [place], [address], 11/26/2024 18:36:36 11/20/19 25 11/19/2024 CMP(C OMPRE HENSI VE METAB OLIC PANEL ) egfrcr (CKD-epi 2020) >90 mL/mi n/1.7 3_m2 >=60 Not Available [facility] (Lab) [address] [facility], [place], [address], 11/26/2024 18:36:36 11/20/19 25 11/19/2024 CMP(C OMPRE HENSI VE METAB OLIC PANEL ) calcium 9.7 mg/dL 8.3-10 .5 Not Available [facility] (Lab) [address] [place], [address], 11/26/2024 18:36:36 11/20/19 25 11/19/2024 CMP(C OMPRE HENSI VE METAB OLIC PANEL ) glucose 89 mg/dL 70-100 Not Available [facility] (Lab) [address] [facility], [place], [address], 11/26/2024 18:36:36 11/20/19 25 11/19/2024 CMP(C OMPRE HENSI VE METAB OLIC PANEL ) protein, total 7.6 g/dL 6.4-8. 3 Not Available [facility] (Lab) [address] [facility], [place], [address], 11/26/2024 18:36:36 11/20/19 25 11/19/2024 CMP(C OMPRE HENSI VE METAB OLIC PANEL ) albumin 4.5 g/dL 3.5-5. 0 Not Available [facility] (Lab) [address] [facility], [place], [address], 11/26/2024 18:36:36 11/20/19 25 11/19/2024 CMP(C OMPRE HENSI VE METAB OLIC PANEL ) ALT 27 units /L 9-43 Not Available [facility] (Lab) [address] [facility], [place], [address], 11/26/2024 18:36:36 11/20/19 25 11/19/2024 CMP(C OMPRE HENSI VE METAB OLIC PANEL ) alkaline phosphatase 81 units /L 34-104 Not Available [facility] (Lab) [address] [facility], [place], [address], 11/26/2024 18:36:36 11/20/19 25 11/19/2024 CMP(C OMPRE HENSI VE METAB OLIC PANEL ) AST 19 units /L 13-39 Not Available [facility] (Lab) [address] [facility], [place], [address], 11/26/2024 18:36:36 11/20/19 25 11/19/2024 CMP(C OMPRE HENSI VE METAB OLIC PANEL ) bilirubin, total 0.5 mg/dL 0.2-1. 2 Not Available [facility] (Lab) [address] [facility], [place], [address], 11/26/2024 18:36:36 11/20/19 25 11/19/2024 CHECO TIN / IRON / TRANS CHECO N / TIBC iron 99 ug/dL 40-170 Not Available [facility] (Lab) [address] [facility], [place], [address], 11/26/2024 18:36:37 11/20/19 25 11/19/2024 CHECO TIN / IRON / TRANS CHECO N / TIBC transferrin 268 mg/dL 200-36 0 Not Available [facility] (Lab) [address] [facility], [place], [address], 11/26/2024 18:36:37 11/20/19 25 11/19/2024 CHECO TIN / IRON / TRANS CHECO N / TIBC ferritin 25.2 NG/mL 8.0-25 2.0 Not Available [facility] (Lab) [address] [facility], [place], [address], 11/26/2024 18:36:37 11/20/19 25 11/19/2024 CHECO TIN / IRON / TRANS CHECO N / TIBC TIBC 375 ug/dL 250-45 0 Not Available [facility] (Lab) [address] [facility], [place], [address], 11/26/2024 18:36:37 11/20/19 25 11/19/2024 CHECO TIN / IRON / TRANS CHECO N / TIBC iron saturation 26 % 20-55 Not Available [facility] (Lab) [address] [facility], [place], [address], 11/26/2024 18:36:37 11/20/19 25 11/19/2024 VITAM IN [...] [address] [facility], [place], [address], 11/26/2024 18:36:37 11/20/1911/19/2024 VITAM IN B12 / FOLAT E PANEL vitamin B12 455 pg/mL 180-91 4 Nanette l Range : 180-9 14 pg/mL . Indet ermin ate Range : 145-1 80 pg/mL . Defic ient Range : <=145 pg/mL . Not Available [facility] (Lab) [address] [facility], [place], [address], 11/26/2024 18:36:37 11/20/1911/19/2024 VITAM IN B12 / FOLAT E PANEL folate, serum 15.5 NG/mL 6.0-20 .0 Not Available [facility] (Lab) [address] [facility], [place], [address], 11/26/2024 18:36:37 11/20/1911/19/2024 HEMOG LOBIN A1C hemoglobin [...] [address] [facility], [place], [address], 11/26/2024 18:36:38 11/20/1911/19/2024 WOMEN 'S HEALT H [...] [address] [facility], [place], [address], 11/26/2024 18:36:38 11/20/19 25 11/19/2024 WOMEN 'S HEALT H SWAB, ANU candie species, tma Negati ve negati ve Not Available [facility] (Lab) [address] [place], [address], 11/26/2024 18:36:38 11/20/19 25 11/19/2024 WOMEN 'S HEALT H SWAB, ANU candie glabrata, tma Negati ve negati ve Not Available [facility] (Lab) [address] [facility], [place], [address], 11/26/2024 18:36:38 11/20/19 25 11/19/2024 WOMEN 'S HEALT H SWAB, ANU trichomonas vaginalis, tma Negati ve negati ve This assay tests for and diffe renti atefrantz larson en Ariella da glabr jovan, the Ariella da speci es group (C. albic ans, C. tropi calis , C. parap alex is, C. dubli niens is), and Trich omona s vagin leena by Trans cript ion-M ediat ed Ampli ficat ion (TMA) . Not Available [facility] (Lab) [address] [facility], [place], [address], 11/26/2024 18:36:38 11/20/19 25 11/19/2024 IMAGE GUIDE D PAP, REFLE X HPV IF ASCUS ONLY image guided Pap, reflex HPV ASCUS only SEE RESULT S BELOW abnormal CASE REPOR T: Cytol ogy Gynec ologi yesica Repor t Case: [id number] Autho mich harris Provi kendall: Mikel pierce, Ramila , ANP, BRADDER Colle cted: 11/19 1146 Order ing Locat [...] renti ation . COMME NT: Slide scree rickecho black due to rejec tion by the Thinp rep Imagi ng Syste m. CLINI YESICA INFOR MATIO N: Menst rual Statu s: LMP (if appli cable ): Clini yesica Histo ry/Pr eviou s Pap: Type of Neopl david (if appli cable ): Signi fican t Clini yesica Findi ngs: Other Histo ry: Hormo sveta (if appli cable ): SUGCINDY STED FOLLO W-UP: Follo w up as warra nted, based on curre nt guide lines and indiv idual patie nt consi derat ions. Not Available [facility] (Lab) [address], [place], [address], 11/26/2024 18:36:38 11/20/1911/19/2024 urina lysis , dipst ick Leukocytes - Not Available [facility] [address], [place], [address], 11/19/2024 15:37:57 11/20/19 25 11/19/2024 urina lysis , dipst ick Nitrite - Not Available [place] [address], [place], [address], 11/19/2024 15:37:57 11/20/19 25 11/19/2024 urina lysis , dipst ick Urobilinogen - Not Available [facility] [address], [place], [address], 11/19/2024 15:37:57 11/20/19 25 11/19/2024 urina lysis , dipst ick Protein trace Not Available [place] [address], [place], [address], 11/19/2024 15:37:57 11/20/19 25 11/19/2024 urina lysis , dipst ick pH 6 Not Available [place] [address], [place], [address], 11/19/2024 15:37:57 11/20/19 25 11/19/2024 urina lysis , dipst ick Specific [place] 1.000 Not Available [facility] [address], [place], [address], 11/19/2024 15:37:57 11/20/19 25 11/19/2024 urina lysis , dipst ick Ketone - Not Available [place] [address], [place], [address], 11/19/2024 15:37:57 11/20/19 25 11/19/2024 urina lysis , dipst ick Bilirubin - Not Available [facility] [address], [place], [address], 11/19/2024 15:37:57 11/20/1911/19/2024 urina lysis , dipst ick Glucose - Not Available [place] [address], [place], [address], 11/19/2024 15:37:57 11/20/1911/19/2024 urina lysis , dipst ick Appearance clear Not Available [facility] [address], [place], [address], 11/19/2024 15:37:57 11/20/1911/19/2024 urina lysis , dipst ick Color light yellow Not Available [place] [address], [place], [address], 11/19/2024 15:37:57 11/24/1911/23/2024 CULTU RE: URINE result report SEE RESULT S BELOW abnormal Test: Cultu re: Urine Speci men Sourc e: Urine - Clean Catch Speci men Type: Urine Speci men Date: 2024 1624 Resul t Date: 2024 0716 Resul t Statu s: Final resul t Abnor mal: Yes Resul chanel Lab: [facility] [address] [facility] [address] Tel: CULTU RE ----- ----- ----- --- [...] Available [facility] (Lab) [address], [place], [address], 11/25/2024 08:19:12 03/02/20 24 03/02/2024 US, obste tric, nucha l trans lucen cy No observ ation record ed. [id number] Maryanne [address] [place] [address], [place], [address], 03/05/2024 00:53:37 03/02/20 24 03/02/2024 US, obste tric, nucha l trans lucen cy No observ ation record ed. [facility] [address], [place], [address], 03/02/2024 15:28:10 04/04/19 25 04/04/2024 US, obstleyla tric, limit ed No observ ation record ed. [email or web address] [place] [address], [place], [address], 04/04/2024 18:45:07 04/04/19 25 04/04/2024 US, obste tric, limit ed No observ ation record ed. [email or web address] Maryanne [address], [place], [address], 04/05/2024 00:07:33 11/24/19 25 11/23/2024 US, pelvi s No observ ation record ed. [facility] [address], [place], [address], 11/23/2024 17:07:24 11/24/19 25 11/23/2024 US, trans vagin al No observ ation record ed. [facility] [address], [place], [address], 11/23/2024 17:07:33 11/24/19 25 11/23/2024 US, pelvi s No observ ation record ed. [email or web address] Maryanne [address], [place], [address], 11/29/2024 16:27:58 02/13/20 25 02/12/2025 US, obste tric, trans vagin al No observ ation record ed. [facility] [address], [place], [address], 02/12/2025 14:19:58 02/13/20 25 02/12/2025 US, obste tric, trans vagin al No observ ation record ed. RACHAEL Maryanne [address], [place], [address], 02/12/2025 11:58:48 Result Notes None recorded. Problems Name Problem SNOMED Code Status Onset Date Resolution Date Notes Provider Name and Address Organization Details Recorded Time Past pregnanc y history of pre-ecla mpsia 86349573659 9100 Completed pre-e wsevere features / PTL bASA daily 162mg Jessica alves [place] - [facility] 15:31:26 Past pregnanc y history of pre-ecla mpsia 85881807802 9100 Active pre-e wsevere features / PTL bASA daily 162mg Jessica Rodney [facility] 15:31:26 Pregnanc y 12950722 Completed 202311/19/2024 Libia Hull [facility], [facility] 11:45:43 Problem Notes None recorded. Procedures Surgical History Date Name Laterality Status Provider Name and Address Organization Details Recorded Time 025 Colposcopy completed KEELY NOLASCO MD [address], [place], [address], [facility] 12/14/2024 15:20:14 025 Endometrial Biopsy completed KEELY NOLASCO MD [address], [place], [address], [facility] 12/14/2024 15:20:26 023 Date of Last Pap Smear completed Liat Gonzalez [facility] 01/19/2024 10:16:07 010 Cholecystectomy completed Litamarlin Gonzalez [facility] 01/19/2024 10:17:18 Imaging Results None recorded. Procedure Notes None recorded. Medical Equipment None Reported. Allergies Allergen ID Allergen Name Allergen Category Reaction Reaction Severity Criticality Documentation Date Start Date Code Code System Note Provider Name and Address Organization Details Recorded Time 87580 Product containin g penicilli n (product) medicatio n Not available Not available Not available 09/16/2022 51095 8001 SNOMED Sara Schroedte r [facility] 3 14:39:53 44924 metformin medicatio n Not available Not available [facility] 02/12/20252023 6809 RxNorm unrec ogniz ed react ion (text : Other , code: 34811 07) (from [facility]) Not Available rachael - External Data Service - prod 5 03:14:03 72488 amoxicill in medicatio n rash Not available low 02/12/20252021 723 RxNorm Not Available [facility] External Data Service - prod 5 09:13:02 55332 ampicilli n medicatio n rash Not available low 02/12/20252017 733 RxNorm Not Available [facility] External Data Service - prod 5 09:13:02 74744 Substance with sulfonami de structure and antibacte rial mechanism of action (substanc e) medicatio n headache rash Not available Not available high 02/12/20252017 40886 8003 SNOMED Not Available [facility] External Data Service - prod 5 09:13:02 [...] Tobacco Smoking Status Never Smoker Sara Miguel [facility] 09/16/2022 14:43:23 Are You Blind Or [...] Any Guns Present In Your Home? No [email or web address] Information not available 03/27/2024 Are You Sexually Active? Yes Information not available 03/27/2024 Do You Have Smoke And Carbon Monoxide Detectors In Your Home? Yes [email or web address] Information not available 03/27/2024 Do You Use Sunscreen Routinely? No [email or web address] Information not available 03/27/2024 Do You Have Difficulty Walking Or Climbing Stairs? No Information not available 09/16/2022 Sex: Unknown Functional Status Question Answer Note LastModified by Organizat ion Details LastModified Time Do you use any illicit or recreational drugs? No Information not available 03/27/2024 Do you or have you ever used any other forms of tobacco or nicotine? No [email or web address] Information not available 03/27/2024 What is your [...] ICD10 Code Diagnosis IMO Codes Diagnosis Note [id number] RAMILA ALMEIDA NP [place] [address] [address] 11/19/2024 11:28:22 11/19/2024 14:08:31 Dizziness 307084313 R42 14118 Labs ordered to r/o causes of intermitte nt dizziness and headaches. Hx gHTN; Patient states that home BP readings have been consistent ly normal (<120/80). Recommende d eating small meals, multiple times per day and drinking >64 ounces of water daily.Will f/u with lab results and next steps in plan of care.ER precaution s given. Vaginal discharge 825345 006 N89.8 68177 Reviewed the various causes of vaginal discharge [...] r/o yeast/BV/t rich. Abnormal u terine bleeding 2139108773 9100 N93.9 153373 Recommende d pelvic ultrasound to r/o uterine or ovarian abnormalit ies contributi ng to post-coita l bleeding.W ill f/u with results and to discuss any adjustment s in plan of care. Pain in fe male genitalia on intercourse 45025749 N94.10 1479749 Discussed common possible causes of dyspareuni a, such as infection, vaginal dryness, and positionin g during intercours e.Recommen ded comfortabl e positions during intercours e and using lubricatio n as needed.David l r/o vaginal infection with pap and vaginitis testing. Patient declined STI testing. [id number] Gui Wilkerson MD [place] [address] [address] 11/23/2024 09:23:10 11/23/2024 10:04:45 Pain in pelvis 37618672 R10.2 N93.0 079651 Health Concerns Section Related Observation LastModified by Organization Detai ls LastModified Time None Recorded Concern Status LastModified by Organization Details LastModified Time None Recorded Payers Encounter Date Sequence Insurance Name Policy Number Policy Vera Covered Member ID Vera Member ID Guarantor Name 11/23/2024 1 [place] [id number] Rossa Pricilla Aguilera , [id number] Damaris Aguilera OBGyn Episode Ob Episode Information Episode Created Date Number of Fetuses Patient Bloodtype Patient rh Status Prepregnancy Weight lbs Domestic Partner Domestic Partner Phone Father Name Procurement Internship Status 03/02/20 24 1 O Positive Rosas Aceves CLOSED Fetus Data First Name Last Name Admitted to NICU Weight (g) Sex Living Outcome Pediatric Complications Fetus ID Race Codes Race Delivery Type Ermias Marti nt [phone] [phone] M [id number] Problems Problem Notes Palpitations - 72hr Holter m onitor order faxed 04/03 [place] [facility] Problem Name Start Date End Date Resolution Snomed Code Not e Past history of pre-eclampsia [id number] pre-e wseve re features / PTL bASA [...] Date Ultra Sound Latest Days Gestation 0 03/05/2024 09/11/19 25 0 Pre- Flowsheet Flowsheet [...] Weight in lbs Pre/Post Dialysis Refused Weight 284.524294747307 BP Diastolic BP Location Tested BP Systolic BP Type 84 L arm 135 sitting Fetus Heart Rate Present A 162 Fetus Movement Comments Patient presents to [facility] care. Nausea worsening, has tried Reglan without [...] Weight in lbs Pre/Post Dialysis Refused Weight 283.354154291199 BP Diastolic BP Location Tested BP Systolic [...] Type Weight in lbs Pre/Post Dialysis Refused 283.249826322222 BP Diastolic BP Location Tested BP Systolic [...] Weight in lbs Pre/Post Dialysis Refused Weight 284.116604110024 BP Diastolic BP Location Tested BP Systolic [...]
--- OUTSIDE RECORDS SUMMARY | 2025-02-16 21:14 | XMS_ITS | Clinical Summary ---
Author Organization [facility] Address [address] [place] [address] Care Team Providers Care District Branch Manager Name Role Phone Ramila Pal MD Primary Care Provider [phone] Allergies Active Allergy Reactions Criticality Noted Date [...] Encounters Date Type Department Care Team Description 01/22/2025 Scan [facility] INFO SRVCS Scanned, Doc Med Group 11/18/2024 12:21 AM CDT - 11/18/2024 2:08 AM CDT Emergency [facility] [place] [address] Sebastien Holcomb NP Medical Screening Discharge Disposition: [...] st Contact Info) Description 02/28/2025 9:40 AM SHUTTLE HAND Office Visit [facility] Family & Internal Medicine [address] [address] Shasha Victor, DO 3 [facility]. [address] [address] 04/09/2025 10:30 AM SHUTTLE HAND Office Visit [facility] Family Medicine [facility] [address] [place] [id number] Tina Montoya MD [address] [place] [address] [id number] Health Maintenance Due Date Last Done Comments Hepatitis B Vaccines (1 of 3 - 19+ 3-dose series) 2016 PHQ-2 (Physician [place]) 03/14/2024 09/01/2023 HPV Vaccines (1 - 3-dose [...] 1:21 AM Narrative 11/18/2024 1:22 AM CDT [place] [address] INDICATION: chest pressure COMPARISON: X-ray chest 04/29/2019 TECHNIQUE: Single AP image of the chest FINDINGS: No focal airspace consolidation. No pleural effusion or pneumothorax. Cardiomediastinal silhouette and pulmonary vasculature are within normal limits. No acute osseous abnormality. Procedure Note Braxton Gallardo DO - 11/18/2024 [place] [address] INDICATION: chest pressure COMPARISON: X-ray chest 04/29/2019 TECHNIQUE: Single AP image of the chest FINDINGS: No focal airspace consolidation. No pleural effusion or pneumothorax.Cardiomediastinal silhouette and pulmonary vasculature are within normallimits. No acute osseous abnormality. IMPRESSION: 1. No acute cardiopulmonary process. Referred By: Interpreted By: Braxton Gallardo MD, 11/18/2024 1:21 AM Sebastien Holcomb HOT DOG VENDER GENERAL IMAGING Final Result * ECG 12 lead (11/18/2024 12:39 AM CDT) 11/18/2024 12:3 9 AM CDT Narrative HS-ST ARAMBULAMarilee [facility] - 11/18/2024 3:18 PM CDT [place] Test Date: 2024-11-18 Pat Name: [facility] Department: 41 Room: EXAM21 Gender: Female Park Manager: [id number] : 1995 Requested By: SEBASTIEN HOLCOMB Order Number: [id number] Reading : Maximus Verdugo Measurements Intervals [place] Rate: 72 P: 30 TN: 193 QRS: 30 QRSD: 88 T: 28 QT: 377 QTc: 414 Interpretive Statements SINUS RHYTHM Compared to ECG 01/31/2022 18:23:04 No significant changes Procedure Note Maximus Verdugo MD - 11/18/[address] [place] [address] Test Date: 2024-11-18 Pat Name: [facility] Department: 41 Room: EXAM21 Gender: Female Park Manager: [id number] : 1995 Requested By: SEBASTIEN HOLCOMB Order Number: [id number] Reading : Maximus Verdugo Measurements Intervals [place] Rate: 72 P: 30 TN: 193 QRS: 30 QRSD: 88 T: 28 QT: 377 QTc: 414 Interpretive Statements SINUS RHYTHM Compared to ECG 01/31/2022 18:23:04 No significant changes Sebastien Holcomb HOT DOG VENDER ECG ORDERABLES Final Result [facility] * CORONAVIRUS (COVID 19) (11/18/2024 12:35 AM CDT) CORONAVIRUS SARS COV 2 RNA NEGATIVE NEGATIVE 11/18/2024 12:59 AM CDT [facility] Comment: NEGATIVE RESULTS DO NOT RULE [...] SPECIMEN TYPE NASAL 11/18/2024 12:29 AM CDT [facility] NASAL STRUCTURE / Unknown 11/18/2024 12:35 AM CDT Sebastien Holcomb NP MICROBIOLOGY - GENERAL ORDERAB LES Final Result [facility] [address] [place] [address], * TSH W/REFLEX (11/18/2024 12:35 AM CDT) TSH 1.470 0.358 - 3.74 uIU/ML 11/18/2024 1:15 AM CDT [facility] Comment: HIGH DOSES OF BIOTIN MAY INTERFERE WITH THIS TEST RESULT. CORRELATION TO CLINICAL HISTORY AND PRESENTATION RECOMMENDED. FREE T4 NOT INDICATED 11/18/2024 12:3 5 AM CDT Sebastien Gibson Holcomb H[facility] DOG VENDER LABORATORY Final Result [facility] [address] [place] [address], [place] [phone] * URINALYSIS (11/18/2024 12:35 AM CDT) SPECIMEN TYPE URINE CLEAN CATCH 11/18/2024 12:23 AM CDT [facility] COLOR (U) LIGHT YELLOW 11/18/2024 12:46 AM CDT [facility] TRANSPARENCY CLEAR 11/18/2024 12:46 AM CDT [facility] SPECIFIC GRAVITY (U) 1.012 1.001 - 1.030 11/18/2024 12:46 AM CDT [facility] U PH 6.0 5.0 - 9.0 11/18/2024 12:46 AM CDT [facility] LEUKOCYTES (U) NEGATIVE NEGATIVE 11/18/2024 12:46 AM CDT [facility] NITRITES NEGATIVE NEGATIVE 11/18/2024 12:46 AM CDT [facility] PROTEIN RANDOM (U) NEGATIVE <30 MG/DL 11/18/2024 12:46 AM CDT [facility] GLUCOSE (U) NORMAL NORMAL MG/DL 11/18/2024 12:46 AM CDT [facility] KETONES MG/DL (U) NEGATIVE NEGATIVE MG/DL 11/18/2024 12:46 AM CDT [facility] UROBILINOGEN NORMAL NORMAL MG/DL 11/18/2024 12:46 AM CDT [facility] BILIRUBIN (U) NEGATIVE NEGATIVE MG/DL 11/18/2024 12:46 AM CDT [facility] BLOOD (U) NEGATIVE NEGATIVE 11/18/2024 12:46 AM CDT [facility] URINE SPECIMEN OBTAINED BY CLEAN CATCH PROCEDURE / Unknown 11/18/2024 12:35 AM CDT us Sebastien Holcomb HOT DOG VENDER URINE ORDERABLES Final Result [facility] [address] [place] [address], * (ABNORMAL) COMPREHENSIVE METABOLIC PANEL (11/18/2024 12:35 AM CDT) GLUCOSE 111(H) 70 - 99 MG/DL 11/18/2024 1:15 AM CDT [facility] BUN 7 7 - 18 MG/DL 11/18/2024 1:15 AM CDT [facility] CREATININE S/P/B 0.80 0.55 - 1.02 MG/DL 11/18/2024 1:15 AM CDT [facility] SODIUM S/P/B 139 136 - 145 MMOL/L 11/18/2024 1:15 AM CDT [facility] POTASSIUM S/P/B 3.3(L) 3.5 - 5.1 MMOL/L 11/18/2024 1:15 AM CDT [facility] CHLORIDE S/P/B 108 97 - 115 MMOL/L 11/18/2024 1:15 AM CDT [facility] CO2 28.0 21 - 32 MMOL/L 11/18/2024 1:15 AM CDT [facility] CALCIUM S/P/B 8.8 8.5 - 10.1 MG/DL 11/18/2024 1:15 AM CDT [facility] BILIRUBIN TOTAL S/P/B 0.2 0.2 - 1.2 MG/DL 11/18/2024 1:15 AM CDT [facility] Comment: THIS ASSAY IS NOT RECOMMENDED FOR PATIENTS UNDERGOING TREATMENT WITH ELTROMBOPAG DUE TO THE POTENTIAL FOR FALSELY ELEVATED RESULTS. TOTAL PROTEIN S/P/B 7.6 6.4 - 8.2 G/DL 11/18/2024 1:15 AM CDT [facility] ALBUMIN S/P/B 3.6 3.4 - 5.0 G/DL 11/18/2024 1:15 AM CDT [facility] AST 19 15 - 37 U/L 11/18/2024 1:15 AM T [facility] ALT 39 14 - 55 U/L 11/18/2024 1:15 AM CDT [facility] ALKALINE PHOSPHATASE S/P/B 77 50 - 136 U/L 11/18/2024 1:15 AM T [facility] ANION GAP 3.0 2 - 10 MMOL/L 11/18/2024 1:15 AM T [facility] BUN CREATININE RATIO 8.7 6 - 26 11/18/2024 1:15 AM T [facility] A/G RATIO 0.9(L) 1.0 - 2.0 RATIO 11/18/2024 1:15 AM T [facility] GFR ESTIMATE >90 >90 ML/MIN/1.7 3 M2 11/18/2024 1:15 AM T [facility] Comment: NOTE: eGFR is not calculated for patients <18 years of age or gender unknown. This is an estimated GFR calculation using the new CKD EPI creatinine equation without race and so does not require a correction factor for race. This estimated GFR should not be used for calculating drug doses. 11/18/2024 12:3 5 AM CDT us Sebastien Holcomb NP LABORATORY Final Result [facility] [address] [place] [address], * CBC W/DIFF AUTOMATED (11/18/2024 12:35 AM CDT) [facility] WBC 6.30 4.5 - 11.0 x10'3/uL 11/18/2024 12:57 AM CDT [facility] RBC 4.70 4.20 - 5.40 x10'6/uL 11/18/2024 12:57 AM CDT [facility] HGB 13.0 12.0 - 16.0 G/DL 11/18/2024 12:57 AM CDT [facility] HCT 39.1 38.0 - 48.0 % 11/18/2024 12:57 AM CDT [facility] MCV 83.2 81.0 - 99.0 FL 11/18/2024 12:57 AM CDT [facility] MCH 27.7 27.0 - 31.0 PG 11/18/2024 12:57 AM CDT [facility] MCHC 33.2 32.0 - 36.0 G/DL 11/18/2024 12:57 AM CDT [facility] RDW 14.2 11.5 - 14.5 % 11/18/2024 12:57 AM CDT [facility] PLT 236 130 - 400 x10'3/uL 11/18/2024 12:57 AM CDT [facility] MPV 10.1 9.3 - 12.2 FL 11/18/2024 12:57 AM CDT [facility] DIFFERENTIAL TYPE AUTOMATED DIFFERENTIAL 11/18/2024 12:57 AM CDT [facility] NEUTROPHILS % 43.6 % 11/18/2024 12:57 AM CDT [facility] LYMPHOCYTES % 47.1 % 11/18/2024 12:57 AM CDT [facility] MONOCYTES % 6.0 % 11/18/2024 12:57 AM CDT [facility] EOSINOPHILS 2.5 % 11/18/2024 12:57 AM CDT [facility] BASOPHILS 0.6 % 11/18/2024 12:57 AM CDT [facility] IMMATURE GRANS % 0.2 % 11/19/19 12:57 AM CDT [facility] ABS. NEUTROPHILS 2.74 1.80 - 7.70 x10'3/uL 11/18/2024 12:57 AM CDT [facility] ABS. LYMPHOCYTES 2.97 1.00 - 4.80 x10'3/uL 11/18/2024 12:57 AM CDT [facility] ABS. MONOCYTES 0.38 0.24 - 0.86 x10'3/uL 11/18/2024 12:57 AM CDT [facility] ABS. EOSINOPHILS 0.16 0.04 - 0.36 x10'3/uL 11/18/2024 12:57 AM CDT [facility] ABS. BASOPHILS 0.04 0.01 - 0.08 x10'3/uL 11/18/2024 12:57 AM CDT [facility] ABS. IMMATURE GRANULOCYTES 0.01 0.00 - 0.49 x10'3/uL 11/18/2024 12:57 AM CDT [facility] 11/18/2024 12:3 5 AM CDT us Sebastien Holcomb NP LABORATORY Final Result [facility] [address] [place] [address], * TROPONIN, QUANT (11/18/2024 12:35 AM CDT) TROPONIN I HIGH SENSITIVITY 3 <54 ng/L 11/18/2024 1:15 AM CDT [facility] Comment: HIGH DOSES OF BIOTIN, TROPONIN-SPECIFIC AUTOANTIBODIES, AND ANTIBODY THERAPY CONTAINING HAMA MAY INTERFERE WITH THIS TEST RESULT. CORRELATION TO CLINICAL HISTORY AND PRESENTATION RECOMMENDED. 11/18/2024 12:3 5 AM CDT us Sebastien Holcomb NP LABORATORY Final Result [facility] [address] [place] [address], * MAGNESIUM (11/18/2024 12:35 AM CDT) Pathologist [facility] MAGNESIUM 1.8 1.8 - 2.4 MG/DL 11/18/2024 1:15 AM CDT [facility] 11/18/2024 12:3 5 AM CDT us Sebastien Holcomb NP LABORATORY Final Result [facility] [address] [place] [address], * POCT urine (11/18/2024 12:29 AM CDT) Pathologist [facility] URINE HCG TEST NEGATIVE Internal Control: VALID 11/18/2024 12:2 9 AM CDT us Sebastien Holcomb NP POINT OF CARE TEST ORDERABLES Final Result * HEPATITIS C ANTIBODY (11/11/2021 11:52 AM CDT) HEPATITIS C AB NON-REACTI VE NON-REACTI VE 11/11/2021 8:19 PM CDT [facility] 11/11/2021 11:5 2 AM CDT Lindsay DUTTON LABORATORY Final Result [facility] [address] [place] [address], [place] [phone] from Last 3 Months or Most Recently Relevant to Health Maintenance Insurance [employer] [facility] Advance Directives * Full Code (Latest Code [...] 4:15 PM 04/06/2022 8:16 PM Care Teams District Branch Manager Relationship Specialty Start Date End Date Ramila Pal MD [facility] [place] [address] PCP - General FAMILY PRACTICE 12/26/23
--- OUTSIDE RECORDS SUMMARY | 2025-02-16 21:14 | XMS_ITS | Encounter Summary ---
Author Organization [facility] Address [facility] [place] [address] Care Team Providers Care Radio Producer Name Role Phone Oswaldo Avina MD Primary Care Provider [phone] Ramila Pal MD Primary Care Provider [phone] Encounter Details Date Type Department Care Team (Late st Contact Info) Description 12/12/2023 URX Message Enc [facility] [address] [address] [facility], [facility] Provider Appointment 12/13/23 Social History Tobacco Use [...] Assessment Author Status No 04/22/2022 9:51 AM GUILLOTINE TRIMMER Activ e * RETIRED Are you blind or do you have serious difficulty seeing, even when wearing glasses? Answer Date of Assessment Author Status No 04/22/2022 9:51 AM GUILLOTINE TRIMMER Activ e * Do you have serious difficulty walking or climbing stairs? Answer Date of Assessment Author Status No 04/22/2022 9:51 AM GUILLOTINE TRIMMER Rachel Upton RN Active * Do you [...] st Contact Info) Description 02/28/2025 9:40 AM GUILLOTINE TRIMMER Office Visit [facility] Family & Internal Medicine - [address] [address] Shasha Victor, DO 3 [facility]. [address] [place] [address] 04/09/2025 10:30 AM GUILLOTINE TRIMMER Office Visit [facility] Medical [facility] Family Medicine - [place] [address] [place] [address] [phone] Tina Montoya MD [address] [place] [phone] documented as of this encounter Visit Diagnoses Not on filedocumented in this encounter Additional Health Concerns Infection Onset Date Last Indicated Resolved Time COVID-19 Rule Out 01/26/2024 01/26/2024 01/26/2024 3:44 AM GUILLOTINE TRIMMER COVID-19 Rule Out 11/18/2024 11/18/2024 11/18/2024 1:00 AM CDT documented as of this encounter Care Teams Radio Producer Relationship Specialty Start Date End Date Oswaldo Avina MD PCP - General FAMILY PRACTICE 06/27/23 12/25/23 Ramila Pal MD [address] [place] [address] PCP - General FAMILY PRACTICE 12/26/23 documented as of this encounter
--- OUTSIDE RECORDS SUMMARY | 2025-02-16 21:14 | XMS_ITS | Continuity of Care Document ---
Author Organization [facility] Address [address] [place] [address] [place] [address] Assessment No assessment recorded. Plan of Treatment Reminders Order Date Submit Date Provider Last Modified By Organization Details Last Modified Time Details Appointments U/S OB SNEAK PEAK 2024 01:00P M ULTRASOUND Not available Not available Not available OB SCREEN 2024 01:30P M NIKHIL NOLASCO MD Not available Not available Not available Lab surgica l patholo gy study 2024 025 [facility] (Lab), [address], [place], [address], 12/17/2024 15:17:13 pregnan cy test, urine 2024 025 [id number] [place], [facility] [address], [place], [address], 12/14/2024 15:34:12 Referral pelvic floor therapy referra l 2024 025 [id number] [facility], [address], [place], [address], 12/25/2024 18:36:57 Procedures None recorde d. Surgeries None recorde d. Imaging None recorde d. Medication Orders estradi ol 0.01% (0.1 mg/gram ) vaginal cream 2024 025 [id number] [id number], [address], [place], [place], [id number], 12/14/2024 15:27:25 cabergo line 0.5 mg tablet 2024 025 [id number] [facility] #[id number], [address] , [place], [place], [id number], 12/14/2024 15:27:25 Patient TargetsNo targets recorded. Patient InstructionsNo instructions recorded. Reason for Referral Pelvic Floor Therapy Referra l for Pain in female genitalia on intercourse Referring Physician: Nikhil Nolasco SPEECH CORRECTION ASSISTANT, Encounter Date: 12/14/2024 Results Created Date Observation Date Name Description Value Unit Range Abnormal Flag Note LastModifiedBy Organization Detail LastModifiedTime 04/03/1904/03/2024 CMP/C BC/UR IC ACID WBC 8.4 10'3/ uL 3.5-10 .5 Not Available [facility] (Lab) [address], [place], [address], 04/04/2024 05:15:08 04/03/19 25 04/03/2024 CMP/C BC/UR IC ACID RBC 4.40 10'6/ uL (based on docume nted legal sex) 3.80-5 .20 Not Available [facility] (Lab) [address] [place], [address], 04/04/2024 05:15:08 04/03/19 25 04/03/2024 CMP/C BC/UR IC ACID HGB 11.9 g/dL (based on docume nted legal sex) 11.6-1 5.4 Not Available [facility] (Lab) [address] [place], [address], 04/04/2024 05:15:08 04/03/19 25 04/03/2024 CMP/C BC/UR IC ACID HCT 37.3 % (based on docume nted legal sex) 34.0-4 5.0 Not Available [facility] (Lab) [address] [place], [address], 04/04/2024 05:15:08 04/03/19 25 04/03/2024 CMP/C BC/UR IC ACID MCV 84.8 fL 80.0-9 9.0 Not Available [facility] (Lab) [address], [place], [address], 04/04/2024 05:15:08 04/03/19 25 04/03/2024 CMP/C BC/UR IC ACID MCH 27.0 pg 27.0-3 4.0 Not Available [facility] (Lab) [address], [place], [address], 04/04/2024 05:15:08 04/03/19 25 04/03/2024 CMP/C BC/UR IC ACID MCHC 31.9 g/dL 32.0-3 5.5 low Not Available [facility] (Lab) [address], [place], [address], 04/04/2024 05:15:08 04/03/19 25 04/03/2024 CMP/C BC/UR IC ACID RDW 14.9 % 11.0-1 5.0 Not Available [facility] (Lab) [address] [place], [address], 04/04/2024 05:15:08 04/03/19 25 04/03/2024 CMP/C BC/UR IC ACID plt 239 10'3/ uL 150-40 0 Not Available [facility] (Lab) [address], [place], [address], 04/04/2024 05:15:08 04/03/19 25 04/03/2024 CMP/C BC/UR IC ACID MPV 12.5 fL 8.8-12 .1 high Not Available [facility] (Lab) [address] [place], [address], 04/04/2024 05:15:08 04/03/19 25 04/03/2024 CMP/C BC/UR IC ACID neutrophils 62.7 % 34.0-7 3.0 Not Available [facility] (Lab) [address] [place], [address], 04/04/2024 05:15:08 04/03/19 25 04/03/2024 CMP/C BC/UR IC ACID lymphocytes 27.2 % 15.0-5 0.0 Not Available [facility] (Lab) [address] [place], [address], 04/04/2024 05:15:08 04/03/19 25 04/03/2024 CMP/C BC/UR IC ACID monocytes 6.9 % 1.0-15 .0 Not Available [facility] (Lab) [address], [place], [address], 04/04/2024 05:15:08 04/03/19 25 04/03/2024 CMP/C BC/UR IC ACID eosinophils 2.4 % 0.0-8. 0 Not Available [facility] (Lab) [address], [place], [address], 04/04/2024 05:15:08 04/03/19 25 04/03/2024 CMP/C BC/UR IC ACID basophils 0.4 % 0.0-2. 0 Not Available [facility] (Lab) [address] [place], [address], 04/04/2024 05:15:08 04/03/19 25 04/03/2024 CMP/C BC/UR [...] separ ately if prese nt. Not Available [facility] (Lab) [address] [place], [address], 04/04/2024 05:15:08 04/03/19 25 04/03/2024 CMP/C BC/UR IC ACID absolute neutrophils 5.3 10'3/ uL 1.5-8. 0 Not Available [facility] (Lab) [address], [place], [address], 04/04/2024 05:15:08 04/03/19 25 04/03/2024 CMP/C BC/UR IC ACID absolute lymphocytes 2.3 10'3/ uL 1.0-4. 0 Not Available [facility] (Lab) [address], [place], [address], 04/04/2024 05:15:08 04/03/19 25 04/03/2024 CMP/C BC/UR IC ACID absolute monocytes 0.6 10'3/ uL 0.2-1. 0 Not Available [facility] (Lab) [address], [place], [address], 04/04/2024 05:15:08 04/03/19 25 04/03/2024 CMP/C BC/UR IC ACID absolute eosinophils 0.2 10'3/ uL 0.0-0. 6 Not Available [facility] (Lab) [address] [place], [address], 04/04/2024 05:15:08 04/03/19 25 04/03/2024 CMP/C BC/UR IC ACID absolute basophils 0.0 10'3/ uL 0.0-0. 3 Not Available [facility] (Lab) [address] [place], [address], 04/04/2024 05:15:08 04/03/19 25 04/03/2024 CMP/C BC/UR [...] temple book. nm.or g/Gen derX Not Available [facility] (Lab) [address], [place], [address], 04/04/2024 05:15:08 04/03/19 25 04/03/2024 CMP/C BC/UR IC ACID uric acid 3.5 mg/dL 2.3-6. 6 Not Available [facility] (Lab) [address] [place], [address], 04/04/2024 05:15:08 04/03/19 25 04/03/2024 CMP/C BC/UR IC ACID sodium 138 mmol/ L 133-14 6 Not Available [facility] (Lab) [address], [place], [address], 04/04/2024 05:15:08 04/03/19 25 04/03/2024 CMP/C BC/UR IC ACID potassium 4.1 mmol/ L 3.5-5. 1 Not Available [facility] (Lab) [address] [place], [address], 04/04/2024 05:15:08 04/03/19 25 04/03/2024 CMP/C BC/UR IC ACID chloride 102 mmol/ L 98-107 Not Available [facility] (Lab) [address] [place], [address], 04/04/2024 05:15:08 04/03/19 25 04/03/2024 CMP/C BC/UR IC ACID carbon dioxide 27 mmol/ L 21-31 Not Available [facility] (Lab) [address] [place], [address], 04/04/2024 05:15:08 04/03/19 25 04/03/2024 CMP/C BC/UR IC ACID anion gap 9 mmol/ L 4-13 Not Available [facility] (Lab) [address] [place], [address], 04/04/2024 05:15:08 04/03/19 25 04/03/2024 CMP/C BC/UR IC ACID blood urea nitrogen 5 mg/dL 7-25 low Not Available [facility] (Lab) [address], [place], [address], 04/04/2024 05:15:08 04/03/19 25 04/03/2024 CMP/C BC/UR IC ACID creatinine 0.54 mg/dL 0.60-1 .30 low Not Available [facility] (Lab) [address], [place], [address], 04/04/2024 05:15:08 04/03/19 25 04/03/2024 CMP/C BC/UR IC ACID egfrcr (CKD-epi 2020) >90 mL/mi n/1.7 3_m2 >=60 Not Available [facility] (Lab) [address], [place], [address], 04/04/2024 05:15:08 04/03/19 25 04/03/2024 CMP/C BC/UR IC ACID calcium 9.5 mg/dL 8.3-10 .5 Not Available [facility] (Lab) [address], [place], [address], 04/04/2024 05:15:08 04/03/19 25 04/03/2024 CMP/C BC/UR IC ACID glucose 85 mg/dL 70-100 Not Available [facility] (Lab) [address], [place], [address], 04/04/2024 05:15:08 04/03/19 25 04/03/2024 CMP/C BC/UR IC ACID protein, total 6.7 g/dL 6.4-8. 3 Not Available [facility] (Lab) [address], [place], [address], 04/04/2024 05:15:08 04/03/19 25 04/03/2024 CMP/C BC/UR IC ACID albumin 3.7 g/dL 3.5-5. 0 Not Available [facility] (Lab) [address], [place], [address], 04/04/2024 05:15:08 04/03/19 25 04/03/2024 CMP/C BC/UR IC ACID ALT 9 units /L 9-43 Not Available [facility] (Lab) [address] [place], [address], 04/04/2024 05:15:08 04/03/19 25 04/03/2024 CMP/C BC/UR IC ACID alkaline phosphatase 55 units /L 34-104 Not Available [facility] (Lab) [address], [place], [address], 04/04/2024 05:15:08 04/03/19 25 04/03/2024 CMP/C BC/UR IC ACID AST 11 units /L 13-39 low Not Available [facility] (Lab) [address] [place], [address], 04/04/2024 05:15:08 04/03/19 25 04/03/2024 CMP/C BC/UR IC ACID bilirubin, total 0.2 mg/dL 0.2-1. 2 Not Available [facility] (Lab) [address] [place], [address], 04/04/2024 05:15:08 04/03/19 25 04/03/2024 PROTE IN/CR EATIN INE RATIO , URINE creatinine, urine 61.2 mg/dL R-No refer ence range estab lishe d for this assay Not Available [facility] (Lab) [address] [place], [address], 04/04/2024 05:15:09 04/03/19 25 04/03/2024 PROTE IN/CR EATIN INE RATIO , URINE protein, urine 5 mg/dL R-No refer ence range estab lishe d for this assay Not Available [facility] (Lab) [address], [place], [address], 04/04/2024 05:15:09 04/03/1904/03/2024 PROTE IN/CR EATIN INE RATIO , URINE protein/crea tinine ratio, urine 0.08 . No Refer ence Range avail able for Aideo m Urine s. A prote in to creat inine ratio of >=0.1 9 is a good predi ctor of signi fican t prote inuri a. A level of <0.14 can rule out signi fican t prote inuri a. Not Available [facility] (Lab) [address], [place], [address], 04/04/2024 05:15:09 11/20/1911/19/2024 CULTU RE: URINE result report SEE RESULT S BELOW Test: Cultu re: Urine Speci men Sourc e: Urine - Clean Catch Speci men Type: Urine Speci men Date: 025 1512 Resul t Date: 2024 1240 Resul t Statu s: Final resul t Abnor mal: No Resul ting Lab: [facility] [address] [address] Tel: CULTU RE ----- ----- ----- --- Cultu re resul t (>=3 organ isms prese nt) indic ates possi ble conta minat ion. Repea t cultu re if sympt oms indic ate. Not Available [facility] (Lab) [address], [place], [address], 11/21/2024 13:43:47 11/20/1911/19/2024 CBC W/DIF F WBC 7.6 10'3/ uL 3.5-10 .5 Not Available [facility] (Lab) [address], [place], [address], 11/26/2024 18:36:36 11/20/1911/19/2024 CBC W/DIF F RBC 4.97 10'6/ uL (based on docume nted legal sex) 3.80-5 .20 Not Available [facility] (Lab) [address], [place], [address], 11/26/2024 18:36:36 11/20/1911/19/2024 CBC W/DIF F HGB 13.7 g/dL (based on docume nted legal sex) 11.6-1 5.4 Not Available [facility] (Lab) [address], [place], [address], 11/26/2024 18:36:36 11/20/1911/19/2024 CBC W/DIF F HCT 41.5 % (based on docume nted legal sex) 34.0-4 5.0 Not Available [facility] (Lab) [address], [place], [address], 11/26/2024 18:36:36 11/20/1911/19/2024 CBC W/DIF F MCV 83.5 fL 80.0-9 9.0 Not Available [facility] (Lab) [address], [place], [address], 11/26/2024 18:36:36 11/20/1911/19/2024 CBC W/DIF F MCH 27.6 pg 27.0-3 4.0 Not Available [facility] (Lab) [address] [place], [address], 11/26/2024 18:36:36 11/20/1911/19/2024 CBC W/DIF F MCHC 33.0 g/dL 32.0-3 5.5 Not Available [facility] (Lab) [address], [place], [address], 11/26/2024 18:36:36 11/20/1911/19/2024 CBC W/DIF F RDW 14.1 % 11.0-1 5.0 Not Available [facility] (Lab) [address], [place], [address], 11/26/2024 18:36:36 11/20/1911/19/2024 CBC W/DIF F plt 271 10'3/ uL 150-40 0 Not Available [facility] (Lab) [address], [place], [address], 11/26/2024 18:36:36 11/20/1911/19/2024 CBC W/DIF F MPV 10.2 fL 8.8-12 .1 Not Available [facility] (Lab) [address], [place], [address], 11/26/2024 18:36:36 11/20/1911/19/2024 CBC W/DIF F NRBC's 0.0 % 0.0 Not Available [facility] (Lab) [address], [place], [address], 11/26/2024 18:36:36 11/20/1911/19/2024 CBC W/DIF F absolute NRBCs 0.0 10'3/ uL no refere nce range establ ished Not Available [facility] (Lab) [address], [place], [address], 11/26/2024 18:36:36 11/20/1911/19/2024 CBC W/DIF F neutrophils 60.1 % 34.0-7 3.0 Not Available [facility] (Lab) [address], [place], [address], 11/26/2024 18:36:36 11/20/1911/19/2024 CBC W/DIF F lymphocytes 30.5 % 15.0-5 0.0 Not Available [facility] (Lab) [address], [place], [address], 11/26/2024 18:36:36 11/20/1911/19/2024 CBC W/DIF F monocytes 6.3 % 1.0-15 .0 Not Available [facility] (Lab) [address], [place], [address], 11/26/2024 18:36:36 11/20/1911/19/2024 CBC W/DIF F eosinophils 2.1 % 0.0-8. 0 Not Available [facility] (Lab) [address], [place], [address], 11/26/2024 18:36:36 11/20/19 25 11/19/2024 CBC W/DIF F basophils 0.7 % 0.0-2. 0 Not Available [facility] (Lab) [address], [place], [address], 11/26/2024 18:36:36 11/20/1911/19/2024 CBC W/DIF F immature granulocytes 0.3 % no define d refere nce range Immat ure Granu locyt es (IG) repre sents autom ated enume ratio n of Metam yeloc ytes, Myelo cytes and Promy elocy arielle when IG is < 5%. Blast s are not inclu ded in IG and repor katherine separ ately if prese nt. Not Available [facility] (Lab) [address], [place], [address], 11/26/2024 18:36:36 11/20/1911/19/2024 CBC W/DIF F absolute neutrophils 4.6 10'3/ uL 1.5-8. 0 Not Available [facility] (Lab) [address], [place], [address], 11/26/2024 18:36:36 11/20/1911/19/2024 CBC W/DIF F absolute lymphocytes 2.3 10'3/ uL 1.0-4. 0 Not Available [facility] (Lab) [address], [place], [address], 11/26/2024 18:36:36 11/20/1911/19/2024 CBC W/DIF F absolute monocytes 0.5 10'3/ uL 0.2-1. 0 Not Available [facility] (Lab) [address], [place], [address], 11/26/2024 18:36:36 11/20/1911/19/2024 CBC W/DIF F absolute eosinophils 0.2 10'3/ uL 0.0-0. 6 Not Available [facility] (Lab) [address], [place], [address], 11/26/2024 18:36:36 11/20/1911/19/2024 CBC W/DIF F absolute basophils 0.1 10'3/ uL 0.0-0. 3 Not Available [facility] (Lab) [address], [place], [address], 11/26/2024 18:36:36 11/20/1911/19/2024 CBC W/DIF F absolute [...] temple book. nm.or g/gen derx Not Available [facility] (Lab) [address], [place], [address], 11/26/2024 18:36:36 11/20/1911/19/2024 TSH, REFLE X FREE T4 TSH 0.76 uIU/m L 0.30-5 .33 Not Available [facility] (Lab) [address], [place], [address], 11/26/2024 18:36:36 11/20/1911/19/2024 CMP(C OMPRE HENSI VE METAB OLIC PANEL ) sodium 140 mmol/ L 133-14 6 Not Available [facility] (Lab) [address], [place], [address], 11/26/2024 18:36:36 11/20/19 25 11/19/2024 CMP(C OMPRE HENSI VE METAB OLIC PANEL ) potassium 4.3 mmol/ L 3.5-5. 1 Not Available [facility] (Lab) [address], [place], [address], 11/26/2024 18:36:36 11/20/19 25 11/19/2024 CMP(C OMPRE HENSI VE METAB OLIC PANEL ) chloride 100 mmol/ L 98-107 Not Available [facility] (Lab) [address], [place], [address], 11/26/2024 18:36:36 11/20/19 25 11/19/2024 CMP(C OMPRE HENSI VE METAB OLIC PANEL ) carbon dioxide 30 mmol/ L 21-31 Not Available [facility] (Lab) [address], [place], [address], 11/26/2024 18:36:36 11/20/19 25 11/19/2024 CMP(C OMPRE HENSI VE METAB OLIC PANEL ) anion gap 10 mmol/ L 4-13 Not Available [facility] (Lab) [address], [place], [address], 11/26/2024 18:36:36 11/20/19 25 11/19/2024 CMP(C OMPRE HENSI VE METAB OLIC PANEL ) blood urea nitrogen 8 mg/dL 7-25 Not Available [facility] (Lab) [address], [place], [address], 11/26/2024 18:36:36 11/20/19 25 11/19/2024 CMP(C OMPRE HENSI VE METAB OLIC PANEL ) creatinine 0.86 mg/dL 0.60-1 .30 Not Available [facility] (Lab) [address], [place], [address], 11/26/2024 18:36:36 11/20/19 25 11/19/2024 CMP(C OMPRE HENSI VE METAB OLIC PANEL ) egfrcr (CKD-epi 2020) >90 mL/mi n/1.7 3_m2 >=60 Not Available [facility] (Lab) [address], [place], [address], 11/26/2024 18:36:36 11/20/19 25 11/19/2024 CMP(C OMPRE HENSI VE METAB OLIC PANEL ) calcium 9.7 mg/dL 8.3-10 .5 Not Available [facility] (Lab) [address], [place], [address], 11/26/2024 18:36:36 11/20/19 25 11/19/2024 CMP(C OMPRE HENSI VE METAB OLIC PANEL ) glucose 89 mg/dL 70-100 Not Available [facility] (Lab) [address], [place], [address], 11/26/2024 18:36:36 11/20/19 25 11/19/2024 CMP(C OMPRE HENSI VE METAB OLIC PANEL ) protein, total 7.6 g/dL 6.4-8. 3 Not Available [facility] (Lab) [address], [place], [address], 11/26/2024 18:36:36 11/20/19 25 11/19/2024 CMP(C OMPRE HENSI VE METAB OLIC PANEL ) albumin 4.5 g/dL 3.5-5. 0 Not Available [facility] (Lab) [address] [place], [address], 11/26/2024 18:36:36 11/20/19 25 11/19/2024 CMP(C OMPRE HENSI VE METAB OLIC PANEL ) ALT 27 units /L 9-43 Not Available [facility] (Lab) [address], [place], [address], 11/26/2024 18:36:36 11/20/19 25 11/19/2024 CMP(C OMPRE HENSI VE METAB OLIC PANEL ) alkaline phosphatase 81 units /L 34-104 Not Available [facility] (Lab) [address], [place], [address], 11/26/2024 18:36:36 11/20/19 25 11/19/2024 CMP(C OMPRE HENSI VE METAB OLIC PANEL ) AST 19 units /L 13-39 Not Available [facility] (Lab) [address], [place], [address], 11/26/2024 18:36:36 11/20/19 25 11/19/2024 CMP(C OMPRE HENSI VE METAB OLIC PANEL ) bilirubin, total 0.5 mg/dL 0.2-1. 2 Not Available [facility] (Lab) [address], [place], [address], 11/26/2024 18:36:36 11/20/19 25 11/19/2024 CHECO TIN / IRON / TRANS CHECO N / TIBC iron 99 ug/dL 40-170 Not Available [facility] (Lab) [address], [place], [address], 11/26/2024 18:36:37 11/20/19 25 11/19/2024 CHECO TIN / IRON / TRANS CHECO N / TIBC transferrin 268 mg/dL 200-36 0 Not Available [facility] (Lab) [address], [place], [address], 11/26/2024 18:36:37 11/20/19 25 11/19/2024 CHECO TIN / IRON / TRANS CHECO N / TIBC ferritin 25.2 NG/mL 8.0-25 2.0 Not Available [facility] (Lab) [address], [place], [address], 11/26/2024 18:36:37 11/20/19 25 11/19/2024 CHECO TIN / IRON / TRANS CHECO N / TIBC TIBC 375 ug/dL 250-45 0 Not Available [facility] (Lab) [address], [place], [address], 11/26/2024 18:36:37 11/20/1911/19/2024 CHECO TIN / IRON / TRANS CHECO N / TIBC iron saturation 26 % 20-55 Not Available [facility] (Lab) [address], [place], [address], 11/26/2024 18:36:37 11/20/1911/19/2024 VITAM IN D, 25-OH (TOTA L D2/D3 ) vitamin D, 25-hydroxy, total 28.6 NG/mL 30.0-1 00.0 low Sugge stive of Defic iency : <20 ng/mL Sugge stive of Insuf ficie ncy: 20-29 ng/mL Sugge stive of Suffi cienc y: 30-10 0 ng/mL Sugge stive of Toxic ity: >150 ng/mL Not Available [facility] (Lab) [address], [place], [address], 11/26/2024 18:36:37 11/20/1911/19/2024 VITAM IN B12 / FOLAT E PANEL vitamin B12 455 pg/mL 180-91 4 Nanette l Range : 180-9 14 pg/mL . Indet ermin ate Range : 145-1 80 pg/mL . Defic ient Range : <=145 pg/mL . Not Available [facility] (Lab) [address], [place], [address], 11/26/2024 18:36:37 11/20/1911/19/2024 VITAM IN B12 / FOLAT E PANEL folate, serum 15.5 NG/mL 6.0-20 .0 Not Available [facility] (Lab) [address], [place], [address], 11/26/2024 18:36:37 11/20/1911/19/2024 HEMOG LOBIN A1C hemoglobin [...] >8.0% Actio n sugge sted Not Available [facility] (Lab) [address], [place], [address], 11/26/2024 18:36:38 11/20/1911/19/2024 WOMEN 'S HEALT H [...] or negat zak statu s. Not Available [facility] (Lab) [address], [place], [address], 11/26/2024 18:36:38 11/20/19 25 11/19/2024 WOMEN 'S HEALT H SWAB, ANU candie species, tma Negati ve negati ve Not Available [facility] (Lab) [address], [place], [address], 11/26/2024 18:36:38 09/08/20 25 11/19/2024 WOMEN 'S HEALT H SWAB, ANU candie glabrata, tma Negati ve negati ve Not Available [facility] (Lab) [address], [place], [address], 11/26/2024 18:36:38 11/20/19 25 11/19/2024 WOMEN 'S HEALT H SWAB, ANU trichomonas vaginalis, tma Negati ve negati ve This assay tests for and diffe renti hattie larson en Ariella da glabr jovan, the Ariella da speci es group (C. albic ans, C. tropi calis , C. parap alex is, C. dubli niens is), and Trich omona s vagin leena by Trans cript ion-M ediat ed Ampli ficat ion (TMA) . Not Available [facility] (Lab) [address], [place], [address], 11/26/2024 18:36:38 11/20/1911/19/2024 IMAGE GUIDE D PAP, REFLE X HPV IF ASCUS ONLY image guided Pap, reflex HPV ASCUS only SEE RESULT S BELOW abnormal CASE REPOR T: Cytol ogy Gynec ologi mary ann Repor t Case: [id number] Autho mich harris Provi kendall: Shawna Morley , ANP, KEYPUNCHER Colle cted: 11/19 1146 Order ing Locat ion: [place] Patho log[facility] Recei maxwell: 11/20 1154 First Scree n: Ant [place] CT Patho logis t: Asher Jason MD [...] patie nt consi derat ions. Not Available [facility] (Lab) [address], [place], [address], 11/26/2024 18:36:38 11/20/1911/19/2024 urdanii lysis , dipst ick Leukocytes - Not Available Om[facility] stein [address], [place], [address], 11/19/2024 15:37:57 11/20/1911/19/2024 urina lysis , dipst ick Nitrite - Not Available [place] [address], [place], [address], 11/19/2024 15:37:57 11/20/19 25 11/19/2024 urina lysis , dipst ick Urobilinogen - Not Available [facility] earnestine [address], [place], [address], 11/19/2024 15:37:57 11/20/19 25 11/19/2024 urina lysis , dipst ick Protein trace Not Available [place] [address], [place], [address], 11/19/2024 15:37:57 11/20/19 25 11/19/2024 urina lysis , dipst ick pH 6 Not Available [place] [address], [place], [address], 11/19/2024 15:37:57 11/20/19 25 11/19/2024 urina lysis , dipst ick Specific Madeline 1.000 Not Available [facility] jeison [address], [place], [address], 11/19/2024 15:37:57 11/20/19 25 11/19/2024 urina lysis , dipst ick Ketone - Not Available [place] [address], [place], [address], 11/19/2024 15:37:57 11/20/19 25 11/19/2024 urina lysis , dipst ick [facility]irubin - [facility] [address], [place], [address], 11/19/2024 15:37:57 11/20/19 25 11/19/2024 urina lysis , dipst ick Glucose - Not Available [place] [address], [place], [address], 11/19/2024 15:37:57 11/20/1911/19/2024 urina lysis , dipst ick Appearance clear Not Available [facility] [address], [place], [address], 11/19/2024 15:37:57 11/20/1911/19/2024 urina lysis , dipst ick Color light yellow Not Available [place] [address], [place], [address], 11/19/2024 15:37:57 11/24/1911/23/2024 CULTU RE: URINE result report SEE RESULT S BELOW abnormal Test: Cultu re: Urine Speci men Sourc e: Urine - Clean Catch Speci men Type: Urine Speci men Date: 2024 1624 Resul t Date: 2024 0716 Resul t Statu s: Final resul t Abnor mal: Yes Resul chanel Lab: [facility] [address] [facility] [address] Tel: CULTU RE ----- ----- ----- --- [...] lab withi n 5 days. Not Available [facility] (Lab) [address], [place], [address], 11/25/2024 08:19:12 12/15/1912/14/2024 SURGI MARY ANN PATHO LOGY surgical pathology SEE RESULT S BELOW CASE REPOR T: Surgi mary ann Patho logy Faustino duvall Case: [id number] Autho mich harris Provi kendall: Vanessa [...] ed with the patie nt's name, mason raphi cs and EMB. [...] Gross ed by Kathryn Lucero Not Available [facility] (Lab) [address], [place], [address], 12/17/2024 15:17:13 12/15/19 25 12/14/2024 pregn jenny test, urine HCG negati ve Not Available [facility] [address], [place], [address], 12/14/2024 15:27:14 03/02/20 24 03/02/2024 US, obste tric, nucha l trans lucen cy No observ ation record ed. [email or web address] Maryanne [address], [place], [address], 03/05/2024 00:53:37 03/02/20 24 03/02/2024 US, obste tric, nucha l trans lucen cy No observ ation record ed. [facility] [address], [place], [address], 03/02/2024 15:28:10 04/04/19 25 04/04/2024 US, obste tric, limit ed No observ ation record ed. [email or web address] [facility] [address], [place], [address], 04/04/2024 18:45:07 04/04/19 25 04/04/2024 US, obste tric, limit ed No observ ation record ed. [email or web address] Maryanne [address], [place], [address], 04/05/2024 00:07:33 11/24/19 25 11/23/2024 US, pelvi s No observ ation record ed. [facility] [address], [place], [address], 11/23/2024 17:07:24 11/24/19 25 11/23/2024 US, trans vagin al No observ ation record ed. [facility] [address], [place], [address], 11/23/2024 17:07:33 11/24/19 25 11/23/2024 US, pelvi s No observ ation record ed. [email or web address] Maryanne [address], [place], [address], 11/29/2024 16:27:58 02/13/20 25 02/12/2025 US, obste tric, trans vagin al No observ ation record ed. [facility] [address], [place], [address], 02/12/2025 14:19:58 02/13/20 25 02/12/2025 US, obste tric, trans vagin al No observ ation record ed. RACHAEL Madden [address], [place], [address], 02/12/2025 11:58:48 Result Notes None recorded. Problems Name Problem SNOMED Code Status Onset Date Resolution Date Notes Provider Name and Address Organization Details Recorded Time Past pregnanc y history of pre-ecla mpsia 80530107788 9100 Completed pre-e wsevere features / PTL bASA daily 162mg Jessica alves, [facility] 15:31:26 Past pregnanc y history of pre-ecla mpsia 61264581891 9100 Active pre-e wsevere features / PTL bASA daily 162mg Jessica alves, [facility] 15:31:26 Pregnanc y 89021894 Completed 202311/19/2024 Libia alves, [facility] 11:45:43 Problem Notes None recorded. Procedures Surgical History Date Name Laterality Status Provider Name and Address Organization Details Recorded Time 025 Colposcopy completed NIKHIL NOLASCO MD [address], [place], [address], [facility] 12/14/2024 15:20:14 025 Endometrial Biopsy completed NIKHIL NOLASCO MD [address], [place], [address], [facility] 12/14/2024 15:20:26 023 Date of Last Pap Smear completed Lita Gonzalez [facility] 01/19/2024 10:16:07 010 Cholecystectomy completed Lita Gonzalez [facility] 01/19/2024 10:17:18 Imaging Results None recorded. Procedure Notes None recorded. Medical Equipment None Reported. Allergies Allergen ID Allergen Name Allergen Category Reaction Reaction Severity Criticality Documentation Date Start Date Code Code System Note Provider Name and Address Organization Details Recorded Time 31825 Product containin g penicilli n (product) medicatio n Not available Not available Not available 09/16/2022 09646 8001 SNOMED Sara alves [facility] 3 14:39:53 90745 metformin medicatio n Not available Not available high 02/12/20252023 6809 RxNorm unrec ogniz ed react ion (text : Other , code: 15515 07) (from exter nal sourc e) Not Available rachael - External Data Service - prod 5 03:14:03 28710 amoxicill in medicatio n rash Not available low 02/12/20252021 723 RxNorm Not Available rachael - External Data Service - prod 5 09:13:02 15337 ampicilli n medicatio n rash Not available low 02/12/20252017 733 RxNorm Not Available rachael - External Data Service - prod 5 09:13:02 97979 Substance with sulfonami de structure and antibacte rial mechanism of action (substanc e) medicatio n headache rash Not available Not available high 02/12/20252017 94472 8003 SNOMED Not Available rachael - External [...] Updated DateTime 12/14/2024 177.8 cm 41 kg/m2 041241.42 g 142/81 mm[Hg] Monique Anjel [facility] 12/14/2024 14:47:22 Social History Question Answer Notes LastModified by Organizat ion Details LastModified Time Tobacco Smoking Status Never Smoker Sara alves, [facility] 09/16/2022 14:43:23 Are You Blind Or [...] Any Guns Present In Your Home? No [email or web address] Information not available 03/27/2024 Are You Sexually Active? Yes [email or web address] Information not available 03/27/2024 Do You Have Smoke And Carbon Monoxide Detectors In Your Home? Yes [email or web address] Information not available 03/27/2024 Do You Use Sunscreen Routinely? No [email or web address] Information not available 03/27/2024 Do You Have Difficulty Walking Or Climbing Stairs? No Information not available 09/16/2022 Sex: Unknown Functional Status Question Answer Note LastModified by Organizat ion Details LastModified Time Do you use any illicit or recreational drugs? No [email or web address] Information not available 03/27/2024 Do you or have you ever used any other forms of tobacco or nicotine? No [email or web address] Information not available 03/27/2024 What is your level of alcohol consumption? None Information not available 09/16/2022 Are you currently employed? Yes [email or web address] Information not available 03/27/2024 Are you able [...] ICD10 Code Diagnosis IMO Codes Diagnosis Note [id number] SHAWNA ALMEIDA NP [facility] [address] [address] 11/19/2024 11:28:22 11/19/2024 14:08:31 Dizziness 713980166 R42 95224 Labs ordered to r/o causes of intermitte nt dizziness and headaches. Hx gHTN; Patient states that home BP readings have been consistent ly normal (<120/80). Recommende d eating small meals, multiple times per day and drinking >64 ounces of water daily.Will f/u with lab results and next steps in plan of care.ER precaution s given. Vaginal discharge 772448 006 N89.8 34713 Reviewed the various causes of vaginal discharge [...] r/o yeast/BV/t rich. Abnormal u terine bleeding 3438141408 9100 N93.9 928071 Recommende d pelvic ultrasound to r/o uterine or ovarian abnormalit ies contributi ng to post-coita l bleeding.W ill f/u with results and to discuss any adjustment s in plan of care. Pain in fe male genitalia on intercourse 08270731 N94.10 7077090 Discussed common possible causes of dyspareuni a, such as infection, vaginal dryness, and positionin g during intercours e.Recommen ded comfortabl e positions during intercours e and using lubricatio n as needed.David l r/o vaginal infection with pap and vaginitis testing. Patient declined STI testing. [id number] Gui Wilkerson MD [facility] [address],[place] [address] 11/23/2024 09:23:10 11/23/2024 10:04:45 Pain in pelvis 24802900 R10.2 N93.0 999298 [id number] Gui Wilkerson MD [facility] [address],[place] [address] 11/30/2024 09:53:11 12/01/2024 22:42:12 [id number] NIKHIL NOLASCO MD [facility] [address],[place] [address] 12/14/2024 14:30:52 12/14/2024 16:15:15 Pain in female genitalia on intercourse 32248361 N94.10 1341049 - patient reports superficia l and deep dyspareuni a since delivery- likely due to both genitourin kevin syndome of and pelvic floor dysfunctio n- estradiol cream and pelvic floor PT referral sent Increased 3711 0009 N64.3 738596 - patient has severe hyperlacta tion, producing [...] g landular cells on cervical Papanicolaou smear 756884925 R87.619 644397 - atypical glandular cells NOS on pap [...] Member ID Vera Member ID Guarantor Name 12/14/2024 1 [employer] [id number] Rosas Aguilera Jr [id number] Damaris Aguilera Notes Date Note Type Note Provider Name and Address Organization Details Recorded Time 12/14/2024 text/html ROS as noted in the [...] well. NIKHIL NOLASCO MD [address], [place], [address], [facility] 12/14/2024 16:05:38 OBGyn Episode Ob Episode Information Episode Created Date Number of Fetuses Patient Bloodtype Patient rh Status Prepregnancy Weight lbs Domestic Partner Domestic Partner Phone Father Name Tennis Instructor Status 03/02/20 24 1 O Positive Rosas Aceves CLOSED Fetus Data First Name Last Name Admitted to NICU Weight (g) Sex Living Outcome Pediatric Complications Fetus ID Race Codes Race Delivery Type Ermias Marti nt [phone] [id number] Problems Problem Notes Palpitations - 72hr Holter m onitor order faxed 04/03 [facility] outpatient cardiology Problem Name Start Date End Date Resolution Snomed Code Not e Past history of pre-eclampsia 858571356704068 pre-e wseve re features / PTL bASA [...] Date Ultra Sound Latest Days Gestation 0 [email or web address] 03/05/2024 09/11/19 25 0 Pre- Flowsheet Flowsheet [...] Weight in lbs Pre/Post Dialysis Refused Weight 284.012463658921 BP Diastolic BP Location Tested BP Systolic [...] Weight in lbs Pre/Post Dialysis Refused Weight 283.071019085136 BP Diastolic BP Location Tested BP Systolic [...] Type Weight in lbs Pre/Post Dialysis Refused 283.688817870528 BP Diastolic BP Location Tested BP Systolic [...] Weight in lbs Pre/Post Dialysis Refused Weight 284.388273312576 BP Diastolic BP Location Tested BP Systolic [...]
--- OUTSIDE RECORDS SUMMARY | 2025-02-16 21:14 | XMS_ITS | Encounter Summary ---
Author Organization [facility] Address Formerly [facility] [place] [address] Care Team Providers Care Nurse College Name Role Phone Oswaldo Avina MD Primary Care Provider [phone] Ramila Pal MD Primary Care Provider [phone] Encounter Details Date Type Department Care Team (Late st Contact Info) Description 12/12/2023 [email or web address] Message Enc [facility] [address] [address] [email or web address], [facility] Provider XRAY Social History Tobacco Use Types [...] Assessment Author Status No 04/22/2022 9:51 AM MEDIA LIAISON OFFICER Activ e * RETIRED Are you blind or do you have serious difficulty seeing, even when wearing glasses? Answer Date of Assessment Author Status No 04/22/2022 9:51 AM MEDIA LIAISON OFFICER Activ e * Do you have serious difficulty walking or climbing stairs? Answer Date of Assessment Author Status No 04/22/2022 9:51 AM MEDIA LIAISON OFFICER Rachel Upton RN Active * Do you [...] st Contact Info) Description 02/28/2025 9:40 AM MEDIA LIAISON OFFICER Office Visit [facility] Family & Internal Medicine [address] [address] Shasha Victor, DO [address] [address] 04/09/2025 10:30 AM MEDIA LIAISON OFFICER Office Visit [facility] Medical [facility] Family Medicine [facility] [address] [facility] [address] [place] [address] [id number] Tina Montoya MD [address] [address] documented as of this encounter Visit Diagnoses Not on filedocumented in this encounter Additional Health Concerns Infection Onset Date Last Indicated Resolved Time COVID-19 Rule Out 01/26/2024 01/26/2024 01/26/2024 3:44 AM MEDIA LIAISON OFFICER COVID-19 Rule Out 11/18/2024 11/18/2024 11/18/2024 1:00 AM CDT documented as of this encounter Care Teams Nurse College Relationship Specialty Start Date End Date Oswaldo Avina MD PCP - General FAMILY PRACTICE 06/27/23 12/25/23 Ramila Pal MD [address] [place] [address] PCP - General FAMILY PRACTICE 12/26/23 documented as of this encounter
--- OUTSIDE RECORDS SUMMARY | 2025-02-16 21:14 | XMS_ITS | Continuity of Care Document ---
Author Organization [facility] [place] Address [address] [place] [address] Assessment No assessment recorded. Plan of Treatment [...] Abnormal Flag Note LastModifiedBy Organization Detail LastModifiedTime 04/03/19 25 04/03/2024 CMP/C BC/UR IC ACID WBC 8.4 10'3/ uL 3.5-10 .5 Not Available [facility] (Lab) [address], [place], [address], 04/04/2024 05:15:08 04/03/19 25 04/03/2024 CMP/C BC/UR IC ACID RBC 4.40 10'6/ uL (based on docume nted legal sex) 3.80-5 .20 Not Available [facility] (Lab) [address], [place], [address], 04/04/2024 05:15:08 04/03/19 25 04/03/2024 CMP/C BC/UR IC ACID HGB 11.9 g/dL (based on docume nted legal sex) 11.6-1 5.4 Not Available [facility] (Lab) [address] [facility], [place], [address], 04/04/2024 05:15:08 04/03/19 25 04/03/2024 CMP/C BC/UR IC ACID HCT 37.3 % (based on docume nted legal sex) 34.0-4 5.0 Not Available [facility] (Lab) [address] [facility], [place], [address], 04/04/2024 05:15:08 04/03/19 25 04/03/2024 CMP/C BC/UR IC ACID MCV 84.8 fL 80.0-9 9.0 Not Available [facility] (Lab) [address] [facility], [place], [address], 04/04/2024 05:15:08 04/03/19 25 04/03/2024 CMP/C BC/UR IC ACID MCH 27.0 pg 27.0-3 4.0 Not Available [facility] (Lab) [address] [facility], [place], [address], 04/04/2024 05:15:08 04/03/19 25 04/03/2024 CMP/C BC/UR IC ACID MCHC 31.9 g/dL 32.0-3 5.5 low Not Available [facility] (Lab) [address] [place], [address], 04/04/2024 05:15:08 04/03/19 25 04/03/2024 CMP/C BC/UR IC ACID RDW 14.9 % 11.0-1 5.0 Not Available [facility] (Lab) [address] [place], [address], 04/04/2024 05:15:08 04/03/19 25 04/03/2024 CMP/C BC/UR IC ACID plt 239 10'3/ uL 150-40 0 Not Available [facility] (Lab) [address] [facility], [place], [address], 04/04/2024 05:15:08 04/03/19 25 04/03/2024 CMP/C BC/UR IC ACID MPV 12.5 fL 8.8-12 .1 high Not Available [facility] (Lab) [address] [facility], [place], [address], 04/04/2024 05:15:08 04/03/19 25 04/03/2024 CMP/C BC/UR IC ACID neutrophils 62.7 % 34.0-7 3.0 Not Available [facility] (Lab) [address] [facility], [place], [address], 04/04/2024 05:15:08 04/03/19 25 04/03/2024 CMP/C BC/UR IC ACID lymphocytes 27.2 % 15.0-5 0.0 Not Available [facility] (Lab) [address] [facility], [place], [address], 04/04/2024 05:15:08 04/03/19 25 04/03/2024 CMP/C BC/UR IC ACID monocytes 6.9 % 1.0-15 .0 Not Available [facility] (Lab) [address] [place], [address], 04/04/2024 05:15:08 04/03/19 25 04/03/2024 CMP/C BC/UR IC ACID eosinophils 2.4 % 0.0-8. 0 Not Available [facility] (Lab) [address] [place], [address], 04/04/2024 05:15:08 04/03/19 25 04/03/2024 CMP/C BC/UR IC ACID basophils 0.4 % 0.0-2. 0 Not Available [facility] (Lab) [address] [place], [address], 04/04/2024 05:15:08 04/03/19 25 04/03/2024 CMP/C BC/UR [...] separ ately if prese nt. Not Available [facility] (Lab) [address] , [place], [address], 04/04/2024 05:15:08 04/03/19 25 04/03/2024 CMP/C BC/UR IC ACID absolute neutrophils 5.3 10'3/ uL 1.5-8. 0 Not Available [facility] (Lab) [address], [place], [address], 04/04/2024 05:15:08 04/03/19 25 04/03/2024 CMP/C BC/UR IC ACID absolute lymphocytes 2.3 10'3/ uL 1.0-4. 0 Not Available [facility] (Lab) [address] [facility], [place], [address], 04/04/2024 05:15:08 04/03/19 25 04/03/2024 CMP/C BC/UR IC ACID absolute monocytes 0.6 10'3/ uL 0.2-1. 0 Not Available [facility] (Lab) [address], [place], [address], 04/04/2024 05:15:08 04/03/19 25 04/03/2024 CMP/C BC/UR IC ACID absolute eosinophils 0.2 10'3/ uL 0.0-0. 6 Not Available [facility] (Lab) [address] [place], [address], 04/04/2024 05:15:08 04/03/19 25 04/03/2024 CMP/C BC/UR IC ACID absolute basophils 0.0 10'3/ uL 0.0-0. 3 Not Available [facility] (Lab) [address], [place], [address], 04/04/2024 05:15:08 04/03/19 25 04/03/2024 CMP/C BC/UR IC ACID absolute immature granulocytes 0.0 10'3/ uL 0.00-0 .10 Refer ence range s for nonbi nary/ inter sex or unspe cifie d gende r patie nts have not been estab lishe d. Rukhsana e refer to the timothyo wing table for range s estab lishe d for cisge nder patie nts and evalu ate in the clini yesica isabel xt of the indiv idual patie nt: https ://[employer] book. nm.or g/Gen derX Not Available [facility] (Lab) [address], [place], [address], 04/04/2024 05:15:08 04/03/19 25 04/03/2024 CMP/C BC/UR IC ACID uric acid 3.5 mg/dL 2.3-6. 6 Not Available [facility] (Lab) [address], [place], [address], 04/04/2024 05:15:08 04/03/19 25 04/03/2024 CMP/C BC/UR IC ACID sodium 138 mmol/ L 133-14 6 Not Available [facility] (Lab) [address] [place], [address], 04/04/2024 05:15:08 04/03/19 25 04/03/2024 CMP/C BC/UR IC ACID potassium 4.1 mmol/ L 3.5-5. 1 Not Available [facility] (Lab) [address] [place], [address], 04/04/2024 05:15:08 04/03/19 25 04/03/2024 CMP/C BC/UR IC ACID chloride 102 mmol/ L 98-107 Not Available [facility] (Lab) [address] [place], [address], 04/04/2024 05:15:08 04/03/19 25 04/03/2024 CMP/C BC/UR IC ACID carbon dioxide 27 mmol/ L 21-31 Not Available [facility] (Lab) [address] [facility], [place], [address], 04/04/2024 05:15:08 04/03/19 25 04/03/2024 CMP/C BC/UR IC ACID anion gap 9 mmol/ L 4-13 Not Available [facility] (Lab) [address] [facility], [place], [address], 04/04/2024 05:15:08 04/03/19 25 04/03/2024 CMP/C BC/UR IC ACID blood urea nitrogen 5 mg/dL 7-25 low Not Available [facility] (Lab) [address] [facility], [place], [address], 04/04/2024 05:15:08 04/03/19 25 04/03/2024 CMP/C BC/UR IC ACID creatinine 0.54 mg/dL 0.60-1 .30 low Not Available [facility] (Lab) [address] [facility], [place], [address], 04/04/2024 05:15:08 04/03/19 25 04/03/2024 CMP/C BC/UR IC ACID egfrcr (CKD-epi 2020) >90 mL/mi n/1.7 3_m2 >=60 Not Available [facility] (Lab) [address] [facility], [place], [address], 04/04/2024 05:15:08 04/03/19 25 04/03/2024 CMP/C BC/UR IC ACID calcium 9.5 mg/dL 8.3-10 .5 Not Available [facility] (Lab) [address] [place], [address], 04/04/2024 05:15:08 04/03/19 25 04/03/2024 CMP/C BC/UR IC ACID glucose 85 mg/dL 70-100 Not Available [facility] (Lab) [address] [facility], [place], [address], 04/04/2024 05:15:08 04/03/19 25 04/03/2024 CMP/C BC/UR IC ACID protein, total 6.7 g/dL 6.4-8. 3 Not Available [facility] (Lab) [address] [facility], [place], [address], 04/04/2024 05:15:08 04/03/19 25 04/03/2024 CMP/C BC/UR IC ACID albumin 3.7 g/dL 3.5-5. 0 Not Available [facility] (Lab) [address] [facility], [place], [address], 04/04/2024 05:15:08 04/03/19 25 04/03/2024 CMP/C BC/UR IC ACID ALT 9 units /L 9-43 Not Available [facility] (Lab) [address] [facility], [place], [address], 04/04/2024 05:15:08 04/03/19 25 04/03/2024 CMP/C BC/UR IC ACID alkaline phosphatase 55 units /L 34-104 Not Available [facility] (Lab) [address] [place], [address], 04/04/2024 05:15:08 04/03/19 25 04/03/2024 CMP/C BC/UR IC ACID AST 11 units /L 13-39 low Not Available [facility] (Lab) [address] [facility], [place], [address], 04/04/2024 05:15:08 04/03/19 25 04/03/2024 CMP/C BC/UR IC ACID bilirubin, total 0.2 mg/dL 0.2-1. 2 Not Available [facility] (Lab) [address] [place], [address], 04/04/2024 05:15:08 04/03/19 25 04/03/2024 PROTE IN/CR EATIN INE RATIO , URINE creatinine, urine 61.2 mg/dL R-No refer ence range estab lishe d for this assay Not Available [facility] (Lab) [address] [facility], [place], [address], 04/04/2024 05:15:09 04/03/19 25 04/03/2024 PROTE IN/CR EATIN INE RATIO , URINE protein, urine 5 mg/dL R-No refer ence range estab lishe d for this assay Not Available [facility] (Lab) [address] [facility], [place], [address], 04/04/2024 05:15:09 04/03/19 25 04/03/2024 PROTE IN/CR [...] fican t prote inuri a. Not Available [facility] (Lab) [address] [facility], [place], [address], 04/04/2024 05:15:09 11/20/19 25 11/19/2024 CULTU RE: URINE result report SEE RESULT S BELOW Test: Cultu re: Urine Speci men Sourc e: Urine - Clean Catch Speci men Type: Urine Speci men Date: 025 1512 Resul t Date: 2024 1240 Resul t Statu s: Final resul t Abnor mal: No Resul ting Lab: [facility] [address] [facility] [address] Tel: CULTU RE ----- ----- ----- --- Cultu re resul t (>=3 organ isms prese nt) indic ates possi ble conta minat ion. Repea t cultu re if sympt oms indic ate. Not Available [facility] (Lab) [address], [place], [address], 11/21/2024 13:43:47 11/20/1911/19/2024 CBC W/DIF F WBC 7.6 10'3/ uL 3.5-10 .5 Not Available [facility] (Lab) [address], [place], [address], 11/26/2024 18:36:36 11/20/1911/19/2024 CBC W/DIF F RBC 4.97 10'6/ uL (based on docume nted legal sex) 3.80-5 .20 Not Available [facility] (Lab) [address], [place], [address], 11/26/2024 18:36:36 11/20/1911/19/2024 CBC W/DIF F HGB 13.7 g/dL (based on docume nted legal sex) 11.6-1 5.4 Not Available [facility] (Lab) [address], [place], [address], 11/26/2024 18:36:36 11/20/1911/19/2024 CBC W/DIF F HCT 41.5 % (based on docume nted legal sex) 34.0-4 5.0 Not Available [facility] (Lab) [address], [place], [address], 11/26/2024 18:36:36 11/20/1911/19/2024 CBC W/DIF F MCV 83.5 fL 80.0-9 9.0 Not Available [facility] (Lab) [address], [place], [address], 11/26/2024 18:36:36 11/20/1911/19/2024 CBC W/DIF F MCH 27.6 pg 27.0-3 4.0 Not Available [facility] (Lab) [address], [place], [address], 11/26/2024 18:36:36 11/20/1911/19/2024 CBC W/DIF F MCHC 33.0 g/dL 32.0-3 5.5 Not Available [facility] (Lab) [address], [place], [address], 11/26/2024 18:36:36 11/20/1911/19/2024 CBC W/DIF F RDW 14.1 % 11.0-1 5.0 Not Available [facility] (Lab) [address], [place], [address], 11/26/2024 18:36:36 11/20/1911/19/2024 CBC W/DIF F plt 271 10'3/ uL 150-40 0 Not Available [facility] (Lab) [address], [place], [address], 11/26/2024 18:36:36 11/20/19 25 11/19/2024 CBC W/DIF F MPV 10.2 fL 8.8-12 .1 Not Available [facility] (Lab) [address], [place], [address], 11/26/2024 18:36:36 11/20/1911/19/2024 CBC W/DIF F NRBC's 0.0 % 0.0 Not Available [facility] (Lab) [address], [place], [address], 11/26/2024 18:36:36 11/20/19 25 11/19/2024 CBC W/DIF F absolute NRBCs 0.0 10'3/ uL no refere nce range establ ished Not Available [facility] (Lab) [address], [place], [address], 11/26/2024 18:36:36 11/20/19 25 11/19/2024 CBC W/DIF F neutrophils 60.1 % 34.0-7 3.0 Not Available [facility] (Lab) [address] [facility], [place], [address], 11/26/2024 18:36:36 11/20/1911/19/2024 CBC W/DIF F lymphocytes 30.5 % 15.0-5 0.0 Not Available [facility] (Lab) [address] [facility], [place], [address], 11/26/2024 18:36:36 11/20/1911/19/2024 CBC W/DIF F monocytes 6.3 % 1.0-15 .0 Not Available [facility] (Lab) [address] [facility], [place], [address], 11/26/2024 18:36:36 11/20/1911/19/2024 CBC W/DIF F eosinophils 2.1 % 0.0-8. 0 Not Available [facility] (Lab) [address] [facility], [place], [address], 11/26/2024 18:36:36 11/20/19 25 11/19/2024 CBC W/DIF F basophils 0.7 % 0.0-2. 0 Not Available [facility] (Lab) [address] [facility], [place], [address], 11/26/2024 18:36:36 11/20/1911/19/2024 CBC W/DIF F immature granulocytes 0.3 % no define d refere nce range Immat ure Granu locyt es (IG) repre sents autom ated enume ratio n of Metam yeloc ytes, Myelo cytes and Promy elocy arielle when IG is < 5%. Blast s are not inclu ded in IG and repor katherine separ ately if prese nt. Not Available [facility] (Lab) [address] [facility], [place], [address], 11/26/2024 18:36:36 11/20/1911/19/2024 CBC W/DIF F absolute neutrophils 4.6 10'3/ uL 1.5-8. 0 Not Available [facility] (Lab) [address] [facility], [place], [address], 11/26/2024 18:36:36 11/20/1911/19/2024 CBC W/DIF F absolute lymphocytes 2.3 10'3/ uL 1.0-4. 0 Not Available [facility] (Lab) [address] [facility], [place], [address], 11/26/2024 18:36:36 11/20/1911/19/2024 CBC W/DIF F absolute monocytes 0.5 10'3/ uL 0.2-1. 0 Not Available [facility] (Lab) [address] [facility], [place], [address], 11/26/2024 18:36:36 11/20/1911/19/2024 CBC W/DIF F absolute eosinophils 0.2 10'3/ uL 0.0-0. 6 Not Available [facility] (Lab) [address] [facility], [place], [address], 11/26/2024 18:36:36 11/20/1911/19/2024 CBC W/DIF F absolute basophils 0.1 10'3/ uL 0.0-0. 3 Not Available [facility] (Lab) [address] [facility], [place], [address], 11/26/2024 18:36:36 11/20/1911/19/2024 CBC W/DIF F absolute immature granulocytes 0.0 10'3/ uL 0.00-0 .10 Refer ence range s for nonbi nary/ inter sex or unspe cifie d gende r patie nts have not been estab lishe d. Rukhsana e refer to the timothyo wing table for range s estab lishe d for cisge nder patie nts and evalu ate in the clini yesica isabel xt of the indiv idual patie nt: https :[email or web address] maverick book. nm.or g/gen derx Not Available [facility] (Lab) [address] [facility], [place], [address], 11/26/2024 18:36:36 11/20/19 25 11/19/2024 TSH, REFLE X FREE T4 TSH 0.76 uIU/m L 0.30-5 .33 Not Available [facility] (Lab) [address] [facility], [place], [address], 11/26/2024 18:36:36 11/20/19 25 11/19/2024 CMP(C OMPRE HENSI VE METAB OLIC PANEL ) sodium 140 mmol/ L 133-14 6 Not Available [facility] (Lab) [address] [facility], [place], [address], 11/26/2024 18:36:36 11/20/19 25 11/19/2024 CMP(C OMPRE HENSI VE METAB OLIC PANEL ) potassium 4.3 mmol/ L 3.5-5. 1 Not Available [facility] (Lab) [address] [facility], [place], [address], 11/26/2024 18:36:36 11/20/19 25 11/19/2024 CMP(C OMPRE HENSI VE METAB OLIC PANEL ) chloride 100 mmol/ L 98-107 Not Available [facility] (Lab) [address] [facility], [place], [address], 11/26/2024 18:36:36 11/20/19 25 11/19/2024 CMP(C OMPRE HENSI VE METAB OLIC PANEL ) carbon dioxide 30 mmol/ L 21-31 Not Available [facility] (Lab) [address] [facility], [place], [address], 11/26/2024 18:36:36 11/20/19 25 11/19/2024 CMP(C OMPRE HENSI VE METAB OLIC PANEL ) anion gap 10 mmol/ L 4-13 Not Available [facility] (Lab) [address] [facility], [place], [address], 11/26/2024 18:36:36 11/20/19 25 11/19/2024 CMP(C OMPRE HENSI VE METAB OLIC PANEL ) blood urea nitrogen 8 mg/dL 7-25 Not Available [facility] (Lab) [address] [facility], [place], [address], 11/26/2024 18:36:36 11/20/1911/19/2024 CMP(C OMPRE HENSI VE METAB OLIC PANEL ) creatinine 0.86 mg/dL 0.60-1 .30 Not Available [facility] (Lab) [address] [facility], [place], [address], 11/26/2024 18:36:36 11/20/19 25 11/19/2024 CMP(C OMPRE HENSI VE METAB OLIC PANEL ) egfrcr (CKD-epi 2020) >90 mL/mi n/1.7 3_m2 >=60 Not Available [facility] (Lab) [address] [facility], [place], [address], 11/26/2024 18:36:36 11/20/19 25 11/19/2024 CMP(C OMPRE HENSI VE METAB OLIC PANEL ) calcium 9.7 mg/dL 8.3-10 .5 Not Available [facility] (Lab) [address] [facility], [place], [address], 11/26/2024 18:36:36 11/20/1911/19/2024 CMP(C OMPRE HENSI VE METAB OLIC PANEL ) glucose 89 mg/dL 70-100 Not Available [facility] (Lab) [address] [facility], [place], [address], 11/26/2024 18:36:36 11/20/1911/19/2024 CMP(C OMPRE HENSI VE METAB OLIC PANEL ) protein, total 7.6 g/dL 6.4-8. 3 Not Available [facility] (Lab) [address] [facility], [place], [address], 11/26/2024 18:36:36 11/20/19 25 11/19/2024 CMP(C OMPRE HENSI VE METAB OLIC PANEL ) albumin 4.5 g/dL 3.5-5. 0 Not Available [facility] (Lab) [address] [facility], [place], [address], 11/26/2024 18:36:36 11/20/19 25 11/19/2024 CMP(C OMPRE HENSI VE METAB OLIC PANEL ) ALT 27 units /L 9-43 Not Available [facility] (Lab) [address] [facility], [place], [address], 11/26/2024 18:36:36 11/20/19 25 11/19/2024 CMP(C OMPRE HENSI VE METAB OLIC PANEL ) alkaline phosphatase 81 units /L 34-104 Not Available [facility] (Lab) [address] [facility], [place], [address], 11/26/2024 18:36:36 11/20/19 25 11/19/2024 CMP(C OMPRE HENSI VE METAB OLIC PANEL ) AST 19 units /L 13-39 Not Available [facility] (Lab) [address] [facility], [place], [address], 11/26/2024 18:36:36 11/20/19 25 11/19/2024 CMP(C OMPRE HENSI VE METAB OLIC PANEL ) bilirubin, total 0.5 mg/dL 0.2-1. 2 Not Available [facility] (Lab) [address] [facility], [place], [address], 11/26/2024 18:36:36 11/20/19 25 11/19/2024 CHECO TIN / IRON / TRANS CHECO N / TIBC iron 99 ug/dL 40-170 Not Available [facility] (Lab) [address] [place], [address], 11/26/2024 18:36:37 11/20/19 25 11/19/2024 CHECO TIN / IRON / TRANS CHECO N / TIBC transferrin 268 mg/dL 200-36 0 Not Available [facility] (Lab) [address] [facility], [place], [address], 11/26/2024 18:36:37 11/20/19 25 11/19/2024 CHECO TIN / IRON / TRANS CHECO N / TIBC ferritin 25.2 NG/mL 8.0-25 2.0 Not Available [facility] (Lab) [address] [place], [address], 11/26/2024 18:36:37 11/20/19 25 11/19/2024 CHECO TIN / IRON / TRANS CHECO N / TIBC TIBC 375 ug/dL 250-45 0 Not Available [facility] (Lab) [address] [facility], [place], [address], 11/26/2024 18:36:37 11/20/19 25 11/19/2024 CHECO TIN / IRON / TRANS CHECO N / TIBC iron saturation 26 % 20-55 Not Available [facility] (Lab) [address] [facility], [place], [address], 11/26/2024 18:36:37 11/20/19 25 11/19/2024 VITAM IN D, 25-OH (TOTA L D2/D3 ) vitamin D, 25-hydroxy, total 28.6 NG/mL 30.0-1 00.0 low Sugge stive of Defic iency : <20 ng/mL Sugge stive of Insuf ficie ncy: 20-29 ng/mL Sugge stive of Suffi cienc y: 30-10 0 ng/mL Sugge stive of Toxic ity: >150 ng/mL Not Available [facility] (Lab) [address] [place], [address], 11/26/2024 18:36:37 11/20/19 25 11/19/2024 VITAM IN B12 / FOLAT E PANEL vitamin B12 455 pg/mL 180-91 4 Nanette l Range : 180-9 14 pg/mL . Indet ermin ate Range : 145-1 80 pg/mL . Defic ient Range : <=145 pg/mL . Not Available [facility] (Lab) [address] [facility], [place], [address], 11/26/2024 18:36:37 11/20/1911/19/2024 VITAM IN B12 / FOLAT E PANEL folate, serum 15.5 NG/mL 6.0-20 .0 Not Available [facility] (Lab) [address] [facility], [place], [address], 11/26/2024 18:36:37 11/20/1911/19/2024 HEMOG LOBIN A1C hemoglobin [...] >8.0% Actio n sugge sted Not Available [facility] (Lab) [address] [facility], [place], [address], 11/26/2024 18:36:38 11/20/1911/19/2024 WOMEN 'S HEALT H [...] or negat zak statu s. Not Available [facility] (Lab) [address] [facility], [place], [address], 11/26/2024 18:36:38 11/20/19 25 11/19/2024 WOMEN 'S HEALT H SWAB, ANU candie species, tma Negati ve negati ve Not Available [facility] (Lab) [address] [facility], [place], [address], 11/26/2024 18:36:38 11/20/19 25 11/19/2024 WOMEN 'S HEALT H SWAB, ANU candie glabrata, tma Negati ve negati ve Not Available [facility] (Lab) [address] [facility], [place], [address], 11/26/2024 18:36:38 11/20/19 25 11/19/2024 WOMEN 'S [...] Ampli ficat ion (TMA) . Not Available [facility] (Lab) [address] [facility], [place], [address], 11/26/2024 18:36:38 11/20/1911/19/2024 IMAGE GUIDE D PAP, REFLE X HPV IF ASCUS ONLY image guided Pap, reflex HPV ASCUS only SEE RESULT S BELOW abnormal CASE REPOR T: Cytol ogy Gynec ologi yesica Repor t Case: [id number] Autho [place] g Provi kendall: Mikel pierce, Ramila , ANP, [employer] Colle cted: 11/19 1146 Order ing Locat [...] renti ation . COMME NT: Slide heidy rick saha lly due to rejec tion by the Thinp rep Imagi ng Syste m. CLINI YES[facility] INFOR MATIO N: Menst rual Statu s: LMP (if appli cable ): Clini yesica Histo ry/Pr eviou s Pap: Type of Neopl david (if appli cable ): Zekei winston t [facility] Findi ngs: Other Histo ry: Hormo sveta (if appli cable ): HOMAR NELSON FOLLO W-UP: Follo w up as hailee nted, based on currleyla nt guide lines and indiv idual patie nt consi derat ions. Not Available [facility] (Lab) [address], [place], [address], 11/26/2024 18:36:38 11/20/19 25 11/19/2024 urina lysis , dipst ick Leukocytes - Not Available [facility] [address], [place], [address], 11/19/2024 15:37:57 11/20/19 25 11/19/2024 urina lysis , dipst ick Nitrite - Not Available [facility] [address], [place], [address], 11/19/2024 15:37:57 11/20/19 25 11/19/2024 urina lysis , dipst ick Urobilinogen - Not Available [facility] earnestine [address], [place], [address], 11/19/2024 15:37:57 11/20/19 25 11/19/2024 urina lysis , dipst ick Protein trace Not Available [facility] [address], [place], [address], 11/19/2024 15:37:57 11/20/19 25 11/19/2024 urina lysis , dipst ick pH 6 Not Available [facility] [address], [place], [address], 11/19/2024 15:37:57 11/20/19 25 11/19/2024 urina lysis , dipst ick Specific [place] 1.000 Not Available [facility] jeison [address], [place], [address], 11/19/2024 15:37:57 11/20/19 25 11/19/2024 urina lysis , dipst ick Ketone - Not Available [facility] [address], [place], [address], 11/19/2024 15:37:57 11/20/19 25 11/19/2024 urina lysis , dipst ick Bilirubin - Not Available [facility] [address], [place], [address], 11/19/2024 15:37:57 11/20/19 25 11/19/2024 urina lysis , dipst ick Glucose - Not Available [facility] [place] [address], [place], [address], 11/19/2024 15:37:57 11/20/19 25 11/19/2024 urina lysis , dipst ick Appearance clear Not Available [facility] [address], [place], [address], 11/19/2024 15:37:57 11/20/19 25 11/19/2024 urina lysis , dipst ick Color light yellow Not Available [facility] [address], [place], [address], 11/19/2024 15:37:57 11/24/1911/23/2024 CULTU RE: URINE result report SEE RESULT S BELOW abnormal Test: Cultu re: Urine Speci men Sourc e: Urine - Clean Catch Speci men Type: Urine Speci men Date: 2024 1624 Resul t Date: 2024 0716 Resul t Statu s: Final resul t Abnor mal: Yes Resul chanel Lab: [facility] [address] [facility] [address] Tel: CULTU RE ----- ----- ----- --- [...] lab withi n 5 days. Not Available [facility] (Lab) [address], [place], [address], 11/25/2024 08:19:12 03/02/20 24 03/02/2024 US, obste tric, nucha l trans lucen cy No observ ation record ed. [email or web address] Maryanne [address], [place], [address], 03/05/2024 00:53:37 03/02/20 24 03/02/2024 US, obste tric, nucha l trans lucen cy No observ ation record ed. [facility] [address], [place], [address], 03/02/2024 15:28:10 04/04/19 25 04/04/2024 US, obste tric, limit ed No observ ation record ed. [email or web address] [facility] [address], [place], [address], 04/04/2024 18:45:07 04/04/19 25 04/04/2024 US, obste tric, limit ed No observ ation record ed. [email or web address] Maryanne [address], [place], [address], 04/05/2024 00:07:33 11/24/19 25 11/23/2024 US, pelvi s No observ ation record ed. [facility] [address], [place], [address], 11/23/2024 17:07:24 11/24/19 25 11/23/2024 US, trans vagin al No observ ation record ed. [facility] [address], [place], [address], 11/23/2024 17:07:33 11/24/19 25 11/23/2024 US, pelvi s No observ ation record ed. [email or web address] Maryanne [address], [place], [address], 11/29/2024 16:27:58 02/13/20 25 02/12/2025 US, obste tric, trans vagin al No observ ation record ed. [facility] [address], [place], [address], 02/12/2025 14:19:58 02/13/20 25 02/12/2025 US, obste tric, trans vagin al No observ ation record ed. RACHAEL Maryanne [address], [place], [address], 02/12/2025 11:58:48 Result Notes None recorded. Problems Name Problem SNOMED Code Status Onset Date Resolution Date Notes Provider Name and Address Organization Details Recorded Time Past pregnanc y history of pre-ecla mpsia 95227522587 9100 Completed pre-e wsevere features / PTL bASA daily 162mg Jessica alves, [facility] 15:31:26 Past pregnanc y history of pre-ecla mpsia 10666041242 9100 Active pre-e wsevere features / PTL bASA daily 162mg Jessica alves, [facility] 15:31:26 Pregnanc y 45298183 Completed 202311/19/2024 Libia Della alves, [facility] 11:45:43 Problem Notes None recorded. Procedures Surgical History Date Name Laterality Status Provider Name and Address Organization Details Recorded Time 025 Colposcopy completed KEELY NOLASCO MD [address], [place], [address], , [facility] 12/14/2024 15:20:14 025 Endometrial Biopsy completed KEELY NOLASCO MD [address], [place], [address], , [facility] 12/14/2024 15:20:26 023 Date of Last Pap [facility]ear [facility] 01/19/2024 10:16:07 010 Cholecystectomy completed [facility] 01/19/2024 10:17:18 Imaging Results None recorded. Procedure Notes None recorded. Medical Equipment None Reported. Allergies Allergen ID Allergen Name Allergen Category Reaction Reaction Severity Criticality Documentation Date Start Date Code Code System Note Provider Name and Address Organization Details Recorded Time Product containin g penicilli n (product) medicatio n Not available Not available Not available 09/16/2022 88967 8001 SNOMED Sara Jamari alves [facility] 3 14:39:53 58945 metformin medicatio n Not available Not available high 02/12/20252023 6809 RxNorm unrec ogniz ed react ion (text : Other , code: 65953 07) (from [facility]) Not Available rachael - External Data Service - prod 5 03:14:03 39295 amoxicill in medicatio n rash Not available low 02/12/20252021 723 RxNorm Not Available rachael - External Data Service - prod 5 09:13:02 72261 ampicilli n medicatio n rash Not available low 02/12/20252017 733 RxNorm Not Available rachael - External Data Service - prod 5 09:13:02 90718 Substance with sulfonami de structure and antibacte rial mechanism of action (substanc e) medicatio n headache rash Not available Not available high 02/12/20252017 76753 8003 SNOMED Not Available delphi - External Data Service - prod 09:13:02 Medications Name Sig Start Date Stop [...] Tobacco Smoking Status Never Smoker Sara Miguel [facility] 09/16/2022 14:43:23 Are You Blind Or [...] Any Guns Present In Your Home? No [email or web address] Information not available 03/27/2024 Are You Sexually Active? Yes [email or web address] Information not available 03/27/2024 Do You Have Smoke And Carbon Monoxide Detectors In Your Home? Yes Information not available 03/27/2024 Do You Use Sunscreen Routinely? No [email or web address] Information not available 03/27/2024 Do You Have Difficulty Walking Or Climbing Stairs? No Information not available 09/16/2022 Sex: Unknown Functional Status Question Answer Note LastModified by Organizat ion Details LastModified Time Do you use any illicit or recreational drugs? No [email or web address] Information not available 03/27/2024 Do you or have you ever used any other forms of tobacco or nicotine? No [email or web address] Information not available 03/27/2024 What is your level of alcohol consumption? None Information not available 09/16/2022 Are you currently employed? Yes [email or web address] Information not available 03/27/2024 Are you able [...] ICD10 Code Diagnosis IMO Codes Diagnosis Note [id number] RAMILA ALMEIDA NP [facility] [address] [address] 11/19/2024 11:28:22 11/19/2024 14:08:31 Dizziness [id number] R42 53132 Labs ordered to r/o causes of intermitte nt dizziness and headaches. Hx gHTN; Patient states that home BP readings have been consistent ly normal (<120/80). Recommende d eating small meals, multiple times per day and drinking >64 ounces of water daily.Will f/u with lab results and next steps in plan of care.ER precaution s given. Vaginal discharge 394393 006 N89.8 99656 Reviewed the various causes of vaginal discharge [...] r/o yeast/BV/t rich. Abnormal u terine bleeding 6410666789 9100 N93.9 [id number] Recommende d pelvic ultrasound to r/o uterine or ovarian abnormalit ies contributi ng to post-coita l bleeding.W ill f/u with results and to discuss any adjustment s in plan of care. Pain in fe male genitalia on intercourse 15802797 N94.10 [id number] Discussed common possible causes of dyspareuni a, such as infection, vaginal dryness, and positionin g during intercours e.Recommen ded comfortabl e positions during intercours e and using lubricatio n as needed.David l r/o vaginal infection with pap and vaginitis testing. Patient declined STI testing. [id number] Gui Wilkerson MD [facility] [address] [address] 11/23/2024 09:23:10 11/23/2024 10:04:45 Pain in pelvis 43494824 R10.2 N93.0 [id number] MD Arley Arenas [address] [address] 11/30/2024 09:53:11 12/01/2024 22:42:12 Health Concerns Section Related Observation LastModified by Organization Detai ls LastModified Time None Recorded Concern Status LastModified by Organization Details LastModified Time None Recorded Payers Encounter Date Sequence Insurance Name Policy Number Policy Vera Covered Member ID Vera Member ID Guarantor Name 11/30/2024 1 [employer] [id number] Rosas Aguilera [id number] Damaris Aguilera OBGyn Episode Ob Episode Information Episode Created Date Number of Fetuses Patient Bloodtype Patient rh Status Prepregnancy Weight lbs Domestic Partner Domestic Partner Phone Father Name Map Compiler Status 03/02/20 24 1 O Positive Rosas Aceves CLOSED Fetus Data First Name Last Name Admitted to NICU Weight (g) Sex Living Outcome Pediatric Complications Fetus ID Race Codes Race Delivery Type Ermias Marti nt [phone] M [id number] Problems Problem Notes Palpitations - 72hr Holter m onitor order faxed 04/03 [place] [facility] Problem Name Start Date End Date Resolution Snomed Code Not e Past history of pre-eclampsia [id number] pre-e wseve re features / PTL bASA [...] Date Ultra Sound Latest Days Gestation 0 [email or web address] 03/05/2024 09/11/19 25 0 Pre-anne Flowsheet Flowsheet [...] Weight in lbs Pre/Post Dialysis Refused Weight 284.008300100518 BP Diastolic BP Location Tested BP Systolic BP Type 84 L arm 135 sitting Fetus Heart Rate Present A 162 Fetus Movement Comments Patient presents to [facility] care. Nausea worsening, has tried Reglan [...] Weight in lbs Pre/Post Dialysis Refused Weight 283.045621761199 BP Diastolic BP Location Tested BP Systolic [...] Type Weight in lbs Pre/Post Dialysis Refused 283.058274215084 BP Diastolic BP Location Tested BP Systolic [...] Weight in lbs Pre/Post Dialysis Refused Weight 284.315126153523 BP Diastolic BP Location Tested BP Systolic [...]
[2025-02-16 21:38] LABS: Influenza A QL RT-PCR Negative (Negative); Influenza B QL RT-PCR Negative (Negative); RSV RNA, RT-PCR Negative (Negative); SARS-CoV-2 RNA PCR Negative (Negative)
[2025-02-16] MEDS: SODIUM CHLORIDE 0.9% IV 1,000 ML 999 ML IV CONT (21:40)
[2025-02-16 21:57] VITALS: TEMP 37.4
--- NOTE | 2025-02-16 22:57 | ECG_ITS ---
Test Date: 2025-02-16 23:20:29 Measurements Intervals [place] Rate: 89 P: 19 ID: 180 QRS: 20 QRSD: 90 T: 19 QT: 350 QTc: 426 Interpretive Statements SINUS RHYTHM DELAYED PRECORDIAL R/S TRANSITION BORDERLINE ECG Compared to ECG 02/16/2025 19:45:20 HEART RATE HAS DECREASED Electronically Signed On 02-17-2025 09:23:39 [employer] by Lucas Collins D.O.
[2025-02-16] MEDS: FAMOTIDINE 20 MG/2 ML VIAL IV PUSH (23:34)
[2025-02-16 23:38] VITALS: BP 133/80; PULSE 97; RESP 25; O2SAT 98
[2025-02-16 23:42] LABS: Troponin I < 0.012 ng/mL (0.000-0.034)
[2025-02-17 00:14] VITALS: BP 148/98; PULSE 95; RESP 22; O2SAT 98
== END 2025-02-17 00:16 | disposition home or self-care (01) ==
PROVIDERS: Emergency Provider Student in an Organized Health Care Education/Training Program
DX: O26.891 Other specified pregnancy related conditions, first trimester (principal); R07.9 Chest pain, unspecified; Z20.822 Contact with and (suspected) exposure to COVID-19; O99.891 Other specified diseases and conditions complicating pregnancy; R00.0 Tachycardia, unspecified; Z3A.01 Less than 8 weeks gestation of pregnancy; Z90.49 Acquired absence of other specified parts of digestive tract
CPT/HCPCS: 36415; 71046; 80053; 83690; 83735; 84484; 84702; 85025; 85380; 85610; 85730; 87637; 93005; 96361; 96374; 99284; A9270; J7030